=== PATIENT | male | born 1965 | race American Indian/Alaskan Native ===

== ENCOUNTER 2016-11-27 18:20 | Inpatient (IN) | payer MEDICARE, MEDICAID ==
--- NOTE | 2016-11-27 20:07 | C.PDOC ---
History Of Present Illness Patient, with a past medical history of end stage renal disease, hypertension, and hypercholesterolemia, is brought to the ED by ambulance from dialysis for becoming lethargic. Patient also complains of having a fever. Patient denies chest pain, nausea, or vomiting. Time Seen by Provider: 11/27/16 20:07 Chief Complaint (Nursing): Fever History Per: Patient History/Exam Limitations: no limitations Onset/Duration Of Symptoms: Mins (just prior to arrival) Current Symptoms Are (Timing): Still Present Location Of Pain: Other Sick Contacts (Context): None Associated Symptoms: Fever Ear Symptoms: Bilateral: None Severity: Mild Pain Scale Rating Of: 3 Recent travel outside of the [place]: No Additional History Per: EMS Past Medical History Reviewed: Historical Data, Nursing Documentation, Vital Signs Vital Signs: Last Vital Signs Temp 102.8 F H 11/27/16 18:36 Pulse 118 H 11/27/16 18:36 Resp 18 11/27/16 18:36 BP 152/77 H 11/27/16 18:36 Pulse Ox 91 L 11/27/16 22:02 - Medical History PMH: Anemia, HTN, Hypercholesterolemia, End Stage Renal Disease Family History: States: Unknown Family Hx - Social History Hx Alcohol Use: No Hx Substance Use: No Review Of Systems Constitutional: Positive for: Fever ENT: Negative for: Throat Pain Cardiovascular: Negative for: Chest Pain Respiratory: Positive for: Shortness of Breath Gastrointestinal: Negative for: Nausea, Vomiting Musculoskeletal: Negative for: Back Pain Skin: Negative for: Rash, Lesions, Jaundice Neurological: Negative for: Weakness Psych: Negative for: Anxiety Physical Exam - Physical Exam Appears: Non-toxic, Other (lethargic, slow to respond) Skin: Warm, Dry Head: Atraumatic, Normacephalic Eye(s): bilateral: Other (cataracts) Oral Mucosa: Dry Neck: Supple Chest: Symmetrical Cardiovascular: Rhythm Regular (tachycardic) Respiratory: No Rales, Rhonchi (scattered), No Wheezing Gastrointestinal/Abdominal: Bowel Sounds (tympanic to percussion), Soft, No Tenderness, Distention, No Guarding, No Rebound, Other (obese) Back: No CVA Tenderness Extremity: Other (bilateral below knee amputation; right AV fistula: good thrill and bruit) Neurological/Psych: Oriented x3 Gait: Unable To Assess ED Course And Treatment - Laboratory Results Result Diagrams: 11/27/16 20:21 11/27/16 20:21 ECG: Interpreted By Me, Viewed By Me ECG Rhythm: Sinus Rhythm (101), Nonspecific Changes O2 Sat by Pulse Oximetry: 91 (room air) Pulse Ox Interpretation: Abnormal - Radiology CXR: Interpreted by Me, Viewed By Me CXR Interpretation: Yes: Cardiomegaly, Other (mild chf, ? rll infiltrate). No: Fracture, Pnemothorax Progress Note: VBG, EKG, Labs, Chest x-ray, Tylenol Disposition Discussed With Dr.: Yordy Edwards Comment: accepted the pt on his service and tookover the care at 10:28 PM Doctor Will See Patient In The: Hospital Counseled Patient/Family Regarding: Studies Performed, Diagnosis - Disposition Disposition: HOSPITALIZED Disposition Time: 20:07 Condition: GUARDED - Clinical Impression Clinical Impression: Fever, CHF exacerbation, ESRD (end stage renal disease) on dialysis, Dyspnea, Pneumonia - Scribe Statement The provider has reviewed the documentation as recorded by the Gary Edwards Provider Attestation: All medical record entries made by the Scribe were at my direction and personally dictated by me. I have reviewed the chart and agree that the record accurately reflects my personal performance of the history, physical exam, medical decision making, and the department course for this patient. I have also personally directed, reviewed, and agree with the discharge instructions and disposition. Decision To Admit - Pt Status Changed To: Hospital Disposition Of: Inpatient - Admit Certification Admit to Inpatient:: After my assessment, the patient will require hospitalization for at least two midnights. This is because of the severity of symptoms shown, intensity of services needed, and/or the medical risk in this patient being treated as an outpatient. - InPatient: Physician Admission Certification:: After my assessment, the patient will require hospitalization for at least two midnights. This is because of the severity of symptoms shown, intensity of services needed, and/or the medical risk in this patient being treated as an outpatient. - . Bed Request Type: Telemetry Admitting Physician: Yordy Edwards Patient Diagnosis: Fever, CHF exacerbation, ESRD (end stage renal disease) on dialysis, Dyspnea, Pneumonia
[2016-11-27 20:33] LABS: VENOUS BLOOD GAS BASE EXCESS 7.2 mmol/L (0.0-2.0); VENOUS BLOOD GAS PCO2 51 mmHg (40-60); VENOUS BLOOD PH 7.42 (7.32-7.43)
[2016-11-27 20:34] LABS: BASO % 0.4 % (0.0-2.0); EOS % 0.2 % (0.0-4.0); LYMPH # 0.5 K/uL (1.0-4.3); LYMPH % 5.6 % (20.0-40.0); MEAN CELL VOLUME 86.2 fL (80.0-94.0); MEAN CORPUSCULAR HEMOGLOBIN 27.9 pg (27.0-31.0); MEAN CORPUSCULAR HGB CONC 32.3 g/dL (33.0-37.0); MONO # 0.6 K/uL (0.0-0.8); PLATELET COUNT 240 K/uL (130-400); RED CELL DISTRIBUTION WIDTH 19.9 % (11.5-14.5); WHITE BLOOD COUNT 8.2 K/uL (4.8-10.8)
[2016-11-27 20:41] LABS: POTASSIUM 3.9 mmol/L (3.6-5.2)
[2016-11-27 20:43] LABS: BILIRUBIN,TOTAL 0.8 mg/dL (0.2-1.3)
[2016-11-27 20:44] LABS: ALB/GLOB RATIO 1.1 (1.0-2.1); CALCIUM 8.4 mg/dl (8.6-10.4); INR 1.2; MAGNESIUM 2.1 mg/dL (1.6-2.3); PHOSPHOROUS 3.5 mg/dL (2.5-4.5); TOTAL PROTEIN 7.7 g/dL (6.3-8.3)
[2016-11-27 21:35] LABS: LARGE PLATELETS PRESENT; NEUTROPHIL 81 % (50-75); SMUDGE CELLS PRESENT; TOTAL CELLS COUNTED 100
[2016-11-27] MEDS ORDERED: Piperacillin/Tazobact 3.375 gm 100 ML IVPB STA (22:32)
[2016-11-27] MEDS ORDERED: Piperacillin/Tazobact 3.375 gm 100 ML IVPB ONE (22:50)
[2016-11-28] MEDS: Azithromycin 500 MG in Sodium Chloride 0.9% 250 ML IVPB SCH (06:16)
[2016-11-28 08:12] LABS: RBC URINE 5 /hpf (0-3); URINE BILIRUBIN NEGATIVE (NEGATIVE); URINE BLOOD NEGATIVE (NEGATIVE); URINE COLOR Yellow (YELLOW); URINE GLUCOSE (UA) NORMAL (Normal); URINE KETONE NEGATIVE (NEGATIVE); URINE LEUKOCYTE ESTERASE 3+ Leu/uL (Negative); URINE PROTEIN 2+ mg/dL (NEGATIVE); URINE UROBILINOGEN NORMAL mg/dL (0.2-1.0); WBC URINE 108 /hpf (0-5)
[2016-11-28 08:18] LABS: URINE BACTERIA MOD (<OCC)
[2016-11-28] MEDS: (Novolog) Insulin Aspart, Recombinant 100 u/ml 10 ml vial SC SCH ×4 (08:25→21:37)
--- NOTE | 2016-11-28 08:52 | RAD ---
HISTORY: Sepsis Patient COMPARISON: No prior. FINDINGS: LUNGS: Mild to moderate venous congestion. Patchy airspace opacity at the left lung base which may represent subtle infiltrate. Right hilar prominence. PLEURA: As above. CARDIOVASCULAR: Cardiomegaly. OSSEOUS STRUCTURES: No significant abnormalities. VISUALIZED UPPER ABDOMEN: Normal. OTHER FINDINGS: None. IMPRESSION: Mild to moderate venous congestion. Patchy airspace opacity at the left lung base which may represent subtle infiltrate. Right hilar prominence.
[2016-11-28] MEDS: Multivitamin Vitamin B Complex (Nephro-Vite) Tab PO SCH (09:19)
[2016-11-28] MEDS: Pantoprazole 40 mg EC Tab PO SCH (09:20)
[2016-11-28] MEDS: Insulin Detemir 100 units/ml Vial (Levemir) SC SCH ×2 (09:32→17:41)
[2016-11-28] MEDS ORDERED: cefTRIAXone IV 1 gm in Dextros 50 ML IVPB SCH (10:00)
[2016-11-28] MEDS ORDERED: Azithromycin 500 MG in Sodium Chloride 0.9% 250 ML IVPB SCH (10:00)
--- NOTE | 2016-11-28 11:03 | CP.PCM.HP ---
History of Present Illness - History of Present Illness History of Present Illness: 51 year old male with past medical history of end-stage renal disease, hypertension and hypercholesterolemia is brought to the ED by ambulance from dialysis for becoming lethargic. Patient also complains of having a fever. Patient denies chest pain, nausea or vomiting. Present on Admission - Present on Admission Any Indicators Present on Admission: No Past Patient History - Past Social History Smoking Status: Never Smoked - CARDIAC Hx Congestive Heart Failure: Yes Hx Hypercholesterolemia: Yes Hx Hypertension: Yes - PULMONARY Hx Pneumonia: Yes - NEUROLOGICAL HX Cerebrovascular Accident: Yes - HEENT Hx HEENT Problems: No - RENAL Hx Chronic Kidney Disease: Yes Hx Dialysis: Yes Type of Dialysis Access: lt arm shunt Date of Last Dialysis Treatment: 11/27/16 Hx Kidney Stones: No Hx Neurogenic Bladder: No Hx Pyelonephritis: No Hx Renal (Kidney) Cancer: No Hx Renal Failure: Yes - ENDOCRINE/METABOLIC Hx Diabetes Mellitus Type 1: Yes - HEMATOLOGICAL/ONCOLOGICAL Hx Anemia: Yes - INTEGUMENTARY Hx Dermatological Problems: No - MUSCULOSKELETAL/RHEUMATOLOGICAL Hx Falls: No - GASTROINTESTINAL Hx Gastrointestinal Disorders: No - GENITOURINARY/GYNECOLOGICAL Hx Genitourinary Disorders: No - PSYCHIATRIC Hx Psychophysiologic Disorder: No Hx Substance Use: No - SURGICAL HISTORY Other/Comment: priscila BKA, Lt avf - ANESTHESIA Hx Anesthesia: Yes Hx Anesthesia Reactions: No Hx Malignant Hyperthermia: No Has any member of the family had a problem w/ anesthesia?: No Meds Home Medications: Home Medication List Medication Instructions Recorded Confirmed Type Mag&Al/Simet/Diphen/Lido [First 3 ml PO Q6H kit 11/30/16 Rx Magic Mouthwash] Allergies/Adverse Reactions: Allergies Allergy/AdvReac Type Severity Reaction Status Date / Time No Known Allergies Allergy Unverified 11/27/16 18:43 Physical Exam - Constitutional Appears: Well - Head Exam Head Exam: ATRAUMATIC, NORMAL INSPECTION, NORMOCEPHALIC - Eye Exam Eye Exam: EOMI, Normal appearance, PERRL Pupil Exam: NORMAL ACCOMODATION, PERRL - ENT Exam ENT Exam: Mucous Membranes Moist, Normal Exam - Neck Exam Neck exam: Positive for: Normal Inspection - Respiratory Exam Respiratory Exam: Decreased Breath Sounds - Cardiovascular Exam Cardiovascular Exam: REGULAR RHYTHM, +S1, +S2 - GI/Abdominal Exam GI & Abdominal Exam: Diminished Bowel Sounds, Soft - Rectal Exam Rectal Exam: Deferred Results - Vital Signs Recent Vital Signs: Last Vital Signs Temp 98.7 F 11/28/16 07:00 Pulse 91 H 11/28/16 07:00 Resp 18 11/28/16 07:00 BP 143/60 11/28/16 07:00 Pulse Ox 96 11/28/16 07:00 - Labs Result Diagrams: 11/30/16 07:51 11/30/16 07:51 Labs: Laboratory Results - last 24 hr 11/28/16 11/28/16 06:36 07:29 POC Glucose (mg/dL) 157 H Urine Color Yellow Urine Clarity Hazy Urine pH 6.0 Ur Specific Ward 1.014 Urine Protein 2+ H Urine Glucose (UA) Normal Urine Ketones Negative Urine Blood Negative Urine Nitrate Negative Urine Bilirubin Negative Urine Urobilinogen Normal Ur Leukocyte Esterase 3+ H Urine WBC (Auto) 108 H Urine RBC (Auto) 5 H Ur Squamous Epith Cells 1 Amorphous Sediment Few H Urine Bacteria Mod H Assessment & Plan (1) Bacteremia Status: Acute (2) CHF (congestive heart failure) Status: Acute (3) CHF exacerbation Status: Acute (4) Diabetes mellitus Status: Chronic (5) Dyspnea Status: Acute (6) ESRD (end stage renal disease) on dialysis Status: Acute (7) Fever Status: Acute (8) High cholesterol Status: Acute (9) HTN (hypertension) Status: Chronic (10) Pneumonia Status: Acute (11) Prophylactic measure Status: Acute (12) UTI (urinary tract infection), bacterial Status: Acute - Assessment and Plan (Free Text) Plan: Consult pulmonary Consult shift lab technician Delfina Aspirin Coreg Porcine Zithromax Ceftriaxone Zosyn Rocephin Vancomycin Urinalysis
--- NOTE | 2016-11-28 11:12 | CP.PCM.PN ---
<Lalita Kay - Last Filed: 11/28/16 11:06> Subjective - Date & Time of Evaluation Date of Evaluation: 11/28/16 Time of Evaluation: 09:00 - Subjective Subjective: Medicine Progress Note- Dr. Edwards's Service: 51 year old AA male with PMHx of end stage renal disease on HD, hypertension, and hypercholesterolemia was admitted overnight from dialysis center for fever and lethargy.Patient seen and examined at bedside this AM. Patient has no complaints this AM. He is awake and oriented to time, place and person. No chest pain, SOB, fever, cough, headache, chest congestion, chest pain. Patient has bilateral BKA. Objective - Vital Signs/Intake and Output Vital Signs (last 24 hours): Temp Pulse Resp BP Pulse Ox 98.7 F 91 H 18 143/60 96 11/28/16 07:00 11/28/16 07:00 11/28/16 07:00 11/28/16 07:00 11/28/16 07:00 Intake and Output: 11/28/16 11/28/16 06:59 18:59 Intake Total 150 Output Total 150 Balance 0 - Medications Medications: Current Medications Acetaminophen (Tylenol 325mg Tab) 650 mg PO Q6 PRN PRN Reason: fever 101 and above Last Admin: 11/28/16 04:57 Dose: 650 mg Amlodipine Besylate (Norvasc) 20 mg PO DAILY [facility] Last Admin: 11/28/16 09:20 Dose: 20 mg Aspirin (Aspirin Chewable) 81 mg PO DAILY [facility] Last Admin: 11/28/16 09:20 Dose: 81 mg Calcitriol (Rocaltrol) 0.25 mcg PO DAILY [facility] Last Admin: 11/28/16 09:21 Dose: 0.25 mcg Carvedilol (Coreg) 6.25 mg PO BID [facility] Last Admin: 11/28/16 09:19 Dose: 6.25 mg Heparin Sodium (Porcine) (Heparin) 5,000 units SC Q12 [facility] Last Admin: 11/28/16 09:21 Dose: 5,000 units Azithromycin 500 mg/ Sodium (Chloride) 250 mls @ 250 mls/hr IVPB DAILY [facility] Last Admin: 11/28/16 06:16 Dose: 250 mls/hr Ceftriaxone Sodium 1 gm/ (Sodium Chloride) 100 mls @ 100 mls/hr IVPB DAILY [facility] Last Admin: 11/28/16 05:20 Dose: 100 mls/hr Vancomycin HCl 1 gm/ Sodium (Chloride) 250 mls @ 166.7 mls/hr IVPB DIAL PRN PRN Reason: pls give post HD Insulin Aspart (Novolog) 1 unit SC ACHS [facility] PRN Reason: Protocol Last Admin: 11/28/16 08:25 Dose: 1 unit Insulin Detemir (Levemir) 25 unit SC BID [facility] Last Admin: 11/28/16 09:32 Dose: 25 unit Pantoprazole Sodium (Protonix Ec Tab) 40 mg PO DAILY [facility] Last Admin: 11/28/16 09:20 Dose: 40 mg Rosuvastatin Calcium (Crestor) 10 mg PO HS [facility] Vitamin B Complex/Vit C/Folic Acid (Nephro-Mark) 1 tab PO DAILY [facility] Last Admin: 11/28/16 09:19 Dose: 1 tab - Labs Labs: PT 13.8 SECONDS (9.7-12.2) H 11/27/16 20:21 INR 1.2 11/27/16 20:21 APTT 32 SECONDS (21-34) 11/27/16 20:21 - Constitutional Appears: No Acute Distress - Head Exam Head Exam: NORMAL INSPECTION, NORMOCEPHALIC - Eye Exam Eye Exam: EOMI, Normal appearance - ENT Exam ENT Exam: Mucous Membranes Moist - Neck Exam Neck Exam: Full ROM, Normal Inspection - Respiratory Exam Respiratory Exam: Clear to Ausculation Bilateral, NORMAL BREATHING PATTERN - Cardiovascular Exam Cardiovascular Exam: REGULAR RHYTHM, +S1, +S2 - GI/Abdominal Exam GI & Abdominal Exam: Soft. absent: Distended, Tenderness - Extremities Exam Additional comments: bilateral BKA right AV fistula - Neurological Exam Neurological Exam: Alert, Awake, Oriented x3 - Psychiatric Exam Psychiatric exam: Normal Affect, Normal Mood - Skin Skin Exam: Normal Color, Warm Assessment and Plan (1) Fever Assessment & Plan: No leukocytosis on admission. F/U CBC this AM. T max overnight 102.4. CXR shows patchy air opacities in left lung base and right hilar prominence. Zosyn IVPB Rocephin IVPB Vanco IVPB Tylenol PRN for fever. f/u blood and urine Cx. Status: c (2) ESRD (end stage renal disease) on dialysis Assessment & Plan: Patient on HD on M, W, F Patient with AV fistula on right arm HD as scheduled. Nephro consulted . Status: c (3) Pneumonia Assessment & Plan: T max overnight 102.4. CXR shows patchy air opacities in left lung base and right hilar prominence. Pulm- Dr. Luna consulted- help appreciated. Zosyn IVPB Rocephin IVPB Vanco IVPB Status: c (4) CHF (congestive heart failure) Assessment & Plan: CXR shows cardiomegaly. Monitor on Tele. BNP 9360 EF unknown. f/u 2D ECHO Continue home meds: Coreg 6.25 mg PO BID Norvasc 20 mg PO daily Aspirin 81 mg PO daily Status: c (5) High cholesterol Assessment & Plan: Continue home meds: Crestor 10 mg PO HS Status: c (6) HTN (hypertension) Assessment & Plan: Continue home meds: Coreg 6.25 mg PO BID Norvasc 20 mg PO daily Status: c (7) Prophylactic measure Assessment & Plan: Heparin 5000 SC Q12H Protonic 40 mg PO daily Status: c - Assessment and Plan (Free Text) Assessment: Management as per Dr. Edwards <Yordy Edwards S - Last Filed: 03/14/17 21:21> Objective - Vital Signs/Intake and Output Vital Signs (last 24 hours): Temp Pulse Resp BP Pulse Ox 98.8 F 83 20 137/74 94 L 11/30/16 15:46 11/30/16 15:46 11/30/16 15:46 11/30/16 15:46 11/30/16 15:46 - Labs Labs: 11/30/16 07:51 11/30/16 07:51 PT 13.8 SECONDS (9.7-12.2) H 11/27/16 20:21 INR 1.2 11/27/16 20:21 APTT 32 SECONDS (21-34) 11/27/16 20:21 Assessment and Plan (1) Bacteremia Status: Acute (2) CHF (congestive heart failure) Status: Acute (3) CHF exacerbation Status: Acute (4) Dyspnea Status: Acute (5) ESRD (end stage renal disease) on dialysis Status: Acute (6) Fever Status: Acute (7) High cholesterol Status: Acute (8) Pneumonia Status: Acute (9) Prophylactic measure Status: Acute (10) UTI (urinary tract infection), bacterial Status: Acute (11) Diabetes mellitus Status: Chronic (12) HTN (hypertension) Status: Chronic Attending/Attestation - Attestation I have personally seen and examined this patient.: Yes I have fully participated in the care of the patient.: Yes I have reviewed all pertinent clinical information, including history, physical exam and plan: Yes Notes (Text): Case seen and discussed with the staff and the resident and agree patients on the dialysis diabetes hypertension feeling better
--- NOTE | 2016-11-28 11:18 | CP.PCM.PN ---
Subjective - Date & Time of Evaluation Date of Evaluation: 11/28/16 Time of Evaluation: 12:40 - Subjective Subjective: clinically same Objective - Vital Signs/Intake and Output Vital Signs (last 24 hours): Temp Pulse Resp BP Pulse Ox 98.7 F 91 H 18 143/60 96 11/28/16 07:00 11/28/16 07:00 11/28/16 07:00 11/28/16 07:00 11/28/16 07:00 Intake and Output: 11/28/16 11/28/16 06:59 18:59 Intake Total 150 Output Total 150 Balance 0 - Medications Medications: Current Medications Acetaminophen (Tylenol 325mg Tab) 650 mg PO Q6 PRN PRN Reason: fever 101 and above Last Admin: 11/28/16 04:57 Dose: 650 mg Amlodipine Besylate (Norvasc) 20 mg PO DAILY [facility] Last Admin: 11/28/16 09:20 Dose: 20 mg Aspirin (Aspirin Chewable) 81 mg PO DAILY [facility] Last Admin: 11/28/16 09:20 Dose: 81 mg Calcitriol (Rocaltrol) 0.25 mcg PO DAILY [facility] Last Admin: 11/28/16 09:21 Dose: 0.25 mcg Carvedilol (Coreg) 6.25 mg PO BID [facility] Last Admin: 11/28/16 09:19 Dose: 6.25 mg Heparin Sodium (Porcine) (Heparin) 5,000 units SC Q12 [facility] Last Admin: 11/28/16 09:21 Dose: 5,000 units Azithromycin 500 mg/ Sodium (Chloride) 250 mls @ 250 mls/hr IVPB DAILY [facility] Last Admin: 11/28/16 06:16 Dose: 250 mls/hr Ceftriaxone Sodium 1 gm/ (Sodium Chloride) 100 mls @ 100 mls/hr IVPB DAILY [facility] Last Admin: 11/28/16 05:20 Dose: 100 mls/hr Vancomycin HCl 1 gm/ Sodium (Chloride) 250 mls @ 166.7 mls/hr IVPB DIAL PRN PRN Reason: pls give post HD Insulin Aspart (Novolog) 1 unit SC ACHS [facility] PRN Reason: Protocol Last Admin: 11/28/16 08:25 Dose: 1 unit Insulin Detemir (Levemir) 25 unit SC BID [facility] Last Admin: 11/28/16 09:32 Dose: 25 unit Pantoprazole Sodium (Protonix Ec Tab) 40 mg PO DAILY [facility] Last Admin: 11/28/16 09:20 Dose: 40 mg Rosuvastatin Calcium (Crestor) 10 mg PO [facility] Vitamin B Complex/Vit C/Folic Acid (Nephro-Mark) 1 tab PO DAILY [facility] Last Admin: 11/28/16 09:19 Dose: 1 tab - Labs Labs: PT 13.8 SECONDS (9.7-12.2) H 11/27/16 20:21 INR 1.2 11/27/16 20:21 APTT 32 SECONDS (21-34) 11/27/16 20:21 - Constitutional Appears: Well - Head Exam Head Exam: ATRAUMATIC, NORMAL INSPECTION, NORMOCEPHALIC - Eye Exam Eye Exam: EOMI, Normal appearance, PERRL Pupil Exam: NORMAL ACCOMODATION, PERRL - ENT Exam ENT Exam: Mucous Membranes Moist, Normal Exam - Neck Exam Neck Exam: Full ROM, Normal Inspection. absent: Lymphadenopathy - Respiratory Exam Respiratory Exam: Decreased Breath Sounds - Cardiovascular Exam Cardiovascular Exam: REGULAR RHYTHM, +S1, +S2 - GI/Abdominal Exam GI & Abdominal Exam: Soft, Diminished Bowel Sounds - Rectal Exam Rectal Exam: Deferred Assessment and Plan (1) Bacteremia Status: Acute (2) CHF (congestive heart failure) Status: Acute (3) CHF exacerbation Status: Acute (4) Dyspnea Status: Acute (5) ESRD (end stage renal disease) on dialysis Status: Acute (6) Fever Status: Acute (7) High cholesterol Status: Acute (8) Pneumonia Status: Acute (9) Prophylactic measure Status: Acute (10) UTI (urinary tract infection), bacterial Status: Acute (11) Diabetes mellitus Status: Chronic (12) HTN (hypertension) Status: Chronic - Assessment and Plan (Free Text) Plan: consult pulmo consult nephrolgoist CXR shows patchy air opacities in left lung base and right hilar prominence. Zosyn IVPB Rocephin IVPB Vanco IVPB Tylenol PRN for fever. f/u blood and urine Cx.
[2016-11-28 11:38] LABS: BASO % 0.8 % (0.0-2.0); EOS % 0.6 % (0.0-4.0); HEMATOCRIT 26.6 % (35.0-51.0); LYMPH # 0.8 K/uL (1.0-4.3); LYMPH % 13.5 % (20.0-40.0); MEAN CELL VOLUME 86.5 fL (80.0-94.0); MEAN CORPUSCULAR HEMOGLOBIN 27.5 pg (27.0-31.0); MEAN CORPUSCULAR HGB CONC 31.8 g/dL (33.0-37.0); MEAN PLATELET VOLUME 8.8 fL (7.2-11.7); MONO # 0.7 K/uL (0.0-0.8); MONO % 12.7 % (0.0-10.0); NRBC % 0.1 % (0.0-2.0); RED CELL DISTRIBUTION WIDTH 19.6 % (11.5-14.5); WHITE BLOOD COUNT 5.7 K/uL (4.8-10.8)
[2016-11-28 11:48] LABS: POTASSIUM 3.9 mmol/L (3.6-5.2)
[2016-11-28 11:50] LABS: BILIRUBIN,TOTAL 0.4 mg/dL (0.2-1.3); TOTAL PROTEIN 6.8 g/dL (6.3-8.3)
[2016-11-28 11:51] LABS: CALCIUM 8.1 mg/dl (8.6-10.4); MAGNESIUM 2.1 mg/dL (1.6-2.3)
--- NOTE | 2016-11-28 12:31 | CP.PCM.CON ---
History of Present Illness - History of Present Illness History of Present Illness: 51 year old AA male with PMHx of end stage renal disease on HD, hypertension, and hypercholesterolemia was admitted overnight from dialysis center for fever and lethargy.Patient seen and examined at bedside this AM. Patient has no complaints this AM. He is awake and oriented to time, place and person. No chest pain, SOB, fever, cough, headache, chest congestion, chest pain. Patient has bilateral BKA. PMH: ESRD DM DIABETIC NEPHROPATHY PVD OBESITY PSH: BILATERAL BKA AVF WILL ARRANGE FOR DIALYSIS CONSULT DICTATED Past Patient History - Past Social History Smoking Status: Never Smoked - CARDIAC Hx Congestive Heart Failure: Yes Hx Hypercholesterolemia: Yes Hx Hypertension: Yes - PULMONARY Hx Pneumonia: Yes - NEUROLOGICAL HX Cerebrovascular Accident: Yes - HEENT Hx HEENT Problems: No - RENAL Hx Chronic Kidney Disease: Yes Hx Dialysis: Yes Type of Dialysis Access: lt arm shunt Date of Last Dialysis Treatment: 11/27/16 Hx Kidney Stones: No Hx Neurogenic Bladder: No Hx Pyelonephritis: No Hx Renal (Kidney) Cancer: No Hx Renal Failure: Yes - ENDOCRINE/METABOLIC Hx Diabetes Mellitus Type 1: Yes - HEMATOLOGICAL/ONCOLOGICAL Hx Anemia: Yes - INTEGUMENTARY Hx Dermatological Problems: No - MUSCULOSKELETAL/RHEUMATOLOGICAL Hx Falls: No - GASTROINTESTINAL Hx Gastrointestinal Disorders: No - GENITOURINARY/GYNECOLOGICAL Hx Genitourinary Disorders: No - PSYCHIATRIC Hx Psychophysiologic Disorder: No Hx Substance Use: No - SURGICAL HISTORY Other/Comment: priscila BKA, Lt avf - ANESTHESIA Hx Anesthesia: Yes Hx Anesthesia Reactions: No Hx Malignant Hyperthermia: No Has any member of the family had a problem w/ anesthesia?: No Meds Allergies/Adverse Reactions: Allergies Allergy/AdvReac Type Severity Reaction Status Date / Time No Known Allergies Allergy Unverified 11/27/16 18:43 - Medications Medications: Current Medications Acetaminophen (Tylenol 325mg Tab) 650 mg PO Q6 PRN PRN Reason: fever 101 and above Last Admin: 11/28/16 04:57 Dose: 650 mg Amlodipine Besylate (Norvasc) 20 mg PO DAILY [facility] Last Admin: 11/28/16 09:20 Dose: 20 mg Aspirin (Aspirin Chewable) 81 mg PO DAILY [facility] Last Admin: 11/28/16 09:20 Dose: 81 mg Calcitriol (Rocaltrol) 0.25 mcg PO DAILY [facility] Last Admin: 11/28/16 09:21 Dose: 0.25 mcg Carvedilol (Coreg) 6.25 mg PO BID [facility] Last Admin: 11/28/16 09:19 Dose: 6.25 mg Heparin Sodium (Porcine) (Heparin) 5,000 units SC Q12 [facility] Last Admin: 11/28/16 09:21 Dose: 5,000 units Azithromycin 500 mg/ Sodium (Chloride) 250 mls @ 250 mls/hr IVPB DAILY [facility] Last Admin: 11/28/16 06:16 Dose: 250 mls/hr Ceftriaxone Sodium 1 gm/ (Sodium Chloride) 100 mls @ 100 mls/hr IVPB DAILY [facility] Last Admin: 11/28/16 05:20 Dose: 100 mls/hr Vancomycin HCl 1 gm/ Sodium (Chloride) 250 mls @ 166.7 mls/hr IVPB DIAL PRN PRN Reason: pls give post HD Insulin Aspart (Novolog) 1 unit SC ACHS [facility] PRN Reason: Protocol Last Admin: 11/28/16 08:25 Dose: 1 unit Insulin Detemir (Levemir) 25 unit SC BID [facility] Last Admin: 11/28/16 09:32 Dose: 25 unit Pantoprazole Sodium (Protonix Ec Tab) 40 mg PO DAILY [facility] Last Admin: 11/28/16 09:20 Dose: 40 mg Rosuvastatin Calcium (Crestor) 10 mg PO [facility] Vitamin B Complex/Vit C/Folic Acid (Nephro-Mark) 1 tab PO DAILY [facility] Last Admin: 11/28/16 09:19 Dose: 1 tab Results - Vital Signs Recent Vital Signs: Last Vital Signs Temp 98.7 F 11/28/16 07:00 Pulse 91 H 11/28/16 07:00 Resp 18 11/28/16 07:00 BP 143/60 11/28/16 07:00 Pulse Ox 96 11/28/16 07:00 - Labs Result Diagrams: 11/28/16 11:21 11/28/16 11:21 Labs: Laboratory Results - last 24 hr 11/28/16 11/28/16 11/28/16 06:36 07:29 11:21 WBC 5.7 RBC 3.08 L Hgb 8.5 L Hct 26.6 L MCV 86.5 MCH 27.5 MCHC 31.8 L RDW 19.6 H Plt Count 197 MPV 8.8 Neut % (Auto) 72.4 Lymph % (Auto) 13.5 L [place] % (Auto) 12.7 H Eos % (Auto) 0.6 Baso % (Auto) 0.8 Neut # 4.1 Lymph # 0.8 L [place] # 0.7 Eos # 0.0 Baso # 0.0 Sodium 136 Potassium 3.9 Chloride 92 L Carbon Dioxide 28 Anion Gap 20 BUN 44 H Creatinine 8.9 H* D Est GFR ( Amer) 8 Est GFR (Non-Af Amer) 6 POC Glucose (mg/dL) 157 H Random Glucose 217 H Calcium 8.1 L Magnesium 2.1 Total Bilirubin 0.4 AST 47 ALT 20 L D Alkaline Phosphatase 79 Total Protein 6.8 Albumin 3.5 Globulin 3.3 Albumin/Globulin Ratio 1.0 Urine Color Yellow Urine Clarity Hazy Urine pH 6.0 Ur Specific [place] 1.014 Urine Protein 2+ H Urine Glucose (UA) Normal Urine Ketones Negative Urine Blood Negative Urine Nitrate Negative Urine Bilirubin Negative Urine Urobilinogen Normal Ur Leukocyte Esterase 3+ H Urine WBC (Auto) 108 H Urine RBC (Auto) 5 H Ur Squamous Epith Cells 1 Amorphous Sediment Few H Urine Bacteria Mod H 11/28/16 11:54 WBC RBC Hgb Hct MCV MCH MCHC RDW Plt Count MPV Neut % (Auto) Lymph % (Auto) [place] % (Auto) Eos % (Auto) Baso % (Auto) Neut # Lymph # [place] # Eos # Baso # Sodium Potassium Chloride Carbon Dioxide Anion Gap BUN Creatinine Est GFR ( Amer) Est GFR (Non-Af Amer) POC Glucose (mg/dL) 237 H Random Glucose Calcium Magnesium Total Bilirubin AST ALT Alkaline Phosphatase Total Protein Albumin Globulin Albumin/Globulin Ratio Urine Color Urine Clarity Urine pH Ur Specific [place] Urine Protein Urine Glucose (UA) Urine Ketones Urine Blood Urine Nitrate Urine Bilirubin Urine Urobilinogen Ur Leukocyte Esterase Urine WBC (Auto) Urine RBC (Auto) Ur Squamous Epith Cells Amorphous Sediment Urine Bacteria
--- NOTE | 2016-11-28 13:50 | CON ---
DATE: 11/28/2016 The patient is a 51-year-old man with past medical history of end-stage renal diseas e, he has been on maintenance hemodialysis for approximately 2 years; history of diabetic nephropathy , hypertension, dyslipidemia. Was admitted from dialysis ____ fevers and chills and increasing geoff rgy. It is unclear the source. The patient has history of bilateral BKA, but ____ well healed. He has a chronic Skinner insertion for neurogenic bladder. PAST SURGICAL HISTORY: Bilateral BKA and AV fistula. SOCIAL HISTORY: Positive for smoking. No history of alcohol abuse or illicit drug use. FAMILY HISTORY: Noncontributory. REVIEW OF SYSTEMS: Fevers and chills. He is cared because of bilateral BKA. He has a chronic Skinner . No new rashes. No chest pain. He has been obese and edematous. PHYSICAL EXAMINATION: GENERAL: He is a well-developed man. VITAL SIGNS: Blood pressure 143/____, T-max is 102.4, pulse is 91, pulse ox is 96% with a nasal kecia lisa. HEENT: Anicteric. Mouth is clear. NECK: No JVD. LUNGS: Benjamin were clear anteriorly. HEART: Regular rhythm. No murmur. ABDOMEN: Distended, no masses. EXTREMITIES: Bilateral BKA. GENITOURINARY: He had a Skinner catheter in place. Blood work showed a hemoglobin of 8.5, creatinine of 8.9, calcium of 8.1. Urinalysis showed 2+ prote in, 3+ leukocytes and moderate amount of bacteria. IMPRESSION: The patient has fevers, rule out urosepsis, end-stage renal disease, diabetic nephropath y, diabetes mellitus, hypertension, peripheral vascular disease for which he has bilateral below-knee amputation. PLAN: We will arrange for dialysis and also, we will obtain urine cultures and blood cultures as nee ded. We will follow up. Duane Ridley MD cc: [id number] TT: 11/28/2016 13:49:35 Confirmation # [id number] Dictation # [id number]
--- NOTE | 2016-11-28 17:42 | CP.PCM.CON ---
Past Patient History - Past Social History Smoking Status: Never Smoked - CARDIAC Hx Hypercholesterolemia: Yes Hx Hypertension: Yes - PULMONARY Hx Pneumonia: Yes - NEUROLOGICAL HX Cerebrovascular Accident: Yes - HEENT Hx HEENT Problems: No - RENAL Hx Renal Failure: Yes - ENDOCRINE/METABOLIC Hx Diabetes Mellitus Type 1: Yes - HEMATOLOGICAL/ONCOLOGICAL Hx Anemia: Yes - INTEGUMENTARY Hx Dermatological Problems: No - MUSCULOSKELETAL/RHEUMATOLOGICAL Hx Falls: No - GASTROINTESTINAL Hx Gastrointestinal Disorders: No - GENITOURINARY/GYNECOLOGICAL Hx Genitourinary Disorders: No - PSYCHIATRIC Hx Psychophysiologic Disorder: No Hx Substance Use: No - SURGICAL HISTORY Other/Comment: priscila BKA, Lt avf - ANESTHESIA Hx Anesthesia: Yes Hx Anesthesia Reactions: No Hx Malignant Hyperthermia: No Has any member of the family had a problem w/ anesthesia?: No Meds Allergies/Adverse Reactions: Allergies Allergy/AdvReac Type Severity Reaction Status Date / Time No Known Allergies Allergy Unverified 11/27/16 18:43 - Medications Medications: Current Medications Acetaminophen (Tylenol 325mg Tab) 650 mg PO Q6 PRN PRN Reason: fever 101 and above Last Admin: 11/28/16 04:57 Dose: 650 mg Amlodipine Besylate (Norvasc) 20 mg PO DAILY [facility] Last Admin: 11/28/16 09:20 Dose: 20 mg Aspirin (Aspirin Chewable) 81 mg PO DAILY [facility] Last Admin: 11/28/16 09:20 Dose: 81 mg Calcitriol (Rocaltrol) 0.25 mcg PO DAILY [facility] Last Admin: 11/28/16 09:21 Dose: 0.25 mcg Carvedilol (Coreg) 6.25 mg PO BID [facility] Last Admin: 11/28/16 09:19 Dose: 6.25 mg Heparin Sodium (Porcine) (Heparin) 5,000 units SC Q12 [facility] Last Admin: 11/28/16 09:21 Dose: 5,000 units Azithromycin 500 mg/ Sodium (Chloride) 250 mls @ 250 mls/hr IVPB DAILY [facility] Last Admin: 11/28/16 06:16 Dose: 250 mls/hr Ceftriaxone Sodium 1 gm/ (Sodium Chloride) 100 mls @ 100 mls/hr IVPB DAILY [facility] Last Admin: 11/28/16 05:20 Dose: 100 mls/hr Vancomycin HCl 1 gm/ Sodium (Chloride) 250 mls @ 166.7 mls/hr IVPB DIAL PRN PRN Reason: pls give post HD Insulin Aspart (Novolog) 0 unit SC ACHS [facility] PRN Reason: Protocol Insulin Detemir (Levemir) 25 unit SC BID [facility] Last Admin: 11/28/16 09:32 Dose: 25 unit Pantoprazole Sodium (Protonix Ec Tab) 40 mg PO DAILY [facility] Last Admin: 11/28/16 09:20 Dose: 40 mg Rosuvastatin Calcium (Crestor) 10 mg PO [facility] Vitamin B Complex/Vit C/Folic Acid (Nephro-Mark) 1 tab PO DAILY [facility] Last Admin: 11/28/16 09:19 Dose: 1 tab Results - Vital Signs Recent Vital Signs: Last Vital Signs Temp 99.5 F 11/28/16 15:55 Pulse 89 11/28/16 15:55 Resp 20 11/28/16 15:55 BP 131/72 11/28/16 15:55 Pulse Ox 99 11/28/16 15:55 - Labs Result Diagrams: 11/28/16 11:21 11/28/16 11:21 Labs: Laboratory Results - last 24 hr 11/28/16 11/28/16 11/28/16 06:36 07:29 11:21 WBC 5.7 RBC 3.08 L Hgb 8.5 L Hct 26.6 L MCV 86.5 MCH 27.5 MCHC 31.8 L RDW 19.6 H Plt Count 197 MPV 8.8 Neut % (Auto) 72.4 Lymph % (Auto) 13.5 L [place] % (Auto) 12.7 H Eos % (Auto) 0.6 Baso % (Auto) 0.8 Neut # 4.1 Lymph # 0.8 L [place] # 0.7 Eos # 0.0 Baso # 0.0 Sodium 136 Potassium 3.9 Chloride 92 L Carbon Dioxide 28 Anion Gap 20 BUN 44 H Creatinine 8.9 H* D Est GFR ( Amer) 8 Est GFR (Non-Af Amer) 6 POC Glucose (mg/dL) 157 H Random Glucose 217 H Calcium 8.1 L Magnesium 2.1 Total Bilirubin 0.4 AST 47 ALT 20 L D Alkaline Phosphatase 79 Total Protein 6.8 Albumin 3.5 Globulin 3.3 Albumin/Globulin Ratio 1.0 Urine Color Yellow Urine Clarity Hazy Urine pH 6.0 Ur Specific [place] 1.014 Urine Protein 2+ H Urine Glucose (UA) Normal Urine Ketones Negative Urine Blood Negative Urine Nitrate Negative Urine Bilirubin Negative Urine Urobilinogen Normal Ur Leukocyte Esterase 3+ H Urine WBC (Auto) 108 H Urine RBC (Auto) 5 H Ur Squamous Epith Cells 1 Amorphous Sediment Few H Urine Bacteria Mod H 11/28/16 11/28/16 11:54 16:57 WBC RBC Hgb Hct MCV MCH MCHC RDW Plt Count MPV Neut % (Auto) Lymph % (Auto) [place] % (Auto) Eos % (Auto) Baso % (Auto) Neut # Lymph # [place] # Eos # Baso # Sodium Potassium Chloride Carbon Dioxide Anion Gap BUN Creatinine Est GFR ( Amer) Est GFR (Non-Af Amer) POC Glucose (mg/dL) 237 H 266 H Random Glucose Calcium Magnesium Total Bilirubin AST ALT Alkaline Phosphatase Total Protein Albumin Globulin Albumin/Globulin Ratio Urine Color Urine Clarity Urine pH Ur Specific [place] Urine Protein Urine Glucose (UA) Urine Ketones Urine Blood Urine Nitrate Urine Bilirubin Urine Urobilinogen Ur Leukocyte Esterase Urine WBC (Auto) Urine RBC (Auto) Ur Squamous Epith Cells Amorphous Sediment Urine Bacteria
--- NOTE | 2016-11-28 18:52 | CARD ---
APPROVED REPORT EXAM: Two-dimensional and M-mode echocardiogram with Doppler and color Doppler. Other Information Quality : Technically LimitedRhythm : NSR INDICATION Dyspnea Congestive Heart Failure RISK FACTORS Hypertension Hyperlipidemia M-Mode DIMENSIONS RVDd0.95 (2.1-3.2cm)Left Atrium (MM)4.56 (2.5-4.0cm) IVSd0.91 (0.7-1.1cm)Aortic Root3.47 (2.2-3.7cm) LVDd5.68 (4.0-5.6cm)Aortic Cusp Exc.1.91 (1.5-2.0cm) PWd0.95 (0.7-1.1cm)FS (%) 28 % LVDs4.08 (2.0-3.8cm)LVEF (%)54 (>50%) Aortic Valve AoV Peak Zxajqiem602.1cm/Angel Peak GR.9mmHg Mitral Valve MV E Pweawups685.2cm/sMV A Kygpiuhz657.8cm/sE/A ratio1.2 TDI E/Lateral E'0.0E/Medial E'0.0 LEFT VENTRICLE The left ventricle is normal size. There is normal left ventricular wall thickness. The left ventricular function is normal. The left ventricular ejection fraction is within the normal range. There is normal LV segmental wall motion. The left ventricular diastolic function is normal. RIGHT VENTRICLE The right ventricle is normal size. There is normal right ventricular wall thickness. ATRIA The left atrium is mildly dilated. The right atrium size is normal. AORTIC VALVE The aortic valve is normal in structure. MITRAL VALVE The mitral valve is normal in structure. TRICUSPID VALVE The tricuspid valve is normal in structure. <Conclusion> Normal LV systoli cfunction. Dilaed LA. No significant valvular abnormality seen.
--- NOTE | 2016-11-28 18:54 | CARD ---
APPROVED REPORT EKG Measurement Heart [id number] <Conclusion> Sinus tachycardia with 1st degree AV block Possible Left atrial enlargement Anterior infarct, age undetermined Abnormal ECG
[2016-11-29 07:32] LABS: BASO # 0.1 K/uL (0.0-0.2); BASO % 0.7 % (0.0-2.0); EOS # 0.1 K/uL (0.0-0.7); EOS % 0.9 % (0.0-4.0); HEMATOCRIT 27.5 % (35.0-51.0); LYMPH % 8.7 % (20.0-40.0); MEAN CELL VOLUME 84.8 fL (80.0-94.0); MEAN CORPUSCULAR HEMOGLOBIN 27.7 pg (27.0-31.0); MEAN CORPUSCULAR HGB CONC 32.7 g/dL (33.0-37.0); MONO % 9.1 % (0.0-10.0); NRBC % 0.1 % (0.0-2.0); PLATELET COUNT 216 K/uL (130-400); RED CELL DISTRIBUTION WIDTH 20.1 % (11.5-14.5); WHITE BLOOD COUNT 11.3 K/uL (4.8-10.8)
[2016-11-29 07:58] LABS: POTASSIUM 3.8 mmol/L (3.6-5.2)
[2016-11-29 08:00] LABS: ALB/GLOB RATIO 1.1 (1.0-2.1); BILIRUBIN,TOTAL 0.5 mg/dL (0.2-1.3); CALCIUM 8.1 mg/dl (8.6-10.4); TOTAL PROTEIN 7.1 g/dL (6.3-8.3)
[2016-11-29 08:01] LABS: MAGNESIUM 2.2 mg/dL (1.6-2.3)
[2016-11-29] MEDS: (Novolog) Insulin Aspart, Recombinant 100 u/ml 10 ml vial SC SCH ×4 (08:15→23:33)
[2016-11-29 09:20] LABS: NEUTROPHIL 76 % (50-75); TOTAL CELLS COUNTED 100
[2016-11-29] MEDS: Multivitamin Vitamin B Complex (Nephro-Vite) Tab PO SCH (09:21)
[2016-11-29] MEDS: Pantoprazole 40 mg EC Tab PO SCH (09:22)
--- NOTE | 2016-11-29 10:52 | CP.PCM.PN ---
<Kamaljit Esteves H - Last Filed: 11/29/16 17:45> Subjective - Date & Time of Evaluation Date of Evaluation: 11/29/16 Time of Evaluation: 11:00 - Subjective Subjective: Dr. Edwards service: Patient seen while in dialysis center, unable to obtain history from patient due to his condition. He is in bed comfortable. Objective - Vital Signs/Intake and Output Vital Signs (last 24 hours): Temp Pulse Resp BP Pulse Ox 99.3 F 90 20 142/75 94 L 11/29/16 07:00 11/29/16 07:00 11/29/16 07:00 11/29/16 07:00 11/29/16 07:00 Intake and Output: 11/29/16 11/29/16 06:59 18:59 Intake Total 120 Balance 120 - Medications Medications: Current Medications Acetaminophen (Tylenol 325mg Tab) 650 mg PO Q6 PRN PRN Reason: fever 101 and above Last Admin: 11/28/16 04:57 Dose: 650 mg Amlodipine Besylate (Norvasc) 20 mg PO DAILY [facility] Last Admin: 11/29/16 09:21 Dose: 20 mg Aspirin (Aspirin Chewable) 81 mg PO DAILY [facility] Last Admin: 11/29/16 09:22 Dose: 81 mg Calcitriol (Rocaltrol) 0.25 mcg PO DAILY [facility] Last Admin: 11/29/16 09:22 Dose: 0.25 mcg Carvedilol (Coreg) 6.25 mg PO BID [facility] Last Admin: 11/29/16 09:22 Dose: 6.25 mg Heparin Sodium (Porcine) (Heparin) 5,000 units SC Q12 [facility] Last Admin: 11/29/16 09:24 Dose: Not Given Azithromycin 500 mg/ Sodium (Chloride) 250 mls @ 250 mls/hr IVPB DAILY [facility] Last Admin: 11/28/16 06:16 Dose: 250 mls/hr Ceftriaxone Sodium 1 gm/ (Sodium Chloride) 100 mls @ 100 mls/hr IVPB DAILY [facility] Last Admin: 11/28/16 05:20 Dose: 100 mls/hr Vancomycin HCl 1 gm/ Sodium (Chloride) 250 mls @ 166.7 mls/hr IVPB DIAL PRN PRN Reason: pls give post HD Insulin Aspart (Novolog) 0 unit SC ACHS [facility] PRN Reason: Protocol Last Admin: 11/29/16 08:15 Dose: 1 unit Insulin Detemir (Levemir) 25 unit SC BID [facility] Last Admin: 11/28/16 17:41 Dose: 25 unit Pantoprazole Sodium (Protonix Ec Tab) 40 mg PO DAILY [facility] Last Admin: 11/29/16 09:22 Dose: 40 mg Rosuvastatin Calcium (Crestor) 10 mg PO HS [facility] Last Admin: 11/28/16 21:36 Dose: 10 mg Vitamin B Complex/Vit C/Folic Acid (Nephro-Mark) 1 tab PO DAILY [facility] Last Admin: 11/29/16 09:21 Dose: 1 tab - Labs Labs: 11/29/16 07:20 11/29/16 07:20 PT 13.8 SECONDS (9.7-12.2) H 11/27/16 20:21 INR 1.2 11/27/16 20:21 APTT 32 SECONDS (21-34) 11/27/16 20:21 - Constitutional Appears: No Acute Distress - Head Exam Head Exam: NORMAL INSPECTION - Eye Exam Eye Exam: Normal appearance Pupil Exam: NORMAL ACCOMODATION - ENT Exam ENT Exam: Mucous Membranes Moist - Neck Exam Neck Exam: Normal Inspection - Respiratory Exam Respiratory Exam: Clear to Ausculation Bilateral. absent: Rhonchi, Wheezes - Cardiovascular Exam Cardiovascular Exam: REGULAR RHYTHM - GI/Abdominal Exam GI & Abdominal Exam: Soft, Normal Bowel Sounds. absent: Tenderness - Extremities Exam Extremities Exam: Normal Inspection - Back Exam Back Exam: NORMAL INSPECTION - Skin Skin Exam: Pallor Assessment and Plan (1) Pneumonia Assessment & Plan: On IV Rocephin day 3 and IV Vanco post dialysis. Status: c (2) High cholesterol Assessment & Plan: continue statin Status: c (3) HTN (hypertension) Assessment & Plan: continue his home medication Status: h (4) Prophylactic measure Assessment & Plan: protonix 40mg Heparin 5000 units sc q8h Status: c (5) Bacteremia Assessment & Plan: Gram positive in both the blood and urine. Dr. Oro consulted. Patient on IV antibiotics, will follow up with Dr. Oro. Patient has developed a white count with left shift. Follow up am labs, and HIV antibody screen. Status: c (6) UTI (urinary tract infection), bacterial Assessment & Plan: see not for pneumonia, Dr. Oro consulted for ID, follow up urine sensitivity. Status: c (7) Diabetes mellitus Assessment & Plan: Continue his home Levemir 25 units and also accu checks with sliding scale. Status: h <Yordy Edwards - Last Filed: 03/14/17 21:22> Objective - Vital Signs/Intake and Output Vital Signs (last 24 hours): Temp Pulse Resp BP Pulse Ox 98.8 F 83 20 137/74 94 L 11/30/16 15:46 11/30/16 15:46 11/30/16 15:46 11/30/16 15:46 11/30/16 15:46 - Labs Labs: 11/30/16 07:51 11/30/16 07:51 PT 13.8 SECONDS (9.7-12.2) H 11/27/16 20:21 INR 1.2 11/27/16 20:21 APTT 32 SECONDS (21-34) 11/27/16 20:21 Assessment and Plan (1) Bacteremia Status: Acute (2) CHF (congestive heart failure) Status: Acute (3) CHF exacerbation Status: Acute (4) Dyspnea Status: Acute (5) ESRD (end stage renal disease) on dialysis Status: Acute (6) Fever Status: Acute (7) High cholesterol Status: Acute (8) Pneumonia Status: Acute (9) Prophylactic measure Status: Acute (10) UTI (urinary tract infection), bacterial Status: Acute (11) Diabetes mellitus Status: Chronic (12) HTN (hypertension) Status: Chronic Attending/Attestation - Attestation I have personally seen and examined this patient.: Yes I have fully participated in the care of the patient.: Yes I have reviewed all pertinent clinical information, including history, physical exam and plan: Yes Notes (Text): Case seen and discussed with the staff and resident management as agreed patient is on the dialysis diabetes hypertension status post dialysis feels better
--- NOTE | 2016-11-29 13:18 | CP.PCM.PN ---
Subjective - Date & Time of Evaluation Date of Evaluation: 11/29/16 Time of Evaluation: 13:16 - Subjective Subjective: Seen at dialysis - trying to UF 2500ml + blood, urine cultures for GPC Started on IV ABs Poor historian Still very swollen- tolerating fluid removal so far Objective - Vital Signs/Intake and Output Vital Signs (last 24 hours): Temp Pulse Resp BP Pulse Ox 98.5 F 91 H 18 136/70 96 11/29/16 10:15 11/29/16 10:00 11/29/16 10:15 11/29/16 12:00 11/29/16 10:15 Intake and Output: 11/29/16 11/29/16 06:59 18:59 Intake Total 120 Balance 120 - Medications Medications: Current Medications Acetaminophen (Tylenol 325mg Tab) 650 mg PO Q6 PRN PRN Reason: fever 101 and above Last Admin: 11/28/16 04:57 Dose: 650 mg Amlodipine Besylate (Norvasc) 20 mg PO DAILY [facility] Last Admin: 11/29/16 09:21 Dose: 20 mg Aspirin (Aspirin Chewable) 81 mg PO DAILY [facility] Last Admin: 11/29/16 09:22 Dose: 81 mg Calcitriol (Rocaltrol) 0.25 mcg PO DAILY [facility] Last Admin: 11/29/16 09:22 Dose: 0.25 mcg Carvedilol (Coreg) 6.25 mg PO BID [facility] Last Admin: 11/29/16 09:22 Dose: 6.25 mg Heparin Sodium (Porcine) (Heparin) 5,000 units SC Q12 [facility] Last Admin: 11/29/16 09:24 Dose: Not Given Azithromycin 500 mg/ Sodium (Chloride) 250 mls @ 250 mls/hr IVPB DAILY [facility] Last Admin: 11/28/16 06:16 Dose: 250 mls/hr Ceftriaxone Sodium 1 gm/ (Sodium Chloride) 100 mls @ 100 mls/hr IVPB DAILY [facility] Last Admin: 11/28/16 05:20 Dose: 100 mls/hr Vancomycin HCl 1 gm/ Sodium (Chloride) 250 mls @ 166.7 mls/hr IVPB DIAL PRN PRN Reason: pls give post HD Insulin Aspart (Novolog) 0 unit SC ACHS [facility] PRN Reason: Protocol Last Admin: 11/29/16 08:15 Dose: 1 unit Insulin Detemir (Levemir) 25 unit SC BID [facility] Last Admin: 11/28/16 17:41 Dose: 25 unit Pantoprazole Sodium (Protonix Ec Tab) 40 mg PO DAILY [facility] Last Admin: 11/29/16 09:22 Dose: 40 mg Rosuvastatin Calcium (Crestor) 10 mg PO HS [facility] Last Admin: 11/28/16 21:36 Dose: 10 mg Vitamin B Complex/Vit C/Folic Acid (Nephro-Mark) 1 tab PO DAILY [facility] Last Admin: 11/29/16 09:21 Dose: 1 tab - Labs Labs: 11/29/16 07:20 11/29/16 07:20 PT 13.8 SECONDS (9.7-12.2) H 11/27/16 20:21 INR 1.2 11/27/16 20:21 APTT 32 SECONDS (21-34) 11/27/16 20:21 - Constitutional Appears: Confused, Chronically Ill - Head Exam Head Exam: ATRAUMATIC, NORMAL INSPECTION - Eye Exam Eye Exam: EOMI, Normal appearance - Neck Exam Neck Exam: Normal Inspection. absent: Tenderness - Respiratory Exam Respiratory Exam: Rhonchi, NORMAL BREATHING PATTERN - Cardiovascular Exam Cardiovascular Exam: REGULAR RHYTHM, +S1 - GI/Abdominal Exam GI & Abdominal Exam: Distended, Firm. absent: Tenderness - Extremities Exam Extremities Exam: Pedal Edema, Tenderness - Neurological Exam Neurological Exam: Awake, CN II-XII Intact - Skin Skin Exam: Dry, Warm Assessment and Plan (1) Bacteremia Status: Acute (2) CHF (congestive heart failure) Status: Acute (3) ESRD (end stage renal disease) on dialysis Status: Acute (4) Diabetes mellitus Status: Chronic (5) HTN (hypertension) Status: Chronic - Assessment and Plan (Free Text) Plan: IV ABs Dialysis with adequate UF
[2016-11-29] MEDS: Mag&Al/Simet/Diphen/Lido 237 ML KIT PO SCH ×2 (16:00→22:00)
[2016-11-29 16:10] VITALS: RESP 20
--- NOTE | 2016-11-29 16:56 | CP.PCM.PN ---
Subjective - Date & Time of Evaluation Date of Evaluation: 11/29/16 Time of Evaluation: 16:56 Objective - Vital Signs/Intake and Output Vital Signs (last 24 hours): Temp Pulse Resp BP Pulse Ox 99.4 F 99 H 20 143/75 95 11/29/16 16:04 11/29/16 16:04 11/29/16 16:04 11/29/16 16:04 11/29/16 16:04 Intake and Output: 11/29/16 11/29/16 06:59 18:59 Intake Total 120 Balance 120 - Medications Medications: Current Medications Acetaminophen (Tylenol 325mg Tab) 650 mg PO Q6 PRN PRN Reason: fever 101 and above Last Admin: 11/28/16 04:57 Dose: 650 mg Amlodipine Besylate (Norvasc) 20 mg PO DAILY [facility] Last Admin: 11/29/16 09:21 Dose: 20 mg Aspirin (Aspirin Chewable) 81 mg PO DAILY [facility] Last Admin: 11/29/16 09:22 Dose: 81 mg Calcitriol (Rocaltrol) 0.25 mcg PO DAILY [facility] Last Admin: 11/29/16 09:22 Dose: 0.25 mcg Carvedilol (Coreg) 6.25 mg PO BID [facility] Last Admin: 11/29/16 09:22 Dose: 6.25 mg Heparin Sodium (Porcine) (Heparin) 5,000 units SC Q12 [facility] Last Admin: 11/29/16 09:24 Dose: Not Given Azithromycin 500 mg/ Sodium (Chloride) 250 mls @ 250 mls/hr IVPB DAILY [facility] Last Admin: 11/28/16 06:16 Dose: 250 mls/hr Ceftriaxone Sodium 1 gm/ (Sodium Chloride) 100 mls @ 100 mls/hr IVPB DAILY [facility] Last Admin: 11/29/16 15:04 Dose: 100 mls/hr Vancomycin HCl 1 gm/ Sodium (Chloride) 250 mls @ 166.7 mls/hr IVPB DIAL PRN PRN Reason: pls give post HD Insulin Aspart (Novolog) 0 unit SC ACHS [facility] PRN Reason: Protocol Last Admin: 11/29/16 15:02 Dose: Not Given Insulin Detemir (Levemir) 25 unit SC BID [facility] Last Admin: 11/28/16 17:41 Dose: 25 unit Pantoprazole Sodium (Protonix Ec Tab) 40 mg PO DAILY [facility] Last Admin: 11/29/16 09:22 Dose: 40 mg Rosuvastatin Calcium (Crestor) 10 mg PO HS [facility] Last Admin: 11/28/16 21:36 Dose: 10 mg Saliva Substitute (First Magic Mouthwash) 3 ml PO Q6H [facility] Vitamin B Complex/Vit C/Folic Acid (Nephro-Mark) 1 tab PO DAILY [facility] Last Admin: 11/29/16 09:21 Dose: 1 tab - Labs Labs: 11/29/16 07:20 11/29/16 07:20 PT 13.8 SECONDS (9.7-12.2) H 11/27/16 20:21 INR 1.2 11/27/16 20:21 APTT 32 SECONDS (21-34) 11/27/16 20:21
[2016-11-29] MEDS: Insulin Detemir 100 units/ml Vial (Levemir) SC SCH (17:22)
--- NOTE | 2016-11-29 18:23 | CP.PCM.CON ---
History of Present Illness - History of Present Illness History of Present Illness: Patient, with a past medical history of end stage renal disease, hypertension, and hypercholesterolemia, is brought to the ED by ambulance from dialysis for becoming lethargic. Patient also complains of having a fever. Patient denies chest pain, nausea, or vomiting.\ + BLOOD C/S IV RX IN PROGRESS MAY NEED ECHO/LEILANI Past Patient History - Past Social History Smoking Status: Never Smoked - CARDIAC Hx Hypercholesterolemia: Yes Hx Hypertension: Yes - PULMONARY Hx Pneumonia: Yes - NEUROLOGICAL HX Cerebrovascular Accident: Yes - HEENT Hx HEENT Problems: No - RENAL Hx Renal Failure: Yes - ENDOCRINE/METABOLIC Hx Diabetes Mellitus Type 1: Yes - HEMATOLOGICAL/ONCOLOGICAL Hx Anemia: Yes - INTEGUMENTARY Hx Dermatological Problems: No - MUSCULOSKELETAL/RHEUMATOLOGICAL Hx Falls: No - GASTROINTESTINAL Hx Gastrointestinal Disorders: No - GENITOURINARY/GYNECOLOGICAL Hx Genitourinary Disorders: No - PSYCHIATRIC Hx Psychophysiologic Disorder: No Hx Substance Use: No - SURGICAL HISTORY Other/Comment: priscila BKA, Lt avf - ANESTHESIA Hx Anesthesia: Yes Hx Anesthesia Reactions: No Hx Malignant Hyperthermia: No Has any member of the family had a problem w/ anesthesia?: No Meds Allergies/Adverse Reactions: Allergies Allergy/AdvReac Type Severity Reaction Status Date / Time No Known Allergies Allergy Unverified 11/27/16 18:43 - Medications Medications: Current Medications Acetaminophen (Tylenol 325mg Tab) 650 mg PO Q6 PRN PRN Reason: fever 101 and above Last Admin: 11/28/16 04:57 Dose: 650 mg Amlodipine Besylate (Norvasc) 20 mg PO DAILY [facility] Last Admin: 11/29/16 09:21 Dose: 20 mg Aspirin (Aspirin Chewable) 81 mg PO DAILY [facility] Last Admin: 11/29/16 09:22 Dose: 81 mg Calcitriol (Rocaltrol) 0.25 mcg PO DAILY [facility] Last Admin: 11/29/16 09:22 Dose: 0.25 mcg Carvedilol (Coreg) 6.25 mg PO BID [facility] Last Admin: 11/29/16 17:21 Dose: 6.25 mg Heparin Sodium (Porcine) (Heparin) 5,000 units SC Q12 [facility] Last Admin: 11/29/16 09:24 Dose: Not Given Azithromycin 500 mg/ Sodium (Chloride) 250 mls @ 250 mls/hr IVPB DAILY [facility] Last Admin: 11/28/16 06:16 Dose: 250 mls/hr Ceftriaxone Sodium 1 gm/ (Sodium Chloride) 100 mls @ 100 mls/hr IVPB DAILY [facility] Last Admin: 11/29/16 15:04 Dose: 100 mls/hr Vancomycin HCl 1 gm/ Sodium (Chloride) 250 mls @ 166.7 mls/hr IVPB DIAL PRN PRN Reason: pls give post HD Last Admin: 11/29/16 17:59 Dose: 166.7 mls/hr Insulin Aspart (Novolog) 0 unit SC ACHS [facility] PRN Reason: Protocol Last Admin: 11/29/16 17:23 Dose: 5 unit Insulin Detemir (Levemir) 25 unit SC BID [facility] Last Admin: 11/29/16 17:22 Dose: 25 unit Pantoprazole Sodium (Protonix Ec Tab) 40 mg PO DAILY [facility] Last Admin: 11/29/16 09:22 Dose: 40 mg Rosuvastatin Calcium (Crestor) 10 mg PO HS [facility] Last Admin: 11/28/16 21:36 Dose: 10 mg Saliva Substitute (First Magic Mouthwash) 3 ml PO Q6H [facility] Vitamin B Complex/Vit C/Folic Acid (Nephro-Mark) 1 tab PO DAILY [facility] Last Admin: 11/29/16 09:21 Dose: 1 tab Results - Vital Signs Recent Vital Signs: Last Vital Signs Temp 99.4 F 11/29/16 16:04 Pulse 99 H 11/29/16 16:04 Resp 20 11/29/16 16:04 BP 143/75 11/29/16 16:04 Pulse Ox 95 11/29/16 16:04 - Labs Result Diagrams: 11/29/16 07:20 11/29/16 07:20 Labs: Laboratory Results - last 24 hr 11/28/16 11/29/16 11/29/16 21:05 06:20 07:20 WBC 11.3 H D RBC 3.25 L Hgb 9.0 L Hct 27.5 L MCV 84.8 MCH 27.7 MCHC 32.7 L RDW 20.1 H Plt Count 216 MPV 9.0 Neut % (Auto) 80.6 H Lymph % (Auto) 8.7 L [place] % (Auto) 9.1 Eos % (Auto) 0.9 Baso % (Auto) 0.7 Neut # 9.1 H Lymph # 1.0 [place] # 1.0 H Eos # 0.1 Baso # 0.1 Neutrophils % (Manual) 76 H Band Neutrophils % 5 H Lymphocytes % (Manual) 9 L Monocytes % (Manual) 10 Platelet Estimate Normal Hypochromasia (manual) Slight Poikilocytosis (manual Slight Anisocytosis (manual) Slight Sodium 136 Potassium 3.8 Chloride 90 L Carbon Dioxide 28 Anion Gap 21 H BUN 57 H Creatinine 10.0 H* Est GFR ( Amer) 7 Est GFR (Non-Af Amer) 6 POC Glucose (mg/dL) 199 H 169 H Random Glucose 140 H Calcium 8.1 L Magnesium 2.2 Total Bilirubin 0.5 AST 38 ALT 23 Alkaline Phosphatase 92 Total Protein 7.1 Albumin 3.8 Globulin 3.4 Albumin/Globulin Ratio 1.1 11/29/16 11/29/16 12:07 16:43 WBC RBC Hgb Hct MCV MCH MCHC RDW Plt Count MPV Neut % (Auto) Lymph % (Auto) [place] % (Auto) Eos % (Auto) Baso % (Auto) Neut # Lymph # [place] # Eos # Baso # Neutrophils % (Manual) Band Neutrophils % Lymphocytes % (Manual) Monocytes % (Manual) Platelet Estimate Hypochromasia (manual) Poikilocytosis (manual Anisocytosis (manual) Sodium Potassium Chloride Carbon Dioxide Anion Gap BUN Creatinine Est GFR ( Amer) Est GFR (Non-Af Amer) POC Glucose (mg/dL) 182 H 366 H Random Glucose Calcium Magnesium Total Bilirubin AST ALT Alkaline Phosphatase Total Protein Albumin Globulin Albumin/Globulin Ratio
--- NOTE | 2016-11-29 18:55 | CP.PCM.PN ---
Subjective - Date & Time of Evaluation Date of Evaluation: 11/29/16 Time of Evaluation: 13:00 - Subjective Subjective: clinically same Objective - Vital Signs/Intake and Output Vital Signs (last 24 hours): Temp Pulse Resp BP Pulse Ox 99.4 F 99 H 20 143/75 95 11/29/16 16:04 11/29/16 16:04 11/29/16 16:04 11/29/16 16:04 11/29/16 16:04 Intake and Output: 11/29/16 11/29/16 06:59 18:59 Intake Total 120 Balance 120 - Medications Medications: Current Medications Acetaminophen (Tylenol 325mg Tab) 650 mg PO Q6 PRN PRN Reason: fever 101 and above Last Admin: 11/28/16 04:57 Dose: 650 mg Amlodipine Besylate (Norvasc) 20 mg PO DAILY [facility] Last Admin: 11/29/16 09:21 Dose: 20 mg Aspirin (Aspirin Chewable) 81 mg PO DAILY [facility] Last Admin: 11/29/16 09:22 Dose: 81 mg Calcitriol (Rocaltrol) 0.25 mcg PO DAILY [facility] Last Admin: 11/29/16 09:22 Dose: 0.25 mcg Carvedilol (Coreg) 6.25 mg PO BID [facility] Last Admin: 11/29/16 17:21 Dose: 6.25 mg Heparin Sodium (Porcine) (Heparin) 5,000 units SC Q12 [facility] Last Admin: 11/29/16 09:24 Dose: Not Given Azithromycin 500 mg/ Sodium (Chloride) 250 mls @ 250 mls/hr IVPB DAILY [facility] Last Admin: 11/28/16 06:16 Dose: 250 mls/hr Ceftriaxone Sodium 1 gm/ (Sodium Chloride) 100 mls @ 100 mls/hr IVPB DAILY [facility] Last Admin: 11/29/16 15:04 Dose: 100 mls/hr Vancomycin HCl 1 gm/ Sodium (Chloride) 250 mls @ 166.7 mls/hr IVPB DIAL PRN PRN Reason: pls give post HD Last Admin: 11/29/16 17:59 Dose: 166.7 mls/hr Insulin Aspart (Novolog) 0 unit SC ACHS [facility] PRN Reason: Protocol Last Admin: 11/29/16 17:23 Dose: 5 unit Insulin Detemir (Levemir) 25 unit SC BID [facility] Last Admin: 11/29/16 17:22 Dose: 25 unit Pantoprazole Sodium (Protonix Ec Tab) 40 mg PO DAILY [facility] Last Admin: 11/29/16 09:22 Dose: 40 mg Rosuvastatin Calcium (Crestor) 10 mg PO HS [facility] Last Admin: 11/28/16 21:36 Dose: 10 mg Saliva Substitute (First Magic Mouthwash) 3 ml PO Q6H [facility] Vitamin B Complex/Vit C/Folic Acid (Nephro-Mark) 1 tab PO DAILY [facility] Last Admin: 11/29/16 09:21 Dose: 1 tab - Labs Labs: 11/29/16 07:20 11/29/16 07:20 PT 13.8 SECONDS (9.7-12.2) H 11/27/16 20:21 INR 1.2 11/27/16 20:21 APTT 32 SECONDS (21-34) 11/27/16 20:21 - Constitutional Appears: Well - Head Exam Head Exam: ATRAUMATIC, NORMAL INSPECTION, NORMOCEPHALIC - Eye Exam Eye Exam: EOMI, Normal appearance, PERRL Pupil Exam: NORMAL ACCOMODATION, PERRL - ENT Exam ENT Exam: Mucous Membranes Moist, Normal Exam - Neck Exam Neck Exam: Full ROM, Normal Inspection. absent: Lymphadenopathy - Respiratory Exam Respiratory Exam: Decreased Breath Sounds - Cardiovascular Exam Cardiovascular Exam: REGULAR RHYTHM, +S1, +S2 - GI/Abdominal Exam GI & Abdominal Exam: Soft, Diminished Bowel Sounds - Rectal Exam Rectal Exam: Deferred Assessment and Plan (1) Bacteremia Status: Acute (2) CHF (congestive heart failure) Status: Acute (3) CHF exacerbation Status: Acute (4) Dyspnea Status: Acute (5) ESRD (end stage renal disease) on dialysis Status: Acute (6) Fever Status: Acute (7) High cholesterol Status: Acute (8) Pneumonia Status: Acute (9) Prophylactic measure Status: Acute (10) UTI (urinary tract infection), bacterial Status: Acute (11) Diabetes mellitus Status: Chronic (12) HTN (hypertension) Status: Chronic - Assessment and Plan (Free Text) Plan: blood and urine culture +ve for gram +ve bacteria jessica. iv antibiotics cnsult ID Dr. Jeremy daley jessica dialysis f/u labs
--- NOTE | 2016-11-30 02:32 | CON ---
DATE: 11/29/2016 HISTORY OF PRESENT ILLNESS: This is a 51-year-old male admitted to [facility] (Former[facility]) with a chief comp laint of fever, cough, shortness of breath and possible sepsis. He was referred for infectious disea se evaluation when blood cultures came back positive for gram-positive cocci. Infectious disease con sultation requested for antibiotic management. PAST MEDICAL HISTORY: Positive for hypertension and end-stage renal disease. The patient cannot pro vide any history at this time. The patient is lethargic. He has history of congestive heart failure , end-stage renal disease, hyperlipidemia, urinary tract infections, diabetes, morbid obesity. SOCIAL HISTORY: [place]. Does not drink, smoke, or use intravenous drugs. SURGICAL HISTORY: Positive for right AV fistula. MEDICATIONS: Aspirin, Zithromax, Rocephin, carvedilol, Proscar, heparin, amlodipine, insulin, pantop razole, Rocaltrol, vancomycin. ALLERGIES: No known allergies to medications. REVIEW OF SYSTEMS: Denies headache, earache, toothache. There are disturbances. No earache. No ch est pain, no abdominal pain. No nausea, vomiting, diarrhea. No change in bowel habits. No frequenc y or urgency of urination. No loss of consciousness, no seizures, no recent travel. No pets. No ex posure to toxins or chemicals. Positive cough, congestion, fatigue, malaise. FAMILY HISTORY: Positive for diabetes. PHYSICAL EXAMINATION: GENERAL: Reveals a chronically ill middle-aged -Japanese male lying in bed, awake, lethargic. VITAL SIGNS: T-max 101. Blood pressure 130/70, pulse 76. HEENT: Normocephalic. Eyes: Pupils reactive. Sclerae are nonicteric. Extraocular muscles could n ot be assessed. CHEST: Symmetrical expansion. LUNGS: Bilateral air entry. Scattered rhonchi, rales. HEART: S1, S2 distant. Regular rapid PMI fifth intercostal space lateral to midclavicular right. ABDOMEN: Obese, soft, bowel sounds present. No rebound, no guarding, no tenderness. RECTAL: Deferred. EXTREMITIES: Reveal no cyanosis, no clubbing. Trace ankle edema present. VASCULAR: Good bruits from the right arm AV fistula. LABORATORY DATA: Chest x-ray shows congestion. Blood culture is positive for gram-positive cocci. ASSESSMENT AND PLAN: A 51-year-old male with end-stage renal disease on dialysis, admitted with seps is, altered mental status, fever, possible pneumonia, possibility of MRSA infection has been consider ed. Vancomycin has been added and the workup may need to include echocardiogram, CAT scan chest, abd omen and pelvis as per evaluation of AV fistula. Await results of cultures. Final identity and sens itivity of the organism. We will need careful monitoring on the patient. Thank you very much for allowing me to participate in the care of this patient. Salazar Oro MD cc: [id number] TT: 11/30/2016 02:31:44 Confirmation # [id number] Dictation # [id number] mn
[2016-11-30] MEDS: Mag&Al/Simet/Diphen/Lido 237 ML KIT PO SCH ×3 (03:47→17:52)
[2016-11-30 08:06] LABS: BASO % 0.7 % (0.0-2.0); EOS # 0.1 K/uL (0.0-0.7); EOS % 1.5 % (0.0-4.0); HEMATOCRIT 26.5 % (35.0-51.0); LYMPH % 16.5 % (20.0-40.0); MEAN CELL VOLUME 85.5 fL (80.0-94.0); MEAN CORPUSCULAR HGB CONC 31.6 g/dL (33.0-37.0); MONO # 0.7 K/uL (0.0-0.8); MONO % 10.7 % (0.0-10.0); RED CELL DISTRIBUTION WIDTH 19.8 % (11.5-14.5); WHITE BLOOD COUNT 6.1 K/uL (4.8-10.8)
[2016-11-30 08:13] LABS: POTASSIUM 3.4 mmol/L (3.6-5.2)
[2016-11-30 08:16] LABS: BILIRUBIN,TOTAL 0.3 mg/dL (0.2-1.3); CALCIUM 8.1 mg/dl (8.6-10.4); TOTAL PROTEIN 7.3 g/dL (6.3-8.3)
[2016-11-30 08:17] LABS: MAGNESIUM 2.3 mg/dL (1.6-2.3)
[2016-11-30] MEDS: (Novolog) Insulin Aspart, Recombinant 100 u/ml 10 ml vial SC SCH ×3 (08:39→17:53)
[2016-11-30] MEDS: Pantoprazole 40 mg EC Tab PO SCH (09:19)
[2016-11-30] MEDS: Multivitamin Vitamin B Complex (Nephro-Vite) Tab PO SCH (09:19)
--- NOTE | 2016-11-30 10:24 | CP.PCM.PN ---
Subjective - Date & Time of Evaluation Date of Evaluation: 11/30/16 Time of Evaluation: 10:22 - Subjective Subjective: Stable dialysis 11/29 On IV vanco for VSE UTI and MSSA bacteremia Feels better Still rather edematous No new complaints Objective - Vital Signs/Intake and Output Vital Signs (last 24 hours): Temp Pulse Resp BP Pulse Ox 98.4 F 82 20 147/75 97 11/30/16 08:33 11/30/16 08:33 11/30/16 08:33 11/30/16 08:33 11/30/16 08:33 Intake and Output: 11/30/16 11/30/16 06:59 18:59 Intake Total 120 Balance 120 - Medications Medications: Current Medications Acetaminophen (Tylenol 325mg Tab) 650 mg PO Q6 PRN PRN Reason: fever 101 and above Last Admin: 11/28/16 04:57 Dose: 650 mg Amlodipine Besylate (Norvasc) 20 mg PO DAILY [facility] Last Admin: 11/30/16 09:19 Dose: 20 mg Aspirin (Aspirin Chewable) 81 mg PO DAILY [facility] Last Admin: 11/30/16 09:19 Dose: 81 mg Calcitriol (Rocaltrol) 0.25 mcg PO DAILY [facility] Last Admin: 11/30/16 09:19 Dose: 0.25 mcg Carvedilol (Coreg) 6.25 mg PO BID [facility] Last Admin: 11/30/16 09:19 Dose: 6.25 mg Heparin Sodium (Porcine) (Heparin) 5,000 units SC Q12 [facility] Last Admin: 11/30/16 09:19 Dose: 5,000 units Azithromycin 500 mg/ Sodium (Chloride) 250 mls @ 250 mls/hr IVPB DAILY [facility] Last Admin: 11/28/16 06:16 Dose: 250 mls/hr Ceftriaxone Sodium 1 gm/ (Sodium Chloride) 100 mls @ 100 mls/hr IVPB DAILY [facility] Last Admin: 11/30/16 09:20 Dose: 100 mls/hr Vancomycin HCl 1 gm/ Sodium (Chloride) 250 mls @ 166.7 mls/hr IVPB DIAL PRN PRN Reason: pls give post HD Last Admin: 11/29/16 17:59 Dose: 166.7 mls/hr Insulin Aspart (Novolog) 0 unit SC ACHS [facility] PRN Reason: Protocol Last Admin: 11/30/16 08:39 Dose: 2 unit Insulin Detemir (Levemir) 25 unit SC BID [facility] Last Admin: 11/29/16 17:22 Dose: 25 unit Pantoprazole Sodium (Protonix Ec Tab) 40 mg PO DAILY [facility] Last Admin: 11/30/16 09:19 Dose: 40 mg Rosuvastatin Calcium (Crestor) 10 mg PO HS [facility] Last Admin: 11/29/16 22:17 Dose: 10 mg Saliva Substitute (First Magic Mouthwash) 3 ml PO Q6H [facility] Last Admin: 11/30/16 09:20 Dose: 3 ml Vitamin B Complex/Vit C/Folic Acid (Nephro-Mark) 1 tab PO DAILY [facility] Last Admin: 11/30/16 09:19 Dose: 1 tab - Labs Labs: 11/30/16 07:51 11/30/16 07:51 PT 13.8 SECONDS (9.7-12.2) H 11/27/16 20:21 INR 1.2 11/27/16 20:21 APTT 32 SECONDS (21-34) 11/27/16 20:21 - Constitutional Appears: No Acute Distress, Chronically Ill - Head Exam Head Exam: ATRAUMATIC, NORMAL INSPECTION - Neck Exam Neck Exam: Normal Inspection. absent: Tenderness - Respiratory Exam Respiratory Exam: Clear to Ausculation Bilateral, NORMAL BREATHING PATTERN - Cardiovascular Exam Cardiovascular Exam: REGULAR RHYTHM, +S1 - GI/Abdominal Exam GI & Abdominal Exam: Distended, Soft - Extremities Exam Extremities Exam: Pedal Edema. absent: Tenderness - Neurological Exam Neurological Exam: Awake, CN II-XII Intact - Skin Skin Exam: Dry, Warm Assessment and Plan (1) Bacteremia Status: Acute (2) CHF (congestive heart failure) Status: Acute (3) ESRD (end stage renal disease) on dialysis Status: Acute (4) Diabetes mellitus Status: Chronic (5) HTN (hypertension) Status: Chronic - Assessment and Plan (Free Text) Plan: IV ABs as per ID Dialysis MWF- increase UF rate Add EPO, check Fe stores
[2016-11-30] MEDS: Insulin Detemir 100 units/ml Vial (Levemir) SC SCH ×2 (10:30→17:52)
[2016-11-30] MEDS: Azithromycin 500 MG in Sodium Chloride 0.9% 250 ML IVPB SCH (10:31)
--- NOTE | 2016-11-30 10:36 | CP.PCM.PN ---
Subjective - Date & Time of Evaluation Date of Evaluation: 11/30/16 Time of Evaluation: 10:00 - Subjective Subjective: Triston Edwards service: Patient is seen in room with sister present. He has no complaints of pain but does is sweating. Objective - Vital Signs/Intake and Output Vital Signs (last 24 hours): Temp Pulse Resp BP Pulse Ox 98.4 F 82 20 147/75 97 11/30/16 08:33 11/30/16 08:33 11/30/16 08:33 11/30/16 08:33 11/30/16 08:33 Intake and Output: 11/30/16 11/30/16 06:59 18:59 Intake Total 120 Balance 120 - Medications Medications: Current Medications Acetaminophen (Tylenol 325mg Tab) 650 mg PO Q6 PRN PRN Reason: fever 101 and above Last Admin: 11/28/16 04:57 Dose: 650 mg Amlodipine Besylate (Norvasc) 20 mg PO DAILY [facility] Last Admin: 11/30/16 09:19 Dose: 20 mg Aspirin (Aspirin Chewable) 81 mg PO DAILY [facility] Last Admin: 11/30/16 09:19 Dose: 81 mg Calcitriol (Rocaltrol) 0.25 mcg PO DAILY [facility] Last Admin: 11/30/16 09:19 Dose: 0.25 mcg Carvedilol (Coreg) 6.25 mg PO BID [facility] Last Admin: 11/30/16 09:19 Dose: 6.25 mg Epoetin Michel (Procrit) 10,000 unit IV MWF [facility] Heparin Sodium (Porcine) (Heparin) 5,000 units SC Q12 [facility] Last Admin: 11/30/16 09:19 Dose: 5,000 units Azithromycin 500 mg/ Sodium (Chloride) 250 mls @ 250 mls/hr IVPB DAILY [facility] Last Admin: 11/30/16 10:31 Dose: 250 mls/hr Ceftriaxone Sodium 1 gm/ (Sodium Chloride) 100 mls @ 100 mls/hr IVPB DAILY [facility] Last Admin: 11/30/16 09:20 Dose: 100 mls/hr Vancomycin HCl 1 gm/ Sodium (Chloride) 250 mls @ 166.7 mls/hr IVPB DIAL PRN PRN Reason: pls give post HD Last Admin: 11/29/16 17:59 Dose: 166.7 mls/hr Insulin Aspart (Novolog) 0 unit SC ACHS [facility] PRN Reason: Protocol Last Admin: 11/30/16 08:39 Dose: 2 unit Insulin Detemir (Levemir) 25 unit SC BID [facility] Last Admin: 11/30/16 10:30 Dose: 25 unit Pantoprazole Sodium (Protonix Ec Tab) 40 mg PO DAILY [facility] Last Admin: 11/30/16 09:19 Dose: 40 mg Rosuvastatin Calcium (Crestor) 10 mg PO HS [facility] Last Admin: 11/29/16 22:17 Dose: 10 mg Saliva Substitute (First Magic Mouthwash) 3 ml PO Q6H [facility] Last Admin: 11/30/16 09:20 Dose: 3 ml Vitamin B Complex/Vit C/Folic Acid (Nephro-Mark) 1 tab PO DAILY [facility] Last Admin: 11/30/16 09:19 Dose: 1 tab - Labs Labs: 11/30/16 07:51 11/30/16 07:51 PT 13.8 SECONDS (9.7-12.2) H 11/27/16 20:21 INR 1.2 11/27/16 20:21 APTT 32 SECONDS (21-34) 11/27/16 20:21 - Constitutional Appears: Non-toxic, No Acute Distress - Head Exam Head Exam: NORMAL INSPECTION - Eye Exam Pupil Exam: NORMAL ACCOMODATION - Respiratory Exam Respiratory Exam: Clear to Ausculation Bilateral. absent: Rhonchi, Wheezes - Cardiovascular Exam Cardiovascular Exam: REGULAR RHYTHM, RRR, +S1, +S2. absent: Gallop, Rubs - GI/Abdominal Exam GI & Abdominal Exam: Soft, Normal Bowel Sounds. absent: Tenderness - Extremities Exam Extremities Exam: Normal Inspection - Back Exam Back Exam: NORMAL INSPECTION - Psychiatric Exam Psychiatric exam: Normal Affect, Normal Mood Assessment and Plan (1) Pneumonia Assessment & Plan: Patient discharged back to [facility], he will continue his antibiotics for a week and also Vanco post dialaysis for another week. Status: Acute (2) Bacteremia Assessment & Plan: Blood culture senstivity back, continue IV antibiotics at [facility]. Status: Acute (3) UTI (urinary tract infection), bacterial Status: Acute (4) HTN (hypertension) Status: Chronic (5) Diabetes mellitus Status: Chronic (6) High cholesterol Status: Acute (7) Prophylactic measure Status: Acute
[2016-11-30 15:56] VITALS: BP 137/74; PULSE 83; TEMP 98.8; O2SAT 94
--- NOTE | 2016-11-30 18:13 | CP.PCM.PN ---
Subjective - Date & Time of Evaluation Date of Evaluation: 11/30/16 Objective - Vital Signs/Intake and Output Vital Signs (last 24 hours): Temp Pulse Resp BP Pulse Ox 98.8 F 83 20 137/74 94 L 11/30/16 15:46 11/30/16 15:46 11/30/16 15:46 11/30/16 15:46 11/30/16 15:46 Intake and Output: 11/30/16 11/30/16 06:59 18:59 Intake Total 120 Balance 120 - Medications Medications: Current Medications Acetaminophen (Tylenol 325mg Tab) 650 mg PO Q6 PRN PRN Reason: fever 101 and above Last Admin: 11/28/16 04:57 Dose: 650 mg Amlodipine Besylate (Norvasc) 20 mg PO DAILY [facility] Last Admin: 11/30/16 09:19 Dose: 20 mg Aspirin (Aspirin Chewable) 81 mg PO DAILY [facility] Last Admin: 11/30/16 09:19 Dose: 81 mg Calcitriol (Rocaltrol) 0.25 mcg PO DAILY [facility] Last Admin: 11/30/16 09:19 Dose: 0.25 mcg Carvedilol (Coreg) 6.25 mg PO BID [facility] Last Admin: 11/30/16 17:51 Dose: 6.25 mg Epoetin Michel (Procrit) 10,000 unit IV MWF [facility] Heparin Sodium (Porcine) (Heparin) 5,000 units SC Q12 [facility] Last Admin: 11/30/16 09:19 Dose: 5,000 units Azithromycin 500 mg/ Sodium (Chloride) 250 mls @ 250 mls/hr IVPB DAILY [facility] Last Admin: 11/30/16 10:31 Dose: 250 mls/hr Ceftriaxone Sodium 1 gm/ (Sodium Chloride) 100 mls @ 100 mls/hr IVPB DAILY [facility] Last Admin: 11/30/16 09:20 Dose: 100 mls/hr Vancomycin HCl 1 gm/ Sodium (Chloride) 250 mls @ 166.7 mls/hr IVPB DIAL PRN PRN Reason: pls give post HD Last Admin: 11/29/16 17:59 Dose: 166.7 mls/hr Insulin Aspart (Novolog) 0 unit SC ACHS [facility] PRN Reason: Protocol Last Admin: 11/30/16 17:53 Dose: 3 unit Insulin Detemir (Levemir) 25 unit SC BID [facility] Last Admin: 11/30/16 17:52 Dose: 25 unit Pantoprazole Sodium (Protonix Ec Tab) 40 mg PO DAILY [facility] Last Admin: 11/30/16 09:19 Dose: 40 mg Rosuvastatin Calcium (Crestor) 10 mg PO HS [facility] Last Admin: 11/29/16 22:17 Dose: 10 mg Saliva Substitute (First Magic Mouthwash) 3 ml PO Q6H [facility] Last Admin: 11/30/16 17:52 Dose: 3 ml Vitamin B Complex/Vit C/Folic Acid (Nephro-Mark) 1 tab PO DAILY [facility] Last Admin: 11/30/16 09:19 Dose: 1 tab - Labs Labs: 11/30/16 07:51 11/30/16 07:51 PT 13.8 SECONDS (9.7-12.2) H 11/27/16 20:21 INR 1.2 11/27/16 20:21 APTT 32 SECONDS (21-34) 11/27/16 20:21
[2016-11-30] MEDS ORDERED: Piperacill/Tazo 2.25gm in Dex 50 ML IVPB SCH ×2 (19:00→20:00)
--- NOTE | 2016-11-30 19:04 | CP.PCM.PN ---
Subjective - Date & Time of Evaluation Date of Evaluation: 11/30/16 Time of Evaluation: 08:00 - Subjective Subjective: contacted by discharge planning re: length of rx need to rule out endiocarditis consider LEILANI cont iv rx for 6 weeks unless endocarditis ruled out Objective - Vital Signs/Intake and Output Vital Signs (last 24 hours): Temp Pulse Resp BP Pulse Ox 98.8 F 83 20 137/74 94 L 11/30/16 15:46 11/30/16 15:46 11/30/16 15:46 11/30/16 15:46 11/30/16 15:46 - Medications Medications: Current Medications Acetaminophen (Tylenol 325mg Tab) 650 mg PO Q6 PRN PRN Reason: fever 101 and above Last Admin: 11/28/16 04:57 Dose: 650 mg Amlodipine Besylate (Norvasc) 20 mg PO DAILY [facility] Last Admin: 11/30/16 09:19 Dose: 20 mg Aspirin (Aspirin Chewable) 81 mg PO DAILY [facility] Last Admin: 11/30/16 09:19 Dose: 81 mg Calcitriol (Rocaltrol) 0.25 mcg PO DAILY [facility] Last Admin: 11/30/16 09:19 Dose: 0.25 mcg Carvedilol (Coreg) 6.25 mg PO BID [facility] Last Admin: 11/30/16 17:51 Dose: 6.25 mg Epoetin Michel (Procrit) 10,000 unit IV MWF [facility] Heparin Sodium (Porcine) (Heparin) 5,000 units SC Q12 [facility] Last Admin: 11/30/16 09:19 Dose: 5,000 units Vancomycin HCl 1 gm/ Sodium (Chloride) 250 mls @ 166.7 mls/hr IVPB DIAL PRN PRN Reason: pls give post HD Last Admin: 11/29/16 17:59 Dose: 166.7 mls/hr Piperacillin Sod/Tazobactam Sod (Zosyn 2.25 Gm Iv Premix) 50 mls @ 100 mls/hr IVPB Q8H [facility] Insulin Aspart (Novolog) 0 unit SC ACHS [facility] PRN Reason: Protocol Last Admin: 11/30/16 17:53 Dose: 3 unit Insulin Detemir (Levemir) 25 unit SC BID [facility] Last Admin: 11/30/16 17:52 Dose: 25 unit Pantoprazole Sodium (Protonix Ec Tab) 40 mg PO DAILY [facility] Last Admin: 11/30/16 09:19 Dose: 40 mg Rosuvastatin Calcium (Crestor) 10 mg PO HS [facility] Last Admin: 11/29/16 22:17 Dose: 10 mg Saliva Substitute (First Magic Mouthwash) 3 ml PO Q6H [facility] Last Admin: 11/30/16 17:52 Dose: 3 ml Vitamin B Complex/Vit C/Folic Acid (Nephro-Mark) 1 tab PO DAILY [facility] Last Admin: 11/30/16 09:19 Dose: 1 tab - Labs Labs: 11/30/16 07:51 11/30/16 07:51 PT 13.8 SECONDS (9.7-12.2) H 11/27/16 20:21 INR 1.2 11/27/16 20:21 APTT 32 SECONDS (21-34) 11/27/16 20:21 - Constitutional Appears: Non-toxic, Chronically Ill - Head Exam Head Exam: NORMOCEPHALIC - Eye Exam Eye Exam: absent: Scleral icterus - ENT Exam ENT Exam: Mucous Membranes Dry - Neck Exam Neck Exam: absent: Lymphadenopathy - Respiratory Exam Respiratory Exam: Decreased Breath Sounds, Rhonchi - Cardiovascular Exam Cardiovascular Exam: REGULAR RHYTHM, +S1, +S2 - GI/Abdominal Exam GI & Abdominal Exam: Distended, Soft. absent: Tenderness - Rectal Exam Rectal Exam: Deferred - Exam Exam: NORMAL INSPECTION - Extremities Exam Extremities Exam: absent: Pedal Edema - Back Exam Back Exam: absent: CVA tenderness (L), CVA tenderness (R) Assessment and Plan (1) Bacteremia Status: Acute (2) CHF (congestive heart failure) Status: Acute (3) Dyspnea Status: Acute (4) ESRD (end stage renal disease) on dialysis Status: Acute (5) Fever Status: Acute (6) Pneumonia Status: Acute
--- NOTE | 2016-11-30 22:12 | CP.PCM.PN ---
Subjective - Date & Time of Evaluation Date of Evaluation: 11/30/16 Time of Evaluation: 09:00 - Subjective Subjective: feels better Objective - Vital Signs/Intake and Output Vital Signs (last 24 hours): Temp Pulse Resp BP Pulse Ox 98.8 F 83 20 137/74 94 L 11/30/16 15:46 11/30/16 15:46 11/30/16 15:46 11/30/16 15:46 11/30/16 15:46 - Labs Labs: 11/30/16 07:51 11/30/16 07:51 PT 13.8 SECONDS (9.7-12.2) H 11/27/16 20:21 INR 1.2 11/27/16 20:21 APTT 32 SECONDS (21-34) 11/27/16 20:21 - Constitutional Appears: Well - Head Exam Head Exam: ATRAUMATIC, NORMAL INSPECTION, NORMOCEPHALIC - Eye Exam Eye Exam: EOMI, Normal appearance, PERRL - ENT Exam ENT Exam: Mucous Membranes Moist, Normal Exam - Neck Exam Neck Exam: Full ROM, Normal Inspection. absent: Lymphadenopathy - Respiratory Exam Respiratory Exam: Decreased Breath Sounds - Cardiovascular Exam Cardiovascular Exam: REGULAR RHYTHM, +S1, +S2 - GI/Abdominal Exam GI & Abdominal Exam: Soft, Diminished Bowel Sounds - Rectal Exam Rectal Exam: Deferred Assessment and Plan (1) Bacteremia Status: Acute (2) CHF (congestive heart failure) Status: Acute (3) CHF exacerbation Status: Acute (4) Dyspnea Status: Acute (5) ESRD (end stage renal disease) on dialysis Status: Acute (6) Fever Status: Acute (7) High cholesterol Status: Acute (8) Pneumonia Status: Acute (9) Prophylactic measure Status: Acute (10) UTI (urinary tract infection), bacterial Status: Acute (11) Diabetes mellitus Status: Chronic (12) HTN (hypertension) Status: Chronic - Assessment and Plan (Free Text) Plan: discharge to longterm [facility]. iv meds as ordered [facility]. dialysis as scheduled
[2016-12-01] MEDS ORDERED: Epoetin Alfa 10,000 unit/ml Dialysis IV SCH (09:00)
== END 2016-11-30 19:30 | DRG 871 ==
LOC: C.ER 18:20 → C.6T 22:33
PROVIDERS: ADMIT Internal Medicine Nephrology; ATTEND Internal Medicine Nephrology
PROC: 5A1D00Z (ICD-10-PCS; principal; 2016-11-29)
DX: A41.9 Sepsis, unspecified organism (principal); J18.9 Pneumonia, unspecified organism; I13.2 Hypertensive heart and chronic kidney disease with heart failure and with stage 5 chronic kidney disease, or end stage renal disease; N18.6 End stage renal disease; E11.21 Type 2 diabetes mellitus with diabetic nephropathy; I50.9 Heart failure, unspecified; N39.0 Urinary tract infection, site not specified; Z68.42 Body mass index [BMI] 45.0-49.9, adult; E78.5 Hyperlipidemia, unspecified; I73.9 Peripheral vascular disease, unspecified; Z79.4 Long term (current) use of insulin; Z86.73 Personal history of transient ischemic attack (TIA), and cerebral infarction without residual deficits; Z89.511 Acquired absence of right leg below knee; Z89.512 Acquired absence of left leg below knee; Z99.2 Dependence on renal dialysis; N31.9 Neuromuscular dysfunction of bladder, unspecified

== ENCOUNTER 2017-09-08 18:58 | Inpatient (IN) | payer MEDICARE, MEDICAID ==
--- NOTE | 2017-09-08 19:57 | C.PDOC ---
History Of Present Illness 51 year old male sent in from snf after being found lethargic and with a fever. Patient has a Hx of ESRD on dialysis. Chief Complaint (Nursing): Fever History Per: EMS History/Exam Limitations: clinical condition Onset/Duration Of Symptoms: Hrs Current Symptoms Are (Timing): Still Present Associated Symptoms: Fever, Other (Lethargic) Ear Symptoms: Bilateral: None Recent travel outside of the [place]: No Past Medical History Reviewed: Historical Data, Nursing Documentation, Vital Signs Vital Signs: Last Vital Signs Temp 100.0 F H 09/08/17 22:15 Pulse 105 H 09/08/17 23:02 Resp 41 H 09/08/17 23:02 BP 87/51 L 09/08/17 23:02 Pulse Ox 96 09/08/17 23:02 - Medical History PMH: Anemia, CHF, HTN, Hypercholesterolemia, Pneumonia, End Stage Renal Disease , Chronic Kidney Disease - [facility] Procedures PERFORMANCE OF URINARY FILTRATION, SINGLE (11/27/16) Family History: States: Unknown Family Hx - Social History Hx Alcohol Use: No Hx Substance Use: No Review Of Systems Review Of Systems: ROS cannot be obtained secondary to pt's inabilty to answer questions. Physical Exam - Physical Exam Appears: Other (Lethargic, Febrile) Skin: Warm, Dry Head: Atraumatic, Normacephalic Oral Mucosa: Moist Chest: Symmetrical, No Tenderness Cardiovascular: Rhythm Regular, No Murmur Respiratory: Rales (Left lower area), No Rhonchi, No Wheezing Gastrointestinal/Abdominal: Soft, No Tenderness Back: Other (Presence of stage one sacral ulcer, no sign of infection.) Extremity: Other (Bilateral BKA) ED Course And Treatment - Laboratory Results Result Diagrams: 09/08/17 20:19 09/08/17 20:19 O2 Sat by Pulse Oximetry: 95 (Room air) Pulse Ox Interpretation: Normal Progress Note: EKG, blood work, CXR, and urinalysis ordered. Tylenol and dextrose/lactated ringers administered. Triple lumen catheter placed to right femoral with success on 1st attempt. Central Line Placement - Central Line Placement Indication: Emergent IV Access Central Line Placement: Right: Femoral (Procedure done by Dr. Cortez) Procedure: Triple Lumen, Sterile Dressing Placed Over Line, Procedure Tolerated Well Disposition Discussed With : Yordy Edwards Doctor Will See Patient In The: Hospital Counseled Patient/Family Regarding: Diagnosis - Disposition Disposition: HOSPITALIZED Disposition Time: 21:32 Condition: GUARDED - POA Present On Arrival: None - Clinical Impression Clinical Impression: ESRD (end stage renal disease), UTI (urinary tract infection), bacterial, Sepsis, Hypotension - Scribe Statement The provider has reviewed the documentation as recorded by the Scribpriyank Lovelace All medical record entries made by the Staciaibpriyank were at my direction and personally dictated by me. I have reviewed the chart and agree that the record accurately reflects my personal performance of the history, physical exam, medical decision making, and the department course for this patient. I have also personally directed, reviewed, and agree with the discharge instructions and disposition.
[2017-09-08] MEDS: Dextrose 5%/Lactated Ringer's 1,000 ML IV SCH (20:00)
[2017-09-08] MEDS ORDERED: cefTRIAXone IV 1 gm in Dextros 50 ML IVPB ONE (20:28)
[2017-09-08 20:29] LABS: BASO # 0.1 K/uL (0.0-0.2); BASO % 1.9 % (0.0-2.0); EOS # 0.2 K/uL (0.0-0.7); EOS % 2.5 % (0.0-4.0); LYMPH # 0.5 K/uL (1.0-4.3); LYMPH % 6.9 % (20.0-40.0); MEAN CORPUSCULAR HEMOGLOBIN 25.5 pg (27.0-31.0); MEAN CORPUSCULAR HGB CONC 31.5 g/dL (33.0-37.0); MONO # 0.7 K/uL (0.0-0.8); MONO % 9.5 % (0.0-10.0); NEUT # 5.4 K/uL (1.8-7.0); NEUT % 79.2 % (50.0-75.0); NRBC % 0.1 % (0.0-2.0); PLATELET COUNT 286 K/uL (130-400); RBC 3.52 Mil/uL (4.40-5.90); RED CELL DISTRIBUTION WIDTH 22.1 % (11.5-14.5); WHITE BLOOD COUNT 6.8 K/uL (4.8-10.8)
[2017-09-08] MEDS ORDERED: Azithromycin 500 MG in Sodium Chloride 0.9% 250 ML IVPB STA (20:29)
[2017-09-08 20:32] LABS: VENOUS BLOOD GAS BASE EXCESS -6.5 mmol/L (0.0-2.0); VENOUS BLOOD GAS PCO2 63 mmHg (40-60); VENOUS BLOOD GAS PO2 45 mm/Hg (30-55); VENOUS BLOOD PH 7.17 (7.32-7.43)
[2017-09-08 20:41] LABS: ALB/GLOB RATIO 0.7 (1.0-2.1); ALBUMIN 2.9 g/dL (3.5-5.0); CALCIUM 8.2 mg/dl (8.6-10.4); MAGNESIUM 1.9 mg/dL (1.6-2.3)
[2017-09-08 20:53] LABS: INR 1.4; PROTHROMBIN TIME 16.3 SECONDS (9.7-12.2)
[2017-09-08 20:54] LABS: ABG ALLEN TEST POS; ARTERIAL BLOOD GAS HCO3 29.1 mmol/L (21-28); ARTERIAL BLOOD GAS HEMOGLOBIN 7.9 g/dL (11.7-17.4); ARTERIAL BLOOD GAS O2 SAT 97.7 % (95-98); ARTERIAL BLOOD GAS PCO2 33 mm/Hg (35-45); ARTERIAL BLOOD GAS PH 7.54 (7.35-7.45); ARTERIAL BLOOD GAS PO2 85 mm/Hg (80-100); ARTERIAL BLOOD GAS TCO2 29.2 mmol/L (22-28)
[2017-09-08 21:03] LABS: URINE BACTERIA MANY (<OCC); URINE BILIRUBIN NEGATIVE (NEGATIVE); URINE BLOOD 3+ (NEGATIVE); URINE CLARITY Turbid (Clear); URINE COLOR Yellow (YELLOW); URINE GLUCOSE (UA) NORMAL (Normal); URINE LEUKOCYTE ESTERASE 3+ Leu/uL (Negative); URINE NITRATE NEGATIVE (NEGATIVE); URINE PROTEIN 2+ mg/dL (NEGATIVE); URINE UROBILINOGEN NORMAL mg/dL (0.2-1.0)
[2017-09-08] MEDS ORDERED: DOPamine 400mg/250ml D5W 400 MG/250 ML BAG IV ONE (22:21)
[2017-09-08] MEDS ORDERED: DOPamine 400mg/250ml D5W 400 MG/250 ML BAG IV PRN (22:24)
[2017-09-08] MEDS ORDERED: Vancomycin 1 GM 1 GM/250 ML BAG IVPB STA (22:35)
[2017-09-08] MEDS ORDERED: Piperacill/Tazo 3.375gm in Dex 3.375 GM/50 ML BAG IVPB STA (22:35)
[2017-09-08 22:56] LABS: PLATELET ESTIMATE NORMAL (NORMAL)
[2017-09-08 23:00] LABS: ANISOCYTOSIS SLIGHT; BANDS 4 % (0-2); HYPOCHROMIC MODERATE; LYMPHOCYTE 9 % (20-40); MONOCYTE 9 % (0-10); NEUTROPHIL 78 % (50-75); POIKILOCYTOSIS SLIGHT; SMUDGE CELLS PRESENT; TOTAL CELLS COUNTED 100
[2017-09-08 23:01] LABS: HYPERSEGMENTATION PRESENT; LARGE PLATELETS PRESENT; TOXIC GRANULATION PRESENT
--- NOTE | 2017-09-08 23:41 | CP.CCUPN ---
CCU Subjective - Physician Review Events Since Last Encounter (Free Text): 09/08/17 23:54 The Patient was seen and examined at the bedside, Medical records reviewed, and management issues were discussed and formulated with the house staff. 51 Y/O M with PMHx of HTN, Hypercholesterolemia, GERD, S/P AKA Anemia, CHF and ESRD on HD who was transferred from intermediate for management of fever and hypotension And being found lethargic. In ER he remains hypotensive despite 1L IV fluids, R femoral central line placed and he was started on dopamine drip CXR did now show any evidence of infection, UA positive for WBC, Leucocyte esterase and many bacteria Cultures sent and was started on IV Antibiotics Critical Care Time Spent (in minutes): 45 CCU Objective - Vital Signs / Intake & Output Vital Signs (Last 4 hours): Vital Signs Temp Pulse Resp BP Pulse Ox 09/08/17 23:24 95 09/08/17 23:02 105 H 41 H 87/51 L 96 09/08/17 22:26 95 H 21 81/46 L 91 L 09/08/17 22:15 100.0 F H 98 H 34 H 81/45 L 95 09/08/17 20:05 103 F H 09/08/17 20:00 102 H 26 H 78/45 L 95 Intake and Output (Last 8hrs): Intake & Output 09/08/17 09/08/17 09/09/17 14:59 22:59 06:59 Weight 221 lb 14.4 oz - Physical Exam Physical Exam Limitations: Positive for: Altered Mental Status, Clinical Condition, Uncooperative Head: Positive for: Normocephalic. Negative for: Tenderness, Contusion, Ecchymosis, Abrasion, Laceration Pupils: Positive for: PERRL Extroacular Muscles: Positive for: EOMI. Negative for: Gaze Palsy, Entrapment Conjunctiva: Positive for: Normal. Negative for: Injected, Icteric Ears: Positive for: Normal Mouth: Positive for: Moist Mucous Membranes Pharnyx: Positive for: Normal Nose (Internal): Positive for: Normal Inspection Neck: Positive for: Normal Range of Motion, Trachea Midline. Negative for: Meningeal Signs, MIDLINE TENDERNESS, Paraspinal Tenderness, JVD, Lymphadenopathy , Bruit, Other Respiratory/Chest: Positive for: Good Air Exchange, Decreased Breath Sounds. Negative for: Respiratory Distress, Accessory Muscle Use, Wheezes, Rales, Retracting, Rhonchi, Tachypneic Cardiovascular: Positive for: Regular Rate and Rhythm, Normal S1, S2, Peripheal Pulses Present. Negative for: Murmurs, Irregular Rhythm, Tachycardic, Bradycardic Abdomen: Positive for: Distention, Normal Bowel Sounds. Negative for: Tenderness, Peritoneal Signs Upper Extremity: Positive for: Edema (Massive RUE swelling, blistering, healed wound, AV fistule with thrill over it), Capillary Refill < 2s. Negative for: Cyanosis Lower Extremity: Positive for: Edema, NORMAL PULSES, Capillary Refill < 2 s. Negative for: CALF TENDERNESS Psychiatric: Positive for: Alert - Medications Active Medications: Active Medications Generic Name Dose Route Start Last Admin Trade Name Freq PRN Reason Stop Dose Admin Dextrose/Lactated Ringer's 1,000 mls @ 20 mls/hr 09/08/17 20:00 Dextrose 5%/Lactated Ringer's IV .Q24H MAYNOR Dopamine HCl/Dextrose 400 mg in 250 mls @ 37.745 mls/hr 09/08/17 22:24 22:26 Dopamine 400mg/250ml D5w IV 10 mcg/kg/min .[id number] PRN 37.745 mls/hr TITRATE PER MD ORDER Administration Protocol 10 MCG/KG/MIN Norepinephrine Bitartrate 4 mg 254 mls @ 15.24 mls/hr 09/08/17 22:37 23:02 / Sodium Chloride IV 4 mcg/min .[id number] PRN 15.24 mls/hr TITRATE PER MD ORDER Administration Protocol 4 MCG/MIN Vancomycin HCl 1 gm in 250 mls @ 167 mls/hr 09/08/17 22:35 Vancomycin 1gm In Normal Saline Addvantage IVPB 09/09/17 00:04 STAT STA - Patient Studies Lab Studies: Lab Studies 09/08/17 09/08/17 09/08/17 Range/Units 20:51 20:48 20:26 WBC (4.8-10.8) K/uL RBC (4.40-5.90) Mil/uL Hgb (12.0-18.0) g/dL Hct (35.0-51.0) % MCV (80.0-94.0) fL MCH (27.0-31.0) pg MCHC (33.0-37.0) g/dL RDW (11.5-14.5) % Plt Count (130-400) K/uL MPV (7.2-11.7) fL Neut % (Auto) (50.0-75.0) % Lymph % (Auto) (20.0-40.0) % Mcdonald % (Auto) (0.0-10.0) % Eos % (Auto) (0.0-4.0) % Baso % (Auto) (0.0-2.0) % Neut # (1.8-7.0) K/uL Lymph # (1.0-4.3) K/uL Mcdonald # (0.0-0.8) K/uL Eos # (0.0-0.7) K/uL Baso # (0.0-0.2) K/uL Neutrophils % (Manual) (50-75) % Band Neutrophils % (0-2) % Lymphocytes % (Manual) (20-40) % Monocytes % (Manual) (0-10) % Hypersegmented Polys Smudge Cells Toxic Granulation Platelet Estimate (NORMAL) Large Platelets Hypochromasia (manual) Poikilocytosis (manual Anisocytosis (manual) PT (9.7-12.2) SECONDS INR APTT (21-34) SECONDS Puncture Site Lr pCO2 33 L (35-45) mm/Hg pO2 85 45 (30-55) mm/Hg HCO3 29.1 H (21-28) mmol/L ABG pH 7.54 H (7.35-7.45) ABG Total CO2 29.2 H (22-28) mmol/L ABG O2 Saturation 97.7 (95-98) % ABG Base Excess 5.4 H (-2.0-3.0) mmol/L ABG Hemoglobin 7.9 L (11.7-17.4) g/dL ABG Carboxyhemoglobin 1.5 (0.5-1.5) % POC ABG HHb (Measured) 2.2 (0.0-5.0) % ABG Methemoglobin 1.3 (0.0-3.0) % Lukasz Test Pos VBG pH 7.17 L* (7.32-7.43) VBG pCO2 63 H (40-60) mmHg VBG HCO3 19.0 mmol/L VBG Total CO2 24.9 (22-28) mmol/L VBG O2 Sat (Calc) 74.8 H (40-65) % VBG Base Excess -6.5 L (0.0-2.0) mmol/L VBG Potassium > 20.0 H* (3.6-5.2) mmol/L Hgb O2 Saturation 95.0 (95.0-98.0) % Glucose 107 (75-110) mg/dl Lactate 1.7 (0.7-2.1) mmol/L Crit Value Called To Nelda bearden Crit Value Called By Yfn carlson char filter operator helper Crit Value Read Back Y Blood Gas Notified Time 2031 Sodium 132.0 (132-148) mmol/L Potassium (3.6-5.2) mmol/L Chloride 107.0 (98-107) mmol/L Carbon Dioxide (22-30) mmol/L Anion Gap (10-20) BUN (9-20) mg/dL Creatinine (0.8-1.5) mg/dL Est GFR ( Amer) Est GFR (Non-Af Amer) Random Glucose (75-110) mg/dL Calcium (8.6-10.4) mg/dl Phosphorus (2.5-4.5) mg/dL Magnesium (1.6-2.3) mg/dL Total Bilirubin (0.2-1.3) mg/dL AST (17-59) U/L ALT (21-72) U/L Alkaline Phosphatase (38-126) U/L NT-Pro-B Natriuret Pep (0-900) pg/mL Total Protein (6.3-8.3) g/dL Albumin (3.5-5.0) g/dL Globulin (2.2-3.9) gm/dL Albumin/Globulin Ratio (1.0-2.1) Venous Blood Potassium > 20.0 H* (3.6-5.2) mmol/L Urine Color Yellow (YELLOW) Urine Clarity Turbid (Clear) Urine pH 7.0 (5.0-8.0) Ur Specific [place] 1.019 (1.003-1.030) Urine Protein 2+ H (NEGATIVE) mg/dL Urine Glucose (UA) Normal (Normal) mg/dL Urine Ketones Negative (NEGATIVE) mg/dL Urine Blood 3+ H (NEGATIVE) Urine Nitrate Negative (NEGATIVE) Urine Bilirubin Negative (NEGATIVE) Urine Urobilinogen Normal (0.2-1.0) mg/dL Ur Leukocyte Esterase 3+ H (Negative) Nita/uL Urine WBC (Auto) 95 H (0-5) /hpf Urine RBC (Auto) 29 H (0-3) /hpf Urine Bacteria Many H (<OCC) Influenza Typ A,B (EIA) (NEGATIVE) 09/08/17 09/08/17 09/08/17 Range/Units 20:19 20:19 20:19 WBC 6.8 (4.8-10.8) K/uL RBC 3.52 L (4.40-5.90) Mil/uL Hgb 9.0 L (12.0-18.0) g/dL Hct 28.5 L (35.0-51.0) % MCV 81.0 D (80.0-94.0) fL MCH 25.5 L (27.0-31.0) pg MCHC 31.5 L (33.0-37.0) g/dL RDW 22.1 H (11.5-14.5) % Plt Count 286 (130-400) K/uL MPV 9.0 (7.2-11.7) fL Neut % (Auto) 79.2 H (50.0-75.0) % Lymph % (Auto) 6.9 L (20.0-40.0) % Mcdonald % (Auto) 9.5 (0.0-10.0) % Eos % (Auto) 2.5 (0.0-4.0) % Baso % (Auto) 1.9 (0.0-2.0) % Neut # 5.4 (1.8-7.0) K/uL Lymph # 0.5 L (1.0-4.3) K/uL Mcdonald # 0.7 (0.0-0.8) K/uL Eos # 0.2 (0.0-0.7) K/uL Baso # 0.1 (0.0-0.2) K/uL Neutrophils % (Manual) 78 H (50-75) % Band Neutrophils % 4 H (0-2) % Lymphocytes % (Manual) 9 L (20-40) % Monocytes % (Manual) 9 (0-10) % Hypersegmented Polys Present Smudge Cells Present Toxic Granulation Present Platelet Estimate Normal (NORMAL) Large Platelets Present Hypochromasia (manual) Moderate Poikilocytosis (manual Slight Anisocytosis (manual) Slight PT 16.3 H (9.7-12.2) SECONDS INR 1.4 APTT 33 (21-34) SECONDS Puncture Site pCO2 (35-45) mm/Hg pO2 (30-55) mm/Hg HCO3 (21-28) mmol/L ABG pH (7.35-7.45) ABG Total CO2 (22-28) mmol/L ABG O2 Saturation (95-98) % ABG Base Excess (-2.0-3.0) mmol/L ABG Hemoglobin (11.7-17.4) g/dL ABG Carboxyhemoglobin (0.5-1.5) % POC ABG HHb (Measured) (0.0-5.0) % ABG Methemoglobin (0.0-3.0) % Lukasz Test VBG pH (7.32-7.43) VBG pCO2 (40-60) mmHg VBG HCO3 mmol/L VBG Total CO2 (22-28) mmol/L VBG O2 Sat (Calc) (40-65) % VBG Base Excess (0.0-2.0) mmol/L VBG Potassium (3.6-5.2) mmol/L Hgb O2 Saturation (95.0-98.0) % Glucose (75-110) mg/dl Lactate (0.7-2.1) mmol/L Crit Value Called To Crit Value Called By Crit Value Read Back Blood Gas Notified Time Sodium 134 (132-148) mmol/L Potassium 3.6 (3.6-5.2) mmol/L Chloride 94 L (98-107) mmol/L Carbon Dioxide 33 H (22-30) mmol/L Anion Gap 11 (10-20) BUN 22 H (9-20) mg/dL Creatinine 5.0 H (0.8-1.5) mg/dL Est GFR ( Amer) 15 Est GFR (Non-Af Amer) 12 Random Glucose 130 H (75-110) mg/dL Calcium 8.2 L (8.6-10.4) mg/dl Phosphorus 2.1 L (2.5-4.5) mg/dL Magnesium 1.9 (1.6-2.3) mg/dL Total Bilirubin 0.7 (0.2-1.3) mg/dL AST 102 H (17-59) U/L ALT 45 (21-72) U/L Alkaline Phosphatase 243 H (38-126) U/L NT-Pro-B Natriuret Pep 9160 H (0-900) pg/mL Total Protein 7.0 (6.3-8.3) g/dL Albumin 2.9 L (3.5-5.0) g/dL Globulin 4.1 H (2.2-3.9) gm/dL Albumin/Globulin Ratio 0.7 L (1.0-2.1) Venous Blood Potassium (3.6-5.2) mmol/L Urine Color (YELLOW) Urine Clarity (Clear) Urine pH (5.0-8.0) Ur Specific [place] (1.003-1.030) Urine Protein (NEGATIVE) mg/dL Urine Glucose (UA) (Normal) mg/dL Urine Ketones (NEGATIVE) mg/dL Urine Blood (NEGATIVE) Urine Nitrate (NEGATIVE) Urine Bilirubin (NEGATIVE) Urine Urobilinogen (0.2-1.0) mg/dL Ur Leukocyte Esterase (Negative) Nita/uL Urine WBC (Auto) (0-5) /hpf Urine RBC (Auto) (0-3) /hpf Urine Bacteria (<OCC) Influenza Typ A,B (EIA) (NEGATIVE) 09/08/17 Range/Units 20:03 WBC (4.8-10.8) K/uL RBC (4.40-5.90) Mil/uL Hgb (12.0-18.0) g/dL Hct (35.0-51.0) % MCV (80.0-94.0) fL MCH (27.0-31.0) pg MCHC (33.0-37.0) g/dL RDW (11.5-14.5) % Plt Count (130-400) K/uL MPV (7.2-11.7) fL Neut % (Auto) (50.0-75.0) % Lymph % (Auto) (20.0-40.0) % Mcdonald % (Auto) (0.0-10.0) % Eos % (Auto) (0.0-4.0) % Baso % (Auto) (0.0-2.0) % Neut # (1.8-7.0) K/uL Lymph # (1.0-4.3) K/uL Mcdonald # (0.0-0.8) K/uL Eos # (0.0-0.7) K/uL Baso # (0.0-0.2) K/uL Neutrophils % (Manual) (50-75) % Band Neutrophils % (0-2) % Lymphocytes % (Manual) (20-40) % Monocytes % (Manual) (0-10) % Hypersegmented Polys Smudge Cells Toxic Granulation Platelet Estimate (NORMAL) Large Platelets Hypochromasia (manual) Poikilocytosis (manual Anisocytosis (manual) PT (9.7-12.2) SECONDS INR APTT (21-34) SECONDS Puncture Site pCO2 (35-45) mm/Hg pO2 (30-55) mm/Hg HCO3 (21-28) mmol/L ABG pH (7.35-7.45) ABG Total CO2 (22-28) mmol/L ABG O2 Saturation (95-98) % ABG Base Excess (-2.0-3.0) mmol/L ABG Hemoglobin (11.7-17.4) g/dL ABG Carboxyhemoglobin (0.5-1.5) % POC ABG HHb (Measured) (0.0-5.0) % ABG Methemoglobin (0.0-3.0) % Lukasz Test VBG pH (7.32-7.43) VBG pCO2 (40-60) mmHg VBG HCO3 mmol/L VBG Total CO2 (22-28) mmol/L VBG O2 Sat (Calc) (40-65) % VBG Base Excess (0.0-2.0) mmol/L VBG Potassium (3.6-5.2) mmol/L Hgb O2 Saturation (95.0-98.0) % Glucose (75-110) mg/dl Lactate (0.7-2.1) mmol/L Crit Value Called To Crit Value Called By Crit Value Read Back Blood Gas Notified Time Sodium (132-148) mmol/L Potassium (3.6-5.2) mmol/L Chloride (98-107) mmol/L Carbon Dioxide (22-30) mmol/L Anion Gap (10-20) BUN (9-20) mg/dL Creatinine (0.8-1.5) mg/dL Est GFR ( Amer) Est GFR (Non-Af Amer) Random Glucose (75-110) mg/dL Calcium (8.6-10.4) mg/dl Phosphorus (2.5-4.5) mg/dL Magnesium (1.6-2.3) mg/dL Total Bilirubin (0.2-1.3) mg/dL AST (17-59) U/L ALT (21-72) U/L Alkaline Phosphatase (38-126) U/L NT-Pro-B Natriuret Pep (0-900) pg/mL Total Protein (6.3-8.3) g/dL Albumin (3.5-5.0) g/dL Globulin (2.2-3.9) gm/dL Albumin/Globulin Ratio (1.0-2.1) Venous Blood Potassium (3.6-5.2) mmol/L Urine Color (YELLOW) Urine Clarity (Clear) Urine pH (5.0-8.0) Ur Specific [place] (1.003-1.030) Urine Protein (NEGATIVE) mg/dL Urine Glucose (UA) (Normal) mg/dL Urine Ketones (NEGATIVE) mg/dL Urine Blood (NEGATIVE) Urine Nitrate (NEGATIVE) Urine Bilirubin (NEGATIVE) Urine Urobilinogen (0.2-1.0) mg/dL Ur Leukocyte Esterase (Negative) Nita/uL Urine WBC (Auto) (0-5) /hpf Urine RBC (Auto) (0-3) /hpf Urine Bacteria (<OCC) Influenza Typ A,B (EIA) Negative for flu a/b (NEGATIVE) Laboratory Results - last 24 hr 09/08/17 09/08/17 09/08/17 20:03 20:19 20:19 WBC 6.8 RBC 3.52 L Hgb 9.0 L Hct 28.5 L MCV 81.0 D MCH 25.5 L MCHC 31.5 L RDW 22.1 H Plt Count 286 MPV 9.0 Neut % (Auto) 79.2 H Lymph % (Auto) 6.9 L Mcdonald % (Auto) 9.5 Eos % (Auto) 2.5 Baso % (Auto) 1.9 Neut # 5.4 Lymph # 0.5 L Mcdonald # 0.7 Eos # 0.2 Baso # 0.1 Neutrophils % (Manual) 78 H Band Neutrophils % 4 H Lymphocytes % (Manual) 9 L Monocytes % (Manual) 9 Hypersegmented Polys Present Smudge Cells Present Toxic Granulation Present Platelet Estimate Normal Large Platelets Present Hypochromasia (manual) Moderate Poikilocytosis (manual Slight Anisocytosis (manual) Slight PT 16.3 H INR 1.4 APTT 33 Puncture Site pCO2 pO2 HCO3 ABG pH ABG Total CO2 ABG O2 Saturation ABG Base Excess ABG Hemoglobin ABG Carboxyhemoglobin POC ABG HHb (Measured) ABG Methemoglobin Lukasz Test VBG pH VBG pCO2 VBG HCO3 VBG Total CO2 VBG O2 Sat (Calc) VBG Base Excess VBG Potassium Hgb O2 Saturation Glucose Lactate Crit Value Called To Crit Value Called By Crit Value Read Back Blood Gas Notified Time Sodium Potassium Chloride Carbon Dioxide Anion Gap BUN Creatinine Est GFR ( Amer) Est GFR (Non-Af Amer) Random Glucose Calcium Phosphorus Magnesium Total Bilirubin AST ALT Alkaline Phosphatase NT-Pro-B Natriuret Pep Total Protein Albumin Globulin Albumin/Globulin Ratio Venous Blood Potassium Urine Color Urine Clarity Urine pH Ur Specific [place] Urine Protein Urine Glucose (UA) Urine Ketones Urine Blood Urine Nitrate Urine Bilirubin Urine Urobilinogen Ur Leukocyte Esterase Urine WBC (Auto) Urine RBC (Auto) Urine Bacteria Influenza Typ A,B (EIA) Negative for flu a/b 09/08/17 09/08/17 09/08/17 20:19 20:26 20:48 WBC RBC Hgb Hct MCV MCH MCHC RDW Plt Count MPV Neut % (Auto) Lymph % (Auto) Mcdonald % (Auto) Eos % (Auto) Baso % (Auto) Neut # Lymph # Mcdonald # Eos # Baso # Neutrophils % (Manual) Band Neutrophils % Lymphocytes % (Manual) Monocytes % (Manual) Hypersegmented Polys Smudge Cells Toxic Granulation Platelet Estimate Large Platelets Hypochromasia (manual) Poikilocytosis (manual Anisocytosis (manual) PT INR APTT Puncture Site pCO2 pO2 45 HCO3 ABG pH ABG Total CO2 ABG O2 Saturation ABG Base Excess ABG Hemoglobin ABG Carboxyhemoglobin POC ABG HHb (Measured) ABG Methemoglobin Lukasz Test VBG pH 7.17 L* VBG pCO2 63 H VBG HCO3 19.0 VBG Total CO2 24.9 VBG O2 Sat (Calc) 74.8 H VBG Base Excess -6.5 L VBG Potassium > 20.0 H* Hgb O2 Saturation Glucose 107 Lactate 1.7 Crit Value Called To Nelda bearden Crit Value Called By Yfn carlson char filter operator helper Crit Value Read Back Y Blood Gas Notified Time 2031 Sodium 134 132.0 Potassium 3.6 Chloride 94 L 107.0 Carbon Dioxide 33 H Anion Gap 11 BUN 22 H Creatinine 5.0 H Est GFR ( Amer) 15 Est GFR (Non-Af Amer) 12 Random Glucose 130 H Calcium 8.2 L Phosphorus 2.1 L Magnesium 1.9 Total Bilirubin 0.7 AST 102 H ALT 45 Alkaline Phosphatase 243 H NT-Pro-B Natriuret Pep 9160 H Total Protein 7.0 Albumin 2.9 L Globulin 4.1 H Albumin/Globulin Ratio 0.7 L Venous Blood Potassium > 20.0 H* Urine Color Yellow Urine Clarity Turbid Urine pH 7.0 Ur Specific [place] 1.019 Urine Protein 2+ H Urine Glucose (UA) Normal Urine Ketones Negative Urine Blood 3+ H Urine Nitrate Negative Urine Bilirubin Negative Urine Urobilinogen Normal Ur Leukocyte Esterase 3+ H Urine WBC (Auto) 95 H Urine RBC (Auto) 29 H Urine Bacteria Many H Influenza Typ A,B (EIA) 09/08/17 20:51 WBC RBC Hgb Hct MCV MCH MCHC RDW Plt Count MPV Neut % (Auto) Lymph % (Auto) Mcdonald % (Auto) Eos % (Auto) Baso % (Auto) Neut # Lymph # Mcdonald # Eos # Baso # Neutrophils % (Manual) Band Neutrophils % Lymphocytes % (Manual) Monocytes % (Manual) Hypersegmented Polys Smudge Cells Toxic Granulation Platelet Estimate Large Platelets Hypochromasia (manual) Poikilocytosis (manual Anisocytosis (manual) PT INR APTT Puncture Site Lr pCO2 33 L pO2 85 HCO3 29.1 H ABG pH 7.54 H ABG Total CO2 29.2 H ABG O2 Saturation 97.7 ABG Base Excess 5.4 H ABG Hemoglobin 7.9 L ABG Carboxyhemoglobin 1.5 POC ABG HHb (Measured) 2.2 ABG Methemoglobin 1.3 Lukasz Test Pos VBG pH VBG pCO2 VBG HCO3 VBG Total CO2 VBG O2 Sat (Calc) VBG Base Excess VBG Potassium Hgb O2 Saturation 95.0 Glucose Lactate Crit Value Called To Crit Value Called By Crit Value Read Back Blood Gas Notified Time Sodium Potassium Chloride Carbon Dioxide Anion Gap BUN Creatinine Est GFR ( Amer) Est GFR (Non-Af Amer) Random Glucose Calcium Phosphorus Magnesium Total Bilirubin AST ALT Alkaline Phosphatase NT-Pro-B Natriuret Pep Total Protein Albumin Globulin Albumin/Globulin Ratio Venous Blood Potassium Urine Color Urine Clarity Urine pH Ur Specific [place] Urine Protein Urine Glucose (UA) Urine Ketones Urine Blood Urine Nitrate Urine Bilirubin Urine Urobilinogen Ur Leukocyte Esterase Urine WBC (Auto) Urine RBC (Auto) Urine Bacteria Influenza Typ A,B (EIA) EKG/Cardiology Studies: Cardiology / EKG Studies 09/08/17 19:59 ELECTROCARDIOGRAM Stat Comment: Mode Of Transportation: Reason For Exam: Sepsis Patient Critical Care Progress Note - Extremities/Vascular Does the Patient have a Central Venous Catheter?: Yes Does the Patient need a Central Venous Catheter?: Yes Does the Patient have a Skinner Catheter?: Yes Does the Patient need a Skinner Catheter?: Yes Assessment/Plan (1) Septic shock Current Visit: Yes Status: Acute Priority: High Comment: Continue levophed for BP support, wean as tolerated Continue IV hydration with NS at 100cc/hr; continue to reassess fluid status regularly Monitor UOP, D/C foly in AM Strict Is/Os Continue vanco, zosyn 2.25 q6h Monitor fever curve, Tylenol PRN fevers Trend WBC count, lactate Aggressive suctioning PRN (2) ESRD (end stage renal disease) Current Visit: Yes Status: Chronic Priority: Medium Comment: Lsst HD was yesterday, completed (3) UTI (urinary tract infection), bacterial Current Visit: Yes Status: Acute Priority: High (4) CHF (congestive heart failure) Current Visit: No Status: Chronic Priority: Medium (5) Prophylactic measure Current Visit: No Status: Acute (6) HTN (hypertension) Current Visit: No Status: Chronic - Assessment and Plan (Free Text) Assessment: Wound care GI/DVT PPX: PPI, SQ Heparin Patient is DNR/DNI as per sister (POA) Total critical care time 45 minutes
[2017-09-08] MEDS ORDERED: Sodium Chloride 0.9% 500 ML IV ONE (23:53)
[2017-09-09] MEDS: Piperacill/Tazo 2.25gm in Dex 2.25 GM/50 ML BAG IVPB SCH ×2 (05:42→12:18)
[2017-09-09 06:40] LABS: BASO # 0.1 K/uL (0.0-0.2); BASO % 0.8 % (0.0-2.0); EOS # 0.1 K/uL (0.0-0.7); EOS % 1.3 % (0.0-4.0); HEMOGLOBIN 8.2 g/dL (12.0-18.0); LYMPH # 0.7 K/uL (1.0-4.3); LYMPH % 10.3 % (20.0-40.0); MEAN CELL VOLUME 81.6 fL (80.0-94.0); MEAN CORPUSCULAR HEMOGLOBIN 26.1 pg (27.0-31.0); MEAN PLATELET VOLUME 9.2 fL (7.2-11.7); MONO # 0.8 K/uL (0.0-0.8); MONO % 12.5 % (0.0-10.0); NEUT % 75.1 % (50.0-75.0); RBC 3.14 Mil/uL (4.40-5.90); RED CELL DISTRIBUTION WIDTH 21.9 % (11.5-14.5); WHITE BLOOD COUNT 6.7 K/uL (4.8-10.8)
[2017-09-09 06:43] LABS: ALB/GLOB RATIO 0.7 (1.0-2.1); ALBUMIN 2.9 g/dL (3.5-5.0); CALCIUM 7.9 mg/dl (8.6-10.4); MAGNESIUM 1.8 mg/dL (1.6-2.3)
--- NOTE | 2017-09-09 06:51 | RAD ---
Chest x-ray single frontal view History: Sepsis. Comparison: 11/27/2016 Findings: Mild venous congestion. Bilateral hilar prominence. Enlarged ectatic aorta. Mild cardiomegaly. Impression: Mild venous congestion. Bilateral hilar prominence. Enlarged ectatic aorta. Mild cardiomegaly.
--- NOTE | 2017-09-09 09:48 | CP.CCUPN ---
CCU Subjective - Physician Review Events Since Last Encounter (Free Text): 09/09/17 09:48 Patient is a 51-year-old male with a history of hypertension or high cholesterol bilateral below-knee amputation, congestive heart failure end-stage renal disease on dialysis. Patient was admitted to the intensive care unit from the group home with the lethargic, and also found to be hypotensive. Patient has a right femoral line catheter, on norepinephrine drip. Patient is currently opening his eyes but the distally. Hypotension. Edema noted. A right arm swelling noted On examination: Vital sensitivity Chest good air entry bilaterally. Regular heart sound. Abdomen nontender. Not much intake at this time. Receiving norepinephrine drip. Bilateral below-knee amputation Assessment and recommendation: 51-year-old male with a history of hypertension or high cholesterol below-knee amputation congestive heart failure end-stage renal disease on dialysis. He was admitted with a high fever, altered mental status and sepsis. On IV antibiotic. Prognosis is guarded. Patient is DNR/DNI. Continue the supportive treatment CCU Objective - Vital Signs / Intake & Output Vital Signs (Last 4 hours): Vital Signs Temp Pulse Resp BP Pulse Ox 09/09/17 08:54 101.4 F H 09/09/17 08:27 93 H 38 H 98/45 L 96 09/09/17 08:00 101.4 F H 90 35 H 94 L 09/09/17 07:27 94 H 40 H 93/52 L 94 L 09/09/17 07:00 94 H 42 H 95 09/09/17 06:41 101.4 F H 09/09/17 06:27 91/53 L 09/09/17 06:00 96 H 36 H 95 Intake and Output (Last 8hrs): Intake & Output 09/08/17 09/09/17 09/09/17 22:59 06:59 14:59 Intake Total 175 70 Output Total 0 0 Balance 175 70 Weight 221 lb 14.4 oz 227 lb 11.2 oz Intake: Intake, IV Amount 175 70 Right Medial Port Femoral 100 40 Right Proximal Port 75 30 Femoral Oral 0 Output: Urine 0 0 Urethral (Skinner) 0 0 Other: Voiding Method Indwelling Catheter # Bowel Movements 0 - Physical Exam Head: Positive for: Normocephalic. Negative for: Tenderness, Contusion, Ecchymosis, Abrasion, Laceration Pupils: Positive for: PERRL Extroacular Muscles: Positive for: EOMI. Negative for: Gaze Palsy, Entrapment Conjunctiva: Positive for: Normal. Negative for: Injected, Icteric Ears: Positive for: Normal Mouth: Positive for: Moist Mucous Membranes Pharnyx: Positive for: Normal Nose (Internal): Positive for: Normal Inspection Neck: Positive for: Normal Range of Motion, Trachea Midline. Negative for: Meningeal Signs, MIDLINE TENDERNESS, Paraspinal Tenderness, JVD, Lymphadenopathy , Bruit, Other Respiratory/Chest: Positive for: Good Air Exchange, Decreased Breath Sounds. Negative for: Respiratory Distress, Accessory Muscle Use, Wheezes, Rales, Retracting, Rhonchi, Tachypneic Cardiovascular: Positive for: Regular Rate and Rhythm, Normal S1, S2, Peripheal Pulses Present. Negative for: Murmurs, Irregular Rhythm, Tachycardic, Bradycardic Abdomen: Positive for: Distention, Normal Bowel Sounds. Negative for: Tenderness, Peritoneal Signs Upper Extremity: Positive for: Edema (Massive RUE swelling, blistering, healed wound, AV fistule with thrill over it), Capillary Refill < 2s. Negative for: Cyanosis Lower Extremity: Positive for: Edema, NORMAL PULSES, Capillary Refill < 2 s. Negative for: CALF TENDERNESS Psychiatric: Positive for: Alert - Medications Active Medications: Active Medications Generic Name Dose Route Start Last Admin Trade Name Freq PRN Reason Stop Dose Admin Heparin Sodium (Porcine) 5,000 units 09/09/17 00:15 09/09/17 05:43 Heparin SC 5,000 units Q8 MAYNOR Administration Dextrose/Lactated Ringer's 1,000 mls @ 20 mls/hr 09/08/17 20:00 09/08/17 20: 00 Dextrose 5%/Lactated Ringer's IV 20 mls/hr .Q24H MAYNOR Administration Dopamine HCl/Dextrose 400 mg in 250 mls @ 37.745 mls/hr 09/08/17 22:24 22:26 Dopamine 400mg/250ml D5w IV 10 mcg/kg/min .[id number] PRN 37.745 mls/hr TITRATE PER MD ORDER Administration Protocol 10 MCG/KG/MIN Norepinephrine Bitartrate 4 mg 254 mls @ 15.24 mls/hr 09/08/17 22:37 23:02 / Sodium Chloride IV 4 mcg/min .[id number] PRN 15.24 mls/hr TITRATE PER MD ORDER Administration Protocol 4 MCG/MIN Piperacillin Sod/Tazobactam Sod 2.25 gm in 50 mls @ 100 mls/hr 09/09/17 06:00 09/09/17 05:42 Zosyn 2.25 Gm Iv Premix IVPB 100 mls/hr Q6H MAYNOR Administration Pantoprazole Sodium 40 mg 09/09/17 10:00 09/09/17 09:03 Protonix Inj IVP 40 mg DAILY MAYNOR Administration - Patient Studies Lab Studies: Lab Studies 09/09/17 09/09/17 09/08/17 Range/Units 06:24 06:23 20:51 WBC 6.7 (4.8-10.8) K/uL RBC 3.14 L (4.40-5.90) Mil/uL Hgb 8.2 L (12.0-18.0) g/dL Hct 25.6 L (35.0-51.0) % MCV 81.6 (80.0-94.0) fL MCH 26.1 L (27.0-31.0) pg MCHC 32.0 L (33.0-37.0) g/dL RDW 21.9 H (11.5-14.5) % Plt Count 263 (130-400) K/uL MPV 9.2 (7.2-11.7) fL Neut % (Auto) 75.1 H (50.0-75.0) % Lymph % (Auto) 10.3 L (20.0-40.0) % Dubois % (Auto) 12.5 H (0.0-10.0) % Eos % (Auto) 1.3 (0.0-4.0) % Baso % (Auto) 0.8 (0.0-2.0) % Neut # 5.0 (1.8-7.0) K/uL Lymph # 0.7 L (1.0-4.3) K/uL Dubois # 0.8 (0.0-0.8) K/uL Eos # 0.1 (0.0-0.7) K/uL Baso # 0.1 (0.0-0.2) K/uL Neutrophils % (Manual) (50-75) % Band Neutrophils % (0-2) % Lymphocytes % (Manual) (20-40) % Monocytes % (Manual) (0-10) % Hypersegmented Polys Smudge Cells Toxic Granulation Platelet Estimate (NORMAL) Large Platelets Hypochromasia (manual) Poikilocytosis (manual Anisocytosis (manual) PT (9.7-12.2) SECONDS INR APTT (21-34) SECONDS Puncture Site Lr pCO2 33 L (35-45) mm/Hg pO2 85 (30-55) mm/Hg HCO3 29.1 H (21-28) mmol/L ABG pH 7.54 H (7.35-7.45) ABG Total CO2 29.2 H (22-28) mmol/L ABG O2 Saturation 97.7 (95-98) % ABG Base Excess 5.4 H (-2.0-3.0) mmol/L ABG Hemoglobin 7.9 L (11.7-17.4) g/dL ABG Carboxyhemoglobin 1.5 (0.5-1.5) % POC ABG HHb (Measured) 2.2 (0.0-5.0) % ABG Methemoglobin 1.3 (0.0-3.0) % Lukasz Test Pos VBG pH (7.32-7.43) VBG pCO2 (40-60) mmHg VBG HCO3 mmol/L VBG Total CO2 (22-28) mmol/L VBG O2 Sat (Calc) (40-65) % VBG Base Excess (0.0-2.0) mmol/L VBG Potassium (3.6-5.2) mmol/L Hgb O2 Saturation 95.0 (95.0-98.0) % Glucose (75-110) mg/dl Lactate (0.7-2.1) mmol/L Crit Value Called To Crit Value Called By Crit Value Read Back Blood Gas Notified Time Sodium 135 (132-148) mmol/L Potassium 3.5 L (3.6-5.2) mmol/L Chloride 96 L (98-107) mmol/L Carbon Dioxide 30 (22-30) mmol/L Anion Gap 13 (10-20) BUN 26 H (9-20) mg/dL Creatinine 5.6 H (0.8-1.5) mg/dL Est GFR ( Amer) 13 Est GFR (Non-Af Amer) 11 Random Glucose 135 H (75-110) mg/dL Calcium 7.9 L (8.6-10.4) mg/dl Phosphorus 2.9 (2.5-4.5) mg/dL Magnesium 1.8 (1.6-2.3) mg/dL Total Bilirubin 0.9 (0.2-1.3) mg/dL AST 98 H (17-59) U/L ALT 40 (21-72) U/L Alkaline Phosphatase 239 H (38-126) U/L NT-Pro-B Natriuret Pep (0-900) pg/mL Total Protein 6.8 (6.3-8.3) g/dL Albumin 2.9 L (3.5-5.0) g/dL Globulin 3.9 (2.2-3.9) gm/dL Albumin/Globulin Ratio 0.7 L (1.0-2.1) Venous Blood Potassium (3.6-5.2) mmol/L Urine Color (YELLOW) Urine Clarity (Clear) Urine pH (5.0-8.0) Ur Specific Sidney (1.003-1.030) Urine Protein (NEGATIVE) mg/dL Urine Glucose (UA) (Normal) mg/dL Urine Ketones (NEGATIVE) mg/dL Urine Blood (NEGATIVE) Urine Nitrate (NEGATIVE) Urine Bilirubin (NEGATIVE) Urine Urobilinogen (0.2-1.0) mg/dL Ur Leukocyte Esterase (Negative) Nita/uL Urine WBC (Auto) (0-5) /hpf Urine RBC (Auto) (0-3) /hpf Urine Bacteria (<OCC) Influenza Typ A,B (EIA) (NEGATIVE) 09/08/17 09/08/17 09/08/17 Range/Units 20:48 20:26 20:19 WBC (4.8-10.8) K/uL RBC (4.40-5.90) Mil/uL Hgb (12.0-18.0) g/dL Hct (35.0-51.0) % MCV (80.0-94.0) fL MCH (27.0-31.0) pg MCHC (33.0-37.0) g/dL RDW (11.5-14.5) % Plt Count (130-400) K/uL MPV (7.2-11.7) fL Neut % (Auto) (50.0-75.0) % Lymph % (Auto) (20.0-40.0) % Dubois % (Auto) (0.0-10.0) % Eos % (Auto) (0.0-4.0) % Baso % (Auto) (0.0-2.0) % Neut # (1.8-7.0) K/uL Lymph # (1.0-4.3) K/uL Dubois # (0.0-0.8) K/uL Eos # (0.0-0.7) K/uL Baso # (0.0-0.2) K/uL Neutrophils % (Manual) (50-75) % Band Neutrophils % (0-2) % Lymphocytes % (Manual) (20-40) % Monocytes % (Manual) (0-10) % Hypersegmented Polys Smudge Cells Toxic Granulation Platelet Estimate (NORMAL) Large Platelets Hypochromasia (manual) Poikilocytosis (manual Anisocytosis (manual) PT (9.7-12.2) SECONDS INR APTT (21-34) SECONDS Puncture Site pCO2 (35-45) mm/Hg pO2 45 (30-55) mm/Hg HCO3 (21-28) mmol/L ABG pH (7.35-7.45) ABG Total CO2 (22-28) mmol/L ABG O2 Saturation (95-98) % ABG Base Excess (-2.0-3.0) mmol/L ABG Hemoglobin (11.7-17.4) g/dL ABG Carboxyhemoglobin (0.5-1.5) % POC ABG HHb (Measured) (0.0-5.0) % ABG Methemoglobin (0.0-3.0) % Lukasz Test VBG pH 7.17 L* (7.32-7.43) VBG pCO2 63 H (40-60) mmHg VBG HCO3 19.0 mmol/L VBG Total CO2 24.9 (22-28) mmol/L VBG O2 Sat (Calc) 74.8 H (40-65) % VBG Base Excess -6.5 L (0.0-2.0) mmol/L VBG Potassium > 20.0 H* (3.6-5.2) mmol/L Hgb O2 Saturation (95.0-98.0) % Glucose 107 (75-110) mg/dl Lactate 1.7 (0.7-2.1) mmol/L Crit Value Called To Nelda bearden Crit Value Called By Yfn carlson fiction and nonfiction author Crit Value Read Back Y Blood Gas Notified Time 2031 Sodium 132.0 134 (132-148) mmol/L Potassium 3.6 (3.6-5.2) mmol/L Chloride 107.0 94 L (98-107) mmol/L Carbon Dioxide 33 H (22-30) mmol/L Anion Gap 11 (10-20) BUN 22 H (9-20) mg/dL Creatinine 5.0 H (0.8-1.5) mg/dL Est GFR ( Amer) 15 Est GFR (Non-Af Amer) 12 Random Glucose 130 H (75-110) mg/dL Calcium 8.2 L (8.6-10.4) mg/dl Phosphorus 2.1 L (2.5-4.5) mg/dL Magnesium 1.9 (1.6-2.3) mg/dL Total Bilirubin 0.7 (0.2-1.3) mg/dL AST 102 H (17-59) U/L ALT 45 (21-72) U/L Alkaline Phosphatase 243 H (38-126) U/L NT-Pro-B Natriuret Pep 9160 H (0-900) pg/mL Total Protein 7.0 (6.3-8.3) g/dL Albumin 2.9 L (3.5-5.0) g/dL Globulin 4.1 H (2.2-3.9) gm/dL Albumin/Globulin Ratio 0.7 L (1.0-2.1) Venous Blood Potassium > 20.0 H* (3.6-5.2) mmol/L Urine Color Yellow (YELLOW) Urine Clarity Turbid (Clear) Urine pH 7.0 (5.0-8.0) Ur Specific Sidney 1.019 (1.003-1.030) Urine Protein 2+ H (NEGATIVE) mg/dL Urine Glucose (UA) Normal (Normal) mg/dL Urine Ketones Negative (NEGATIVE) mg/dL Urine Blood 3+ H (NEGATIVE) Urine Nitrate Negative (NEGATIVE) Urine Bilirubin Negative (NEGATIVE) Urine Urobilinogen Normal (0.2-1.0) mg/dL Ur Leukocyte Esterase 3+ H (Negative) Nita/uL Urine WBC (Auto) 95 H (0-5) /hpf Urine RBC (Auto) 29 H (0-3) /hpf Urine Bacteria Many H (<OCC) Influenza Typ A,B (EIA) (NEGATIVE) 09/08/17 09/08/17 09/08/17 Range/Units 20:19 20:19 20:03 WBC 6.8 (4.8-10.8) K/uL RBC 3.52 L (4.40-5.90) Mil/uL Hgb 9.0 L (12.0-18.0) g/dL Hct 28.5 L (35.0-51.0) % MCV 81.0 D (80.0-94.0) fL MCH 25.5 L (27.0-31.0) pg MCHC 31.5 L (33.0-37.0) g/dL RDW 22.1 H (11.5-14.5) % Plt Count 286 (130-400) K/uL MPV 9.0 (7.2-11.7) fL Neut % (Auto) 79.2 H (50.0-75.0) % Lymph % (Auto) 6.9 L (20.0-40.0) % Dubois % (Auto) 9.5 (0.0-10.0) % Eos % (Auto) 2.5 (0.0-4.0) % Baso % (Auto) 1.9 (0.0-2.0) % Neut # 5.4 (1.8-7.0) K/uL Lymph # 0.5 L (1.0-4.3) K/uL Dubois # 0.7 (0.0-0.8) K/uL Eos # 0.2 (0.0-0.7) K/uL Baso # 0.1 (0.0-0.2) K/uL Neutrophils % (Manual) 78 H (50-75) % Band Neutrophils % 4 H (0-2) % Lymphocytes % (Manual) 9 L (20-40) % Monocytes % (Manual) 9 (0-10) % Hypersegmented Polys Present Smudge Cells Present Toxic Granulation Present Platelet Estimate Normal (NORMAL) Large Platelets Present Hypochromasia (manual) Moderate Poikilocytosis (manual Slight Anisocytosis (manual) Slight PT 16.3 H (9.7-12.2) SECONDS INR 1.4 APTT 33 (21-34) SECONDS Puncture Site pCO2 (35-45) mm/Hg pO2 (30-55) mm/Hg HCO3 (21-28) mmol/L ABG pH (7.35-7.45) ABG Total CO2 (22-28) mmol/L ABG O2 Saturation (95-98) % ABG Base Excess (-2.0-3.0) mmol/L ABG Hemoglobin (11.7-17.4) g/dL ABG Carboxyhemoglobin (0.5-1.5) % POC ABG HHb (Measured) (0.0-5.0) % ABG Methemoglobin (0.0-3.0) % Lukasz Test VBG pH (7.32-7.43) VBG pCO2 (40-60) mmHg VBG HCO3 mmol/L VBG Total CO2 (22-28) mmol/L VBG O2 Sat (Calc) (40-65) % VBG Base Excess (0.0-2.0) mmol/L VBG Potassium (3.6-5.2) mmol/L Hgb O2 Saturation (95.0-98.0) % Glucose (75-110) mg/dl Lactate (0.7-2.1) mmol/L Crit Value Called To Crit Value Called By Crit Value Read Back Blood Gas Notified Time Sodium (132-148) mmol/L Potassium (3.6-5.2) mmol/L Chloride (98-107) mmol/L Carbon Dioxide (22-30) mmol/L Anion Gap (10-20) BUN (9-20) mg/dL Creatinine (0.8-1.5) mg/dL Est GFR ( Amer) Est GFR (Non-Af Amer) Random Glucose (75-110) mg/dL Calcium (8.6-10.4) mg/dl Phosphorus (2.5-4.5) mg/dL Magnesium (1.6-2.3) mg/dL Total Bilirubin (0.2-1.3) mg/dL AST (17-59) U/L ALT (21-72) U/L Alkaline Phosphatase (38-126) U/L NT-Pro-B Natriuret Pep (0-900) pg/mL Total Protein (6.3-8.3) g/dL Albumin (3.5-5.0) g/dL Globulin (2.2-3.9) gm/dL Albumin/Globulin Ratio (1.0-2.1) Venous Blood Potassium (3.6-5.2) mmol/L Urine Color (YELLOW) Urine Clarity (Clear) Urine pH (5.0-8.0) Ur Specific Sidney (1.003-1.030) Urine Protein (NEGATIVE) mg/dL Urine Glucose (UA) (Normal) mg/dL Urine Ketones (NEGATIVE) mg/dL Urine Blood (NEGATIVE) Urine Nitrate (NEGATIVE) Urine Bilirubin (NEGATIVE) Urine Urobilinogen (0.2-1.0) mg/dL Ur Leukocyte Esterase (Negative) Nita/uL Urine WBC (Auto) (0-5) /hpf Urine RBC (Auto) (0-3) /hpf Urine Bacteria (<OCC) Influenza Typ A,B (EIA) Negative for flu a/b (NEGATIVE) Laboratory Results - last 24 hr 09/08/17 09/08/17 09/08/17 20:03 20:19 20:19 WBC 6.8 RBC 3.52 L Hgb 9.0 L Hct 28.5 L MCV 81.0 D MCH 25.5 L MCHC 31.5 L RDW 22.1 H Plt Count 286 MPV 9.0 Neut % (Auto) 79.2 H Lymph % (Auto) 6.9 L Dubois % (Auto) 9.5 Eos % (Auto) 2.5 Baso % (Auto) 1.9 Neut # 5.4 Lymph # 0.5 L Dubois # 0.7 Eos # 0.2 Baso # 0.1 Neutrophils % (Manual) 78 H Band Neutrophils % 4 H Lymphocytes % (Manual) 9 L Monocytes % (Manual) 9 Hypersegmented Polys Present Smudge Cells Present Toxic Granulation Present Platelet Estimate Normal Large Platelets Present Hypochromasia (manual) Moderate Poikilocytosis (manual Slight Anisocytosis (manual) Slight PT 16.3 H INR 1.4 APTT 33 Puncture Site pCO2 pO2 HCO3 ABG pH ABG Total CO2 ABG O2 Saturation ABG Base Excess ABG Hemoglobin ABG Carboxyhemoglobin POC ABG HHb (Measured) ABG Methemoglobin Lukasz Test VBG pH VBG pCO2 VBG HCO3 VBG Total CO2 VBG O2 Sat (Calc) VBG Base Excess VBG Potassium Hgb O2 Saturation Glucose Lactate Crit Value Called To Crit Value Called By Crit Value Read Back Blood Gas Notified Time Sodium Potassium Chloride Carbon Dioxide Anion Gap BUN Creatinine Est GFR ( Amer) Est GFR (Non-Af Amer) Random Glucose Calcium Phosphorus Magnesium Total Bilirubin AST ALT Alkaline Phosphatase NT-Pro-B Natriuret Pep Total Protein Albumin Globulin Albumin/Globulin Ratio Venous Blood Potassium Urine Color Urine Clarity Urine pH Ur Specific Sidney Urine Protein Urine Glucose (UA) Urine Ketones Urine Blood Urine Nitrate Urine Bilirubin Urine Urobilinogen Ur Leukocyte Esterase Urine WBC (Auto) Urine RBC (Auto) Urine Bacteria Influenza Typ A,B (EIA) Negative for flu a/b 09/08/17 09/08/17 09/08/17 20:19 20:26 20:48 WBC RBC Hgb Hct MCV MCH MCHC RDW Plt Count MPV Neut % (Auto) Lymph % (Auto) Dubois % (Auto) Eos % (Auto) Baso % (Auto) Neut # Lymph # Dubois # Eos # Baso # Neutrophils % (Manual) Band Neutrophils % Lymphocytes % (Manual) Monocytes % (Manual) Hypersegmented Polys Smudge Cells Toxic Granulation Platelet Estimate Large Platelets Hypochromasia (manual) Poikilocytosis (manual Anisocytosis (manual) PT INR APTT Puncture Site pCO2 pO2 45 HCO3 ABG pH ABG Total CO2 ABG O2 Saturation ABG Base Excess ABG Hemoglobin ABG Carboxyhemoglobin POC ABG HHb (Measured) ABG Methemoglobin Lukasz Test VBG pH 7.17 L* VBG pCO2 63 H VBG HCO3 19.0 VBG Total CO2 24.9 VBG O2 Sat (Calc) 74.8 H VBG Base Excess -6.5 L VBG Potassium > 20.0 H* Hgb O2 Saturation Glucose 107 Lactate 1.7 Crit Value Called To Nelda bearden Crit Value Called By Yfn carlson fiction and nonfiction author Crit Value Read Back Y Blood Gas Notified Time 2031 Sodium 134 132.0 Potassium 3.6 Chloride 94 L 107.0 Carbon Dioxide 33 H Anion Gap 11 BUN 22 H Creatinine 5.0 H Est GFR ( Amer) 15 Est GFR (Non-Af Amer) 12 Random Glucose 130 H Calcium 8.2 L Phosphorus 2.1 L Magnesium 1.9 Total Bilirubin 0.7 AST 102 H ALT 45 Alkaline Phosphatase 243 H NT-Pro-B Natriuret Pep 9160 H Total Protein 7.0 Albumin 2.9 L Globulin 4.1 H Albumin/Globulin Ratio 0.7 L Venous Blood Potassium > 20.0 H* Urine Color Yellow Urine Clarity Turbid Urine pH 7.0 Ur Specific Sidney 1.019 Urine Protein 2+ H Urine Glucose (UA) Normal Urine Ketones Negative Urine Blood 3+ H Urine Nitrate Negative Urine Bilirubin Negative Urine Urobilinogen Normal Ur Leukocyte Esterase 3+ H Urine WBC (Auto) 95 H Urine RBC (Auto) 29 H Urine Bacteria Many H Influenza Typ A,B (EIA) 09/08/17 09/09/17 09/09/17 20:51 06:23 06:24 WBC 6.7 RBC 3.14 L Hgb 8.2 L Hct 25.6 L MCV 81.6 MCH 26.1 L MCHC 32.0 L RDW 21.9 H Plt Count 263 MPV 9.2 Neut % (Auto) 75.1 H Lymph % (Auto) 10.3 L Dubois % (Auto) 12.5 H Eos % (Auto) 1.3 Baso % (Auto) 0.8 Neut # 5.0 Lymph # 0.7 L Dubois # 0.8 Eos # 0.1 Baso # 0.1 Neutrophils % (Manual) Band Neutrophils % Lymphocytes % (Manual) Monocytes % (Manual) Hypersegmented Polys Smudge Cells Toxic Granulation Platelet Estimate Large Platelets Hypochromasia (manual) Poikilocytosis (manual Anisocytosis (manual) PT INR APTT Puncture Site Lr pCO2 33 L pO2 85 HCO3 29.1 H ABG pH 7.54 H ABG Total CO2 29.2 H ABG O2 Saturation 97.7 ABG Base Excess 5.4 H ABG Hemoglobin 7.9 L ABG Carboxyhemoglobin 1.5 POC ABG HHb (Measured) 2.2 ABG Methemoglobin 1.3 Lukasz Test Pos VBG pH VBG pCO2 VBG HCO3 VBG Total CO2 VBG O2 Sat (Calc) VBG Base Excess VBG Potassium Hgb O2 Saturation 95.0 Glucose Lactate Crit Value Called To Crit Value Called By Crit Value Read Back Blood Gas Notified Time Sodium 135 Potassium 3.5 L Chloride 96 L Carbon Dioxide 30 Anion Gap 13 BUN 26 H Creatinine 5.6 H Est GFR ( Amer) 13 Est GFR (Non-Af Amer) 11 Random Glucose 135 H Calcium 7.9 L Phosphorus 2.9 Magnesium 1.8 Total Bilirubin 0.9 AST 98 H ALT 40 Alkaline Phosphatase 239 H NT-Pro-B Natriuret Pep Total Protein 6.8 Albumin 2.9 L Globulin 3.9 Albumin/Globulin Ratio 0.7 L Venous Blood Potassium Urine Color Urine Clarity Urine pH Ur Specific Sidney Urine Protein Urine Glucose (UA) Urine Ketones Urine Blood Urine Nitrate Urine Bilirubin Urine Urobilinogen Ur Leukocyte Esterase Urine WBC (Auto) Urine RBC (Auto) Urine Bacteria Influenza Typ A,B (EIA) EKG/Cardiology Studies: Cardiology / EKG Studies 09/08/17 19:59 ELECTROCARDIOGRAM Stat Comment: Mode Of Transportation: Reason For Exam: Sepsis Patient Fingerstick Blood Sugar Results: 124
[2017-09-09] MEDS ORDERED: Azithromycin 500 MG in Sodium Chloride 0.9% 250 ML IVPB SCH (12:00)
[2017-09-09] MEDS ORDERED: (Novolog) Insulin Aspart, Recombinant 100 u/ml 10 ml vial SC SCH (14:00)
--- NOTE | 2017-09-09 14:26 | CP.PCM.CON ---
History of Present Illness - History of Present Illness History of Present Illness: 51 year old male sent in from shelter after being found lethargic and with a fever. Patient has a Hx of ESRD on dialysis. Admitted via ER for sepsis/ septic shock requiring pressors Source of infection unclear - Medical History PMH: Anemia, CHF, HTN, Hypercholesterolemia, Pneumonia, End Stage Renal Disease , Chronic Kidney Disease, bilat BKA - [facility] Procedures PERFORMANCE OF URINARY FILTRATION, SINGLE (11/27/16) Review of Systems - Review of Systems Systems not reviewed;Unavailable: Altered Mental Status All systems: reviewed and no additional remarkable complaints except - Constitutional Constitutional: As Per HPI - EENT Eyes: absent: As Per HPI, Blind Spots, Blurred Vision, Change in Vision, Decreased Night Vision, Diplopia, Discharge, Dry Eye, Exophthalmos, Floaters, Irritation, Itchy Eyes, Loss of Peripheral Vision, Pain, Photophobia, Requires Corrective Lenses, Sees Flashes, Spots in Vision, Tunnel Vision, Other Visual Disturbances, Loss of Vision, Other Ears: absent: As Per HPI, Decreased Hearing, Ear Discharge, Ear Pain, Tinnitus, Abnormal Hearing, Disequilibrium, Dizziness, Other Nose/Mouth/Throat: absent: As Per HPI, Epistaxis, Nasal Congestion, Nasal Discharge, Nasal Obstruction, Nasal Trauma, Nose Pain, Post Nasal Drip, Sinus Pain, Sinus Pressure, Bleeding Gums, Change in Voice, Dental Pain, Dry Mouth, Dysphagia, Halitosis, Hoarsness, Lip Swelling, Mouth Lesions, Mouth Pain, Odynophagia, Sore Throat, Throat Swelling, Tongue Swelling, Facial Pain, Neck Pain, Neck Mass, Other - Cardiovascular Cardiovascular: As Per HPI - Respiratory Respiratory: absent: As Per HPI, Cough, Dyspnea, Hemoptysis, Dyspnea on Exertion , Wheezing, Snoring, Stridor, Pain on Inspiration, Chest Congestion, Excessive Mucous Production, Change in Mucous Color, Pain with Coughing, Other - Gastrointestinal Gastrointestinal: absent: As Per HPI, Abdominal Pain, Belching, Bloating, Change in Bowel Habits, Change in Stool Character, Coffee Ground Emesis, Constipation, Cramping, Diarrhea, Dyspepsia, Dysphagia, Early Satiety, Excessive Flatus, Fecal Incontinence, Heartburn, Hematemesis, Hematochezia, Loose Stools, Melena, Nausea, Odynophagia, Temesmus, Vomiting, Other - Genitourinary Genitourinary: absent: As Per HPI, Change in Urinary Stream, Difficulty Urinating, Dysuria, Flank Pain, Hematuria, Pyuria, Nocturia, Urinary Incontinence, Urinary Frequency, Urinary Hesitance, Urinary Urgency, Voiding Freq/Small Amts, Freq UTI, Hx Renal/Bladder Calculi, Hx /Renal Surgery, Bladder Distension, Other - Musculoskeletal Musculoskeletal: As Per HPI. absent: Abnormal Gait, Arthralgias, Atrophy, Back Pain, Deformity, Joint Swelling, Limited Range of Motion, Loss of Height, Muscle Cramps, Muscle Weakness, Myalgias, Neck Pain, Numbness, Radiating Pain into Limb, Stiffness, Tingling, Other - Integumentary Integumentary: As Per HPI - Neurological Neurological: As Per HPI - Psychiatric Psychiatric: absent: As Per HPI, Abnormal Sleep Pattern, Anhedonia, Anxiety, Auditory Hallucinations, Behavioral Changes, Change in Appetite, Change in Libido, Confusion, Depression, Difficulty Concentrating, Hallucinations, Homicidal Ideation, Hopelessness, Irritability, Memory Loss, Mood Swings, Panic Attacks, Paranoia, Suicidal Ideation, Visual Hallucinations, Tactile Hallucinations, Other - Endocrine Endocrine: absent: As Per HPI, Change in Body Appearance, Change in Libido, Cold Intolorance, Deepening of Voice, Excessive Sweating, Fatigue, Flushing, Heat Intolorance, Increase in Ring/Shoe/Hat Size, Palpitations, Polydipsia, Polyphagia, Polyuria, Other - Hematologic/Lymphatic Hematologic: absent: As Per HPI, Easy Bleeding, Easy Bruising, Lymphadenopathy, Other Past Patient History - Past Medical History & Family History Past Medical History?: Yes - Past Social History Smoking Status: Unknown If Ever Smoked - CARDIAC Hx Cardiac Disorders: Yes Hx Congestive Heart Failure: Yes Hx Hypercholesterolemia: Yes Hx Hypertension: Yes - PULMONARY Hx Respiratory Disorders: Yes Hx Pneumonia: Yes - NEUROLOGICAL Hx Neurological Disorder: Yes HX Cerebrovascular Accident: Yes - HEENT Hx HEENT Problems: No - RENAL Date of Last Dialysis Treatment: 09/07/17 - ENDOCRINE/METABOLIC Hx Endocrine Disorders: Yes Hx Diabetes Mellitus Type 1: Yes - HEMATOLOGICAL/ONCOLOGICAL Hx Blood Disorders: Yes Hx Anemia: Yes - INTEGUMENTARY Hx Dermatological Problems: No - MUSCULOSKELETAL/RHEUMATOLOGICAL Hx Musculoskeletal Disorders: No Hx Falls: No - GASTROINTESTINAL Hx Gastrointestinal Disorders: No - GENITOURINARY/GYNECOLOGICAL Hx Genitourinary Disorders: No - PSYCHIATRIC Hx Psychophysiologic Disorder: No Hx Substance Use: No - SURGICAL HISTORY Hx Surgeries: Yes Other/Comment: Bilateral BKA. 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 - ANESTHESIA Hx Anesthesia: Yes Hx Anesthesia Reactions: No Hx Malignant Hyperthermia: No Has any member of the family had a problem w/ anesthesia?: No Meds Allergies/Adverse Reactions: Allergies Allergy/AdvReac Type Severity Reaction Status Date / Time No Known Allergies Allergy Verified 09/08/17 19:40 - Medications Medications: Current Medications Aspirin (Aspirin Chewable) 81 mg PO DAILY [facility] Calcitriol (Rocaltrol) 0.25 mcg PO DAILY [facility] Carvedilol (Coreg) 6.25 mg PO BID [facility] Famotidine (Pepcid) 20 mg PO Q12 [facility] Heparin Sodium (Porcine) (Heparin) 5,000 units SC Q8 [facility] Last Admin: 09/09/17 05:43 Dose: 5,000 units Dextrose/Lactated Ringer's (Dextrose 5%/Lactated Ringer's) 1,000 mls @ 20 mls/ hr IV .Q24H [facility] Last Admin: 09/08/17 20:00 Dose: 20 mls/hr Dopamine HCl/Dextrose (Dopamine 400mg/250ml D5w) 400 mg in 250 mls @ 37.745 mls /hr IV .Q6H38M PRN; Protocol; 10 MCG/KG/MIN PRN Reason: TITRATE PER MD ORDER Last Admin: 09/08/17 22:26 Dose: 10 mcg/kg/min, 37.745 mls/hr Norepinephrine Bitartrate 4 mg (/ Sodium Chloride) 254 mls @ 15.24 mls/hr IV .[id number] PRN; Protocol; 4 MCG/MIN PRN Reason: TITRATE PER MD ORDER Last Admin: 09/09/17 13:22 Dose: 6 mcg/min, 22.86 mls/hr Piperacillin Sod/Tazobactam Sod (Zosyn 2.25 Gm Iv Premix) 2.25 gm in 50 mls @ 100 mls/hr IVPB Q6H [facility] Last Admin: 09/09/17 12:18 Dose: 100 mls/hr Azithromycin 500 mg/ Sodium (Chloride) 250 mls @ 167 mls/hr IVPB Q24H [facility] Last Admin: 09/09/17 13:21 Dose: 167 mls/hr Insulin Aspart (Novolog) 0 unit SC ACHS [facility] PRN Reason: Protocol Insulin Detemir (Levemir) 25 unit SC BID [facility] Pantoprazole Sodium (Protonix Inj) 40 mg IVP DAILY [facility] Last Admin: 09/09/17 09:03 Dose: 40 mg Rosuvastatin Calcium (Crestor) 10 mg PO DAILY [facility] Sevelamer Carbonate (Renvela) 1,600 mg PO TTS [facility] Physical Exam - Constitutional Appears: Confused, Chronically Ill - Head Exam Head Exam: ATRAUMATIC, NORMOCEPHALIC - Eye Exam Eye Exam: EOMI, PERRL. absent: Scleral icterus - ENT Exam ENT Exam: Mucous Membranes Dry - Neck Exam Neck exam: Negative for: Lymphadenopathy, Thyromegaly - Respiratory Exam Respiratory Exam: Decreased Breath Sounds, Rhonchi - Cardiovascular Exam Cardiovascular Exam: Tachycardia, REGULAR RHYTHM, +S1, +S2 - GI/Abdominal Exam GI & Abdominal Exam: Diminished Bowel Sounds, Distended, Soft. absent: Rebound , Rigid, Tenderness - Rectal Exam Rectal Exam: Deferred - Exam Exam: NORMAL INSPECTION - Extremities Exam Extremities exam: Negative for: calf tenderness, pedal edema, tenderness, pedal pulses present Additional comments: bilat BKA - Back Exam Back exam: absent: CVA tenderness (L), CVA tenderness (R) - Neurological Exam Neurological exam: Altered - Psychiatric Exam Psychiatric exam: Depressed - Skin Skin Exam: Dry Results - Vital Signs Recent Vital Signs: Last Vital Signs Temp 100.0 F H 09/09/17 09:54 Pulse 89 09/09/17 13:27 Resp 34 H 09/09/17 13:27 BP 96/56 L 09/09/17 13:27 Pulse Ox 97 09/09/17 13:27 - Labs Result Diagrams: 09/09/17 06:23 09/09/17 06:24 Labs: Laboratory Results - last 24 hr 09/08/17 09/08/17 09/08/17 20:03 20:19 20:19 WBC 6.8 RBC 3.52 L Hgb 9.0 L Hct 28.5 L MCV 81.0 D MCH 25.5 L MCHC 31.5 L RDW 22.1 H Plt Count 286 MPV 9.0 Neut % (Auto) 79.2 H Lymph % (Auto) 6.9 L [place] % (Auto) 9.5 Eos % (Auto) 2.5 Baso % (Auto) 1.9 Neut # 5.4 Lymph # 0.5 L [place] # 0.7 Eos # 0.2 Baso # 0.1 Neutrophils % (Manual) 78 H Band Neutrophils % 4 H Lymphocytes % (Manual) 9 L Monocytes % (Manual) 9 Hypersegmented Polys Present Smudge Cells Present Toxic Granulation Present Platelet Estimate Normal Large Platelets Present Hypochromasia (manual) Moderate Poikilocytosis (manual Slight Anisocytosis (manual) Slight PT 16.3 H INR 1.4 APTT 33 Puncture Site pCO2 pO2 HCO3 ABG pH ABG Total CO2 ABG O2 Saturation ABG Base Excess ABG Hemoglobin ABG Carboxyhemoglobin POC ABG HHb (Measured) ABG Methemoglobin Lukasz Test VBG pH VBG pCO2 VBG HCO3 VBG Total CO2 VBG O2 Sat (Calc) VBG Base Excess VBG Potassium Hgb O2 Saturation Glucose Lactate Crit Value Called To Crit Value Called By Crit Value Read Back Blood Gas Notified Time Sodium Potassium Chloride Carbon Dioxide Anion Gap BUN Creatinine Est GFR ( Amer) Est GFR (Non-Af Amer) Random Glucose Calcium Phosphorus Magnesium Total Bilirubin AST ALT Alkaline Phosphatase NT-Pro-B Natriuret Pep Total Protein Albumin Globulin Albumin/Globulin Ratio Venous Blood Potassium Urine Color Urine Clarity Urine pH Ur Specific [place] Urine Protein Urine Glucose (UA) Urine Ketones Urine Blood Urine Nitrate Urine Bilirubin Urine Urobilinogen Ur Leukocyte Esterase Urine WBC (Auto) Urine RBC (Auto) Urine Bacteria Influenza Typ A,B (EIA) Negative for flu a/b 09/08/17 09/08/17 09/08/17 20:19 20:26 20:48 WBC RBC Hgb Hct MCV MCH MCHC RDW Plt Count MPV Neut % (Auto) Lymph % (Auto) [place] % (Auto) Eos % (Auto) Baso % (Auto) Neut # Lymph # [place] # Eos # Baso # Neutrophils % (Manual) Band Neutrophils % Lymphocytes % (Manual) Monocytes % (Manual) Hypersegmented Polys Smudge Cells Toxic Granulation Platelet Estimate Large Platelets Hypochromasia (manual) Poikilocytosis (manual Anisocytosis (manual) PT INR APTT Puncture Site pCO2 pO2 45 HCO3 ABG pH ABG Total CO2 ABG O2 Saturation ABG Base Excess ABG Hemoglobin ABG Carboxyhemoglobin POC ABG HHb (Measured) ABG Methemoglobin Lukasz Test VBG pH 7.17 L* VBG pCO2 63 H VBG HCO3 19.0 VBG Total CO2 24.9 VBG O2 Sat (Calc) 74.8 H VBG Base Excess -6.5 L VBG Potassium > 20.0 H* Hgb O2 Saturation Glucose 107 Lactate 1.7 Crit Value Called To Nelda bearden Crit Value Called By Yfn carlson [facility] Crit Value Read Back Y Blood Gas Notified Time 2031 Sodium 134 132.0 Potassium 3.6 Chloride 94 L 107.0 Carbon Dioxide 33 H Anion Gap 11 BUN 22 H Creatinine 5.0 H Est GFR ( Amer) 15 Est GFR (Non-Af Amer) 12 Random Glucose 130 H Calcium 8.2 L Phosphorus 2.1 L Magnesium 1.9 Total Bilirubin 0.7 AST 102 H ALT 45 Alkaline Phosphatase 243 H NT-Pro-B Natriuret Pep 9160 H Total Protein 7.0 Albumin 2.9 L Globulin 4.1 H Albumin/Globulin Ratio 0.7 L Venous Blood Potassium > 20.0 H* Urine Color Yellow Urine Clarity Turbid Urine pH 7.0 Ur Specific [place] 1.019 Urine Protein 2+ H Urine Glucose (UA) Normal Urine Ketones Negative Urine Blood 3+ H Urine Nitrate Negative Urine Bilirubin Negative Urine Urobilinogen Normal Ur Leukocyte Esterase 3+ H Urine WBC (Auto) 95 H Urine RBC (Auto) 29 H Urine Bacteria Many H Influenza Typ A,B (EIA) 09/08/17 09/09/17 09/09/17 20:51 06:23 06:24 WBC 6.7 RBC 3.14 L Hgb 8.2 L Hct 25.6 L MCV 81.6 MCH 26.1 L MCHC 32.0 L RDW 21.9 H Plt Count 263 MPV 9.2 Neut % (Auto) 75.1 H Lymph % (Auto) 10.3 L [place] % (Auto) 12.5 H Eos % (Auto) 1.3 Baso % (Auto) 0.8 Neut # 5.0 Lymph # 0.7 L [place] # 0.8 Eos # 0.1 Baso # 0.1 Neutrophils % (Manual) Band Neutrophils % Lymphocytes % (Manual) Monocytes % (Manual) Hypersegmented Polys Smudge Cells Toxic Granulation Platelet Estimate Large Platelets Hypochromasia (manual) Poikilocytosis (manual Anisocytosis (manual) PT INR APTT Puncture Site Lr pCO2 33 L pO2 85 HCO3 29.1 H ABG pH 7.54 H ABG Total CO2 29.2 H ABG O2 Saturation 97.7 ABG Base Excess 5.4 H ABG Hemoglobin 7.9 L ABG Carboxyhemoglobin 1.5 POC ABG HHb (Measured) 2.2 ABG Methemoglobin 1.3 Lukasz Test Pos VBG pH VBG pCO2 VBG HCO3 VBG Total CO2 VBG O2 Sat (Calc) VBG Base Excess VBG Potassium Hgb O2 Saturation 95.0 Glucose Lactate Crit Value Called To Crit Value Called By Crit Value Read Back Blood Gas Notified Time Sodium 135 Potassium 3.5 L Chloride 96 L Carbon Dioxide 30 Anion Gap 13 BUN 26 H Creatinine 5.6 H Est GFR ( Amer) 13 Est GFR (Non-Af Amer) 11 Random Glucose 135 H Calcium 7.9 L Phosphorus 2.9 Magnesium 1.8 Total Bilirubin 0.9 AST 98 H ALT 40 Alkaline Phosphatase 239 H NT-Pro-B Natriuret Pep Total Protein 6.8 Albumin 2.9 L Globulin 3.9 Albumin/Globulin Ratio 0.7 L Venous Blood Potassium Urine Color Urine Clarity Urine pH Ur Specific [place] Urine Protein Urine Glucose (UA) Urine Ketones Urine Blood Urine Nitrate Urine Bilirubin Urine Urobilinogen Ur Leukocyte Esterase Urine WBC (Auto) Urine RBC (Auto) Urine Bacteria Influenza Typ A,B (EIA) Assessment & Plan (1) Hypotension Status: Acute (2) Sepsis Status: Acute (3) Septic shock Status: Acute Priority: High (4) UTI (urinary tract infection), bacterial Status: Acute Priority: High (5) ESRD (end stage renal disease) Status: Chronic Priority: Medium (6) Bacteremia Status: Acute (7) CHF exacerbation Status: Acute (8) ESRD (end stage renal disease) on dialysis Status: Acute (9) Fever Status: Acute (10) Diabetes mellitus Status: Chronic (11) HTN (hypertension) Status: Chronic - Assessment and Plan (Free Text) Assessment: toxic metabolic encephalopathy/ sepsis / septic shock cont iv rx discussed with Dr Arcenio Edwards
[2017-09-09] MEDS ORDERED: Meropenem 1 GM in Sodium Chloride 0.9% 100 ML IVPB ONE ×2 (14:31→15:30)
[2017-09-09] MEDS ORDERED: Gentamicin 240 MG in Sodium Chloride 0.9% 100 ML IVPB STA (14:32)
[2017-09-09] MEDS: (Novolog) Insulin Aspart, Recombinant 100 u/ml 10 ml vial SC SCH ×2 (16:25→22:50)
[2017-09-09] MEDS: Insulin Detemir 100 units/ml Vial (Levemir) SC SCH (17:06)
--- NOTE | 2017-09-09 17:56 | US ---
Limited right upper extremity soft tissue ultrasound History: Evaluate for abscess. Comparison: None available. Technique: Real-time sonography was performed through the soft tissues of the right upper extremity. Findings: Please see separate report for evaluation of vascular patency of the AV fistula site on the vascular ultrasound. Reticulation and edema seen within the soft tissues of the right upper extremity suggestive for a cellulitis. No evidence of discrete abscess collection. Incidentally documented is a prominent vessel at the site of the soft tissue swelling. Impression: Reticulation and edema within the right upper extremity consistent with cellulitis. Please see separate report for evaluation of vascular patency at the AV fistula on the vascular ultrasound.
--- NOTE | 2017-09-09 18:05 | CP.PCM.HP ---
Past Patient History - Past Medical History & Family History Past Medical History?: Yes - Past Social History Smoking Status: Unknown If Ever Smoked - CARDIAC Hx Cardiac Disorders: Yes Hx Congestive Heart Failure: Yes Hx Hypercholesterolemia: Yes Hx Hypertension: Yes - PULMONARY Hx Respiratory Disorders: Yes Hx Pneumonia: Yes - NEUROLOGICAL Hx Neurological Disorder: Yes HX Cerebrovascular Accident: Yes - HEENT Hx HEENT Problems: No - RENAL Date of Last Dialysis Treatment: 09/07/17 - ENDOCRINE/METABOLIC Hx Endocrine Disorders: Yes Hx Diabetes Mellitus Type 1: Yes - HEMATOLOGICAL/ONCOLOGICAL Hx Blood Disorders: Yes Hx Anemia: Yes - INTEGUMENTARY Hx Dermatological Problems: No - MUSCULOSKELETAL/RHEUMATOLOGICAL Hx Musculoskeletal Disorders: No Hx Falls: No - GASTROINTESTINAL Hx Gastrointestinal Disorders: No - GENITOURINARY/GYNECOLOGICAL Hx Genitourinary Disorders: No - PSYCHIATRIC Hx Psychophysiologic Disorder: No Hx Substance Use: No - SURGICAL HISTORY Hx Surgeries: Yes Other/Comment: Bilateral BKA. 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 - ANESTHESIA Hx Anesthesia: Yes Hx Anesthesia Reactions: No Hx Malignant Hyperthermia: No Has any member of the family had a problem w/ anesthesia?: No Meds Allergies/Adverse Reactions: Allergies Allergy/AdvReac Type Severity Reaction Status Date / Time No Known Allergies Allergy Verified 09/08/17 19:40 Physical Exam - Constitutional Appears: Well - Head Exam Head Exam: ATRAUMATIC, NORMAL INSPECTION, NORMOCEPHALIC - Eye Exam Eye Exam: EOMI, Normal appearance, PERRL Pupil Exam: NORMAL ACCOMODATION, PERRL - ENT Exam ENT Exam: Mucous Membranes Moist, Normal Exam - Neck Exam Neck exam: Positive for: Normal Inspection - Respiratory Exam Respiratory Exam: Decreased Breath Sounds - Cardiovascular Exam Cardiovascular Exam: REGULAR RHYTHM, +S1, +S2 - GI/Abdominal Exam GI & Abdominal Exam: Diminished Bowel Sounds, Soft - Rectal Exam Rectal Exam: Deferred Results - Vital Signs Recent Vital Signs: Last Vital Signs Temp 99.4 F 09/09/17 16:05 Pulse 92 H 09/09/17 17:27 Resp 34 H 09/09/17 17:27 BP 109/58 L 09/09/17 17:27 Pulse Ox 97 09/09/17 17:27 - Labs Result Diagrams: 09/09/17 06:23 09/09/17 06:24 Labs: Laboratory Results - last 24 hr 09/08/17 09/08/17 09/08/17 20:03 20:19 20:19 WBC 6.8 RBC 3.52 L Hgb 9.0 L Hct 28.5 L MCV 81.0 D MCH 25.5 L MCHC 31.5 L RDW 22.1 H Plt Count 286 MPV 9.0 Neut % (Auto) 79.2 H Lymph % (Auto) 6.9 L [place] % (Auto) 9.5 Eos % (Auto) 2.5 Baso % (Auto) 1.9 Neut # 5.4 Lymph # 0.5 L [place] # 0.7 Eos # 0.2 Baso # 0.1 Neutrophils % (Manual) 78 H Band Neutrophils % 4 H Lymphocytes % (Manual) 9 L Monocytes % (Manual) 9 Hypersegmented Polys Present Smudge Cells Present Toxic Granulation Present Platelet Estimate Normal Large Platelets Present Hypochromasia (manual) Moderate Poikilocytosis (manual Slight Anisocytosis (manual) Slight PT 16.3 H INR 1.4 APTT 33 Puncture Site pCO2 pO2 HCO3 ABG pH ABG Total CO2 ABG O2 Saturation ABG Base Excess ABG Hemoglobin ABG Carboxyhemoglobin POC ABG HHb (Measured) ABG Methemoglobin Lukasz Test VBG pH VBG pCO2 VBG HCO3 VBG Total CO2 VBG O2 Sat (Calc) VBG Base Excess VBG Potassium Hgb O2 Saturation Glucose Lactate Crit Value Called To Crit Value Called By Crit Value Read Back Blood Gas Notified Time Sodium Potassium Chloride Carbon Dioxide Anion Gap BUN Creatinine Est GFR ( Amer) Est GFR (Non-Af Amer) POC Glucose (mg/dL) Random Glucose Calcium Phosphorus Magnesium Total Bilirubin AST ALT Alkaline Phosphatase NT-Pro-B Natriuret Pep Total Protein Albumin Globulin Albumin/Globulin Ratio Venous Blood Potassium Urine Color Urine Clarity Urine pH Ur Specific [place] Urine Protein Urine Glucose (UA) Urine Ketones Urine Blood Urine Nitrate Urine Bilirubin Urine Urobilinogen Ur Leukocyte Esterase Urine WBC (Auto) Urine RBC (Auto) Urine Bacteria Influenza Typ A,B (EIA) Negative for flu a/b 09/08/17 09/08/17 09/08/17 20:19 20:26 20:48 WBC RBC Hgb Hct MCV MCH MCHC RDW Plt Count MPV Neut % (Auto) Lymph % (Auto) [place] % (Auto) Eos % (Auto) Baso % (Auto) Neut # Lymph # [place] # Eos # Baso # Neutrophils % (Manual) Band Neutrophils % Lymphocytes % (Manual) Monocytes % (Manual) Hypersegmented Polys Smudge Cells Toxic Granulation Platelet Estimate Large Platelets Hypochromasia (manual) Poikilocytosis (manual Anisocytosis (manual) PT INR APTT Puncture Site pCO2 pO2 45 HCO3 ABG pH ABG Total CO2 ABG O2 Saturation ABG Base Excess ABG Hemoglobin ABG Carboxyhemoglobin POC ABG HHb (Measured) ABG Methemoglobin Lukasz Test VBG pH 7.17 L* VBG pCO2 63 H VBG HCO3 19.0 VBG Total CO2 24.9 VBG O2 Sat (Calc) 74.8 H VBG Base Excess -6.5 L VBG Potassium > 20.0 H* Hgb O2 Saturation Glucose 107 Lactate 1.7 Crit Value Called To Nelda bearden Crit Value Called By Yfn carlson surgical elastic knitter Crit Value Read Back Y Blood Gas Notified Time 2031 Sodium 134 132.0 Potassium 3.6 Chloride 94 L 107.0 Carbon Dioxide 33 H Anion Gap 11 BUN 22 H Creatinine 5.0 H Est GFR ( Amer) 15 Est GFR (Non-Af Amer) 12 POC Glucose (mg/dL) Random Glucose 130 H Calcium 8.2 L Phosphorus 2.1 L Magnesium 1.9 Total Bilirubin 0.7 AST 102 H ALT 45 Alkaline Phosphatase 243 H NT-Pro-B Natriuret Pep 9160 H Total Protein 7.0 Albumin 2.9 L Globulin 4.1 H Albumin/Globulin Ratio 0.7 L Venous Blood Potassium > 20.0 H* Urine Color Yellow Urine Clarity Turbid Urine pH 7.0 Ur Specific [place] 1.019 Urine Protein 2+ H Urine Glucose (UA) Normal Urine Ketones Negative Urine Blood 3+ H Urine Nitrate Negative Urine Bilirubin Negative Urine Urobilinogen Normal Ur Leukocyte Esterase 3+ H Urine WBC (Auto) 95 H Urine RBC (Auto) 29 H Urine Bacteria Many H Influenza Typ A,B (EIA) 09/08/17 09/09/17 09/09/17 20:51 06:23 06:24 WBC 6.7 RBC 3.14 L Hgb 8.2 L Hct 25.6 L MCV 81.6 MCH 26.1 L MCHC 32.0 L RDW 21.9 H Plt Count 263 MPV 9.2 Neut % (Auto) 75.1 H Lymph % (Auto) 10.3 L [place] % (Auto) 12.5 H Eos % (Auto) 1.3 Baso % (Auto) 0.8 Neut # 5.0 Lymph # 0.7 L [place] # 0.8 Eos # 0.1 Baso # 0.1 Neutrophils % (Manual) Band Neutrophils % Lymphocytes % (Manual) Monocytes % (Manual) Hypersegmented Polys Smudge Cells Toxic Granulation Platelet Estimate Large Platelets Hypochromasia (manual) Poikilocytosis (manual Anisocytosis (manual) PT INR APTT Puncture Site Lr pCO2 33 L pO2 85 HCO3 29.1 H ABG pH 7.54 H ABG Total CO2 29.2 H ABG O2 Saturation 97.7 ABG Base Excess 5.4 H ABG Hemoglobin 7.9 L ABG Carboxyhemoglobin 1.5 POC ABG HHb (Measured) 2.2 ABG Methemoglobin 1.3 Lukasz Test Pos VBG pH VBG pCO2 VBG HCO3 VBG Total CO2 VBG O2 Sat (Calc) VBG Base Excess VBG Potassium Hgb O2 Saturation 95.0 Glucose Lactate Crit Value Called To Crit Value Called By Crit Value Read Back Blood Gas Notified Time Sodium 135 Potassium 3.5 L Chloride 96 L Carbon Dioxide 30 Anion Gap 13 BUN 26 H Creatinine 5.6 H Est GFR ( Amer) 13 Est GFR (Non-Af Amer) 11 POC Glucose (mg/dL) Random Glucose 135 H Calcium 7.9 L Phosphorus 2.9 Magnesium 1.8 Total Bilirubin 0.9 AST 98 H ALT 40 Alkaline Phosphatase 239 H NT-Pro-B Natriuret Pep Total Protein 6.8 Albumin 2.9 L Globulin 3.9 Albumin/Globulin Ratio 0.7 L Venous Blood Potassium Urine Color Urine Clarity Urine pH Ur Specific [place] Urine Protein Urine Glucose (UA) Urine Ketones Urine Blood Urine Nitrate Urine Bilirubin Urine Urobilinogen Ur Leukocyte Esterase Urine WBC (Auto) Urine RBC (Auto) Urine Bacteria Influenza Typ A,B (EIA) 09/09/17 16:08 WBC RBC Hgb Hct MCV MCH MCHC RDW Plt Count MPV Neut % (Auto) Lymph % (Auto) [place] % (Auto) Eos % (Auto) Baso % (Auto) Neut # Lymph # [place] # Eos # Baso # Neutrophils % (Manual) Band Neutrophils % Lymphocytes % (Manual) Monocytes % (Manual) Hypersegmented Polys Smudge Cells Toxic Granulation Platelet Estimate Large Platelets Hypochromasia (manual) Poikilocytosis (manual Anisocytosis (manual) PT INR APTT Puncture Site pCO2 pO2 HCO3 ABG pH ABG Total CO2 ABG O2 Saturation ABG Base Excess ABG Hemoglobin ABG Carboxyhemoglobin POC ABG HHb (Measured) ABG Methemoglobin Lukasz Test VBG pH VBG pCO2 VBG HCO3 VBG Total CO2 VBG O2 Sat (Calc) VBG Base Excess VBG Potassium Hgb O2 Saturation Glucose Lactate Crit Value Called To Crit Value Called By Crit Value Read Back Blood Gas Notified Time Sodium Potassium Chloride Carbon Dioxide Anion Gap BUN Creatinine Est GFR ( Amer) Est GFR (Non-Af Amer) POC Glucose (mg/dL) 179 H Random Glucose Calcium Phosphorus Magnesium Total Bilirubin AST ALT Alkaline Phosphatase NT-Pro-B Natriuret Pep Total Protein Albumin Globulin Albumin/Globulin Ratio Venous Blood Potassium Urine Color Urine Clarity Urine pH Ur Specific [place] Urine Protein Urine Glucose (UA) Urine Ketones Urine Blood Urine Nitrate Urine Bilirubin Urine Urobilinogen Ur Leukocyte Esterase Urine WBC (Auto) Urine RBC (Auto) Urine Bacteria Influenza Typ A,B (EIA)
[2017-09-09] MEDS: Dextrose 5%/Lactated Ringer's 1,000 ML IV SCH (21:12)
[2017-09-10] MEDS: Meropenem 500 MG in Sodium Chloride 0.9% 100 ML IVPB SCH ×2 (01:15→14:59)
[2017-09-10 06:39] LABS: BASO % 0.8 % (0.0-2.0); EOS % 0.3 % (0.0-4.0); LYMPH # 0.8 K/uL (1.0-4.3); LYMPH % 12.3 % (20.0-40.0); MEAN CELL VOLUME 81.6 fL (80.0-94.0); MEAN CORPUSCULAR HEMOGLOBIN 25.6 pg (27.0-31.0); MEAN CORPUSCULAR HGB CONC 31.4 g/dL (33.0-37.0); MEAN PLATELET VOLUME 9.1 fL (7.2-11.7); MONO # 0.8 K/uL (0.0-0.8); MONO % 12.4 % (0.0-10.0); NEUT # 4.7 K/uL (1.8-7.0); NEUT % 74.2 % (50.0-75.0); NRBC % 0.1 % (0.0-2.0); RBC 3.12 Mil/uL (4.40-5.90); WHITE BLOOD COUNT 6.3 K/uL (4.8-10.8)
[2017-09-10 06:58] LABS: ALB/GLOB RATIO 0.7 (1.0-2.1); ALBUMIN 2.6 g/dL (3.5-5.0); MAGNESIUM 1.8 mg/dL (1.6-2.3)
[2017-09-10] MEDS: (Novolog) Insulin Aspart, Recombinant 100 u/ml 10 ml vial SC SCH ×4 (08:03→21:59)
--- NOTE | 2017-09-10 08:10 | RAD ---
Chest x-ray single frontal view History: Pneumonia. Comparison: 09/08/2017 Findings: Mild venous congestion. Right hilar prominence. Elevated right hemidiaphragm. Cardiomegaly. Right paratracheal prominence. Impression: Mild venous congestion. Right hilar prominence. Elevated right hemidiaphragm. Cardiomegaly. Right paratracheal prominence.
[2017-09-10] MEDS: Insulin Detemir 100 units/ml Vial (Levemir) SC SCH ×2 (09:30→18:02)
--- NOTE | 2017-09-10 12:26 | CP.CCUPN ---
CCU Subjective - Physician Review Subjective (Free Text): 09/10/17 12:23 patient seen and examined at bedside awake and arousabale For dialysis today. still hypotensive on levophed, will add hydrocortisone for adrenal insuff Merrem for suspected urosepsis CCU Objective - Vital Signs / Intake & Output Vital Signs (Last 4 hours): Vital Signs Temp Pulse Resp BP Pulse Ox 09/10/17 11:30 96 H 26 H 100 09/10/17 11:27 96/55 L 09/10/17 10:30 92 H 22 98 09/10/17 10:27 92/48 L 09/10/17 09:30 99 H 20 98 09/10/17 09:27 90/48 L 09/10/17 09:15 90 24 100 09/10/17 09:14 87/44 L 09/10/17 09:03 99.8 F H 09/10/17 09:00 98 H 24 100 09/10/17 08:38 80/42 L 09/10/17 08:27 89/47 L Intake and Output (Last 8hrs): Intake & Output 09/09/17 09/10/17 09/10/17 22:59 06:59 14:59 Intake Total 622.4 444.9 459.3 Output Total 0 0 0 Balance 622.4 444.9 459.3 Weight 227 lb 1.218 oz Intake: IV 108 Intake, IV Amount 442.4 384.9 201.3 Right Distal Port Femoral 100 100 Right Medial Port Femoral 160 160 120 Right Proximal Port 182.4 124.9 81.3 Femoral Oral 180 60 150 Output: Urine 0 0 0 Urethral (Skinner) 0 Urine, Voided 0 0 0 Stool 0 Other: # Bowel Movements 0 0 0 - Physical Exam Head: Positive for: Normocephalic. Negative for: Tenderness, Contusion, Ecchymosis, Abrasion, Laceration Pupils: Positive for: PERRL Extroacular Muscles: Positive for: EOMI. Negative for: Gaze Palsy, Entrapment Conjunctiva: Positive for: Normal. Negative for: Injected, Icteric Ears: Positive for: Normal Mouth: Positive for: Moist Mucous Membranes Pharnyx: Positive for: Normal Nose (Internal): Positive for: Normal Inspection Neck: Positive for: Normal Range of Motion, Trachea Midline. Negative for: Meningeal Signs, MIDLINE TENDERNESS, Paraspinal Tenderness, JVD, Lymphadenopathy , Bruit, Other Respiratory/Chest: Positive for: Good Air Exchange, Decreased Breath Sounds. Negative for: Respiratory Distress, Accessory Muscle Use, Wheezes, Rales, Retracting, Rhonchi, Tachypneic Cardiovascular: Positive for: Regular Rate and Rhythm, Normal S1, S2, Peripheal Pulses Present. Negative for: Murmurs, Irregular Rhythm, Tachycardic, Bradycardic Abdomen: Positive for: Distention, Normal Bowel Sounds. Negative for: Tenderness, Peritoneal Signs Upper Extremity: Positive for: Edema (Massive RUE swelling, blistering, healed wound, AV fistule with thrill over it), Capillary Refill < 2s. Negative for: Cyanosis Lower Extremity: Positive for: Edema, NORMAL PULSES, Capillary Refill < 2 s. Negative for: CALF TENDERNESS Psychiatric: Positive for: Alert - Medications Active Medications: Active Medications Generic Name Dose Route Start Last Admin Trade Name Freq PRN Reason Stop Dose Admin Acetaminophen 650 mg 09/09/17 16:46 09/10/17 08:03 Tylenol 325mg Tab PO 650 mg Q4H PRN Administration fever Aspirin 81 mg 09/10/17 10:00 09/10/17 09:29 Aspirin Chewable PO 81 mg DAILY [facility] Administration Calcitriol 0.25 mcg 09/10/17 10:00 09/10/17 09:29 Rocaltrol PO 0.25 mcg DAILY [facility] Administration Carvedilol 6.25 mg 09/09/17 18:00 09/10/17 09:29 Coreg PO Not Given BID [facility] Famotidine 20 mg 09/09/17 22:00 09/10/17 09:28 Pepcid PO 20 mg Q12 [facility] Administration Heparin Sodium (Porcine) 5,000 units 09/09/17 00:15 09/10/17 05:52 Heparin SC 5,000 units Q8 [facility] Administration Hydrocortisone Sodium Succinate 50 mg 09/10/17 11:00 09/10/17 11:29 Solu-Cortef IV 09/13/17 11:01 50 mg Q8H [facility] Administration Dextrose/Lactated Ringer's 1,000 mls @ 20 mls/hr 09/08/17 20:00 09/09/17 21: 12 Dextrose 5%/Lactated Ringer's IV Not Given .Q24H [facility] Meropenem 500 mg/ Sodium 100 mls @ 100 mls/hr 09/10/17 02:00 09/10/17 01:15 Chloride IVPB 100 mls/hr Q12H [facility] Administration Norepinephrine Bitartrate 8 mg 258 mls @ 7.74 mls/hr 09/10/17 00:45 09/10/17 09:00 / Sodium Chloride IV 8 mcg/min .Q24H PRN 15.48 mls/hr TITRATE PER MD ORDER Titration Protocol 4 MCG/MIN Insulin Aspart 0 unit 09/09/17 16:30 09/10/17 08:03 Novolog SC 2 unit ACHS [facility] Administration Protocol Insulin Detemir 25 unit 09/09/17 18:00 09/10/17 09:30 Levemir SC Not Given BID [facility] Rosuvastatin Calcium 10 mg 09/09/17 22:00 09/09/17 22:49 Crestor PO 10 mg HS [facility] Administration Sevelamer Carbonate 1,600 mg 09/11/17 10:00 Renvela PO TTS [facility] - Patient Studies Lab Studies: Microbiology Studies 09/08/17 08:30 MRSA Culture (Admit) - Final Nose MRSA NOT DETECTED 09/08/17 20:00 Blood Culture - Preliminary Blood NO GROWTH AFTER 24 HOURS 09/08/17 19:30 Blood Culture - Preliminary Blood NO GROWTH AFTER 24 HOURS Lab Studies 09/10/17 09/10/17 09/10/17 Range/Units 12:01 07:48 06:25 WBC 6.3 (4.8-10.8) K/uL RBC 3.12 L (4.40-5.90) Mil/uL Hgb 8.0 L (12.0-18.0) g/dL Hct 25.4 L (35.0-51.0) % MCV 81.6 (80.0-94.0) fL MCH 25.6 L (27.0-31.0) pg MCHC 31.4 L (33.0-37.0) g/dL RDW 22.0 H (11.5-14.5) % Plt Count 242 (130-400) K/uL MPV 9.1 (7.2-11.7) fL Neut % (Auto) 74.2 (50.0-75.0) % Lymph % (Auto) 12.3 L (20.0-40.0) % Sanborn % (Auto) 12.4 H (0.0-10.0) % Eos % (Auto) 0.3 (0.0-4.0) % Baso % (Auto) 0.8 (0.0-2.0) % Neut # 4.7 (1.8-7.0) K/uL Lymph # 0.8 L (1.0-4.3) K/uL Sanborn # 0.8 (0.0-0.8) K/uL Eos # 0.0 (0.0-0.7) K/uL Baso # 0.0 (0.0-0.2) K/uL Sodium (132-148) mmol/L Potassium (3.6-5.2) mmol/L Chloride (98-107) mmol/L Carbon Dioxide (22-30) mmol/L Anion Gap (10-20) BUN (9-20) mg/dL Creatinine (0.8-1.5) mg/dL Est GFR ( Amer) Est GFR (Non-Af Amer) POC Glucose (mg/dL) 171 H 231 H (65-110) mg/dL Random Glucose (75-110) mg/dL Calcium (8.6-10.4) mg/dl Phosphorus (2.5-4.5) mg/dL Magnesium (1.6-2.3) mg/dL Total Bilirubin (0.2-1.3) mg/dL AST (17-59) U/L ALT (21-72) U/L Alkaline Phosphatase (38-126) U/L Total Protein (6.3-8.3) g/dL Albumin (3.5-5.0) g/dL Globulin (2.2-3.9) gm/dL Albumin/Globulin Ratio (1.0-2.1) 09/10/17 09/09/17 09/09/17 Range/Units 06:23 21:19 16:08 WBC (4.8-10.8) K/uL RBC (4.40-5.90) Mil/uL Hgb (12.0-18.0) g/dL Hct (35.0-51.0) % MCV (80.0-94.0) fL MCH (27.0-31.0) pg MCHC (33.0-37.0) g/dL RDW (11.5-14.5) % Plt Count (130-400) K/uL MPV (7.2-11.7) fL Neut % (Auto) (50.0-75.0) % Lymph % (Auto) (20.0-40.0) % Sanborn % (Auto) (0.0-10.0) % Eos % (Auto) (0.0-4.0) % Baso % (Auto) (0.0-2.0) % Neut # (1.8-7.0) K/uL Lymph # (1.0-4.3) K/uL Sanborn # (0.0-0.8) K/uL Eos # (0.0-0.7) K/uL Baso # (0.0-0.2) K/uL Sodium 135 (132-148) mmol/L Potassium 3.6 (3.6-5.2) mmol/L Chloride 96 L (98-107) mmol/L Carbon Dioxide 28 (22-30) mmol/L Anion Gap 14 (10-20) BUN 37 H (9-20) mg/dL Creatinine 7.2 H (0.8-1.5) mg/dL Est GFR ( Amer) 10 Est GFR (Non-Af Amer) 8 POC Glucose (mg/dL) 194 H 179 H (65-110) mg/dL Random Glucose 174 H (75-110) mg/dL Calcium 8.0 L (8.6-10.4) mg/dl Phosphorus 3.8 (2.5-4.5) mg/dL Magnesium 1.8 (1.6-2.3) mg/dL Total Bilirubin 1.0 (0.2-1.3) mg/dL AST 129 H D (17-59) U/L ALT 62 (21-72) U/L Alkaline Phosphatase 223 H (38-126) U/L Total Protein 6.4 (6.3-8.3) g/dL Albumin 2.6 L (3.5-5.0) g/dL Globulin 3.8 (2.2-3.9) gm/dL Albumin/Globulin Ratio 0.7 L (1.0-2.1) Laboratory Results - last 24 hr 09/09/17 09/09/17 09/10/17 16:08 21:19 06:23 WBC RBC Hgb Hct MCV MCH MCHC RDW Plt Count MPV Neut % (Auto) Lymph % (Auto) Sanborn % (Auto) Eos % (Auto) Baso % (Auto) Neut # Lymph # Sanborn # Eos # Baso # Sodium 135 Potassium 3.6 Chloride 96 L Carbon Dioxide 28 Anion Gap 14 BUN 37 H Creatinine 7.2 H Est GFR ( Amer) 10 Est GFR (Non-Af Amer) 8 POC Glucose (mg/dL) 179 H 194 H Random Glucose 174 H Calcium 8.0 L Phosphorus 3.8 Magnesium 1.8 Total Bilirubin 1.0 AST 129 H D ALT 62 Alkaline Phosphatase 223 H Total Protein 6.4 Albumin 2.6 L Globulin 3.8 Albumin/Globulin Ratio 0.7 L 09/10/17 09/10/17 09/10/17 06:25 07:48 12:01 WBC 6.3 RBC 3.12 L Hgb 8.0 L Hct 25.4 L MCV 81.6 MCH 25.6 L MCHC 31.4 L RDW 22.0 H Plt Count 242 MPV 9.1 Neut % (Auto) 74.2 Lymph % (Auto) 12.3 L Sanborn % (Auto) 12.4 H Eos % (Auto) 0.3 Baso % (Auto) 0.8 Neut # 4.7 Lymph # 0.8 L Sanborn # 0.8 Eos # 0.0 Baso # 0.0 Sodium Potassium Chloride Carbon Dioxide Anion Gap BUN Creatinine Est GFR ( Amer) Est GFR (Non-Af Amer) POC Glucose (mg/dL) 231 H 171 H Random Glucose Calcium Phosphorus Magnesium Total Bilirubin AST ALT Alkaline Phosphatase Total Protein Albumin Globulin Albumin/Globulin Ratio Fingerstick Blood Sugar Results: 231 Critical Care Progress Note - Nutrition Nutrition: Nutrition Category Date Time Status Renal Diet [DIET] Diets 09/09/17 Dinner Active Assessment/Plan - Assessment and Plan (Free Text) Assessment: 51 Septic shock on pressors, dialysis Plan: Psych: No acute issues Neuro: Was previously lethargic but is more awake now Cards: CHF, Coreg, ASA, crestor Pulm: No acute issues GI: No acute issues Renal: ESRD on dialysis, AVF. Endo: Possible adrenal insuff, 50 hydrocortisone for 3 days ID: Suspected urosepsis, on Merrem, Hypotensive despite levophed PPX: pepcid, heparin
--- NOTE | 2017-09-10 12:49 | CP.PCM.PN ---
Subjective - Date & Time of Evaluation Date of Evaluation: 09/10/17 Time of Evaluation: 07:00 - Subjective Subjective: remains lethargic culltures so far neg cont rx Objective - Vital Signs/Intake and Output Vital Signs (last 24 hours): Temp Pulse Resp BP Pulse Ox 98.6 F 94 H 22 96/55 L 98 09/10/17 12:00 09/10/17 12:00 09/10/17 12:00 09/10/17 11:27 09/10/17 12:00 Intake and Output: 09/10/17 09/10/17 06:59 18:59 Intake Total 796.1 459.3 Output Total 0 0 Balance 796.1 459.3 - Medications Medications: Current Medications Acetaminophen (Tylenol 325mg Tab) 650 mg PO Q4H PRN PRN Reason: fever Last Admin: 09/10/17 08:03 Dose: 650 mg Aspirin (Aspirin Chewable) 81 mg PO DAILY [facility] Last Admin: 09/10/17 09:29 Dose: 81 mg Calcitriol (Rocaltrol) 0.25 mcg PO DAILY [facility] Last Admin: 09/10/17 09:29 Dose: 0.25 mcg Carvedilol (Coreg) 6.25 mg PO BID [facility] Last Admin: 09/10/17 09:29 Dose: Not Given Famotidine (Pepcid) 20 mg PO Q12 [facility] Last Admin: 09/10/17 09:28 Dose: 20 mg Heparin Sodium (Porcine) (Heparin) 5,000 units SC Q8 [facility] Last Admin: 09/10/17 05:52 Dose: 5,000 units Hydrocortisone Sodium Succinate (Solu-Cortef) 50 mg IV Q8H [facility] Stop: 09/13/17 11:01 Last Admin: 09/10/17 11:29 Dose: 50 mg Dextrose/Lactated Ringer's (Dextrose 5%/Lactated Ringer's) 1,000 mls @ 20 mls/ hr IV .Q24H [facility] Last Admin: 09/09/17 21:12 Dose: Not Given Meropenem 500 mg/ Sodium (Chloride) 100 mls @ 100 mls/hr IVPB Q12H [facility] Last Admin: 09/10/17 01:15 Dose: 100 mls/hr Norepinephrine Bitartrate 8 mg (/ Sodium Chloride) 258 mls @ 7.74 mls/hr IV .Q24H PRN; Protocol; 4 MCG/MIN PRN Reason: TITRATE PER MD ORDER Last Titration: 09/10/17 09:00 Dose: 8 mcg/min, 15.48 mls/hr Insulin Aspart (Novolog) 0 unit SC ACHS [facility] PRN Reason: Protocol Last Admin: 09/10/17 12:40 Dose: Not Given Insulin Detemir (Levemir) 25 unit SC BID [facility] Last Admin: 09/10/17 09:30 Dose: Not Given Rosuvastatin Calcium (Crestor) 10 mg PO HS [facility] Last Admin: 09/09/17 22:49 Dose: 10 mg Sevelamer Carbonate (Renvela) 1,600 mg PO TTS [facility] - Labs Labs: 09/10/17 06:25 09/10/17 06:23 PT 16.3 SECONDS (9.7-12.2) H 09/08/17 20:19 INR 1.4 09/08/17 20:19 APTT 33 SECONDS (21-34) 09/08/17 20:19 - Constitutional Appears: Confused, Chronically Ill - Head Exam Head Exam: NORMOCEPHALIC - Eye Exam Eye Exam: PERRL - ENT Exam ENT Exam: Mucous Membranes Dry - Neck Exam Neck Exam: absent: Lymphadenopathy - Respiratory Exam Respiratory Exam: Decreased Breath Sounds - Cardiovascular Exam Cardiovascular Exam: REGULAR RHYTHM - GI/Abdominal Exam GI & Abdominal Exam: Distended Assessment and Plan (1) Hypotension Status: Acute (2) Sepsis Status: Acute (3) Septic shock Status: Acute (4) UTI (urinary tract infection), bacterial Status: Acute (5) ESRD (end stage renal disease) Status: Chronic (6) Bacteremia Status: Acute (7) CHF exacerbation Status: Acute (8) ESRD (end stage renal disease) on dialysis Status: Acute (9) Fever Status: Acute (10) Diabetes mellitus Status: Chronic (11) HTN (hypertension) Status: Chronic
--- NOTE | 2017-09-10 15:26 | VASCLAB ---
PROCEDURE: Right Upper Extremity Venous Duplex Exam HISTORY: Leg swelling PRIORS: None. TECHNIQUE: Right upper extremity, internal jugular, subclavian, axillary, brachial, ulnar, radial, basilic and upper cephalic veins were evaluated. Flow was assessed with color Doppler, compressibility, assessment of phasic flow and augmentation response. Report prepared by MARYCHUY Mayfield, RVT FINDINGS: RIGHT: 1. Internal Jugular: 1.1. Compressibility - Fully compressible: Thrombus - None : Flow - Phasic: Augmentation -Normal: Reflux - None. 2. Subclavian: 2.1. Compressibility - Fully compressible: Thrombus - None : Flow - Phasic: Augmentation -Normal: Reflux - None. 3. Axillary: 3.1. Compressibility - Fully compressible: Thrombus - None : Flow - Phasic: Augmentation -Normal: Reflux - None. 4. Brachial: 4.1. Compressibility - Fully compressible: Thrombus - None: Flow - Phasic: Augmentation -Normal: Reflux - None. 5. Ulnar: 5.1. Compressibility - Fully compressible: Thrombus - None: Flow - Phasic: Augmentation -Normal: Reflux - None. 6. Radial: 6.1. Compressibility - Fully compressible: Thrombus - None: Flow - Phasic: Augmentation - Normal: Reflux - None. 7. Cephalic: 7.1. Compressibility - Fully compressible: Thrombus - None: Flow - Phasic: Augmentation -Normal: Reflux - None. 8. Basilic: 8.1. Compressibility - : Thrombus - : Flow - : Augmentation -: Reflux - . OTHER FINDINGS: Right: A functional basilic AV fistula noted on the right upper arm. IMPRESSION: Right: No evidence of vein thrombosis of the right upper extremity with excellent venous flow. Normal valve function noted of the right side. Normal venous flow noted in the left internal jugular and left subclavian veins.
--- NOTE | 2017-09-10 19:57 | CP.PCM.PN ---
Subjective - Date & Time of Evaluation Date of Evaluation: 09/10/17 Time of Evaluation: 12:00 - Subjective Subjective: clinically same Objective - Vital Signs/Intake and Output Vital Signs (last 24 hours): Temp Pulse Resp BP Pulse Ox 98.2 F 90 28 H 109/69 81 L 09/10/17 19:30 09/10/17 19:40 09/10/17 19:40 09/10/17 19:40 09/10/17 19:40 Intake and Output: 09/10/17 09/11/17 18:59 06:59 Intake Total 1029.9 43.2 Output Total 0 0 Balance 1029.9 43.2 - Medications Medications: Current Medications Acetaminophen (Tylenol 325mg Tab) 650 mg PO Q4H PRN PRN Reason: fever Last Admin: 09/10/17 08:03 Dose: 650 mg Aspirin (Aspirin Chewable) 81 mg PO DAILY [facility] Last Admin: 09/10/17 09:29 Dose: 81 mg Calcitriol (Rocaltrol) 0.25 mcg PO DAILY [facility] Last Admin: 09/10/17 09:29 Dose: 0.25 mcg Carvedilol (Coreg) 6.25 mg PO BID [facility] Last Admin: 09/10/17 18:02 Dose: Not Given Famotidine (Pepcid) 20 mg PO DAILY [facility] Heparin Sodium (Porcine) (Heparin) 5,000 units SC Q8 [facility] Last Admin: 09/10/17 14:59 Dose: 5,000 units Hydrocortisone Sodium Succinate (Solu-Cortef) 50 mg IV Q8H [facility] Stop: 09/13/17 11:01 Last Admin: 09/10/17 11:29 Dose: 50 mg Dextrose/Lactated Ringer's (Dextrose 5%/Lactated Ringer's) 1,000 mls @ 20 mls/ hr IV .Q24H [facility] Last Admin: 09/09/17 21:12 Dose: Not Given Meropenem 500 mg/ Sodium (Chloride) 100 mls @ 100 mls/hr IVPB Q12H [facility] Last Admin: 09/10/17 14:59 Dose: 100 mls/hr Norepinephrine Bitartrate 8 mg (/ Sodium Chloride) 258 mls @ 7.74 mls/hr IV .Q24H PRN; Protocol; 4 MCG/MIN PRN Reason: TITRATE PER MD ORDER Last Titration: 09/10/17 17:45 Dose: 12 mcg/min, 23.22 mls/hr Insulin Aspart (Novolog) 0 unit SC ACHS [facility] PRN Reason: Protocol Last Admin: 09/10/17 18:03 Dose: Not Given Insulin Detemir (Levemir) 25 unit SC BID [facility] Last Admin: 09/10/17 18:02 Dose: Not Given Rosuvastatin Calcium (Crestor) 10 mg PO HS [facility] Last Admin: 09/09/17 22:49 Dose: 10 mg Sevelamer Carbonate (Renvela) 1,600 mg PO TTS [facility] - Labs Labs: 09/10/17 06:25 09/10/17 06:23 PT 16.3 SECONDS (9.7-12.2) H 09/08/17 20:19 INR 1.4 09/08/17 20:19 APTT 33 SECONDS (21-34) 09/08/17 20:19 - Constitutional Appears: Well - Head Exam Head Exam: ATRAUMATIC, NORMAL INSPECTION, NORMOCEPHALIC - Eye Exam Eye Exam: EOMI, Normal appearance, PERRL Pupil Exam: NORMAL ACCOMODATION, PERRL - ENT Exam ENT Exam: Mucous Membranes Moist, Normal Exam - Neck Exam Neck Exam: Full ROM, Normal Inspection. absent: Lymphadenopathy - Respiratory Exam Respiratory Exam: Decreased Breath Sounds - Cardiovascular Exam Cardiovascular Exam: REGULAR RHYTHM, +S1, +S2 - GI/Abdominal Exam GI & Abdominal Exam: Soft, Diminished Bowel Sounds - Rectal Exam Rectal Exam: Deferred
[2017-09-10] MEDS: Dextrose 5%/Lactated Ringer's 1,000 ML IV SCH (20:30)
--- NOTE | 2017-09-10 22:50 | CARD ---
APPROVED REPORT EKG Measurement Heart [id number] <Conclusion> Sinus tachycardia with 1st degree AV block Possible Left atrial enlargement Abnormal ECG
[2017-09-11] MEDS: Meropenem 500 MG in Sodium Chloride 0.9% 100 ML IVPB SCH (01:38)
[2017-09-11] MEDS: Dextrose 5%/Lactated Ringer's 1,000 ML IV SCH ×2 (01:51→21:49)
[2017-09-11 06:30] LABS: BASO % 0.4 % (0.0-2.0); HEMOGLOBIN 9.6 g/dL (12.0-18.0); LYMPH # 0.9 K/uL (1.0-4.3); LYMPH % 9.8 % (20.0-40.0); MEAN CELL VOLUME 81.9 fL (80.0-94.0); MEAN CORPUSCULAR HEMOGLOBIN 26.1 pg (27.0-31.0); MEAN CORPUSCULAR HGB CONC 31.9 g/dL (33.0-37.0); MEAN PLATELET VOLUME 9.2 fL (7.2-11.7); MONO # 0.7 K/uL (0.0-0.8); MONO % 7.7 % (0.0-10.0); NEUT # 7.4 K/uL (1.8-7.0); NEUT % 82.1 % (50.0-75.0); NRBC % 0.1 % (0.0-2.0); PLATELET COUNT 334 K/uL (130-400); RBC 3.67 Mil/uL (4.40-5.90); RED CELL DISTRIBUTION WIDTH 22.7 % (11.5-14.5)
[2017-09-11 06:45] LABS: ALB/GLOB RATIO 0.8 (1.0-2.1)
--- NOTE | 2017-09-11 07:52 | CP.CCUPN ---
<LeeannginoCorby - Last Filed: 09/11/17 11:15> CCU Subjective - Physician Review Subjective (Free Text): 09/11/17 07:42 Patient seen and examined at bedside more awake but states he feels the same still looks pretty lethargic but has improved since yesterday still on levo w/MBP of 66 continue Abx for suspected sepsis CCU Objective - Vital Signs / Intake & Output Vital Signs (Last 4 hours): Vital Signs Temp Pulse Resp BP Pulse Ox 09/11/17 07:00 96 H 30 H 99 09/11/17 06:40 95 H 31 H 102/56 L 98 09/11/17 06:00 96 H 32 H 98 09/11/17 05:40 98 H 28 H 104/59 L 99 09/11/17 05:00 91 H 34 H 96 09/11/17 04:40 90 32 H 109/66 98 09/11/17 04:00 98 F 92 H 33 H 97 Intake and Output (Last 8hrs): Intake & Output 09/10/17 09/11/17 09/11/17 22:59 06:59 14:59 Intake Total 722.4 604.1 39.3 Output Total 0 0 0 Balance 722.4 604.1 39.3 Weight 232 lb 2.348 oz 220 lb 10.923 oz Intake: IV 150 198 Intake, IV Amount 322.4 406.1 39.3 Right Medial Port Femoral 160 240 20 Right Proximal Port 162.4 166.1 19.3 Femoral Oral 250 Output: Urine 0 0 0 Urine, Voided 0 0 0 Other: # Bowel Movements 0 0 0 - Physical Exam Head: Positive for: Normocephalic. Negative for: Tenderness, Contusion, Ecchymosis, Abrasion, Laceration Pupils: Positive for: PERRL Extroacular Muscles: Positive for: EOMI. Negative for: Gaze Palsy, Entrapment Conjunctiva: Positive for: Normal. Negative for: Injected, Icteric Ears: Positive for: Normal Mouth: Positive for: Moist Mucous Membranes Pharnyx: Positive for: Normal Nose (Internal): Positive for: Normal Inspection Neck: Positive for: Normal Range of Motion, Trachea Midline. Negative for: Meningeal Signs, MIDLINE TENDERNESS, Paraspinal Tenderness, JVD, Lymphadenopathy , Bruit, Other Respiratory/Chest: Positive for: Good Air Exchange, Decreased Breath Sounds. Negative for: Respiratory Distress, Accessory Muscle Use, Wheezes, Rales, Retracting, Rhonchi, Tachypneic Cardiovascular: Positive for: Regular Rate and Rhythm, Normal S1, S2, Peripheal Pulses Present. Negative for: Murmurs, Irregular Rhythm, Tachycardic, Bradycardic Abdomen: Positive for: Distention, Normal Bowel Sounds. Negative for: Tenderness, Peritoneal Signs Upper Extremity: Positive for: Edema (Massive RUE swelling, blistering, healed wound, AV fistule with thrill over it), Capillary Refill < 2s. Negative for: Cyanosis Lower Extremity: Positive for: Edema, NORMAL PULSES, Capillary Refill < 2 s. Negative for: CALF TENDERNESS Psychiatric: Positive for: Alert - Medications Active Medications: Active Medications Generic Name Dose Route Start Last Admin Trade Name Freq PRN Reason Stop Dose Admin Acetaminophen 650 mg 09/09/17 16:46 09/10/17 08:03 Tylenol 325mg Tab PO 650 mg Q4H PRN Administration fever Aspirin 81 mg 09/10/17 10:00 09/10/17 09:29 Aspirin Chewable PO 81 mg DAILY MAYNOR Administration Calcitriol 0.25 mcg 09/10/17 10:00 09/10/17 09:29 Rocaltrol PO 0.25 mcg DAILY MAYNOR Administration Carvedilol 6.25 mg 09/09/17 18:00 09/10/17 18:02 Coreg PO Not Given BID MAYNOR Famotidine 20 mg 09/11/17 10:00 Pepcid PO DAILY MAYNOR Heparin Sodium (Porcine) 5,000 units 09/09/17 00:15 09/11/17 05:35 Heparin SC 5,000 units Q8 MAYNOR Administration Hydrocortisone Sodium Succinate 50 mg 09/10/17 11:00 09/11/17 03:24 Solu-Cortef IV 09/13/17 11:01 50 mg Q8H MAYNOR Administration Dextrose/Lactated Ringer's 1,000 mls @ 20 mls/hr 09/08/17 20:00 09/11/17 01: 51 Dextrose 5%/Lactated Ringer's IV 20 mls/hr .Q24H MAYNOR Administration Meropenem 500 mg/ Sodium 100 mls @ 100 mls/hr 09/10/17 02:00 09/11/17 01:38 Chloride IVPB 100 mls/hr Q12H MAYNOR Administration Norepinephrine Bitartrate 8 mg 258 mls @ 7.74 mls/hr 09/10/17 00:45 09/11/17 02:03 / Sodium Chloride IV 10 mcg/min .Q24H PRN 19.35 mls/hr TITRATE PER MD ORDER Titration Protocol 4 MCG/MIN Insulin Aspart 0 unit 09/09/17 16:30 09/10/17 21:59 Novolog SC Not Given ACHS [facility] Protocol Insulin Detemir 25 unit 09/09/17 18:00 09/10/17 18:02 Levemir SC Not Given BID MAYNOR Rosuvastatin Calcium 10 mg 09/09/17 22:00 09/10/17 21:57 Crestor PO 10 mg HS MAYNOR Administration Sevelamer Carbonate 1,600 mg 09/11/17 10:00 Renvela PO TTS MAYNOR - Patient Studies Lab Studies: Microbiology Studies 09/08/17 20:48 Urine Culture - Final Urine,Catheterized <10,000 CFU/ML. MULTIPLE SPECIES. PROBABLE CONTAMINATION. 09/08/17 08:30 MRSA Culture (Admit) - Final Nose MRSA NOT DETECTED 09/08/17 20:00 Blood Culture - Preliminary Blood NO GROWTH AFTER 24 HOURS 09/08/17 19:30 Blood Culture - Preliminary Blood NO GROWTH AFTER 24 HOURS Lab Studies 09/11/17 09/11/17 09/11/17 Range/Units 07:32 06:25 06:23 WBC 9.0 (4.8-10.8) K/uL RBC 3.67 L (4.40-5.90) Mil/uL Hgb 9.6 L (12.0-18.0) g/dL Hct 30.1 L (35.0-51.0) % MCV 81.9 (80.0-94.0) fL MCH 26.1 L (27.0-31.0) pg MCHC 31.9 L (33.0-37.0) g/dL RDW 22.7 H (11.5-14.5) % Plt Count 334 (130-400) K/uL MPV 9.2 (7.2-11.7) fL Neut % (Auto) 82.1 H (50.0-75.0) % Lymph % (Auto) 9.8 L (20.0-40.0) % Johnston % (Auto) 7.7 (0.0-10.0) % Eos % (Auto) 0.0 (0.0-4.0) % Baso % (Auto) 0.4 (0.0-2.0) % Neut # 7.4 H (1.8-7.0) K/uL Lymph # 0.9 L (1.0-4.3) K/uL Johnston # 0.7 (0.0-0.8) K/uL Eos # 0.0 (0.0-0.7) K/uL Baso # 0.0 (0.0-0.2) K/uL Sodium 138 (132-148) mmol/L Potassium 3.9 (3.6-5.2) mmol/L Chloride 95 L (98-107) mmol/L Carbon Dioxide 23 (22-30) mmol/L Anion Gap 24 H (10-20) BUN 25 H (9-20) mg/dL Creatinine 4.9 H (0.8-1.5) mg/dL Est GFR ( Amer) 15 Est GFR (Non-Af Amer) 13 POC Glucose (mg/dL) 253 H (65-110) mg/dL Random Glucose 252 H (75-110) mg/dL Calcium 8.0 L (8.6-10.4) mg/dl Magnesium 2.0 (1.6-2.3) mg/dL Total Bilirubin 0.9 (0.2-1.3) mg/dL AST 90 H D (17-59) U/L ALT 58 (21-72) U/L Alkaline Phosphatase 250 H (38-126) U/L Total Protein 6.9 (6.3-8.3) g/dL Albumin 3.0 L (3.5-5.0) g/dL Globulin 3.9 (2.2-3.9) gm/dL Albumin/Globulin Ratio 0.8 L (1.0-2.1) 09/10/17 09/10/17 09/10/17 Range/Units 21:31 16:31 12:01 WBC (4.8-10.8) K/uL RBC (4.40-5.90) Mil/uL Hgb (12.0-18.0) g/dL Hct (35.0-51.0) % MCV (80.0-94.0) fL MCH (27.0-31.0) pg MCHC (33.0-37.0) g/dL RDW (11.5-14.5) % Plt Count (130-400) K/uL MPV (7.2-11.7) fL Neut % (Auto) (50.0-75.0) % Lymph % (Auto) (20.0-40.0) % Johnston % (Auto) (0.0-10.0) % Eos % (Auto) (0.0-4.0) % Baso % (Auto) (0.0-2.0) % Neut # (1.8-7.0) K/uL Lymph # (1.0-4.3) K/uL Johnston # (0.0-0.8) K/uL Eos # (0.0-0.7) K/uL Baso # (0.0-0.2) K/uL Sodium (132-148) mmol/L Potassium (3.6-5.2) mmol/L Chloride (98-107) mmol/L Carbon Dioxide (22-30) mmol/L Anion Gap (10-20) BUN (9-20) mg/dL Creatinine (0.8-1.5) mg/dL Est GFR ( Amer) Est GFR (Non-Af Amer) POC Glucose (mg/dL) 211 H 169 H 171 H (65-110) mg/dL Random Glucose (75-110) mg/dL Calcium (8.6-10.4) mg/dl Magnesium (1.6-2.3) mg/dL Total Bilirubin (0.2-1.3) mg/dL AST (17-59) U/L ALT (21-72) U/L Alkaline Phosphatase (38-126) U/L Total Protein (6.3-8.3) g/dL Albumin (3.5-5.0) g/dL Globulin (2.2-3.9) gm/dL Albumin/Globulin Ratio (1.0-2.1) 09/10/17 Range/Units 07:48 WBC (4.8-10.8) K/uL RBC (4.40-5.90) Mil/uL Hgb (12.0-18.0) g/dL Hct (35.0-51.0) % MCV (80.0-94.0) fL MCH (27.0-31.0) pg MCHC (33.0-37.0) g/dL RDW (11.5-14.5) % Plt Count (130-400) K/uL MPV (7.2-11.7) fL Neut % (Auto) (50.0-75.0) % Lymph % (Auto) (20.0-40.0) % Johnston % (Auto) (0.0-10.0) % Eos % (Auto) (0.0-4.0) % Baso % (Auto) (0.0-2.0) % Neut # (1.8-7.0) K/uL Lymph # (1.0-4.3) K/uL Johnston # (0.0-0.8) K/uL Eos # (0.0-0.7) K/uL Baso # (0.0-0.2) K/uL Sodium (132-148) mmol/L Potassium (3.6-5.2) mmol/L Chloride (98-107) mmol/L Carbon Dioxide (22-30) mmol/L Anion Gap (10-20) BUN (9-20) mg/dL Creatinine (0.8-1.5) mg/dL Est GFR ( Amer) Est GFR (Non-Af Amer) POC Glucose (mg/dL) 231 H (65-110) mg/dL Random Glucose (75-110) mg/dL Calcium (8.6-10.4) mg/dl Magnesium (1.6-2.3) mg/dL Total Bilirubin (0.2-1.3) mg/dL AST (17-59) U/L ALT (21-72) U/L Alkaline Phosphatase (38-126) U/L Total Protein (6.3-8.3) g/dL Albumin (3.5-5.0) g/dL Globulin (2.2-3.9) gm/dL Albumin/Globulin Ratio (1.0-2.1) Laboratory Results - last 24 hr 09/10/17 09/10/17 09/10/17 07:48 12:01 16:31 WBC RBC Hgb Hct MCV MCH MCHC RDW Plt Count MPV Neut % (Auto) Lymph % (Auto) Johnston % (Auto) Eos % (Auto) Baso % (Auto) Neut # Lymph # Johnston # Eos # Baso # Sodium Potassium Chloride Carbon Dioxide Anion Gap BUN Creatinine Est GFR ( Amer) Est GFR (Non-Af Amer) POC Glucose (mg/dL) 231 H 171 H 169 H Random Glucose Calcium Magnesium Total Bilirubin AST ALT Alkaline Phosphatase Total Protein Albumin Globulin Albumin/Globulin Ratio 09/10/17 09/11/17 09/11/17 21:31 06:23 06:25 WBC 9.0 RBC 3.67 L Hgb 9.6 L Hct 30.1 L MCV 81.9 MCH 26.1 L MCHC 31.9 L RDW 22.7 H Plt Count 334 MPV 9.2 Neut % (Auto) 82.1 H Lymph % (Auto) 9.8 L Johnston % (Auto) 7.7 Eos % (Auto) 0.0 Baso % (Auto) 0.4 Neut # 7.4 H Lymph # 0.9 L Johnston # 0.7 Eos # 0.0 Baso # 0.0 Sodium 138 Potassium 3.9 Chloride 95 L Carbon Dioxide 23 Anion Gap 24 H BUN 25 H Creatinine 4.9 H Est GFR ( Amer) 15 Est GFR (Non-Af Amer) 13 POC Glucose (mg/dL) 211 H Random Glucose 252 H Calcium 8.0 L Magnesium 2.0 Total Bilirubin 0.9 AST 90 H D ALT 58 Alkaline Phosphatase 250 H Total Protein 6.9 Albumin 3.0 L Globulin 3.9 Albumin/Globulin Ratio 0.8 L 09/11/17 07:32 WBC RBC Hgb Hct MCV MCH MCHC RDW Plt Count MPV Neut % (Auto) Lymph % (Auto) Johnston % (Auto) Eos % (Auto) Baso % (Auto) Neut # Lymph # Johnston # Eos # Baso # Sodium Potassium Chloride Carbon Dioxide Anion Gap BUN Creatinine Est GFR ( Amer) Est GFR (Non-Af Amer) POC Glucose (mg/dL) 253 H Random Glucose Calcium Magnesium Total Bilirubin AST ALT Alkaline Phosphatase Total Protein Albumin Globulin Albumin/Globulin Ratio Fingerstick Blood Sugar Results: 231 Critical Care Progress Note - Nutrition Nutrition: Nutrition Category Date Time Status Renal Diet [DIET] Diets 09/09/17 Dinner Active Assessment/Plan - Assessment and Plan (Free Text) Assessment: 51M ESRD Septic shock most likely 2/2 to cellulitis Plan: Psych: No acute issues Neuro: Was previously lethargic but is more awake now Cards: CHF, Coreg, ASA, crestor Pulm: No acute issues GI: No acute issues Renal: ESRD on dialysis, AVF functional on US. Surrounding cellulitis demonstrated Endo: Possible adrenal insuff, 50 hydrocortisone for 3 days ID: Cellulitis demonstrated on US, on Merrem, Hypotensive despite levophed, change fem line today to IJ, vanco stat and vanco MWF after dialysis. Wound culture PPX: pepcid, heparin <Ethan,Nicola S - Last Filed: 09/11/17 17:58> CCU Objective - Vital Signs / Intake & Output Vital Signs (Last 4 hours): Vital Signs Pulse Resp BP Pulse Ox 09/11/17 17:00 92 H 29 H 99 09/11/17 16:59 92 H 29 H 107/63 99 09/11/17 16:44 94 H 28 H 108/64 99 09/11/17 16:29 94 H 30 H 107/64 99 09/11/17 16:14 93 H 31 H 105/65 99 09/11/17 16:00 94 H 33 H 99 09/11/17 15:59 95 H 33 H 110/66 99 09/11/17 15:44 95 H 32 H 110/66 99 09/11/17 15:29 96 H 19 113/63 98 09/11/17 15:14 94 H 33 H 110/59 L 97 09/11/17 15:00 96 H 20 98 09/11/17 14:59 93 H 32 H 104/63 97 09/11/17 14:44 94 H 32 H 114/62 99 09/11/17 14:29 94 H 32 H 105/62 98 09/11/17 14:14 95 H 29 H 100/61 99 09/11/17 14:00 94 H 31 H 98 09/11/17 13:59 95 H 33 H 101/61 97 Intake and Output (Last 8hrs): Intake & Output 09/11/17 09/11/17 09/11/17 06:59 14:59 22:59 Intake Total 604.1 514.4 317.9 Output Total 0 0 Balance 604.1 514.4 317.9 Weight 220 lb 10.923 oz Intake: IV 198 Intake, IV Amount 406.1 314.4 117.9 Right Medial Port Femoral 240 160 60 Right Proximal Port 166.1 154.4 57.9 Femoral Oral 200 200 Output: Urine 0 0 Urine, Voided 0 0 Other: # Bowel Movements 0 1 - Medications Active Medications: Active Medications Generic Name Dose Route Start Last Admin Trade Name Freq PRN Reason Stop Dose Admin Acetaminophen 650 mg 09/09/17 16:46 09/10/17 08:03 Tylenol 325mg Tab PO 650 mg Q4H PRN Administration fever Aspirin 81 mg 09/10/17 10:00 09/11/17 10:25 Aspirin Chewable PO 81 mg DAILY MAYNOR Administration Calcitriol 0.25 mcg 09/10/17 10:00 09/10/17 09:29 Rocaltrol PO 0.25 mcg DAILY MAYNOR Administration Carvedilol 6.25 mg 09/09/17 18:00 09/11/17 10:16 Coreg PO Not Given BID MAYNOR Famotidine 20 mg 09/11/17 10:00 09/11/17 10:26 Pepcid PO 20 mg DAILY MAYNOR Administration Heparin Sodium (Porcine) 5,000 units 09/09/17 00:15 09/11/17 05:35 Heparin SC 5,000 units Q8 MAYNOR Administration Hydrocortisone Sodium Succinate 50 mg 09/10/17 11:00 09/11/17 10:26 Solu-Cortef IV 09/13/17 11:01 50 mg Q8H MAYNOR Administration Dextrose/Lactated Ringer's 1,000 mls @ 20 mls/hr 09/08/17 20:00 09/11/17 01: 51 Dextrose 5%/Lactated Ringer's IV 20 mls/hr .Q24H MAYNOR Administration Meropenem 500 mg/ Sodium 100 mls @ 100 mls/hr 09/10/17 02:00 09/11/17 01:38 Chloride IVPB 100 mls/hr Q12H MAYNOR Administration Norepinephrine Bitartrate 8 mg 258 mls @ 7.74 mls/hr 09/10/17 00:45 09/11/17 02:03 / Sodium Chloride IV 10 mcg/min .Q24H PRN 19.35 mls/hr TITRATE PER MD ORDER Titration Protocol 4 MCG/MIN Vancomycin HCl 1 gm/ Sodium 200 mls @ 166.7 mls/hr 09/12/17 09:00 Chloride IVPB MWF [facility] Insulin Aspart 0 unit 09/09/17 16:30 09/11/17 10:16 Novolog SC Not Given ACHS [facility] Protocol Insulin Detemir 25 unit 09/09/17 18:00 09/11/17 10:26 Levemir SC 25 unit BID MAYNOR Administration Rosuvastatin Calcium 10 mg 09/09/17 22:00 09/10/17 21:57 Crestor PO 10 mg HS MAYNOR Administration Sevelamer Carbonate 1,600 mg 09/11/17 10:00 09/11/17 10:25 Renvela PO 1,600 mg TTS MAYNOR Administration - Patient Studies Lab Studies: Microbiology Studies 09/08/17 20:00 Blood Culture - Preliminary Blood NO GROWTH AFTER 48 HOURS 09/08/17 19:30 Blood Culture - Preliminary Blood NO GROWTH AFTER 48 HOURS 09/08/17 20:48 Urine Culture - Final Urine,Catheterized <10,000 CFU/ML. MULTIPLE SPECIES. PROBABLE CONTAMINATION. Lab Studies 09/11/17 09/11/17 09/11/17 Range/Units 16:15 11:19 10:50 WBC (4.8-10.8) K/uL RBC (4.40-5.90) Mil/uL Hgb (12.0-18.0) g/dL Hct (35.0-51.0) % MCV (80.0-94.0) fL MCH (27.0-31.0) pg MCHC (33.0-37.0) g/dL RDW (11.5-14.5) % Plt Count (130-400) K/uL MPV (7.2-11.7) fL Neut % (Auto) (50.0-75.0) % Lymph % (Auto) (20.0-40.0) % Johnston % (Auto) (0.0-10.0) % Eos % (Auto) (0.0-4.0) % Baso % (Auto) (0.0-2.0) % Neut # (1.8-7.0) K/uL Lymph # (1.0-4.3) K/uL Johnston # (0.0-0.8) K/uL Eos # (0.0-0.7) K/uL Baso # (0.0-0.2) K/uL Neutrophils % (Manual) (50-75) % Band Neutrophils % (0-2) % Lymphocytes % (Manual) (20-40) % Monocytes % (Manual) (0-10) % Platelet Estimate (NORMAL) Polychromasia Hypochromasia (manual) Anisocytosis (manual) Target Cells Ovalocytes Sodium (132-148) mmol/L Potassium (3.6-5.2) mmol/L Chloride (98-107) mmol/L Carbon Dioxide (22-30) mmol/L Anion Gap (10-20) BUN (9-20) mg/dL Creatinine (0.8-1.5) mg/dL Est GFR ( Amer) Est GFR (Non-Af Amer) POC Glucose (mg/dL) 305 H 241 H (65-110) mg/dL Random Glucose (75-110) mg/dL Calcium (8.6-10.4) mg/dl Magnesium (1.6-2.3) mg/dL Total Bilirubin (0.2-1.3) mg/dL AST (17-59) U/L ALT (21-72) U/L Alkaline Phosphatase (38-126) U/L Total Protein (6.3-8.3) g/dL Albumin (3.5-5.0) g/dL Globulin (2.2-3.9) gm/dL Albumin/Globulin Ratio (1.0-2.1) Procalcitonin 20.28 H (0.19-0.49) NG/ML Cortisol AM Sample (4.46-22.7) ug/dL 09/11/17 09/11/17 09/11/17 Range/Units 07:32 06:25 06:23 WBC 9.0 (4.8-10.8) K/uL RBC 3.67 L (4.40-5.90) Mil/uL Hgb 9.6 L (12.0-18.0) g/dL Hct 30.1 L (35.0-51.0) % MCV 81.9 (80.0-94.0) fL MCH 26.1 L (27.0-31.0) pg MCHC 31.9 L (33.0-37.0) g/dL RDW 22.7 H (11.5-14.5) % Plt Count 334 (130-400) K/uL MPV 9.2 (7.2-11.7) fL Neut % (Auto) 82.1 H (50.0-75.0) % Lymph % (Auto) 9.8 L (20.0-40.0) % Johnston % (Auto) 7.7 (0.0-10.0) % Eos % (Auto) 0.0 (0.0-4.0) % Baso % (Auto) 0.4 (0.0-2.0) % Neut # 7.4 H (1.8-7.0) K/uL Lymph # 0.9 L (1.0-4.3) K/uL Johnston # 0.7 (0.0-0.8) K/uL Eos # 0.0 (0.0-0.7) K/uL Baso # 0.0 (0.0-0.2) K/uL Neutrophils % (Manual) 84 H (50-75) % Band Neutrophils % 9 H (0-2) % Lymphocytes % (Manual) 6 L (20-40) % Monocytes % (Manual) 1 (0-10) % Platelet Estimate Normal (NORMAL) Polychromasia Slight Hypochromasia (manual) Slight Anisocytosis (manual) Moderate Target Cells Slight Ovalocytes Slight Sodium 138 (132-148) mmol/L Potassium 3.9 (3.6-5.2) mmol/L Chloride 95 L (98-107) mmol/L Carbon Dioxide 23 (22-30) mmol/L Anion Gap 24 H (10-20) BUN 25 H (9-20) mg/dL Creatinine 4.9 H (0.8-1.5) mg/dL Est GFR ( Amer) 15 Est GFR (Non-Af Amer) 13 POC Glucose (mg/dL) 253 H (65-110) mg/dL Random Glucose 252 H (75-110) mg/dL Calcium 8.0 L (8.6-10.4) mg/dl Magnesium 2.0 (1.6-2.3) mg/dL Total Bilirubin 0.9 (0.2-1.3) mg/dL AST 90 H D (17-59) U/L ALT 58 (21-72) U/L Alkaline Phosphatase 250 H (38-126) U/L Total Protein 6.9 (6.3-8.3) g/dL Albumin 3.0 L (3.5-5.0) g/dL Globulin 3.9 (2.2-3.9) gm/dL Albumin/Globulin Ratio 0.8 L (1.0-2.1) Procalcitonin (0.19-0.49) NG/ML Cortisol AM Sample (4.46-22.7) ug/dL 09/11/17 09/10/17 Range/Units 06:23 21:31 WBC (4.8-10.8) K/uL RBC (4.40-5.90) Mil/uL Hgb (12.0-18.0) g/dL Hct (35.0-51.0) % MCV (80.0-94.0) fL MCH (27.0-31.0) pg MCHC (33.0-37.0) g/dL RDW (11.5-14.5) % Plt Count (130-400) K/uL MPV (7.2-11.7) fL Neut % (Auto) (50.0-75.0) % Lymph % (Auto) (20.0-40.0) % Johnston % (Auto) (0.0-10.0) % Eos % (Auto) (0.0-4.0) % Baso % (Auto) (0.0-2.0) % Neut # (1.8-7.0) K/uL Lymph # (1.0-4.3) K/uL Johnston # (0.0-0.8) K/uL Eos # (0.0-0.7) K/uL Baso # (0.0-0.2) K/uL Neutrophils % (Manual) (50-75) % Band Neutrophils % (0-2) % Lymphocytes % (Manual) (20-40) % Monocytes % (Manual) (0-10) % Platelet Estimate (NORMAL) Polychromasia Hypochromasia (manual) Anisocytosis (manual) Target Cells Ovalocytes Sodium (132-148) mmol/L Potassium (3.6-5.2) mmol/L Chloride (98-107) mmol/L Carbon Dioxide (22-30) mmol/L Anion Gap (10-20) BUN (9-20) mg/dL Creatinine (0.8-1.5) mg/dL Est GFR ( Amer) Est GFR (Non-Af Amer) POC Glucose (mg/dL) 211 H (65-110) mg/dL Random Glucose (75-110) mg/dL Calcium (8.6-10.4) mg/dl Magnesium (1.6-2.3) mg/dL Total Bilirubin (0.2-1.3) mg/dL AST (17-59) U/L ALT (21-72) U/L Alkaline Phosphatase (38-126) U/L Total Protein (6.3-8.3) g/dL Albumin (3.5-5.0) g/dL Globulin (2.2-3.9) gm/dL Albumin/Globulin Ratio (1.0-2.1) Procalcitonin (0.19-0.49) NG/ML Cortisol AM Sample 125.0 H (4.46-22.7) ug/dL Laboratory Results - last 24 hr 09/10/17 09/11/17 09/11/17 21:31 06:23 06:23 WBC RBC Hgb Hct MCV MCH MCHC RDW Plt Count MPV Neut % (Auto) Lymph % (Auto) Johnston % (Auto) Eos % (Auto) Baso % (Auto) Neut # Lymph # Johnston # Eos # Baso # Neutrophils % (Manual) Band Neutrophils % Lymphocytes % (Manual) Monocytes % (Manual) Platelet Estimate Polychromasia Hypochromasia (manual) Anisocytosis (manual) Target Cells Ovalocytes Sodium 138 Potassium 3.9 Chloride 95 L Carbon Dioxide 23 Anion Gap 24 H BUN 25 H Creatinine 4.9 H Est GFR ( Amer) 15 Est GFR (Non-Af Amer) 13 POC Glucose (mg/dL) 211 H Random Glucose 252 H Calcium 8.0 L Magnesium 2.0 Total Bilirubin 0.9 AST 90 H D ALT 58 Alkaline Phosphatase 250 H Total Protein 6.9 Albumin 3.0 L Globulin 3.9 Albumin/Globulin Ratio 0.8 L Procalcitonin Cortisol AM Sample 125.0 H 09/11/17 09/11/17 09/11/17 06:25 07:32 10:50 WBC 9.0 RBC 3.67 L Hgb 9.6 L Hct 30.1 L MCV 81.9 MCH 26.1 L MCHC 31.9 L RDW 22.7 H Plt Count 334 MPV 9.2 Neut % (Auto) 82.1 H Lymph % (Auto) 9.8 L Johnston % (Auto) 7.7 Eos % (Auto) 0.0 Baso % (Auto) 0.4 Neut # 7.4 H Lymph # 0.9 L Johnston # 0.7 Eos # 0.0 Baso # 0.0 Neutrophils % (Manual) 84 H Band Neutrophils % 9 H Lymphocytes % (Manual) 6 L Monocytes % (Manual) 1 Platelet Estimate Normal Polychromasia Slight Hypochromasia (manual) Slight Anisocytosis (manual) Moderate Target Cells Slight Ovalocytes Slight Sodium Potassium Chloride Carbon Dioxide Anion Gap BUN Creatinine Est GFR ( Amer) Est GFR (Non-Af Amer) POC Glucose (mg/dL) 253 H Random Glucose Calcium Magnesium Total Bilirubin AST ALT Alkaline Phosphatase Total Protein Albumin Globulin Albumin/Globulin Ratio Procalcitonin 20.28 H Cortisol AM Sample 09/11/17 09/11/17 11:19 16:15 WBC RBC Hgb Hct MCV MCH MCHC RDW Plt Count MPV Neut % (Auto) Lymph % (Auto) Johnston % (Auto) Eos % (Auto) Baso % (Auto) Neut # Lymph # Johnston # Eos # Baso # Neutrophils % (Manual) Band Neutrophils % Lymphocytes % (Manual) Monocytes % (Manual) Platelet Estimate Polychromasia Hypochromasia (manual) Anisocytosis (manual) Target Cells Ovalocytes Sodium Potassium Chloride Carbon Dioxide Anion Gap BUN Creatinine Est GFR ( Amer) Est GFR (Non-Af Amer) POC Glucose (mg/dL) 241 H 305 H Random Glucose Calcium Magnesium Total Bilirubin AST ALT Alkaline Phosphatase Total Protein Albumin Globulin Albumin/Globulin Ratio Procalcitonin Cortisol AM Sample Critical Care Progress Note - Nutrition Nutrition: Nutrition Category Date Time Status Renal Diet [DIET] Diets 09/09/17 Dinner Active Attending/Attestation - Attestation I have personally seen and examined this patient.: Yes I have fully participated in the care of the patient.: Yes I have reviewed all pertinent clinical information: Yes Notes (Text): 09/11/17 17:57 patient seen and examined in the intensive care unit. On Levophed for hypotension Being treated with antibiotics for cellulitis around the AV fistula Seen by vascular surgery Follow-up culture and sensiti
[2017-09-11 08:48] LABS: BANDS 9 % (0-2); LYMPHOCYTE 6 % (20-40); MONOCYTE 1 % (0-10); NEUTROPHIL 84 % (50-75); PLATELET ESTIMATE NORMAL (NORMAL); TOTAL CELLS COUNTED 100
[2017-09-11 08:49] LABS: ANISOCYTOSIS MODERATE; HYPOCHROMIC SLIGHT; OVALOCYTES SLIGHT; POLYCHROMIC SLIGHT; TARGET CELLS SLIGHT
--- NOTE | 2017-09-11 09:08 | RAD ---
Chest x-ray single frontal view History: Shortness of breath Comparison: 09/10/2017 Findings: No focal infiltrate or effusion. Right hilar prominence. Elevated right hemidiaphragm. Mild cardiomegaly. Degenerative changes spine and shoulders. Impression: No focal infiltrate or effusion. Right hilar prominence. Elevated right hemidiaphragm. Mild cardiomegaly.
[2017-09-11] MEDS: (Novolog) Insulin Aspart, Recombinant 100 u/ml 10 ml vial SC SCH ×2 (10:16→21:46)
[2017-09-11] MEDS: Insulin Detemir 100 units/ml Vial (Levemir) SC SCH (10:26)
[2017-09-11] MEDS ORDERED: Vancomycin 1 GM in Sodium Chloride 0.9% 200 ML IVPB ONE (11:00)
--- NOTE | 2017-09-11 17:24 | CP.PCM.PN ---
Subjective - Date & Time of Evaluation Date of Evaluation: 09/11/17 Time of Evaluation: 13:00 - Subjective Subjective: clinically same Objective - Vital Signs/Intake and Output Vital Signs (last 24 hours): Temp Pulse Resp BP Pulse Ox 98 F 92 H 29 H 107/63 99 09/11/17 04:00 09/11/17 17:00 09/11/17 17:00 09/11/17 16:59 09/11/17 17:00 Intake and Output: 09/11/17 09/11/17 06:59 18:59 Intake Total 1076.9 832.3 Output Total 0 0 Balance 1076.9 832.3 - Medications Medications: Current Medications Acetaminophen (Tylenol 325mg Tab) 650 mg PO Q4H PRN PRN Reason: fever Last Admin: 09/10/17 08:03 Dose: 650 mg Aspirin (Aspirin Chewable) 81 mg PO DAILY [facility] Last Admin: 09/11/17 10:25 Dose: 81 mg Calcitriol (Rocaltrol) 0.25 mcg PO DAILY [facility] Last Admin: 09/10/17 09:29 Dose: 0.25 mcg Carvedilol (Coreg) 6.25 mg PO BID [facility] Last Admin: 09/11/17 10:16 Dose: Not Given Famotidine (Pepcid) 20 mg PO DAILY [facility] Last Admin: 09/11/17 10:26 Dose: 20 mg Heparin Sodium (Porcine) (Heparin) 5,000 units SC Q8 [facility] Last Admin: 09/11/17 05:35 Dose: 5,000 units Hydrocortisone Sodium Succinate (Solu-Cortef) 50 mg IV Q8H [facility] Stop: 09/13/17 11:01 Last Admin: 09/11/17 10:26 Dose: 50 mg Dextrose/Lactated Ringer's (Dextrose 5%/Lactated Ringer's) 1,000 mls @ 20 mls/ hr IV .Q24H [facility] Last Admin: 09/11/17 01:51 Dose: 20 mls/hr Meropenem 500 mg/ Sodium (Chloride) 100 mls @ 100 mls/hr IVPB Q12H [facility] Last Admin: 09/11/17 01:38 Dose: 100 mls/hr Norepinephrine Bitartrate 8 mg (/ Sodium Chloride) 258 mls @ 7.74 mls/hr IV .Q24H PRN; Protocol; 4 MCG/MIN PRN Reason: TITRATE PER MD ORDER Last Titration: 09/11/17 02:03 Dose: 10 mcg/min, 19.35 mls/hr Vancomycin HCl 1 gm/ Sodium (Chloride) 200 mls @ 166.7 mls/hr IVPB MWF [facility] Insulin Aspart (Novolog) 0 unit SC ACHS [facility] PRN Reason: Protocol Last Admin: 09/11/17 10:16 Dose: Not Given Insulin Detemir (Levemir) 25 unit SC BID [facility] Last Admin: 09/11/17 10:26 Dose: 25 unit Rosuvastatin Calcium (Crestor) 10 mg PO HS [facility] Last Admin: 09/10/17 21:57 Dose: 10 mg Sevelamer Carbonate (Renvela) 1,600 mg PO TTS [facility] Last Admin: 09/11/17 10:25 Dose: 1,600 mg - Labs Labs: 09/11/17 06:25 09/11/17 06:23 PT 16.3 SECONDS (9.7-12.2) H 09/08/17 20:19 INR 1.4 09/08/17 20:19 APTT 33 SECONDS (21-34) 09/08/17 20:19 - Head Exam Head Exam: ATRAUMATIC, NORMAL INSPECTION, NORMOCEPHALIC - Eye Exam Eye Exam: EOMI, Normal appearance, PERRL Pupil Exam: NORMAL ACCOMODATION, PERRL - ENT Exam ENT Exam: Mucous Membranes Moist, Normal Exam - Neck Exam Neck Exam: Full ROM, Normal Inspection. absent: Lymphadenopathy - Respiratory Exam Respiratory Exam: Decreased Breath Sounds - Cardiovascular Exam Cardiovascular Exam: REGULAR RHYTHM, +S1, +S2 - GI/Abdominal Exam GI & Abdominal Exam: Soft, Diminished Bowel Sounds - Rectal Exam Rectal Exam: Deferred
[2017-09-12] MEDS: Meropenem 500 MG in Sodium Chloride 0.9% 100 ML IVPB SCH ×2 (03:05→15:30)
--- NOTE | 2017-09-12 04:29 | CON ---
DATE: 09/11/2017 Dr. Edwards. HISTORY OF PRESENT ILLNESS: A 51-year-old man, who appears to be retarded, whom I was asked to see for evaluation for a shunt on the right orifice of dialysis access fistula in the right arm, which has an ulcer, approximately a centimeter in size over the mid-portion of it. PAST MEDICAL HISTORY, REVIEW OF SYSTEMS AND FAMILY HISTORY: All reviewed and noted on the chart. He was not able to provide any details, but I noticed that he is considered DNR status on the basis of the declaration of his family members. He has been on dialysis. 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 My feeling at this time is that this access can be used for dialysis, but it will be challenging to place a central line given his general condition, but there really are not a lot of choices or options in terms of management. With his DNR status, one of the possibilities could simply be termination of the dialysis at this point and not proceeding further with this, or if that is not desired, then a full evaluation of his access would be done including placement of a stent, surgical revision, central vein dilatation. There are so many things that could potentially be done, but I do not think that we should proceed with any of this without further evaluation. Can Carrasco Jr., MD
[2017-09-12 06:27] LABS: HEMOGLOBIN 9.4 g/dL (12.0-18.0); LYMPH # 0.8 K/uL (1.0-4.3); MEAN CELL VOLUME 80.4 fL (80.0-94.0); MEAN CORPUSCULAR HEMOGLOBIN 26.4 pg (27.0-31.0); MEAN CORPUSCULAR HGB CONC 32.8 g/dL (33.0-37.0); MONO # 0.7 K/uL (0.0-0.8); MONO % 7.7 % (0.0-10.0); NEUT # 7.2 K/uL (1.8-7.0); NEUT % 83.3 % (50.0-75.0); NRBC % 0.1 % (0.0-2.0); PLATELET COUNT 345 K/uL (130-400); RBC 3.58 Mil/uL (4.40-5.90); WHITE BLOOD COUNT 8.6 K/uL (4.8-10.8)
[2017-09-12 07:00] LABS: ALB/GLOB RATIO 0.7 (1.0-2.1); ALBUMIN 2.9 g/dL (3.5-5.0); CALCIUM 8.7 mg/dl (8.6-10.4); MAGNESIUM 2.1 mg/dL (1.6-2.3)
[2017-09-12] MEDS: (Novolog) Insulin Aspart, Recombinant 100 u/ml 10 ml vial SC SCH ×4 (07:30→22:17)
[2017-09-12 09:29] LABS: ANISOCYTOSIS MODERATE; BANDS 2 % (0-2); HYPOCHROMIC SLIGHT; LYMPHOCYTE 14 % (20-40); MONOCYTE 10 % (0-10); NEUTROPHIL 74 % (50-75); PLATELET ESTIMATE NORMAL (NORMAL); TOTAL CELLS COUNTED 100
[2017-09-12] MEDS: Insulin Detemir 100 units/ml Vial (Levemir) SC SCH ×2 (10:00→17:22)
--- NOTE | 2017-09-12 10:47 | CARD ---
APPROVED REPORT EXAM: Two-dimensional and M-mode echocardiogram with Doppler and color Doppler. Other Information Quality : PoorRhythm : Technically limited study due to body habitus. 2D DIMENSIONS IVSd1.6 (0.7-1.1cm)LVDd4.5 (3.9-5.9cm) PWd1.6 (0.7-1.1cm)LVDs3.4 (2.5-4.0cm) FS (%) 24.6 %LVEF (%)50.0 (>50%) M-Mode DIMENSIONS Left Atrium (MM)4.33 (2.5-4.0cm)IVSd1.72 (0.7-1.1cm) Aortic Root3.40 (2.2-3.7cm)LVDd5.12 (4.0-5.6cm) Aortic Cusp Exc.1.95 (1.5-2.0cm)PWd2.42 (0.7-1.1cm) FS (%) 33 %LVDs3.44 (2.0-3.8cm) LVEF (%)61 (>50%) Mitral Valve MV E Vddlnzbm22.0cm/sMV A Rehvlqmf357.8cm/sE/A ratio0.5 TDI E/Lateral E'0.0E/Medial E'0.0 LEFT VENTRICLE The left ventricle is normal size. Proximal septal thickening is noted. No evidence of RAQUEL or significant gradient. The left ventricular function is normal. The left ventricular ejection fraction is within the normal range. There is normal LV segmental wall motion. Transmitral Doppler flow pattern is Grade I-abnormal relaxation pattern. RIGHT VENTRICLE The right ventricle is normal size. There is normal right ventricular wall thickness. The right ventricular systolic function is normal. ATRIA The left atrium is mildly dilated. The right atrium size is normal. The interatrial septum is intact with no evidence for an atrial septal defect. AORTIC VALVE The aortic valve is trileaflet. The aortic valve is mildly sclerotic. No aortic regurgitation is present. There is no aortic valvular stenosis. MITRAL VALVE Mitral annular calcification is mild. There is no evidence of mitral valve prolapse. There is no mitral valve stenosis. There is no mitral valve regurgitation noted. TRICUSPID VALVE The tricuspid valve is normal in structure. There is trace to mild tricuspid regurgitation. There is no tricuspid valve stenosis. PULMONIC VALVE The pulmonary valve is normal in structure. There is no pulmonic valvular regurgitation. There is no pulmonic valvular stenosis. GREAT VESSELS The aortic root is normal in size. The ascending aorta is normal in size. PERICARDIAL EFFUSION There is a small inferior pericardial effusion. No clear signs of Tamponade. However the RV and RA are not well visualized in some views. Additionally the pt seems intravascularly depleted with underfilled ivc and complete ivc collapse with respiration. There is no pleural effusion. <Conclusion> The left ventricular ejection fraction is within the normal range. Proximal septal thickening is noted. No evidence of RAQUEL or significant gradient. Transmitral Doppler flow pattern is Grade I-abnormal relaxation pattern. There is a small inferior pericardial effusion. No clear signs of Tamponade. However the RV and RA are not well visualized in some views. Additionally the pt seems intravascularly depleted with underfilled ivc and complete ivc collapse with respiration.
[2017-09-12] MEDS ORDERED: Sodium Chloride 0.9% 1,000 ML IV ONE (11:58)
--- NOTE | 2017-09-12 12:00 | CP.CCUPN ---
<Corby Bell - Last Filed: 09/12/17 14:33> CCU Subjective - Physician Review Subjective (Free Text): 09/12/17 11:59 patient seen and examined no complaints at this time less lethargic sepsis 2/2 cellulitis, pending wound culture, on abx dialysis today echo shows normal EF on levophed, will titrate off after dialysis CCU Objective - Vital Signs / Intake & Output Vital Signs (Last 4 hours): Vital Signs Temp Pulse Pulse Resp BP BP Pulse Ox 09/12/17 11:00 98 H 17 105/63 98 09/12/17 10:59 101 H 16 105/63 99 09/12/17 10:44 96 H 17 112/60 99 09/12/17 10:30 109/67 09/12/17 10:29 96 H 22 109/67 100 09/12/17 10:14 97 H 25 H 110/67 100 09/12/17 10:00 95 H 24 106/68 100 09/12/17 09:59 93 H 22 106/68 100 09/12/17 09:45 98/70 L 09/12/17 09:44 104 H 24 98/70 L 100 09/12/17 09:30 110/69 09/12/17 09:29 94 H 19 110/69 100 09/12/17 09:15 108/64 09/12/17 09:14 94 H 27 H 108/64 100 09/12/17 09:00 98.4 F 91 H 94 H 24 114/66 115/67 98 09/12/17 08:59 91 H 25 H 115/67 98 09/12/17 08:58 92 H 25 H 114/66 98 09/12/17 08:00 98.8 F 88 27 H 98 Intake and Output (Last 8hrs): Intake & Output 09/11/17 09/12/17 09/12/17 22:59 06:59 14:59 Intake Total 595.5 156.2 805.6 Output Total 0 0 0 Balance 595.5 156.2 805.6 Weight 215 lb 2 oz Intake: IV 0 Intake, IV Amount 155.5 156.2 5.6 Right Medial Port Femoral 60 100 Right Proximal Port 95.5 56.2 5.6 Femoral Oral 440 800 Output: Urine 0 0 0 Urine, Voided 0 0 0 Other: # Bowel Movements 1 - Physical Exam Head: Positive for: Normocephalic. Negative for: Tenderness, Contusion, Ecchymosis, Abrasion, Laceration Pupils: Positive for: PERRL Extroacular Muscles: Positive for: EOMI. Negative for: Gaze Palsy, Entrapment Conjunctiva: Positive for: Normal. Negative for: Injected, Icteric Ears: Positive for: Normal Mouth: Positive for: Moist Mucous Membranes Pharnyx: Positive for: Normal Nose (Internal): Positive for: Normal Inspection Neck: Positive for: Normal Range of Motion, Trachea Midline. Negative for: Meningeal Signs, MIDLINE TENDERNESS, Paraspinal Tenderness, JVD, Lymphadenopathy , Bruit, Other Respiratory/Chest: Positive for: Good Air Exchange, Decreased Breath Sounds. Negative for: Respiratory Distress, Accessory Muscle Use, Wheezes, Rales, Retracting, Rhonchi, Tachypneic Cardiovascular: Positive for: Regular Rate and Rhythm, Normal S1, S2, Peripheal Pulses Present. Negative for: Murmurs, Irregular Rhythm, Tachycardic, Bradycardic Abdomen: Positive for: Distention, Normal Bowel Sounds. Negative for: Tenderness, Peritoneal Signs Upper Extremity: Positive for: Edema (Massive RUE swelling, blistering, healed wound, AV fistule with thrill over it), Capillary Refill < 2s. Negative for: Cyanosis Lower Extremity: Positive for: Edema, NORMAL PULSES, Capillary Refill < 2 s. Negative for: CALF TENDERNESS Psychiatric: Positive for: Alert - Medications Active Medications: Active Medications Generic Name Dose Route Start Last Admin Trade Name Freq PRN Reason Stop Dose Admin Acetaminophen 650 mg 09/09/17 16:46 09/10/17 08:03 Tylenol 325mg Tab PO 650 mg Q4H PRN Administration fever Aspirin 81 mg 09/10/17 10:00 09/11/17 10:25 Aspirin Chewable PO 81 mg DAILY [facility] Administration Calcitriol 0.25 mcg 09/10/17 10:00 09/10/17 09:29 Rocaltrol PO 0.25 mcg DAILY [facility] Administration Carvedilol 6.25 mg 09/09/17 18:00 09/11/17 10:16 Coreg PO Not Given BID [facility] Famotidine 20 mg 09/11/17 10:09/11/17 10:26 Pepcid PO 20 mg DAILY [facility] Administration Heparin Sodium (Porcine) 5,000 units 09/09/17 00:15 09/12/17 05:26 Heparin SC 5,000 units Q8 [facility] Administration Hydrocortisone Sodium Succinate 50 mg 09/10/17 11:00 09/12/17 03:04 Solu-Cortef IV 09/13/17 11:01 50 mg Q8H [facility] Administration Meropenem 500 mg/ Sodium 100 mls @ 100 mls/hr 09/10/17 02:00 09/12/17 03:05 Chloride IVPB 100 mls/hr Q12H [facility] Administration Norepinephrine Bitartrate 8 mg 258 mls @ 7.74 mls/hr 09/10/17 00:45 09/12/17 09:56 / Sodium Chloride IV 5 mcg/min .Q24H PRN 9.67 mls/hr TITRATE PER MD ORDER Titration Protocol 4 MCG/MIN Vancomycin HCl 1 gm/ Sodium 200 mls @ 166.7 mls/hr 09/12/17 09:00 Chloride IVPB MWF [facility] Sodium Chloride 1,000 mls @ 1,000 mls/hr 09/12/17 11:58 Sodium Chloride 0.9% IV 09/12/17 12:57 .Q1H ONE Insulin Aspart 0 unit 09/09/17 16:30 09/12/17 11:30 Novolog SC Not Given ACHS [facility] Protocol Insulin Detemir 25 unit 09/09/17 18:00 09/11/17 10:26 Levemir SC 25 unit BID [facility] Administration Rosuvastatin Calcium 10 mg 09/09/17 22:00 09/11/17 23:05 Crestor PO 10 mg HS [facility] Administration Sevelamer Carbonate 1,600 mg 09/11/17 10:00 09/11/17 10:25 Renvela PO 1,600 mg TTS [facility] Administration - Patient Studies Lab Studies: Microbiology Studies 09/08/17 20:00 Blood Culture - Preliminary Blood NO GROWTH AFTER 3 DAYS 09/08/17 19:30 Blood Culture - Preliminary Blood NO GROWTH AFTER 3 DAYS Lab Studies 09/12/17 09/12/17 09/12/17 Range/Units 11:22 07:23 06:19 WBC (4.8-10.8) K/uL RBC (4.40-5.90) Mil/uL Hgb (12.0-18.0) g/dL Hct (35.0-51.0) % MCV (80.0-94.0) fL MCH (27.0-31.0) pg MCHC (33.0-37.0) g/dL RDW (11.5-14.5) % Plt Count (130-400) K/uL MPV (7.2-11.7) fL Neut % (Auto) (50.0-75.0) % Lymph % (Auto) (20.0-40.0) % [place] % (Auto) (0.0-10.0) % Eos % (Auto) (0.0-4.0) % Baso % (Auto) (0.0-2.0) % Neut # (Auto) (1.8-7.0) K/uL Lymph # (Auto) (1.0-4.3) K/uL [place] # (Auto) (0.0-0.8) K/uL Eos # (Auto) (0.0-0.7) K/uL Baso # (Auto) (0.0-0.2) K/uL Neutrophils % (Manual) (50-75) % Band Neutrophils % (0-2) % Lymphocytes % (Manual) (20-40) % Monocytes % (Manual) (0-10) % Platelet Estimate (NORMAL) Hypochromasia (manual) Anisocytosis (manual) Sodium 140 (132-148) mmol/L Potassium 3.3 L (3.6-5.2) mmol/L Chloride 98 (98-107) mmol/L Carbon Dioxide 31 H (22-30) mmol/L Anion Gap 14 (10-20) BUN 39 H (9-20) mg/dL Creatinine 6.2 H (0.8-1.5) mg/dL Est GFR ( Amer) 12 Est GFR (Non-Af Amer) 10 POC Glucose (mg/dL) 134 H 142 H (65-110) mg/dL Random Glucose 174 H (75-110) mg/dL Calcium 8.7 (8.6-10.4) mg/dl Phosphorus 3.5 (2.5-4.5) mg/dL Magnesium 2.1 (1.6-2.3) mg/dL Total Bilirubin 0.8 (0.2-1.3) mg/dL AST 50 (17-59) U/L ALT 42 (21-72) U/L Alkaline Phosphatase 276 H (38-126) U/L Total Protein 6.9 (6.3-8.3) g/dL Albumin 2.9 L (3.5-5.0) g/dL Globulin 4.0 H (2.2-3.9) gm/dL Albumin/Globulin Ratio 0.7 L (1.0-2.1) Procalcitonin (0.19-0.49) NG/ML 09/12/17 09/11/17 09/11/17 Range/Units 06:18 21:14 16:15 WBC 8.6 (4.8-10.8) K/uL RBC 3.58 L (4.40-5.90) Mil/uL Hgb 9.4 L (12.0-18.0) g/dL Hct 28.8 L (35.0-51.0) % MCV 80.4 (80.0-94.0) fL MCH 26.4 L (27.0-31.0) pg MCHC 32.8 L (33.0-37.0) g/dL RDW 22.0 H (11.5-14.5) % Plt Count 345 (130-400) K/uL MPV 9.0 (7.2-11.7) fL Neut % (Auto) 83.3 H (50.0-75.0) % Lymph % (Auto) 9.0 L (20.0-40.0) % [place] % (Auto) 7.7 (0.0-10.0) % Eos % (Auto) 0.0 (0.0-4.0) % Baso % (Auto) 0.0 (0.0-2.0) % Neut # (Auto) 7.2 H (1.8-7.0) K/uL Lymph # (Auto) 0.8 L (1.0-4.3) K/uL [place] # (Auto) 0.7 (0.0-0.8) K/uL Eos # (Auto) 0.0 (0.0-0.7) K/uL Baso # (Auto) 0.0 (0.0-0.2) K/uL Neutrophils % (Manual) 74 (50-75) % Band Neutrophils % 2 (0-2) % Lymphocytes % (Manual) 14 L (20-40) % Monocytes % (Manual) 10 (0-10) % Platelet Estimate Normal (NORMAL) Hypochromasia (manual) Slight Anisocytosis (manual) Moderate Sodium (132-148) mmol/L Potassium (3.6-5.2) mmol/L Chloride (98-107) mmol/L Carbon Dioxide (22-30) mmol/L Anion Gap (10-20) BUN (9-20) mg/dL Creatinine (0.8-1.5) mg/dL Est GFR ( Amer) Est GFR (Non-Af Amer) POC Glucose (mg/dL) 278 H 305 H (65-110) mg/dL Random Glucose (75-110) mg/dL Calcium (8.6-10.4) mg/dl Phosphorus (2.5-4.5) mg/dL Magnesium (1.6-2.3) mg/dL Total Bilirubin (0.2-1.3) mg/dL AST (17-59) U/L ALT (21-72) U/L Alkaline Phosphatase (38-126) U/L Total Protein (6.3-8.3) g/dL Albumin (3.5-5.0) g/dL Globulin (2.2-3.9) gm/dL Albumin/Globulin Ratio (1.0-2.1) Procalcitonin (0.19-0.49) NG/ML 09/11/17 Range/Units 10:50 WBC (4.8-10.8) K/uL RBC (4.40-5.90) Mil/uL Hgb (12.0-18.0) g/dL Hct (35.0-51.0) % MCV (80.0-94.0) fL MCH (27.0-31.0) pg MCHC (33.0-37.0) g/dL RDW (11.5-14.5) % Plt Count (130-400) K/uL MPV (7.2-11.7) fL Neut % (Auto) (50.0-75.0) % Lymph % (Auto) (20.0-40.0) % [place] % (Auto) (0.0-10.0) % Eos % (Auto) (0.0-4.0) % Baso % (Auto) (0.0-2.0) % Neut # (Auto) (1.8-7.0) K/uL Lymph # (Auto) (1.0-4.3) K/uL [place] # (Auto) (0.0-0.8) K/uL Eos # (Auto) (0.0-0.7) K/uL Baso # (Auto) (0.0-0.2) K/uL Neutrophils % (Manual) (50-75) % Band Neutrophils % (0-2) % Lymphocytes % (Manual) (20-40) % Monocytes % (Manual) (0-10) % Platelet Estimate (NORMAL) Hypochromasia (manual) Anisocytosis (manual) Sodium (132-148) mmol/L Potassium (3.6-5.2) mmol/L Chloride (98-107) mmol/L Carbon Dioxide (22-30) mmol/L Anion Gap (10-20) BUN (9-20) mg/dL Creatinine (0.8-1.5) mg/dL Est GFR ( Amer) Est GFR (Non-Af Amer) POC Glucose (mg/dL) (65-110) mg/dL Random Glucose (75-110) mg/dL Calcium (8.6-10.4) mg/dl Phosphorus (2.5-4.5) mg/dL Magnesium (1.6-2.3) mg/dL Total Bilirubin (0.2-1.3) mg/dL AST (17-59) U/L ALT (21-72) U/L Alkaline Phosphatase (38-126) U/L Total Protein (6.3-8.3) g/dL Albumin (3.5-5.0) g/dL Globulin (2.2-3.9) gm/dL Albumin/Globulin Ratio (1.0-2.1) Procalcitonin 20.28 H (0.19-0.49) NG/ML Laboratory Results - last 24 hr 09/11/17 09/11/17 09/11/17 10:50 16:15 21:14 WBC RBC Hgb Hct MCV MCH MCHC RDW Plt Count MPV Neut % (Auto) Lymph % (Auto) [place] % (Auto) Eos % (Auto) Baso % (Auto) Neut # (Auto) Lymph # (Auto) [place] # (Auto) Eos # (Auto) Baso # (Auto) Neutrophils % (Manual) Band Neutrophils % Lymphocytes % (Manual) Monocytes % (Manual) Platelet Estimate Hypochromasia (manual) Anisocytosis (manual) Sodium Potassium Chloride Carbon Dioxide Anion Gap BUN Creatinine Est GFR ( Amer) Est GFR (Non-Af Amer) POC Glucose (mg/dL) 305 H 278 H Random Glucose Calcium Phosphorus Magnesium Total Bilirubin AST ALT Alkaline Phosphatase Total Protein Albumin Globulin Albumin/Globulin Ratio Procalcitonin 20.28 H 09/12/17 09/12/17 09/12/17 06:18 06:19 07:23 WBC 8.6 RBC 3.58 L Hgb 9.4 L Hct 28.8 L MCV 80.4 MCH 26.4 L MCHC 32.8 L RDW 22.0 H Plt Count 345 MPV 9.0 Neut % (Auto) 83.3 H Lymph % (Auto) 9.[address] [place] % (Auto) 7.7 Eos % (Auto) 0.0 Baso % (Auto) 0.0 Neut # (Auto) 7.2 H Lymph # (Auto) 0.[address] [place] # (Auto) 0.7 Eos # (Auto) 0.0 Baso # (Auto) 0.0 Neutrophils % (Manual) 74 Band Neutrophils % 2 Lymphocytes % (Manual) 14 L Monocytes % (Manual) 10 Platelet Estimate Normal Hypochromasia (manual) Slight Anisocytosis (manual) Moderate Sodium 140 Potassium 3.3 L Chloride 98 Carbon Dioxide 31 H Anion Gap 14 BUN 39 H Creatinine 6.2 H Est GFR ( Amer) 12 Est GFR (Non-Af Amer) 10 POC Glucose (mg/dL) 142 H Random Glucose 174 H Calcium 8.7 Phosphorus 3.5 Magnesium 2.1 Total Bilirubin 0.8 AST 50 ALT 42 Alkaline Phosphatase 276 H Total Protein 6.9 Albumin 2.9 L Globulin 4.0 H Albumin/Globulin Ratio 0.7 L Procalcitonin 09/12/17 11:22 WBC RBC Hgb Hct MCV MCH MCHC RDW Plt Count MPV Neut % (Auto) Lymph % (Auto) [place] % (Auto) Eos % (Auto) Baso % (Auto) Neut # (Auto) Lymph # (Auto) [place] # (Auto) Eos # (Auto) Baso # (Auto) Neutrophils % (Manual) Band Neutrophils % Lymphocytes % (Manual) Monocytes % (Manual) Platelet Estimate Hypochromasia (manual) Anisocytosis (manual) Sodium Potassium Chloride Carbon Dioxide Anion Gap BUN Creatinine Est GFR ( Amer) Est GFR (Non-Af Amer) POC Glucose (mg/dL) 134 H Random Glucose Calcium Phosphorus Magnesium Total Bilirubin AST ALT Alkaline Phosphatase Total Protein Albumin Globulin Albumin/Globulin Ratio Procalcitonin Fingerstick Blood Sugar Results: 134 Critical Care Progress Note - Nutrition Nutrition: Nutrition Category Date Time Status Renal Diet [DIET] Diets 09/09/17 Dinner Active Assessment/Plan - Assessment and Plan (Free Text) Assessment: 51M Septic shock, 2/2 cellulitis, CKD on dialysis Plan: Psych: no acute issues Neuro: Awake and alert Cards: CHF, hypotension Coreg 6.25 mg PO BID ASA 81mg PO qd Crestor 10mg PO hs Norepinephrine 8mg, 258 ml @ 9.76 ml/hr PRN titrate per MD at 5mcg/min Renvela 1600 mg PO TTS [facility]; 2 tabs/800mg Pulm: no acute issues GI: no acute issues Renal: ESRD on dialysis AVF functional on U/S NaCl 0.9% @ 1000 ml/hr IV q1h bolus over 60mins Endo: Possible adrenal insuff; 50 hydrocortisone for 3 days - insulin Aspart held - Insulin Detemir 25u SC BID [facility] - Sevelamer 1600mg PO TTS [facility] - pro-calcitonin level check - Solu-CORTEF 50mg IV q8h [facility], 0.5vials/100mg ID: Cellulitis per U/S - Vancomycin 1g, 200mls @ 166.7ml/hr IVPB MWF [facility] - blood cx negative @ 48hr - Meropenem 500mg, 100ml @ 100ml/hr IVPD q12h [facility] - Wound culture pending PPx: Pepcid 20 mg PO qd Heparin 5000 U SC Q8 <Nicola Long S - Last Filed: 09/12/17 17:49> CCU Objective - Vital Signs / Intake & Output Intake and Output (Last 8hrs): Intake & Output 09/12/17 09/12/17 09/12/17 06:59 14:59 22:59 Intake Total 156.2 828.0 Output Total 0 0 Balance 156.2 828.0 Weight 215 lb 2 oz Intake: IV 0 Intake, IV Amount 156.2 28.0 Right Medial Port Femoral 100 Right Proximal Port 56.2 28.0 Femoral Oral 800 Output: Urine 0 0 Urine, Voided 0 0 Other: # Bowel Movements 1 - Medications Active Medications: Active Medications Generic Name Dose Route Start Last Admin Trade Name Freq PRN Reason Stop Dose Admin Acetaminophen 650 mg 09/09/17 16:46 09/10/17 08:03 Tylenol 325mg Tab PO 650 mg Q4H PRN Administration fever Aspirin 81 mg 09/10/17 10:00 09/12/17 13:25 Aspirin Chewable PO 81 mg DAILY [facility] Administration Calcitriol 0.25 mcg 09/10/17 10:00 09/12/17 13:30 Rocaltrol PO 0.25 mcg DAILY [facility] Administration Carvedilol 6.25 mg 09/09/17 18:00 09/12/17 10:00 Coreg PO Not Given BID [facility] Famotidine 20 mg 09/11/17 10:00 09/12/17 13:30 Pepcid PO 20 mg DAILY [facility] Administration Heparin Sodium (Porcine) 5,000 units 09/09/17 00:15 09/12/17 13:25 Heparin SC 5,000 units Q8 [facility] Administration Hydrocortisone Sodium Succinate 50 mg 09/10/17 11:00 09/12/17 14:14 Solu-Cortef IV 09/13/17 11:01 50 mg Q8H [facility] Administration Meropenem 500 mg/ Sodium 100 mls @ 100 mls/hr 09/10/17 02:00 09/12/17 15:30 Chloride IVPB 100 mls/hr Q12H [facility] Administration Norepinephrine Bitartrate 8 mg 258 mls @ 7.74 mls/hr 09/10/17 00:45 09/12/17 09:56 / Sodium Chloride IV 5 mcg/min .Q24H PRN 9.67 mls/hr TITRATE PER MD ORDER Titration Protocol 4 MCG/MIN Vancomycin HCl 1 gm/ Sodium 200 mls @ 166.7 mls/hr 09/12/17 09:00 09/12/17 14 :12 Chloride IVPB 166.7 mls/hr MWF [facility] Administration Insulin Aspart 0 unit 09/09/17 16:30 01/31/18 17:22 Novolog SC 3 unit ACHS [facility] Administration Protocol Insulin Detemir 25 unit 09/09/17 18:00 09/12/17 17:22 Levemir SC 25 unit BID [facility] Administration Rosuvastatin Calcium 10 mg 09/09/17 22:00 09/11/17 23:05 Crestor PO 10 mg HS [facility] Administration Sevelamer Carbonate 1,600 mg 09/11/17 10:00 09/11/17 10:25 Renvela PO 1,600 mg TTS [facility] Administration - Patient Studies Lab Studies: Microbiology Studies 09/08/17 20:00 Blood Culture - Preliminary Blood NO GROWTH AFTER 3 DAYS 09/08/17 19:30 Blood Culture - Preliminary Blood NO GROWTH AFTER 3 DAYS Lab Studies 09/12/17 09/12/17 09/12/17 Range/Units 11:22 07:23 06:19 WBC (4.8-10.8) K/uL RBC (4.40-5.90) Mil/uL Hgb (12.0-18.0) g/dL Hct (35.0-51.0) % MCV (80.0-94.0) fL MCH (27.0-31.0) pg MCHC (33.0-37.0) g/dL RDW (11.5-14.5) % Plt Count (130-400) K/uL MPV (7.2-11.7) fL Neut % (Auto) (50.0-75.0) % Lymph % (Auto) (20.0-40.0) % [place] % (Auto) (0.0-10.0) % Eos % (Auto) (0.0-4.0) % Baso % (Auto) (0.0-2.0) % Neut # (Auto) (1.8-7.0) K/uL Lymph # (Auto) (1.0-4.3) K/uL [place] # (Auto) (0.0-0.8) K/uL Eos # (Auto) (0.0-0.7) K/uL Baso # (Auto) (0.0-0.2) K/uL Neutrophils % (Manual) (50-75) % Band Neutrophils % (0-2) % Lymphocytes % (Manual) (20-40) % Monocytes % (Manual) (0-10) % Platelet Estimate (NORMAL) Hypochromasia (manual) Anisocytosis (manual) Sodium 140 (132-148) mmol/L Potassium 3.3 L (3.6-5.2) mmol/L Chloride 98 (98-107) mmol/L Carbon Dioxide 31 H (22-30) mmol/L Anion Gap 14 (10-20) BUN 39 H (9-20) mg/dL Creatinine 6.2 H (0.8-1.5) mg/dL Est GFR ( Amer) 12 Est GFR (Non-Af Amer) 10 POC Glucose (mg/dL) 134 H 142 H (65-110) mg/dL Random Glucose 174 H (75-110) mg/dL Calcium 8.7 (8.6-10.4) mg/dl Phosphorus 3.5 (2.5-4.5) mg/dL Magnesium 2.1 (1.6-2.3) mg/dL Total Bilirubin 0.8 (0.2-1.3) mg/dL AST 50 (17-59) U/L ALT 42 (21-72) U/L Alkaline Phosphatase 276 H (38-126) U/L Total Protein 6.9 (6.3-8.3) g/dL Albumin 2.9 L (3.5-5.0) g/dL Globulin 4.0 H (2.2-3.9) gm/dL Albumin/Globulin Ratio 0.7 L (1.0-2.1) 09/12/17 09/11/17 Range/Units 06:18 21:14 WBC 8.6 (4.8-10.8) K/uL RBC 3.58 L (4.40-5.90) Mil/uL Hgb 9.4 L (12.0-18.0) g/dL Hct 28.8 L (35.0-51.0) % MCV 80.4 (80.0-94.0) fL MCH 26.4 L (27.0-31.0) pg MCHC 32.8 L (33.0-37.0) g/dL RDW 22.0 H (11.5-14.5) % Plt Count 345 (130-400) K/uL MPV 9.0 (7.2-11.7) fL Neut % (Auto) 83.3 H (50.0-75.0) % Lymph % (Auto) 9.0 L (20.0-40.0) % [place] % (Auto) 7.7 (0.0-10.0) % Eos % (Auto) 0.0 (0.0-4.0) % Baso % (Auto) 0.0 (0.0-2.0) % Neut # (Auto) 7.2 H (1.8-7.0) K/uL Lymph # (Auto) 0.8 L (1.0-4.3) K/uL [place] # (Auto) 0.7 (0.0-0.8) K/uL Eos # (Auto) 0.0 (0.0-0.7) K/uL Baso # (Auto) 0.0 (0.0-0.2) K/uL Neutrophils % (Manual) 74 (50-75) % Band Neutrophils % 2 (0-2) % Lymphocytes % (Manual) 14 L (20-40) % Monocytes % (Manual) 10 (0-10) % Platelet Estimate Normal (NORMAL) Hypochromasia (manual) Slight Anisocytosis (manual) Moderate Sodium (132-148) mmol/L Potassium (3.6-5.2) mmol/L Chloride (98-107) mmol/L Carbon Dioxide (22-30) mmol/L Anion Gap (10-20) BUN (9-20) mg/dL Creatinine (0.8-1.5) mg/dL Est GFR ( Amer) Est GFR (Non-Af Amer) POC Glucose (mg/dL) 278 H (65-110) mg/dL Random Glucose (75-110) mg/dL Calcium (8.6-10.4) mg/dl Phosphorus (2.5-4.5) mg/dL Magnesium (1.6-2.3) mg/dL Total Bilirubin (0.2-1.3) mg/dL AST (17-59) U/L ALT (21-72) U/L Alkaline Phosphatase (38-126) U/L Total Protein (6.3-8.3) g/dL Albumin (3.5-5.0) g/dL Globulin (2.2-3.9) gm/dL Albumin/Globulin Ratio (1.0-2.1) Laboratory Results - last 24 hr 09/11/17 09/12/17 09/12/17 21:14 06:18 06:19 WBC 8.6 RBC 3.58 L Hgb 9.4 L Hct 28.8 L MCV 80.4 MCH 26.4 L MCHC 32.8 L RDW 22.0 H Plt Count 345 MPV 9.0 Neut % (Auto) 83.3 H Lymph % (Auto) 9.[address] [place] % (Auto) 7.7 Eos % (Auto) 0.0 Baso % (Auto) 0.0 Neut # (Auto) 7.2 H Lymph # (Auto) 0.[address] [place] # (Auto) 0.7 Eos # (Auto) 0.0 Baso # (Auto) 0.0 Neutrophils % (Manual) 74 Band Neutrophils % 2 Lymphocytes % (Manual) 14 L Monocytes % (Manual) 10 Platelet Estimate Normal Hypochromasia (manual) Slight Anisocytosis (manual) Moderate Sodium 140 Potassium 3.3 L Chloride 98 Carbon Dioxide 31 H Anion Gap 14 BUN 39 H Creatinine 6.2 H Est GFR ( Amer) 12 Est GFR (Non-Af Amer) 10 POC Glucose (mg/dL) 278 H Random Glucose 174 H Calcium 8.7 Phosphorus 3.5 Magnesium 2.1 Total Bilirubin 0.8 AST 50 ALT 42 Alkaline Phosphatase 276 H Total Protein 6.9 Albumin 2.9 L Globulin 4.0 H Albumin/Globulin Ratio 0.7 L 09/12/17 09/12/17 07:23 11:22 WBC RBC Hgb Hct MCV MCH MCHC RDW Plt Count MPV Neut % (Auto) Lymph % (Auto) [place] % (Auto) Eos % (Auto) Baso % (Auto) Neut # (Auto) Lymph # (Auto) [place] # (Auto) Eos # (Auto) Baso # (Auto) Neutrophils % (Manual) Band Neutrophils % Lymphocytes % (Manual) Monocytes % (Manual) Platelet Estimate Hypochromasia (manual) Anisocytosis (manual) Sodium Potassium Chloride Carbon Dioxide Anion Gap BUN Creatinine Est GFR ( Amer) Est GFR (Non-Af Amer) POC Glucose (mg/dL) 142 H 134 H Random Glucose Calcium Phosphorus Magnesium Total Bilirubin AST ALT Alkaline Phosphatase Total Protein Albumin Globulin Albumin/Globulin Ratio Critical Care Progress Note - Nutrition Nutrition: Nutrition Category Date Time Status Renal Diet [DIET] Diets 09/09/17 Dinner Active Attending/Attestation - Attestation I have personally seen and examined this patient.: Yes I have fully participated in the care of the patient.: Yes I have reviewed all pertinent clinical information: Yes Notes (Text): 09/12/17 17:44 Patient seen and examined in the intensive care unit. Being treated for cellulitis Taper off Levophed Continue antibiotics Hemodialysis Seen by surgery
[2017-09-12] MEDS: Vancomycin 1 GM in Sodium Chloride 0.9% 200 ML IVPB SCH (14:12)
--- NOTE | 2017-09-12 14:53 | CP.PCM.PN ---
Subjective - Date & Time of Evaluation Date of Evaluation: 09/12/17 Time of Evaluation: 15:24 - Subjective Subjective: Vascular Surgery Note for Dr. Carrasco Patient seen and examined a bedside. No acute event overnight. Patient has no complaints. Objective - Vital Signs/Intake and Output Vital Signs (last 24 hours): Temp Pulse Resp BP Pulse Ox 97.3 F L 94 H 26 H 91/57 L 100 09/12/17 12:30 09/12/17 12:30 09/12/17 12:30 09/12/17 12:30 09/12/17 12:30 Intake and Output: 09/12/17 09/12/17 06:59 18:59 Intake Total 433.8 828.0 Output Total 0 0 Balance 433.8 828.0 - Medications Medications: Current Medications Acetaminophen (Tylenol 325mg Tab) 650 mg PO Q4H PRN PRN Reason: fever Last Admin: 09/10/17 08:03 Dose: 650 mg Aspirin (Aspirin Chewable) 81 mg PO DAILY [facility] Last Admin: 09/12/17 13:25 Dose: 81 mg Calcitriol (Rocaltrol) 0.25 mcg PO DAILY [facility] Last Admin: 09/12/17 13:30 Dose: 0.25 mcg Carvedilol (Coreg) 6.25 mg PO BID [facility] Last Admin: 09/12/17 10:00 Dose: Not Given Famotidine (Pepcid) 20 mg PO DAILY [facility] Last Admin: 09/12/17 13:30 Dose: 20 mg Heparin Sodium (Porcine) (Heparin) 5,000 units SC Q8 [facility] Last Admin: 09/12/17 13:25 Dose: 5,000 units Hydrocortisone Sodium Succinate (Solu-Cortef) 50 mg IV Q8H [facility] Stop: 09/13/17 11:01 Last Admin: 09/12/17 14:14 Dose: 50 mg Meropenem 500 mg/ Sodium (Chloride) 100 mls @ 100 mls/hr IVPB Q12H [facility] Last Admin: 09/12/17 03:05 Dose: 100 mls/hr Norepinephrine Bitartrate 8 mg (/ Sodium Chloride) 258 mls @ 7.74 mls/hr IV .Q24H PRN; Protocol; 4 MCG/MIN PRN Reason: TITRATE PER MD ORDER Last Titration: 09/12/17 09:56 Dose: 5 mcg/min, 9.67 mls/hr Vancomycin HCl 1 gm/ Sodium (Chloride) 200 mls @ 166.7 mls/hr IVPB MWF [facility] Insulin Aspart (Novolog) 0 unit SC ACHS [facility] PRN Reason: Protocol Last Admin: 09/12/17 11:30 Dose: Not Given Insulin Detemir (Levemir) 25 unit SC BID [facility] Last Admin: 09/12/17 10:00 Dose: Not Given Rosuvastatin Calcium (Crestor) 10 mg PO HS [facility] Last Admin: 09/11/17 23:05 Dose: 10 mg Sevelamer Carbonate (Renvela) 1,600 mg PO TTS [facility] Last Admin: 09/11/17 10:25 Dose: 1,600 mg - Labs Labs: 09/12/17 06:18 09/12/17 06:19 PT 16.3 SECONDS (9.7-12.2) H 09/08/17 20:19 INR 1.4 09/08/17 20:19 APTT 33 SECONDS (21-34) 09/08/17 20:19 - Constitutional Appears: No Acute Distress - Head Exam Head Exam: ATRAUMATIC, NORMOCEPHALIC - Eye Exam Eye Exam: Normal appearance - Respiratory Exam Respiratory Exam: Decreased Breath Sounds, NORMAL BREATHING PATTERN - Cardiovascular Exam Cardiovascular Exam: REGULAR RHYTHM - Extremities Exam Additional comments: RUE AVF with palpable thrill, ulcer present - Neurological Exam Neurological Exam: Awake - Psychiatric Exam Psychiatric exam: Flat Affect - Skin Skin Exam: Dry, Warm Assessment and Plan - Assessment and Plan (Free Text) Plan: 51 M with RUE AVF with overlying ulcer -Local wound care -AVF with no issues at this point -No surgical intervention needed at this time -Discussed with Dr. Luna Rajput PGY1
--- NOTE | 2017-09-12 18:49 | CP.PCM.PN ---
Subjective - Date & Time of Evaluation Date of Evaluation: 09/12/17 Time of Evaluation: 08:00 - Subjective Subjective: depressed / NAD coughing no fever Objective - Vital Signs/Intake and Output Vital Signs (last 24 hours): Temp Pulse Resp BP Pulse Ox 98.4 F 98 H 17 106/61 83 L 09/12/17 16:00 09/12/17 18:15 09/12/17 18:15 09/12/17 18:15 09/12/17 18:15 Intake and Output: 09/12/17 09/12/17 06:59 18:59 Intake Total 433.8 855.6 Output Total 0 2000 Balance 433.8 -1144.4 - Medications Medications: Current Medications Acetaminophen (Tylenol 325mg Tab) 650 mg PO Q4H PRN PRN Reason: fever Last Admin: 09/10/17 08:03 Dose: 650 mg Aspirin (Aspirin Chewable) 81 mg PO DAILY [facility] Last Admin: 09/12/17 13:25 Dose: 81 mg Calcitriol (Rocaltrol) 0.25 mcg PO DAILY [facility] Last Admin: 09/12/17 13:30 Dose: 0.25 mcg Carvedilol (Coreg) 6.25 mg PO BID [facility] Last Admin: 09/12/17 18:00 Dose: Not Given Famotidine (Pepcid) 20 mg PO DAILY [facility] Last Admin: 09/12/17 13:30 Dose: 20 mg Heparin Sodium (Porcine) (Heparin) 5,000 units SC Q8 [facility] Last Admin: 09/12/17 13:25 Dose: 5,000 units Hydrocortisone Sodium Succinate (Solu-Cortef) 50 mg IV Q8H [facility] Stop: 09/13/17 11:01 Last Admin: 09/12/17 14:14 Dose: 50 mg Meropenem 500 mg/ Sodium (Chloride) 100 mls @ 100 mls/hr IVPB Q12H [facility] Last Admin: 09/12/17 15:30 Dose: 100 mls/hr Norepinephrine Bitartrate 8 mg (/ Sodium Chloride) 258 mls @ 7.74 mls/hr IV .Q24H PRN; Protocol; 4 MCG/MIN PRN Reason: TITRATE PER MD ORDER Last Titration: 09/12/17 18:00 Dose: 0 mcg/min, 0 mls/hr Vancomycin HCl 1 gm/ Sodium (Chloride) 200 mls @ 166.7 mls/hr IVPB MWF [facility] Last Admin: 09/12/17 14:12 Dose: 166.7 mls/hr Insulin Aspart (Novolog) 0 unit SC ACHS [facility] PRN Reason: Protocol Last Admin: 09/12/17 17:22 Dose: 3 unit Insulin Detemir (Levemir) 25 unit SC BID [facility] Last Admin: 09/12/17 17:22 Dose: 25 unit Rosuvastatin Calcium (Crestor) 10 mg PO HS [facility] Last Admin: 09/11/17 23:05 Dose: 10 mg Sevelamer Carbonate (Renvela) 1,600 mg PO TTS [facility] Last Admin: 09/11/17 10:25 Dose: 1,600 mg - Labs Labs: 09/12/17 06:18 09/12/17 06:19 PT 16.3 SECONDS (9.7-12.2) H 09/08/17 20:19 INR 1.4 09/08/17 20:19 APTT 33 SECONDS (21-34) 09/08/17 20:19 - Constitutional Appears: Non-toxic, Chronically Ill - Head Exam Head Exam: NORMOCEPHALIC - Eye Exam Eye Exam: PERRL - ENT Exam ENT Exam: Mucous Membranes Dry - Neck Exam Neck Exam: absent: Lymphadenopathy - Respiratory Exam Respiratory Exam: Decreased Breath Sounds - Cardiovascular Exam Cardiovascular Exam: REGULAR RHYTHM - GI/Abdominal Exam GI & Abdominal Exam: Distended - Rectal Exam Rectal Exam: Deferred Assessment and Plan (1) Hypotension Status: Acute (2) Sepsis Status: Acute (3) Septic shock Status: Acute (4) UTI (urinary tract infection), bacterial Status: Acute (5) ESRD (end stage renal disease) Status: Chronic (6) Bacteremia Status: Acute (7) CHF exacerbation Status: Acute (8) ESRD (end stage renal disease) on dialysis Status: Acute (9) Fever Status: Acute (10) Diabetes mellitus Status: Chronic (11) HTN (hypertension) Status: Chronic
--- NOTE | 2017-09-12 18:50 | CP.PCM.PN ---
Subjective - Date & Time of Evaluation Date of Evaluation: 09/12/17 Time of Evaluation: 14:00 - Subjective Subjective: clinically same Objective - Vital Signs/Intake and Output Vital Signs (last 24 hours): Temp Pulse Resp BP Pulse Ox 98.4 F 98 H 17 106/61 83 L 09/12/17 16:00 09/12/17 18:15 09/12/17 18:15 09/12/17 18:15 09/12/17 18:15 Intake and Output: 09/12/17 09/12/17 06:59 18:59 Intake Total 433.8 855.6 Output Total 0 2000 Balance 433.8 -1144.4 - Medications Medications: Current Medications Acetaminophen (Tylenol 325mg Tab) 650 mg PO Q4H PRN PRN Reason: fever Last Admin: 09/10/17 08:03 Dose: 650 mg Aspirin (Aspirin Chewable) 81 mg PO DAILY [facility] Last Admin: 09/12/17 13:25 Dose: 81 mg Calcitriol (Rocaltrol) 0.25 mcg PO DAILY [facility] Last Admin: 09/12/17 13:30 Dose: 0.25 mcg Carvedilol (Coreg) 6.25 mg PO BID [facility] Last Admin: 09/12/17 18:00 Dose: Not Given Famotidine (Pepcid) 20 mg PO DAILY [facility] Last Admin: 09/12/17 13:30 Dose: 20 mg Heparin Sodium (Porcine) (Heparin) 5,000 units SC Q8 [facility] Last Admin: 09/12/17 13:25 Dose: 5,000 units Hydrocortisone Sodium Succinate (Solu-Cortef) 50 mg IV Q8H [facility] Stop: 09/13/17 11:01 Last Admin: 09/12/17 14:14 Dose: 50 mg Meropenem 500 mg/ Sodium (Chloride) 100 mls @ 100 mls/hr IVPB Q12H [facility] Last Admin: 09/12/17 15:30 Dose: 100 mls/hr Norepinephrine Bitartrate 8 mg (/ Sodium Chloride) 258 mls @ 7.74 mls/hr IV .Q24H PRN; Protocol; 4 MCG/MIN PRN Reason: TITRATE PER MD ORDER Last Titration: 09/12/17 18:00 Dose: 0 mcg/min, 0 mls/hr Vancomycin HCl 1 gm/ Sodium (Chloride) 200 mls @ 166.7 mls/hr IVPB MWF [facility] Last Admin: 09/12/17 14:12 Dose: 166.7 mls/hr Insulin Aspart (Novolog) 0 unit SC ACHS [facility] PRN Reason: Protocol Last Admin: 09/12/17 17:22 Dose: 3 unit Insulin Detemir (Levemir) 25 unit SC BID [facility] Last Admin: 09/12/17 17:22 Dose: 25 unit Rosuvastatin Calcium (Crestor) 10 mg PO HS [facility] Last Admin: 09/11/17 23:05 Dose: 10 mg Sevelamer Carbonate (Renvela) 1,600 mg PO TTS [facility] Last Admin: 09/11/17 10:25 Dose: 1,600 mg - Labs Labs: 09/12/17 06:18 09/12/17 06:19 PT 16.3 SECONDS (9.7-12.2) H 09/08/17 20:19 INR 1.4 09/08/17 20:19 APTT 33 SECONDS (21-34) 09/08/17 20:19 - Constitutional Appears: Well - Head Exam Head Exam: ATRAUMATIC, NORMAL INSPECTION, NORMOCEPHALIC - Eye Exam Eye Exam: EOMI, Normal appearance, PERRL Pupil Exam: NORMAL ACCOMODATION, PERRL - ENT Exam ENT Exam: Mucous Membranes Moist, Normal Exam - Neck Exam Neck Exam: Full ROM, Normal Inspection. absent: Lymphadenopathy - Respiratory Exam Respiratory Exam: Decreased Breath Sounds - Cardiovascular Exam Cardiovascular Exam: REGULAR RHYTHM, +S1, +S2 - GI/Abdominal Exam GI & Abdominal Exam: Soft, Diminished Bowel Sounds - Rectal Exam Rectal Exam: Deferred
[2017-09-13] MEDS: Meropenem 500 MG in Sodium Chloride 0.9% 100 ML IVPB SCH ×2 (02:06→14:32)
[2017-09-13 06:22] LABS: BASO % 0.6 % (0.0-2.0); LYMPH # 0.8 K/uL (1.0-4.3); LYMPH % 11.4 % (20.0-40.0); MEAN CELL VOLUME 80.8 fL (80.0-94.0); MEAN CORPUSCULAR HEMOGLOBIN 26.2 pg (27.0-31.0); MEAN CORPUSCULAR HGB CONC 32.4 g/dL (33.0-37.0); MONO # 0.5 K/uL (0.0-0.8); MONO % 7.7 % (0.0-10.0); NEUT # 5.6 K/uL (1.8-7.0); NEUT % 80.3 % (50.0-75.0); NRBC % 0.2 % (0.0-2.0); RBC 3.45 Mil/uL (4.40-5.90); RED CELL DISTRIBUTION WIDTH 22.3 % (11.5-14.5); WHITE BLOOD COUNT 6.9 K/uL (4.8-10.8)
[2017-09-13 06:38] LABS: ALB/GLOB RATIO 0.6 (1.0-2.1); CALCIUM 8.2 mg/dl (8.6-10.4)
[2017-09-13] MEDS: (Novolog) Insulin Aspart, Recombinant 100 u/ml 10 ml vial SC SCH ×4 (07:30→21:00)
[2017-09-13] MEDS: Insulin Detemir 100 units/ml Vial (Levemir) SC SCH ×2 (09:30→18:22)
--- NOTE | 2017-09-13 12:27 | CP.CCUPN ---
<Corby Bell - Last Filed: 09/13/17 12:55> CCU Subjective - Physician Review Subjective (Free Text): 09/13/17 12:25 patient seen and examined at bedside less lethargic OOB to chair dilaysis tomorrow remove fem line tolerating diet no other complaints at this time CCU Objective - Vital Signs / Intake & Output Vital Signs (Last 4 hours): Vital Signs Pulse Resp BP Pulse Ox 09/13/17 10:00 89 12 93 L 09/13/17 09:49 93 H 13 108/69 09/13/17 09:07 83 09/13/17 08:49 80 21 101/68 100 Intake and Output (Last 8hrs): Intake & Output 09/12/17 09/13/17 09/13/17 22:59 06:59 14:59 Intake Total 335.4 100 800 Output Total 2000 0 Balance -1664.6 100 800 Weight 220 lb 2 oz Intake: IV 22.0 Intake, IV Amount 113.4 100 Right Medial Port Femoral 100 100 Right Proximal Port 13.4 Femoral Oral 200 0 800 Output: Urine 0 0 Urine, Voided 0 0 Other 2000 Other: # Bowel Movements 1 0 - Physical Exam Head: Positive for: Normocephalic. Negative for: Tenderness, Contusion, Ecchymosis, Abrasion, Laceration Pupils: Positive for: PERRL Extroacular Muscles: Positive for: EOMI. Negative for: Gaze Palsy, Entrapment Conjunctiva: Positive for: Normal. Negative for: Injected, Icteric Ears: Positive for: Normal Mouth: Positive for: Moist Mucous Membranes Pharnyx: Positive for: Normal Nose (Internal): Positive for: Normal Inspection Neck: Positive for: Normal Range of Motion, Trachea Midline. Negative for: Meningeal Signs, MIDLINE TENDERNESS, Paraspinal Tenderness, JVD, Lymphadenopathy , Bruit, Other Respiratory/Chest: Positive for: Good Air Exchange, Decreased Breath Sounds. Negative for: Respiratory Distress, Accessory Muscle Use, Wheezes, Rales, Retracting, Rhonchi, Tachypneic Cardiovascular: Positive for: Regular Rate and Rhythm, Normal S1, S2, Peripheal Pulses Present. Negative for: Murmurs, Irregular Rhythm, Tachycardic, Bradycardic Abdomen: Positive for: Distention, Normal Bowel Sounds. Negative for: Tenderness, Peritoneal Signs Upper Extremity: Positive for: Edema (Massive RUE swelling, blistering, healed wound, AV fistule with thrill over it), Capillary Refill < 2s. Negative for: Cyanosis Lower Extremity: Positive for: Edema, NORMAL PULSES, Capillary Refill < 2 s. Negative for: CALF TENDERNESS Psychiatric: Positive for: Alert - Medications Active Medications: Active Medications Generic Name Dose Route Start Last Admin Trade Name Freq PRN Reason Stop Dose Admin Acetaminophen 650 mg 09/09/17 16:46 09/10/17 08:03 Tylenol 325mg Tab PO 650 mg Q4H PRN Administration fever Aspirin 81 mg 09/10/17 10:00 09/12/17 13:25 Aspirin Chewable PO 81 mg DAILY [facility] Administration Calcitriol 0.25 mcg 09/10/17 10:00 09/13/17 09:32 Rocaltrol PO 0.25 mcg DAILY [facility] Administration Carvedilol 6.25 mg 09/09/17 18:00 09/13/17 09:33 Coreg PO Not Given BID [facility] Epoetin Michel 4,000 unit 09/14/17 09:00 Procrit IV [facility] Famotidine 20 mg 09/13/17 11:15 09/13/17 11:34 Pepcid PO Not Given DAILY [facility] Heparin Sodium (Porcine) 5,000 units 09/09/17 00:15 09/13/17 06:15 Heparin SC 5,000 units Q8 [facility] Administration Meropenem 500 mg/ Sodium 100 mls @ 100 mls/hr 09/10/17 02:00 09/13/17 02:06 Chloride IVPB 100 mls/hr Q12H [facility] Administration Norepinephrine Bitartrate 8 mg 258 mls @ 7.74 mls/hr 09/10/17 00:45 09/12/17 18:00 / Sodium Chloride IV 0 mcg/min .Q24H PRN 0 mls/hr TITRATE PER MD ORDER Titration Protocol 4 MCG/MIN Vancomycin HCl 1 gm/ Sodium 200 mls @ 166.7 mls/hr 09/12/17 09:00 09/12/17 14 :12 Chloride IVPB 166.7 mls/hr MWF [facility] Administration Insulin Aspart 0 unit 09/09/17 16:30 09/13/17 07:30 Novolog SC Not Given ACHS [facility] Protocol Insulin Detemir 25 unit 09/09/17 18:00 09/13/17 09:30 Levemir SC 25 unit BID [facility] Administration Midodrine 5 mg 09/13/17 14:00 Proamatine PO Q8 [facility] Rosuvastatin Calcium 10 mg 09/09/17 22:00 09/12/17 22:21 Crestor PO 10 mg HS [facility] Administration Sevelamer Carbonate 1,600 mg 09/11/17 10:00 09/13/17 09:31 Renvela PO 1,600 mg TTS [facility] Administration Vitamin B Complex/Vit C/Folic Acid 1 tab 09/14/17 08:00 Nephro-Mark PO 0800 [facility] - Patient Studies Lab Studies: Microbiology Studies 09/08/17 20:00 Blood Culture - Preliminary Blood NO GROWTH AFTER 4 DAYS 09/08/17 19:30 Blood Culture - Preliminary Blood NO GROWTH AFTER 4 DAYS Lab Studies 09/13/17 09/13/17 09/13/17 Range/Units 11:52 07:23 06:18 WBC (4.8-10.8) K/uL RBC (4.40-5.90) Mil/uL Hgb (12.0-18.0) g/dL Hct (35.0-51.0) % MCV (80.0-94.0) fL MCH (27.0-31.0) pg MCHC (33.0-37.0) g/dL RDW (11.5-14.5) % Plt Count (130-400) K/uL MPV (7.2-11.7) fL Neut % (Auto) (50.0-75.0) % Lymph % (Auto) (20.0-40.0) % Candler % (Auto) (0.0-10.0) % Eos % (Auto) (0.0-4.0) % Baso % (Auto) (0.0-2.0) % Neut # (Auto) (1.8-7.0) K/uL Lymph # (Auto) (1.0-4.3) K/uL Candler # (Auto) (0.0-0.8) K/uL Eos # (Auto) (0.0-0.7) K/uL Baso # (Auto) (0.0-0.2) K/uL Sodium 136 (132-148) mmol/L Potassium 5.1 (3.6-5.2) mmol/L Chloride 96 L (98-107) mmol/L Carbon Dioxide 30 (22-30) mmol/L Anion Gap 15 (10-20) BUN 29 H (9-20) mg/dL Creatinine 4.2 H (0.8-1.5) mg/dL Est GFR ( Amer) 18 Est GFR (Non-Af Amer) 15 POC Glucose (mg/dL) 215 H 116 H (65-110) mg/dL Random Glucose 120 H (75-110) mg/dL Calcium 8.2 L (8.6-10.4) mg/dl Phosphorus 3.3 (2.5-4.5) mg/dL Magnesium 2.0 (1.6-2.3) mg/dL Total Bilirubin 1.3 (0.2-1.3) mg/dL AST 96 H D (17-59) U/L ALT 32 (21-72) U/L Alkaline Phosphatase 298 H (38-126) U/L Total Protein 7.6 (6.3-8.3) g/dL Albumin 3.0 L (3.5-5.0) g/dL Globulin 4.6 H (2.2-3.9) gm/dL Albumin/Globulin Ratio 0.6 L (1.0-2.1) 09/13/17 09/12/17 09/12/17 Range/Units 06:17 21:47 16:21 WBC 6.9 (4.8-10.8) K/uL RBC 3.45 L (4.40-5.90) Mil/uL Hgb 9.0 L (12.0-18.0) g/dL Hct 27.8 L (35.0-51.0) % MCV 80.8 (80.0-94.0) fL MCH 26.2 L (27.0-31.0) pg MCHC 32.4 L (33.0-37.0) g/dL RDW 22.3 H (11.5-14.5) % Plt Count 353 (130-400) K/uL MPV 9.0 (7.2-11.7) fL Neut % (Auto) 80.3 H (50.0-75.0) % Lymph % (Auto) 11.4 L (20.0-40.0) % Candler % (Auto) 7.7 (0.0-10.0) % Eos % (Auto) 0.0 (0.0-4.0) % Baso % (Auto) 0.6 (0.0-2.0) % Neut # (Auto) 5.6 (1.8-7.0) K/uL Lymph # (Auto) 0.8 L (1.0-4.3) K/uL Candler # (Auto) 0.5 (0.0-0.8) K/uL Eos # (Auto) 0.0 (0.0-0.7) K/uL Baso # (Auto) 0.0 (0.0-0.2) K/uL Sodium (132-148) mmol/L Potassium (3.6-5.2) mmol/L Chloride (98-107) mmol/L Carbon Dioxide (22-30) mmol/L Anion Gap (10-20) BUN (9-20) mg/dL Creatinine (0.8-1.5) mg/dL Est GFR ( Amer) Est GFR (Non-Af Amer) POC Glucose (mg/dL) 214 H 284 H (65-110) mg/dL Random Glucose (75-110) mg/dL Calcium (8.6-10.4) mg/dl Phosphorus (2.5-4.5) mg/dL Magnesium (1.6-2.3) mg/dL Total Bilirubin (0.2-1.3) mg/dL AST (17-59) U/L ALT (21-72) U/L Alkaline Phosphatase (38-126) U/L Total Protein (6.3-8.3) g/dL Albumin (3.5-5.0) g/dL Globulin (2.2-3.9) gm/dL Albumin/Globulin Ratio (1.0-2.1) Laboratory Results - last 24 hr 09/12/17 09/12/17 09/13/17 16:21 21:47 06:17 WBC 6.9 RBC 3.45 L Hgb 9.0 L Hct 27.8 L MCV 80.8 MCH 26.2 L MCHC 32.4 L RDW 22.3 H Plt Count 353 MPV 9.0 Neut % (Auto) 80.3 H Lymph % (Auto) 11.4 L Candler % (Auto) 7.7 Eos % (Auto) 0.0 Baso % (Auto) 0.6 Neut # (Auto) 5.6 Lymph # (Auto) 0.8 L Candler # (Auto) 0.5 Eos # (Auto) 0.0 Baso # (Auto) 0.0 Sodium Potassium Chloride Carbon Dioxide Anion Gap BUN Creatinine Est GFR ( Amer) Est GFR (Non-Af Amer) POC Glucose (mg/dL) 284 H 214 H Random Glucose Calcium Phosphorus Magnesium Total Bilirubin AST ALT Alkaline Phosphatase Total Protein Albumin Globulin Albumin/Globulin Ratio 09/13/17 09/13/17 09/13/17 06:18 07:23 11:52 WBC RBC Hgb Hct MCV MCH MCHC RDW Plt Count MPV Neut % (Auto) Lymph % (Auto) Candler % (Auto) Eos % (Auto) Baso % (Auto) Neut # (Auto) Lymph # (Auto) Candler # (Auto) Eos # (Auto) Baso # (Auto) Sodium 136 Potassium 5.1 Chloride 96 L Carbon Dioxide 30 Anion Gap 15 BUN 29 H Creatinine 4.2 H Est GFR ( Amer) 18 Est GFR (Non-Af Amer) 15 POC Glucose (mg/dL) 116 H 215 H Random Glucose 120 H Calcium 8.2 L Phosphorus 3.3 Magnesium 2.0 Total Bilirubin 1.3 AST 96 H D ALT 32 Alkaline Phosphatase 298 H Total Protein 7.6 Albumin 3.0 L Globulin 4.6 H Albumin/Globulin Ratio 0.6 L Fingerstick Blood Sugar Results: 214 Critical Care Progress Note - Nutrition Nutrition: Nutrition Category Date Time Status Renal Diet [DIET] Diets 09/09/17 Dinner Active Assessment/Plan - Assessment and Plan (Free Text) Assessment: 51 year-old male with septic shock secondary to cellulitis with chronic kidney disease on dialysis. Plan: Psych: no acute issues Neuro: Awake and alert Cards: CHF, hypotension Coreg 6.25 mg PO BID held 2/2 BP criteria not met ASA 81mg PO qd Crestor 10mg PO hs Norepinephrine 8mg, 258 ml @ 9.76 ml/hr PRN titrate per MD at 5mcg/min Renvela 1600 mg PO TTS [facility]; 2 tabs/800mg Obtain upper and lower dopplers Add midodrine 5mg q8 Pulm: no acute issues GI: no acute issues Tubefeeding: Glucerna 1.5 10 ml/hr, goal 50 ml/hr Renal: ESRD on dialysis AVF functional on U/S NaCl 0.9% @ 1000 ml/hr IV q1h bolus over 60mins Endo: Possible adrenal insuff; 50 hydrocortisone for 3 days - insulin Aspart held - Insulin Detemir 25u SC BID [facility] - Sevelamer 1600mg PO TTS [facility] - Do not renew Solu-CORTEF 50mg IV q8h [facility], 0.5vials/100mg ID: Cellulitis per U/S - Vancomycin 1g, 200mls @ 166.7ml/hr IVPB MWF [facility] - blood cx negative @ 48hr - Meropenem 500mg, 100ml @ 100ml/hr IVPD q12h [facility] - Wound culture pending - Establish PICC - Obtain blood levels of vancomycin and gentamycin PPx: Pepcid 20 mg PO qd Renew Heparin 5000 U SC Q8 Add multivitamin <Florinda Edwards M - Last Filed: 09/14/17 15:56> CCU Objective - Vital Signs / Intake & Output Vital Signs (Last 4 hours): Vital Signs Temp Pulse Pulse Resp BP BP Pulse Ox 09/14/17 15:40 90/60 L 09/14/17 15:25 90/60 L 09/14/17 15:10 89/61 L 09/14/17 14:55 98/61 L 09/14/17 14:40 85/60 L 09/14/17 14:25 94/60 L 09/14/17 14:10 92/51 L 09/14/17 13:55 97.5 F L 90 22 97/55 L 97 09/14/17 13:50 97.5 F L 90 22 102/65 Intake and Output (Last 8hrs): Intake & Output 09/14/17 09/14/17 09/14/17 06:59 14:59 22:59 Intake Total 220 Output Total 0 Balance 220 Intake: Intake, IV Amount 100 Left Hand 100 Oral 120 Output: Urine 0 Urine, Voided 0 Other: # Bowel Movements 1 - Medications Active Medications: Active Medications Generic Name Dose Route Start Last Admin Trade Name Freq PRN Reason Stop Dose Admin Acetaminophen 650 mg 09/09/17 16:46 09/10/17 08:03 Tylenol 325mg Tab PO 650 mg Q4H PRN Administration fever Aspirin 81 mg 09/10/17 10:00 09/14/17 11:39 Aspirin Chewable PO 81 mg DAILY [facility] Administration Calcitriol 0.25 mcg 09/10/17 10:00 09/14/17 11:40 Rocaltrol PO 0.25 mcg DAILY [facility] Administration Calcium Acetate 667 mg 09/13/17 17:00 09/14/17 11:39 Phoslo PO 667 mg BIDCC [facility] Administration Carvedilol 6.25 mg 09/09/17 18:00 09/13/17 18:00 Coreg PO Not Given BID [facility] Dextrose 0 ml 09/14/17 07:45 Dextrose 50% IV .STAT PRN Hypoglycemia Protocol Protocol Dextrose 0 gm 09/14/17 07:45 09/14/17 08:12 Glutose 15 PO 15 gm .ONCE PRN Administration Hypoglycemia Protocol Protocol Epoetin Michel 4,000 unit 09/14/17 09:00 09/14/17 15:02 Procrit IV 4,000 unit MWF [facility] Administration Famotidine 20 mg 09/13/17 11:15 09/14/17 11:39 Pepcid PO 20 mg DAILY [facility] Administration Glucagon 0 mg 09/14/17 07:45 Glucagen Diagnostic Kit IM .STAT PRN Hypoglycemia Protocol Protocol Heparin Sodium (Porcine) 5,000 units 09/09/17 00:15 09/14/17 14:21 Heparin SC 5,000 units Q8 [facility] Administration Meropenem 500 mg/ Sodium 100 mls @ 100 mls/hr 09/10/17 02:00 09/14/17 03:00 Chloride IVPB 100 mls/hr Q12H [facility] Administration Norepinephrine Bitartrate 8 mg 258 mls @ 7.74 mls/hr 09/10/17 00:45 09/12/17 18:00 / Sodium Chloride IV 0 mcg/min .Q24H PRN 0 mls/hr TITRATE PER MD ORDER Titration Protocol 4 MCG/MIN Vancomycin HCl 1 gm/ Sodium 200 mls @ 166.7 mls/hr 09/12/17 09:00 09/12/17 14 :12 Chloride IVPB 166.7 mls/hr MWF [facility] Administration Dextrose 1,000 mls @ 0 mls/hr 09/14/17 07:45 Dextrose 5% In Water 1000 Ml IV .Q0M PRN Hypoglycemia Protocol Protocol Per Protocol Insulin Aspart 0 unit 09/09/17 16:30 09/14/17 13:20 Novolog SC Not Given ACHS [facility] Protocol Insulin Detemir 25 unit 09/09/17 18:00 09/14/17 10:19 Levemir SC Not Given BID [facility] Midodrine 5 mg 09/13/17 14:00 09/14/17 14:21 Proamatine PO 5 mg Q8 [facility] Administration Rosuvastatin Calcium 10 mg 09/09/17 22:00 09/13/17 21:30 Crestor PO 10 mg HS [facility] Administration Vitamin B Complex/Vit C/Folic Acid 1 tab 09/14/17 08:00 09/14/17 11:39 Nephro-Mark PO 1 tab 0800 [facility] Administration - Patient Studies Lab Studies: Microbiology Studies 09/13/17 16:33 Gram Stain - Final Arm - Right Wound Culture - Preliminary Gram Positive Cocci 09/08/17 20:00 Blood Culture - Final Blood NO GROWTH AFTER 5 DAYS Gram Stain - Final TEST NOT PERFORMED 09/08/17 19:30 Blood Culture - Final Blood NO GROWTH AFTER 5 DAYS Gram Stain - Final TEST NOT PERFORMED Lab Studies 09/14/17 09/14/17 09/14/17 Range/Units 11:05 08:40 08:04 POC Glucose (mg/dL) 117 H 83 53 L (65-110) mg/dL 09/14/17 09/14/17 09/13/17 Range/Units 07:34 07:32 21:12 POC Glucose (mg/dL) 44 L 43 L 144 H (65-110) mg/dL 09/13/17 Range/Units 16:21 POC Glucose (mg/dL) 153 H (65-110) mg/dL Laboratory Results - last 24 hr 09/13/17 09/13/17 09/14/17 16:21 21:12 07:32 POC Glucose (mg/dL) 153 H 144 H 43 L 09/14/17 09/14/17 09/14/17 07:34 08:04 08:40 POC Glucose (mg/dL) 44 L 53 L 83 09/14/17 11:05 POC Glucose (mg/dL) 117 H Critical Care Progress Note - Nutrition Nutrition: Nutrition Category Date Time Status Renal Diet [DIET] Diets 09/09/17 Dinner Active Assessment/Plan - Assessment and Plan (Free Text) Plan: Patient seen and examined at bedside. Patient reamains off pressors. -abd managed by Dr. terrell -renally dosed abx -patient at risk of CAD; continue rx as per cardiology -Patient remains hemodynamically stable. - Date & Time Date: 09/13/17 Time: 19:00
[2017-09-13] MEDS ORDERED: Collagenase 250 Units/gm Ointment(30 gm) TOP SCH (14:30)
--- NOTE | 2017-09-13 15:08 | CP.PCM.PN ---
Subjective - Date & Time of Evaluation Date of Evaluation: 09/13/17 Time of Evaluation: 11:00 - Subjective Subjective: Follow up Nephrology Consultation Note (covering for Dr Tiffanie Edwards) Assessment: critical sepsis, cellulitis, possible UTI Diabetic chronic Kidney Disease (E11.22) Hypertensive Chronic Kidney Disease (I12.0) End stage renal disease (N18.6) dependence on hemodialysis (Z99.2) (MWF) via AVF Anemia (D64.9), Hyperphosphatemia (E83.39), Secondary Hyperparathyroidism (E21.1 ), HTN (I12.0) Obesity morbid, CHF Plan: No acute need for dialysis today. Will plan for dialysis tomorrow. Continue with Nephrovite 1 tab/day. PRBC as needed for anemia. On ESEQUIEL as epogen 4000 unit with HD last Hb 9 Continue with phos binders as changed to phoslo, pt not able to take renvela, last phos level 3.3 Continue with calcitriol. BP control with meds as ordered. Patient not n RAAS tanja as BP on low side Glycemic control, Dialysis consistent diet Further work up/management as per primary team Dose meds/antibiotics (if needed) for ESRD status. Avoid fleets enema/magnesium based laxatives. Thanks for allowing me to participate in care of your patient. Will follow patient with you. Please call if any Qs Dr Joseph Carey Office: [phone] Subjective: Noted events overnight. Patients feels better. Denies chest pain, palpitation, shortness of breath, leg swelling. had HD yesterday All other negative Physical Examination: General Appearance: Comfortable, in no acute respiratory distress, co-operative . obese morbidly Vitals reviewed and noted as below Head; Atraumatic, normocephalic ENT: no ulcers no thrush. Tongue is midline. Oropharynx: no rash or ulcers. EYES: Pupils are equal, round and reactive to light accommodation. Eye muscles and extraocular movement intact. Sclera is anicteric. Neck; supple no lymphadenopathy, no thyromegaly or bruit Lungs: Normal respiratory rate/effort. Breath sounds bilateral equal and clear Heart: Normal rate. s1s2 normal. No rub or gallop. Neurological: Patient is alert, awake and oriented to person, place and time. No focal deficit. Strength bilateral appropriate and equal Skin: Warm and dry. Normal turgor. No rash. Palpitation: Normal elasticity for age Abdomen: Abdomen is soft. Bowel sounds +. There is no abdominal tenderness, no guarding/rigidity or organomegaly Psych: limited insight and normal affect/mood MSK: no joint tenderness or swelling. Digits and nails normal, no deformity : kidney or bladder not palpable Access: Rt AVF with ulcer over lower area Labs/imaging reviewed. Past medical history, past surgical history, family history, social history, allergy reviewed and noted as below Family Hx: no hx of CKD. Non contributory Objective - Vital Signs/Intake and Output Vital Signs (last 24 hours): Temp Pulse Resp BP Pulse Ox 98.2 F 89 12 108/69 93 L 09/13/17 07:30 09/13/17 10:00 09/13/17 10:00 09/13/17 09:49 09/13/17 10:00 Intake and Output: 09/13/17 09/13/17 06:59 18:59 Intake Total 300 800 Output Total 0 Balance 300 800 - Medications Medications: Current Medications Acetaminophen (Tylenol 325mg Tab) 650 mg PO Q4H PRN PRN Reason: fever Last Admin: 09/10/17 08:03 Dose: 650 mg Aspirin (Aspirin Chewable) 81 mg PO DAILY [facility] Last Admin: 09/12/17 13:25 Dose: 81 mg Calcitriol (Rocaltrol) 0.25 mcg PO DAILY [facility] Last Admin: 09/13/17 09:32 Dose: 0.25 mcg [facility] ([facility]) [facility] Carvedilol (Coreg) 6.25 mg PO BID [facility] Last Admin: 09/13/17 09:33 Dose: Not Given Collagenase (Santyl) 0 gm TOP DAILY [facility] Epoetin Michel (Procrit) 4,000 unit IV MWF [facility] Famotidine (Pepcid) 20 mg PO DAILY [facility] Last Admin: 09/13/17 11:34 Dose: Not Given Heparin Sodium (Porcine) (Heparin) 5,000 units SC Q8 [facility] Last Admin: 09/13/17 06:15 Dose: 5,000 units Meropenem 500 mg/ Sodium (Chloride) 100 mls @ 100 mls/hr IVPB Q12H [facility] Last Admin: 09/13/17 02:06 Dose: 100 mls/hr Norepinephrine Bitartrate 8 mg (/ Sodium Chloride) 258 mls @ 7.74 mls/hr IV .Q24H PRN; Protocol; 4 MCG/MIN PRN Reason: TITRATE PER MD ORDER Last Titration: 09/12/17 18:00 Dose: 0 mcg/min, 0 mls/hr Vancomycin HCl 1 gm/ Sodium (Chloride) 200 mls @ 166.7 mls/hr IVPB MWF [facility] Last Admin: 09/12/17 14:12 Dose: 166.7 mls/hr Insulin Aspart (Novolog) 0 unit SC ACHS [facility] PRN Reason: Protocol Last Admin: 09/13/17 11:30 Dose: Not Given Insulin Detemir (Levemir) 25 unit SC BID [facility] Last Admin: 09/13/17 09:30 Dose: 25 unit Midodrine (Proamatine) 5 mg PO Q8 [facility] Last Admin: 09/13/17 13:30 Dose: 5 mg Rosuvastatin Calcium (Crestor) 10 mg PO HS [facility] Last Admin: 09/12/17 22:21 Dose: 10 mg Vitamin B Complex/Vit C/Folic Acid (Nephro-Mark) 1 tab PO 0800 [facility] - Labs Labs: 09/13/17 06:17 09/13/17 06:18 PT 16.3 SECONDS (9.7-12.2) H 09/08/17 20:19 INR 1.4 09/08/17 20:19 APTT 33 SECONDS (21-34) 09/08/17 20:19
--- NOTE | 2017-09-13 18:42 | CP.PCM.PN ---
Subjective - Date & Time of Evaluation Date of Evaluation: 09/13/17 Time of Evaluation: 18:41 Objective - Vital Signs/Intake and Output Vital Signs (last 24 hours): Temp Pulse Resp BP Pulse Ox 98.4 F 92 H 13 104/74 91 L 09/13/17 16:00 09/13/17 18:00 09/13/17 18:00 09/13/17 17:49 09/13/17 16:49 Intake and Output: 09/13/17 09/13/17 06:59 18:59 Intake Total 300 800 Output Total 0 Balance 300 800 - Medications Medications: Current Medications Acetaminophen (Tylenol 325mg Tab) 650 mg PO Q4H PRN PRN Reason: fever Last Admin: 09/10/17 08:03 Dose: 650 mg Aspirin (Aspirin Chewable) 81 mg PO DAILY [facility] Last Admin: 09/13/17 09:31 Dose: 81 mg Calcitriol (Rocaltrol) 0.25 mcg PO DAILY [facility] 234 [facility]S [facility] Last Admin: 09/13/17 09:32 Dose: 0.25 mcg [facility] Last Admin: 09/13/17 17:34 Dose: 667 mg Carvedilol (Coreg) 6.25 mg PO BID [facility] 234 [facility]S [facility] Last Admin: 09/13/17 18:00 Dose: Not Given Epoetin Michel (Procrit) 4,000 unit IV [facility] Famotidine (Pepcid) 20 mg PO DAILY [facility] 234 [facility]S AT [facility] Last Admin: 09/13/17 11:34 Dose: Not Given Heparin Sodium (Porcine) (Heparin) 5,000 units SC Q8 [facility] 234 [facility]S [facility] Last Admin: 09/13/17 17:04 Dose: 5,000 units Meropenem 500 mg/ Sodium (Chloride) 100 mls @ 100 mls/hr IVPB Q12H [facility] 234 B[facility]S AT [facility] Last Admin: 09/13/17 14:32 Dose: 100 mls/hr Norepinephrine Bitartrate 8 mg (/ Sodium Chloride) 258 mls @ 7.74 mls/hr IV .Q24H PRN; Protocol; 4 MCG/MIN PRN Reason: TITRATE PER MD ORDER Last Titration: 09/12/17 18:00 Dose: 0 mcg/min, 0 mls/hr Vancomycin HCl 1 gm/ Sodium (Chloride) 200 mls @ 166.7 mls/hr IVPB MWF [facility] 234 [facility]S [facility] Last Admin: 09/12/17 14:12 Dose: 166.7 mls/hr Insulin Aspart (Novolog) 0 unit SC ACHS [facility] 234 [facility]S [facility] PRN Reason: Protocol Last Admin: 09/13/17 17:20 Dose: 1 unit Insulin Detemir (Levemir) 25 unit SC BID [facility] 234 [facility]S [facility] Last Admin: 09/13/17 18:22 Dose: 25 unit Midodrine (Proamatine) 5 mg PO Q8 [facility] 234 [facility]S [facility] Last Admin: 09/13/17 13:30 Dose: 5 mg Rosuvastatin Calcium (Crestor) 10 mg PO HS [facility] 234 BEDS [facility] Last Admin: 09/12/17 22:21 Dose: 10 mg Vitamin B Complex/Vit C/Folic Acid (Nephro-Mark) 1 tab PO 0800 [facility] 234 [facility]S [facility] - Labs Labs: 09/13/17 06:17 09/13/17 06:18 PT 16.3 SECONDS (9.7-12.2) H 09/08/17 20:19 INR 1.4 09/08/17 20:19 APTT 33 SECONDS (21-34) 09/08/17 20:19
[2017-09-14] MEDS: Meropenem 500 MG in Sodium Chloride 0.9% 100 ML IVPB SCH ×2 (03:00→18:05)
[2017-09-14] MEDS: (Novolog) Insulin Aspart, Recombinant 100 u/ml 10 ml vial SC SCH ×4 (07:30→22:54)
[2017-09-14] MEDS ORDERED: Glucagon Recombinant 1 mg Inj IM PRN (07:45)
[2017-09-14] MEDS ORDERED: Dextrose 50% VIAL Inj (50 ml) IV PRN (07:45)
[2017-09-14] MEDS: Insulin Detemir 100 units/ml Vial (Levemir) SC SCH ×2 (10:19→17:34)
--- NOTE | 2017-09-14 11:04 | VASCLAB ---
PROCEDURE: Lower Extremity Venous Duplex Exam. HISTORY: Swelling, bilateral BKA. PRIORS: None. TECHNIQUE: Bilateral common femoral, femoral, popliteal and posterior tibial, peroneal and great saphenous veins were evaluated. Flow was assessed with color Doppler, compressibility, assessment of phasic flow and augmentation response. Report prepared by ORALIA Allen FINDINGS: RIGHT: 1. Common Femoral Vein: 1.1. Dressing in right groin. 2. Femoral Vein: 2.1. Compressibility - Fully compressible: Thrombus - None : Flow - Phasic: Augmentation -Normal: Reflux - None. 3. Popliteal Vein: 3.1. Compressibility - Fully compressible: Thrombus - None : Flow - Phasic: Augmentation -Normal: Reflux - None. 4. Posterior Tibial Vein: 5. Peroneal Vein: 5.1. . 6. Great Saphenous Vein: (upper) 6.1. Compressibility - Fully compressible: Thrombus - None: Flow - Phasic: Augmentation - Normal: Reflux - None. LEFT: 1. Common Femoral Vein: 1.1. Compressibility - Fully compressible: Thrombus - None: Flow - Phasic: Augmentation -Normal: Reflux - None. 2. Femoral Vein: (proximal and mid) 2.1. Compressibility - Fully compressible: Thrombus - None: Flow - Phasic: Augmentation -Normal: Reflux - Mild. 3. Popliteal Vein: 3.1. Unable to visualize. 4. Posterior Tibial Vein: 5. Peroneal Vein: 6. Great Saphenous Vein: (upper) 6.1. Compressibility - Fully compressible: Thrombus - None: Flow - Phasic: Augmentation - Normal: Reflux - None. OTHER FINDINGS: Right: None significant. Left: None significant. IMPRESSION: Right: No evidence of deep or superficial vein thrombosis of the right femoral, popliteal and upper great saphenous veins. Left: No evidence of deep or superficial vein thrombosis of the left common femoral, femoral and upper great saphenous veins.
[2017-09-14] MEDS: Multivitamin Vitamin B Complex (Nephro-Vite) Tab PO SCH (11:39)
--- NOTE | 2017-09-14 11:48 | CP.PCM.PN ---
Subjective - Date & Time of Evaluation Date of Evaluation: 09/14/17 Time of Evaluation: 10:50 - Subjective Subjective: Patient sitting up in bed Patient is not communicating well No chest pain no shortness of breath Hemodialysis about to start Discussed with the dialysis nurse Vital sign noted to be stable Objective - Vital Signs/Intake and Output Vital Signs (last 24 hours): Temp Pulse Resp BP Pulse Ox 97.7 F 77 17 113/70 97 09/14/17 04:00 09/14/17 04:00 09/14/17 04:00 09/14/17 04:00 09/14/17 04:00 Intake and Output: 09/14/17 09/14/17 06:59 18:59 Intake Total 340 Output Total 0 Balance 340 - Medications Medications: Current Medications Acetaminophen (Tylenol 325mg Tab) 650 mg PO Q4H PRN PRN Reason: fever Last Admin: 09/10/17 08:03 Dose: 650 mg Aspirin (Aspirin Chewable) 81 mg PO DAILY [facility] Last Admin: 09/13/17 09:31 Dose: 81 mg Calcitriol (Rocaltrol) 0.25 mcg PO DAILY [facility] Last Admin: 09/13/17 09:32 Dose: 0.25 mcg Calcium Acetate (Phoslo) 667 mg PO BIDCC [facility] Last Admin: 09/13/17 17:34 Dose: 667 mg Carvedilol (Coreg) 6.25 mg PO BID [facility] Last Admin: 09/13/17 18:00 Dose: Not Given Dextrose (Dextrose 50%) 0 ml IV .STAT PRN; Protocol PRN Reason: Hypoglycemia Protocol Dextrose (Glutose 15) 0 gm PO .ONCE PRN; Protocol PRN Reason: Hypoglycemia Protocol Last Admin: 09/14/17 08:12 Dose: 15 gm Epoetin Michel (Procrit) 4,000 unit IV MWF [facility] Famotidine (Pepcid) 20 mg PO DAILY [facility] Last Admin: 09/13/17 11:34 Dose: Not Given Glucagon (Glucagen Diagnostic Kit) 0 mg IM .STAT PRN; Protocol PRN Reason: Hypoglycemia Protocol Heparin Sodium (Porcine) (Heparin) 5,000 units SC Q8 [facility] Last Admin: 09/14/17 05:45 Dose: 5,000 units Meropenem 500 mg/ Sodium (Chloride) 100 mls @ 100 mls/hr IVPB Q12H [facility] Last Admin: 09/14/17 03:00 Dose: 100 mls/hr Norepinephrine Bitartrate 8 mg (/ Sodium Chloride) 258 mls @ 7.74 mls/hr IV .Q24H PRN; Protocol; 4 MCG/MIN PRN Reason: TITRATE PER MD ORDER Last Titration: 09/12/17 18:00 Dose: 0 mcg/min, 0 mls/hr Vancomycin HCl 1 gm/ Sodium (Chloride) 200 mls @ 166.7 mls/hr IVPB MWF [facility] Last Admin: 09/12/17 14:12 Dose: 166.7 mls/hr Dextrose (Dextrose 5% In Water 1000 Ml) 1,000 mls @ 0 mls/hr IV .Q0M PRN; Protocol; Per Protocol PRN Reason: Hypoglycemia Protocol Insulin Aspart (Novolog) 0 unit SC ACHS [facility] PRN Reason: Protocol Last Admin: 09/14/17 07:30 Dose: Not Given Insulin Detemir (Levemir) 25 unit SC BID [facility] Last Admin: 09/14/17 10:19 Dose: Not Given Midodrine (Proamatine) 5 mg PO Q8 [facility] Last Admin: 09/14/17 05:45 Dose: 5 mg Rosuvastatin Calcium (Crestor) 10 mg PO HS [facility] Last Admin: 09/13/17 21:30 Dose: 10 mg Vitamin B Complex/Vit C/Folic Acid (Nephro-Mark) 1 tab PO 0800 [facility] - Labs Labs: 09/13/17 06:17 09/13/17 06:18 PT 16.3 SECONDS (9.7-12.2) H 09/08/17 20:19 INR 1.4 09/08/17 20:19 APTT 33 SECONDS (21-34) 09/08/17 20:19 - Constitutional Appears: No Acute Distress - ENT Exam ENT Exam: Mucous Membranes Moist - Neck Exam Neck Exam: absent: Lymphadenopathy - Respiratory Exam Respiratory Exam: absent: Chest Wall Tenderness - Cardiovascular Exam Cardiovascular Exam: absent: Rubs - GI/Abdominal Exam GI & Abdominal Exam: Soft, Normal Bowel Sounds - Extremities Exam Extremities Exam: absent: Calf Tenderness - Back Exam Back Exam: absent: CVA tenderness (L), CVA tenderness (R) - Neurological Exam Neurological Exam: Altered - Skin Skin Exam: absent: Cyanosis Assessment and Plan (1) Septic shock Status: Acute (2) ESRD (end stage renal disease) Assessment & Plan: End stage renal disease patient about to start dialysis and few minutes Blood test reviewed Status post septic shock sepsis, cellulitis, possible UTI Diabetic chronic Kidney Disease (E11.22) Hypertensive Chronic Kidney Disease (I12.0) End stage renal disease (N18.6) dependence on hemodialysis (Z99.2) (MWF) via AVF Anemia (D64.9), Hyperphosphatemia (E83.39), Secondary Hyperparathyroidism (E21.1 ), HTN (I12.0) Obesity morbid, CHF Status post bilateral below knee amputation previously. Patient tolerating hemodialysis. Status: Chronic
[2017-09-14] MEDS: EPOETIN ALFA 4,000 UNIT/ML ML Dialysis IV SCH (15:02)
--- NOTE | 2017-09-14 15:35 | CP.PCM.PN ---
Subjective - Date & Time of Evaluation Date of Evaluation: 09/14/17 Time of Evaluation: 15:35 Objective - Vital Signs/Intake and Output Vital Signs (last 24 hours): Temp Pulse Resp BP Pulse Ox 97.5 F L 90 22 90/60 L 97 09/14/17 13:55 09/14/17 13:55 09/14/17 13:55 09/14/17 15:25 09/14/17 13:55 Intake and Output: 09/14/17 09/14/17 06:59 18:59 Intake Total 340 Output Total 0 Balance 340 - Medications Medications: Current Medications Acetaminophen (Tylenol 325mg Tab) 650 mg PO Q4H PRN PRN Reason: fever Last Admin: 09/10/17 08:03 Dose: 650 mg Aspirin (Aspirin Chewable) 81 mg PO DAILY [facility] Last Admin: 09/14/17 11:39 Dose: 81 mg Calcitriol (Rocaltrol) 0.25 mcg PO DAILY [facility] Last Admin: 09/14/17 11:40 Dose: 0.25 mcg Calcium Acetate (Phoslo) 667 mg PO BIDCC [facility] Last Admin: 09/14/17 11:39 Dose: 667 mg Carvedilol (Coreg) 6.25 mg PO BID [facility] Last Admin: 09/13/17 18:00 Dose: Not Given Dextrose (Dextrose 50%) 0 ml IV .STAT PRN; Protocol PRN Reason: Hypoglycemia Protocol Dextrose (Glutose 15) 0 gm PO .ONCE PRN; Protocol PRN Reason: Hypoglycemia Protocol Last Admin: 09/14/17 08:12 Dose: 15 gm Epoetin Michel (Procrit) 4,000 unit IV MWF [facility] Last Admin: 09/14/17 15:02 Dose: 4,000 unit Famotidine (Pepcid) 20 mg PO DAILY [facility] Last Admin: 09/14/17 11:39 Dose: 20 mg Glucagon (Glucagen Diagnostic Kit) 0 mg IM .STAT PRN; Protocol PRN Reason: Hypoglycemia Protocol Heparin Sodium (Porcine) (Heparin) 5,000 units SC Q8 [facility] Last Admin: 09/14/17 14:21 Dose: 5,000 units Meropenem 500 mg/ Sodium (Chloride) 100 mls @ 100 mls/hr IVPB Q12H [facility] Last Admin: 09/14/17 03:00 Dose: 100 mls/hr Norepinephrine Bitartrate 8 mg (/ Sodium Chloride) 258 mls @ 7.74 mls/hr IV .Q24H PRN; Protocol; 4 MCG/MIN PRN Reason: TITRATE PER MD ORDER Last Titration: 09/12/17 18:00 Dose: 0 mcg/min, 0 mls/hr Vancomycin HCl 1 gm/ Sodium (Chloride) 200 mls @ 166.7 mls/hr IVPB MWF [facility] Last Admin: 09/12/17 14:12 Dose: 166.7 mls/hr Dextrose (Dextrose 5% In Water 1000 Ml) 1,000 mls @ 0 mls/hr IV .Q0M PRN; Protocol; Per Protocol PRN Reason: Hypoglycemia Protocol Insulin Aspart (Novolog) 0 unit SC ACHS [facility] PRN Reason: Protocol Last Admin: 09/14/17 13:20 Dose: Not Given Insulin Detemir (Levemir) 25 unit SC BID [facility] Last Admin: 09/14/17 10:19 Dose: Not Given Midodrine (Proamatine) 5 mg PO Q8 [facility] Last Admin: 09/14/17 14:21 Dose: 5 mg Rosuvastatin Calcium (Crestor) 10 mg PO HS [facility] Last Admin: 09/13/17 21:30 Dose: 10 mg Vitamin B Complex/Vit C/Folic Acid (Nephro-Mark) 1 tab PO 0800 [facility] Last Admin: 09/14/17 11:39 Dose: 1 tab - Labs Labs: 09/13/17 06:17 09/13/17 06:18 PT 16.3 SECONDS (9.7-12.2) H 09/08/17 20:19 INR 1.4 09/08/17 20:19 APTT 33 SECONDS (21-34) 09/08/17 20:19
[2017-09-14] MEDS: Vancomycin 1 GM in Sodium Chloride 0.9% 200 ML IVPB SCH (18:02)
--- NOTE | 2017-09-14 18:03 | CP.PCM.PN ---
Subjective - Date & Time of Evaluation Date of Evaluation: 09/14/17 Time of Evaluation: 08:00 - Subjective Subjective: wound c/s noted IV rx in progress for sepsis Objective - Vital Signs/Intake and Output Vital Signs (last 24 hours): Temp Pulse Resp BP Pulse Ox 97.4 F L 99 H 24 92/51 L 97 09/14/17 17:25 09/14/17 17:25 09/14/17 17:25 09/14/17 17:25 09/14/17 17:25 Intake and Output: 09/14/17 09/14/17 06:59 18:59 Intake Total 340 Output Total 0 Balance 340 - Medications Medications: Current Medications Acetaminophen (Tylenol 325mg Tab) 650 mg PO Q4H PRN PRN Reason: fever Last Admin: 09/10/17 08:03 Dose: 650 mg Aspirin (Aspirin Chewable) 81 mg PO DAILY [facility] Last Admin: 09/14/17 11:39 Dose: 81 mg Calcitriol (Rocaltrol) 0.25 mcg PO DAILY [facility] Last Admin: 09/14/17 11:40 Dose: 0.25 mcg Calcium Acetate (Phoslo) 667 mg PO BIDCC [facility] Last Admin: 09/14/17 11:39 Dose: 667 mg Carvedilol (Coreg) 6.25 mg PO BID [facility] Last Admin: 09/13/17 18:00 Dose: Not Given Dextrose (Dextrose 50%) 0 ml IV .STAT PRN; Protocol PRN Reason: Hypoglycemia Protocol Dextrose (Glutose 15) 0 gm PO .ONCE PRN; Protocol PRN Reason: Hypoglycemia Protocol Last Admin: 09/14/17 08:12 Dose: 15 gm Epoetin Michel (Procrit) 4,000 unit IV MWF [facility] Last Admin: 09/14/17 15:02 Dose: 4,000 unit Famotidine (Pepcid) 20 mg PO DAILY [facility] Last Admin: 09/14/17 11:39 Dose: 20 mg Glucagon (Glucagen Diagnostic Kit) 0 mg IM .STAT PRN; Protocol PRN Reason: Hypoglycemia Protocol Heparin Sodium (Porcine) (Heparin) 5,000 units SC Q8 [facility] Last Admin: 09/14/17 14:21 Dose: 5,000 units Meropenem 500 mg/ Sodium (Chloride) 100 mls @ 100 mls/hr IVPB Q12H [facility] Last Admin: 09/14/17 03:00 Dose: 100 mls/hr Norepinephrine Bitartrate 8 mg (/ Sodium Chloride) 258 mls @ 7.74 mls/hr IV .Q24H PRN; Protocol; 4 MCG/MIN PRN Reason: TITRATE PER MD ORDER Last Titration: 09/12/17 18:00 Dose: 0 mcg/min, 0 mls/hr Vancomycin HCl 1 gm/ Sodium (Chloride) 200 mls @ 166.7 mls/hr IVPB MWF [facility] Last Admin: 09/12/17 14:12 Dose: 166.7 mls/hr Dextrose (Dextrose 5% In Water 1000 Ml) 1,000 mls @ 0 mls/hr IV .Q0M PRN; Protocol; Per Protocol PRN Reason: Hypoglycemia Protocol Insulin Aspart (Novolog) 0 unit SC ACHS [facility] PRN Reason: Protocol Last Admin: 09/14/17 17:34 Dose: Not Given Insulin Detemir (Levemir) 25 unit SC BID [facility] Last Admin: 09/14/17 17:34 Dose: Not Given Midodrine (Proamatine) 5 mg PO Q8 [facility] Last Admin: 09/14/17 14:21 Dose: 5 mg Rosuvastatin Calcium (Crestor) 10 mg PO HS [facility] Last Admin: 09/13/17 21:30 Dose: 10 mg Vitamin B Complex/Vit C/Folic Acid (Nephro-Mark) 1 tab PO 0800 [facility] Last Admin: 09/14/17 11:39 Dose: 1 tab - Labs Labs: 09/13/17 06:17 09/13/17 06:18 PT 16.3 SECONDS (9.7-12.2) H 09/08/17 20:19 INR 1.4 09/08/17 20:19 APTT 33 SECONDS (21-34) 09/08/17 20:19 - Constitutional Appears: Confused, Chronically Ill - Head Exam Head Exam: NORMOCEPHALIC - Eye Exam Eye Exam: PERRL - ENT Exam ENT Exam: Mucous Membranes Dry - Neck Exam Neck Exam: absent: Lymphadenopathy - Respiratory Exam Respiratory Exam: Decreased Breath Sounds - Cardiovascular Exam Cardiovascular Exam: REGULAR RHYTHM - GI/Abdominal Exam GI & Abdominal Exam: Distended, Soft - Rectal Exam Rectal Exam: Deferred - Exam Exam: NORMAL INSPECTION Assessment and Plan (1) Hypotension Status: Acute (2) Sepsis Status: Acute (3) Septic shock Status: Acute (4) UTI (urinary tract infection), bacterial Status: Acute (5) ESRD (end stage renal disease) Status: Chronic (6) Bacteremia Status: Acute (7) CHF exacerbation Status: Acute (8) ESRD (end stage renal disease) on dialysis Status: Acute (9) Fever Status: Acute (10) Diabetes mellitus Status: Chronic (11) HTN (hypertension) Status: Chronic
[2017-09-15] MEDS: Meropenem 500 MG in Sodium Chloride 0.9% 100 ML IVPB SCH ×2 (02:00→14:37)
[2017-09-15] MEDS: (Novolog) Insulin Aspart, Recombinant 100 u/ml 10 ml vial SC SCH ×4 (07:53→22:30)
[2017-09-15] MEDS: Multivitamin Vitamin B Complex (Nephro-Vite) Tab PO SCH (08:27)
[2017-09-15] MEDS: Insulin Detemir 100 units/ml Vial (Levemir) SC SCH ×3 (11:03→17:12)
--- NOTE | 2017-09-15 16:55 | CP.PCM.PN ---
Subjective - Date & Time of Evaluation Date of Evaluation: 09/15/17 Time of Evaluation: 14:00 - Subjective Subjective: Follow up Nephrology Consultation Note (covering for Dr Tiffanie Edwards) no events overnight Assessment: critical sepsis, cellulitis, possible UTI Diabetic chronic Kidney Disease (E11.22) Hypertensive Chronic Kidney Disease (I12.0) End stage renal disease (N18.6) dependence on hemodialysis (Z99.2) (MWF) via AVF Anemia (D64.9), Hyperphosphatemia (E83.39), Secondary Hyperparathyroidism (E21.1 ), HTN (I12.0) Obesity morbid, CHF Plan: continue hd mwf Continue with Nephrovite 1 tab/day. Anemia on epogen and transfuse prn continue calcitriol, and binders , monitor phos levels BP control with meds Physical Examination: General Appearance: Comfortable, in no acute respiratory distress, co-operative . Head; Atraumatic, normocephalic ENT: no ulcers EYES: Sclera is anicteric. Neck; supple no lymphadenopathy, no thyromegaly or bruit Lungs: Normal respiratory rate/effort. Breath sounds bilateral equal and clear Heart: Normal rate. s1s2 normal. No rub or gallop. Neurological: Patient is alert, awake and oriented to person, place and time. No focal deficit. Strength bilateral appropriate and equal Skin: Warm and dry. Normal turgor. No rash. Palpitation: Normal elasticity for age Abdomen: Abdomen is soft. Bowel sounds +. There is no abdominal tenderness, no guarding/rigidity or organomegaly Psych: limited insight and normal affect/mood MSK: no joint tenderness or swelling Access: Rt AVF with ulcer over lower area Objective - Vital Signs/Intake and Output Vital Signs (last 24 hours): Temp Pulse Resp BP Pulse Ox 97.9 F 96 H 20 102/70 96 09/15/17 08:45 09/15/17 08:45 09/15/17 08:45 09/15/17 08:45 09/15/17 08:45 Intake and Output: 09/15/17 09/15/17 06:59 18:59 Intake Total 500 350 Balance 500 350 - Medications Medications: Current Medications Acetaminophen (Tylenol 325mg Tab) 650 mg PO Q4H PRN PRN Reason: fever Last Admin: 09/10/17 08:03 Dose: 650 mg Aspirin (Aspirin Chewable) 81 mg PO DAILY [facility] Last Admin: 09/15/17 11:01 Dose: 81 mg Calcitriol (Rocaltrol) 0.25 mcg PO DAILY [facility] Last Admin: 09/15/17 11:01 Dose: 0.25 mcg [facility]cium Acetate ([facility]lo) [facility] Last Admin: 09/15/17 08:27 Dose: 667 mg Carvedilol (Coreg) 6.25 mg PO BID [facility] Last Admin: 09/13/17 18:00 Dose: Not Given Dextrose (Dextrose 50%) 0 ml IV .STAT PRN; Protocol PRN Reason: Hypoglycemia Protocol Dextrose (Glutose 15) 0 gm PO .ONCE PRN; Protocol PRN Reason: Hypoglycemia Protocol Last Admin: 09/14/17 08:12 Dose: 15 gm Epoetin Michel (Procrit) 4,000 unit IV [facility] Last Admin: 09/14/17 15:02 Dose: 4,000 unit Famotidine (Pepcid) 20 mg PO DAILY [facility] Last Admin: 09/15/17 11:01 Dose: 20 mg Glucagon (Glucagen Diagnostic Kit) 0 mg IM .STAT PRN; Protocol PRN Reason: Hypoglycemia Protocol Heparin Sodium (Porcine) (Heparin) 5,000 units SC Q8 [facility] Last Admin: 09/15/17 14:39 Dose: 5,000 units Meropenem 500 mg/ Sodium (Chloride) 100 mls @ 100 mls/hr IVPB Q12H [facility] Last Admin: 09/15/17 14:37 Dose: 100 mls/hr Norepinephrine Bitartrate 8 mg (/ Sodium Chloride) 258 mls @ 7.74 mls/hr IV .Q24H PRN; Protocol; 4 MCG/MIN PRN Reason: TITRATE PER MD ORDER Last Titration: 09/12/17 18:00 Dose: 0 mcg/min, 0 mls/hr Vancomycin HCl 1 gm/ Sodium (Chloride) 200 mls @ 166.7 mls/hr IVPB [facility] Last Admin: 09/14/17 18:02 Dose: 166.7 mls/hr Dextrose (Dextrose 5% In Water 1000 Ml) 1,000 mls @ 0 mls/hr IV .Q0M PRN; Protocol; Per Protocol PRN Reason: Hypoglycemia Protocol Insulin Aspart (Novolog) 0 unit SC ACHS [facility] PRN Reason: Protocol Last Admin: 09/15/17 12:13 Dose: Not Given Insulin Detemir (Levemir) 25 unit SC BID [facility] Last Admin: 09/15/17 11:03 Dose: 25 unit Midodrine (Proamatine) 5 mg PO Q8 [facility] Last Admin: 09/15/17 14:37 Dose: 5 mg Rosuvastatin Calcium (Crestor) 10 mg PO HS [facility] Last Admin: 09/14/17 22:37 Dose: 10 mg Vitamin B Complex/Vit C/Folic Acid (Nephro-Mark) 1 tab PO 0800 [facility] Last Admin: 09/15/17 08:27 Dose: 1 tab - Labs Labs: 09/13/17 06:17 09/13/17 06:18 PT 16.3 SECONDS (9.7-12.2) H 09/08/17 20:19 INR 1.4 09/08/17 20:19 APTT 33 SECONDS (21-34) 09/08/17 20:19
--- NOTE | 2017-09-15 17:51 | CP.PCM.PN ---
Subjective - Date & Time of Evaluation Date of Evaluation: 09/15/17 Time of Evaluation: 17:51 Objective - Vital Signs/Intake and Output Vital Signs (last 24 hours): Temp Pulse Resp BP Pulse Ox 99.1 F 97 H 20 102/69 98 09/15/17 16:00 09/15/17 16:00 09/15/17 16:00 09/15/17 16:00 09/15/17 16:00 Intake and Output: 09/15/17 09/15/17 06:59 18:59 Intake Total 500 350 Balance 500 350 - Medications Medications: Current Medications Acetaminophen (Tylenol 325mg Tab) 650 mg PO Q4H PRN PRN Reason: fever Last Admin: 09/10/17 08:03 Dose: 650 mg Aspirin (Aspirin Chewable) 81 mg PO DAILY [facility] Last Admin: 09/15/17 11:01 Dose: 81 mg Calcitriol (Rocaltrol) 0.25 mcg PO DAILY [facility] Last Admin: 09/15/17 11:01 Dose: 0.25 mcg Calcium Acetate (Phoslo) 667 mg PO BIDCC [facility] Last Admin: 09/15/17 08:27 Dose: 667 mg Carvedilol (Coreg) 6.25 mg PO BID [facility] Last Admin: 09/13/17 18:00 Dose: Not Given Dextrose (Dextrose 50%) 0 ml IV .STAT PRN; Protocol PRN Reason: Hypoglycemia Protocol Dextrose (Glutose 15) 0 gm PO .ONCE PRN; Protocol PRN Reason: Hypoglycemia Protocol Last Admin: 09/14/17 08:12 Dose: 15 gm Epoetin Michel (Procrit) 4,000 unit IV MWF [facility] Last Admin: 09/14/17 15:02 Dose: 4,000 unit Famotidine (Pepcid) 20 mg PO DAILY [facility] Last Admin: 09/15/17 11:01 Dose: 20 mg Glucagon (Glucagen Diagnostic Kit) 0 mg IM .STAT PRN; Protocol PRN Reason: Hypoglycemia Protocol Heparin Sodium (Porcine) (Heparin) 5,000 units SC Q8 [facility] Last Admin: 09/15/17 14:39 Dose: 5,000 units Meropenem 500 mg/ Sodium (Chloride) 100 mls @ 100 mls/hr IVPB Q12H [facility] Last Admin: 09/15/17 14:37 Dose: 100 mls/hr Norepinephrine Bitartrate 8 mg (/ Sodium Chloride) 258 mls @ 7.74 mls/hr IV .Q24H PRN; Protocol; 4 MCG/MIN PRN Reason: TITRATE PER MD ORDER Last Titration: 09/12/17 18:00 Dose: 0 mcg/min, 0 mls/hr Vancomycin HCl 1 gm/ Sodium (Chloride) 200 mls @ 166.7 mls/hr IVPB MWF [facility] Last Admin: 09/14/17 18:02 Dose: 166.7 mls/hr Dextrose (Dextrose 5% In Water 1000 Ml) 1,000 mls @ 0 mls/hr IV .Q0M PRN; Protocol; Per Protocol PRN Reason: Hypoglycemia Protocol Insulin Aspart (Novolog) 0 unit SC ACHS [facility] PRN Reason: Protocol Last Admin: 09/15/17 17:13 Dose: Not Given Insulin Detemir (Levemir) 25 unit SC BID [facility] Last Admin: 09/15/17 17:12 Dose: 25 unit Midodrine (Proamatine) 5 mg PO Q8 [facility] Last Admin: 09/15/17 14:37 Dose: 5 mg Rosuvastatin Calcium (Crestor) 10 mg PO HS [facility] Last Admin: 09/14/17 22:37 Dose: 10 mg Vitamin B Complex/Vit C/Folic Acid (Nephro-Mark) 1 tab PO 0800 [facility] Last Admin: 09/15/17 08:27 Dose: 1 tab - Labs Labs: 09/13/17 06:17 09/13/17 06:18 PT 16.3 SECONDS (9.7-12.2) H 09/08/17 20:19 INR 1.4 09/08/17 20:19 APTT 33 SECONDS (21-34) 09/08/17 20:19
[2017-09-16] MEDS: Meropenem 500 MG in Sodium Chloride 0.9% 100 ML IVPB SCH ×2 (01:40→16:53)
--- NOTE | 2017-09-16 07:42 | PCM.RRT ---
<Riya Guadarrama - Last Filed: 09/16/17 07:49> ART MODEL Nurses Assessment - Situation Date: 09/16/17 - Constitutional Appears: No Acute Distress - Head Head Exam: NORMAL INSPECTION - Respiratory Exam Respiratory Exam: NORMAL BREATHING PATTERN. absent: Respiratory Distress - Cardiovascular Exam Cardiovascular Exam: Tachycardia, +S1, +S2 - Neurological Exam Neurological Exam: Awake Additional exam: Lethargic Plan - Assessment of Findings&Treatment Plan ART MODEL was called for blood glucose of 21. Patient was lethargic, however, patient' s baseline is minimal response. Patient was given 1amp D50. Vitals were taken, BP 103/70, 96%, HR 94, afebrile. Patient has bad access, glutose paste given by mouth and via IV. Patient became awake, alert, following commands. Patient is on insulin at night and have been having blood glucose readings below the 100s. Will hold HS insulin and it should be added back at lower dose by PMD. Repeat glucose 154. Continue to monitor. <Latoya Saldaña V - Last Filed: 09/17/17 21:17> ART MODEL Nurses Assessment - Vital Signs Vital Signs: Rapid Response Vital Sign Blood Pressure 102/70 Pulse Rate 103 Respiratory Rate 15 Temperature 97.6 F Oxygen Saturation 97 - Vital Signs at end of ART MODEL Vital Signs at end of ART MODEL: Rapid Response End Vital Sign Blood Pressure 110/63 Pulse Rate 102 Respiratory Rate 20 Temperature 97.6 F O2 Sat by Pulse Oximetry 99 Attending/Attestation - Attestation I have personally seen and examined this patient.: Yes I have fully participated in the care of the patient.: Yes I have reviewed all pertinent clinical information, including history, physical exam and plan: Yes Notes (Text): This is late computer entry for 09/16/17. Brief Hospitalist Note. Per review of chart, patient with hx of chf, esrd, s/p bilateral knee amputations. Nursing has called rapid for hypoglycemia below 21 per their protocol. Patient has 24 gauge IV access over the left hand. Nurse provide 1 ampule of D50. Patient is lethargic but slowly becoming more alert and awake. Patient given oral glucose solution wherein he is able to swallow and improve in mental status. Per review of his medications, patient has been getting long- acting insulin but sugars have been about 60-100s for the past two days. Will hold. Patients repeat sugar 154 and mental status has improved. Patient seen eating dysphagia type diet at time ART MODEL has ended.
[2017-09-16] MEDS ORDERED: Dextrose 50% SYRINGE Inj (50 ml) ONE ×2 (07:43→16:03)
[2017-09-16] MEDS: (Novolog) Insulin Aspart, Recombinant 100 u/ml 10 ml vial SC SCH ×3 (08:05→21:40)
[2017-09-16] MEDS: Multivitamin Vitamin B Complex (Nephro-Vite) Tab PO SCH (08:16)
[2017-09-16] MEDS ORDERED: Dextrose 50% SYRINGE Inj (50 ml) IV PRN (12:45)
[2017-09-16] MEDS ORDERED: DiphenhydrAMINE 50 mg/ml Inj IM ONE (14:15)
--- NOTE | 2017-09-16 14:25 | CP.PCM.PN ---
Subjective - Date & Time of Evaluation Date of Evaluation: 09/16/17 Time of Evaluation: 14:25 Objective - Vital Signs/Intake and Output Vital Signs (last 24 hours): Temp Pulse Resp BP Pulse Ox 97.6 F 103 H 20 103/70 99 09/16/17 08:00 09/16/17 08:00 09/16/17 08:00 09/16/17 08:00 09/16/17 08:00 Intake and Output: 09/16/17 09/16/17 06:59 18:59 Intake Total 340 Balance 340 - Medications Medications: Current Medications Acetaminophen (Tylenol 325mg Tab) 650 mg PO Q4H PRN PRN Reason: fever Last Admin: 09/10/17 08:03 Dose: 650 mg Aspirin (Aspirin Chewable) 81 mg PO DAILY [facility] Last Admin: 09/16/17 09:36 Dose: 81 mg Calcitriol (Rocaltrol) 0.25 mcg PO DAILY [facility] Last Admin: 09/16/17 09:36 Dose: 0.25 mcg [facility] Last Admin: 09/16/17 08:15 Dose: 667 mg Carvedilol (Coreg) 6.25 mg PO BID [facility] Last Admin: 09/13/17 18:00 Dose: Not Given Dextrose (Glutose 15) 0 gm PO .ONCE PRN; Protocol PRN Reason: Hypoglycemia Protocol Last Admin: 09/16/17 07:48 Dose: 15 gm Dextrose (Dextrose 50% Inj) 0 ml IV .STAT PRN; Protocol PRN Reason: Hypoglycemia Protocol Epoetin Michel (Procrit) 4,000 unit IV MWF [facility] Last Admin: 09/14/17 15:02 Dose: 4,000 unit Famotidine (Pepcid) 20 mg PO DAILY [facility] Last Admin: 09/16/17 09:37 Dose: 20 mg Glucagon (Glucagen Diagnostic Kit) 0 mg IM .STAT PRN; Protocol PRN Reason: Hypoglycemia Protocol Meropenem 500 mg/ Sodium (Chloride) 100 mls @ 100 mls/hr IVPB Q12H [facility] Last Admin: 09/16/17 01:40 Dose: 100 mls/hr Norepinephrine Bitartrate 8 mg (/ Sodium Chloride) 258 mls @ 7.74 mls/hr IV .Q24H PRN; Protocol; 4 MCG/MIN PRN Reason: TITRATE PER MD ORDER Last Titration: 09/12/17 18:00 Dose: 0 mcg/min, 0 mls/hr Vancomycin HCl 1 gm/ Sodium (Chloride) 200 mls @ 166.7 mls/hr IVPB MWF [facility] Last Admin: 09/14/17 18:02 Dose: 166.7 mls/hr Dextrose (Dextrose 5% In Water 1000 Ml) 1,000 mls @ 0 mls/hr IV .Q0M PRN; Protocol; Per Protocol PRN Reason: Hypoglycemia Protocol Insulin Aspart (Novolog) 0 unit SC ACHS [facility] PRN Reason: Protocol Last Admin: 09/16/17 08:05 Dose: Not Given Insulin Detemir (Levemir) 25 unit SC BID [facility] Last Admin: 09/15/17 17:12 Dose: 25 unit Midodrine (Proamatine) 5 mg PO Q8 [facility] Last Admin: 09/16/17 13:53 Dose: 5 mg Rosuvastatin Calcium (Crestor) 10 mg PO HS [facility] Last Admin: 09/15/17 20:59 Dose: 10 mg Vitamin B Complex/Vit C/Folic Acid (Nephro-Mark) 1 tab PO 0800 [facility] Last Admin: 09/16/17 08:16 Dose: 1 tab - Labs Labs: 09/13/17 06:17 09/13/17 06:18 PT 16.3 SECONDS (9.7-12.2) H 09/08/17 20:19 INR 1.4 09/08/17 20:19 APTT 33 SECONDS (21-34) 09/08/17 20:19
[2017-09-16] MEDS ORDERED: Glucagon Recombinant 1 mg Inj IM STA (15:58)
--- NOTE | 2017-09-16 16:06 | PCM.RRT ---
<Riya Guadarrama - Last Filed: 09/16/17 17:00> BODY SHOP ESTIMATOR Nurses Assessment - Situation Date: 09/16/17 Time BODY SHOP ESTIMATOR was called: 15:58 BODY SHOP ESTIMATOR Location:: 3T Med/Oncology Room Number: 365B BODY SHOP ESTIMATOR Reason for Call: Change in Mental Status BODY SHOP ESTIMATOR Called By: RN - IV IV Inserted during BODY SHOP ESTIMATOR?: No - Respiratory BODY SHOP ESTIMATOR Delivery Method: Room Air Received Nebulizer Treatments: No Was the Patient Ventilated with Bag/Mask 100% O2?: No Secretions Suctioned?: No Was the Patient Intubated?: No Was the Patient Placed on a Ventilator?: No - Medication Medications Administered During BODY SHOP ESTIMATOR: [id number] oral gel, D50 50ml IVP - Diagnostic Test Ordered EKG: No Chest X-Ray: No CT Scan: No - Stat Labs Ordered BODY SHOP ESTIMATOR Other Labs Ordered: Accucheck CPR started during BODY SHOP ESTIMATOR?: No - Vital Signs Vital Signs: Rapid Response Vital Sign Blood Pressure 102/70 Pulse Rate 103 Respiratory Rate 20 Temperature 97.6 F Oxygen Saturation 99 - Time BODY SHOP ESTIMATOR Ended Time BODY SHOP ESTIMATOR Ended: 07:55 - Vital Signs at end of BODY SHOP ESTIMATOR Vital Signs at end of BODY SHOP ESTIMATOR: Rapid Response End Vital Sign Blood Pressure 103/70 Pulse Rate 103 Respiratory Rate 20 Temperature 97.6 F O2 Sat by Pulse Oximetry 99 - Recommendations Notifications: Attending Physician - Respiratory Oxygen Delivery Method: Room Air - Constitutional Additional Comments: lethargic - Head Head Exam: NORMAL INSPECTION - Eyes Eye Exam: EOMI, Normal appearance - Respiratory Exam Respiratory Exam: NORMAL BREATHING PATTERN. absent: Respiratory Distress - Cardiovascular Exam Cardiovascular Exam: +S1, +S2 - Neurological Exam Neurological Exam: Awake Additional exam: sedated Plan - Assessment of Findings&Treatment Plan BODY SHOP ESTIMATOR was called for lethargy, oversedation. Patient was previously given dilaudud 2mg and Ativan 3mg for central line placement. Patient became lethargic , not responding to commands, nonverbal. Vitals were taken, BP 110/63, HR 103, Glucose 96. Nonrebreather placed. Patient was given Narcan 0.4mg IM once. Patient be coming more awake. IV access obtained. Second dose of Narcan 0.4mg IV once. Patient woke up after second dose of narcan IV given. Patient became slightly combative after receiving second dose. Patient still lethargic, sedated. Given third dose of Narcan 0.4mg IV once. Patient is now awake, opening eyes. <Latoya Saldaña V - Last Filed: 09/17/17 21:26> BODY SHOP ESTIMATOR Nurses Assessment - Vital Signs Vital Signs: Rapid Response Vital Sign Blood Pressure 102/70 Pulse Rate 103 Respiratory Rate 15 Temperature 97.6 F Oxygen Saturation 97 - Vital Signs at end of BODY SHOP ESTIMATOR Vital Signs at end of BODY SHOP ESTIMATOR: Rapid Response End Vital Sign Blood Pressure 110/63 Pulse Rate 102 Respiratory Rate 20 Temperature 97.6 F O2 Sat by Pulse Oximetry 99 Attending/Attestation - Attestation I have personally seen and examined this patient.: Yes I have fully participated in the care of the patient.: Yes I have reviewed all pertinent clinical information, including history, physical exam and plan: Yes Notes (Text): Brief Hospitalist Note BODY SHOP ESTIMATOR: lethargy and oversedation. Patient seen earlier by Rapid Response Team for hypoglycemia and was stable following event this morning. Per nursing, patient tolerated his lunch for today. Per nursing, patient had an attempt for central line placement given lack of inadequate line access. Patient had been given Dilaudid 2mg IM and Ativan 3mg IM in preparation for line placement. Patient lethargic. state fire marshal and my colleague reed placed 20 gauge IV in the left hand. Patient given 1st dose of Narcan 0.4mg IM until access was secured, patient did not improve. Patient given second Narcan 0.4mg via IV, in which he rapidly woke up and look at his but became drowsy. Patient given third dose of Narcan 0.4mg IVX1. Patient became awake and alert as he was previously this morning from first rapid. Patient is due for dialysis tomorrow per nursing staff. Resident has informed PMD, Dr Moya, recommended for ICU eval, Dr Farris came and saw the patient, improvement in mental status and not a candidate for ICU. I spoke with patient's brother who was waiting outside in regards to event once patient was stablized. Sugar:96. patient did not require Glucagon nor Flumenzil which was order in anticipated to reverse Ativan if required. Patient's oxygen saturated was 97-98% note.
[2017-09-16] MEDS ORDERED: Naloxone 0.4 mg/ml Inj (Adult) IM STA (16:10)
[2017-09-16] MEDS ORDERED: Naloxone 0.4 mg/ml Inj (Adult) IM ONE (16:15)
[2017-09-16] MEDS ORDERED: Flumazenil 0.1 mg/ml Inj (5ml) IVP ONE (16:15)
--- NOTE | 2017-09-16 16:22 | CP.PCM.PN ---
Subjective - Date & Time of Evaluation Date of Evaluation: 09/16/17 Time of Evaluation: 08:00 - Subjective Subjective: altered on rounds going to ICU Objective - Vital Signs/Intake and Output Vital Signs (last 24 hours): Temp Pulse Resp BP Pulse Ox 97.6 F 103 H 20 103/70 99 09/16/17 08:00 09/16/17 08:00 09/16/17 08:00 09/16/17 08:00 09/16/17 08:00 Intake and Output: 09/16/17 09/16/17 06:59 18:59 Intake Total 340 Balance 340 - Medications Medications: Current Medications Acetaminophen (Tylenol 325mg Tab) 650 mg PO Q4H PRN PRN Reason: fever Last Admin: 09/10/17 08:03 Dose: 650 mg Aspirin (Aspirin Chewable) 81 mg PO DAILY [facility] Last Admin: 09/16/17 09:36 Dose: 81 mg Calcitriol (Rocaltrol) 0.25 mcg PO DAILY [facility] Last Admin: 09/16/17 09:36 Dose: 0.25 mcg [facility] ([facility]) [facility] Last Admin: 09/16/17 08:15 Dose: 667 mg Carvedilol (Coreg) 6.25 mg PO BID [facility] Last Admin: 09/13/17 18:00 Dose: Not Given Dextrose (Glutose 15) 0 gm PO .ONCE PRN; Protocol PRN Reason: Hypoglycemia Protocol Last Admin: 09/16/17 07:48 Dose: 15 gm Dextrose (Dextrose 50% Inj) 0 ml IV .STAT PRN; Protocol PRN Reason: Hypoglycemia Protocol Epoetin Michel (Procrit) 4,000 unit IV MWF [facility] Last Admin: 09/14/17 15:02 Dose: 4,000 unit Famotidine (Pepcid) 20 mg PO DAILY [facility] Last Admin: 09/16/17 09:37 Dose: 20 mg Glucagon (Glucagen Diagnostic Kit) 0 mg IM .STAT PRN; Protocol PRN Reason: Hypoglycemia Protocol Meropenem 500 mg/ Sodium (Chloride) 100 mls @ 100 mls/hr IVPB Q12H [facility] Last Admin: 09/16/17 01:40 Dose: 100 mls/hr Norepinephrine Bitartrate 8 mg (/ Sodium Chloride) 258 mls @ 7.74 mls/hr IV .Q24H PRN; Protocol; 4 MCG/MIN PRN Reason: TITRATE PER MD ORDER Last Titration: 09/12/17 18:00 Dose: 0 mcg/min, 0 mls/hr Vancomycin HCl 1 gm/ Sodium (Chloride) 200 mls @ 166.7 mls/hr IVPB MWF [facility] Last Admin: 09/14/17 18:02 Dose: 166.7 mls/hr Dextrose (Dextrose 5% In Water 1000 Ml) 1,000 mls @ 0 mls/hr IV .Q0M PRN; Protocol; Per Protocol PRN Reason: Hypoglycemia Protocol Insulin Aspart (Novolog) 0 unit SC ACHS [facility] PRN Reason: Protocol Last Admin: 09/16/17 08:05 Dose: Not Given Insulin Detemir (Levemir) 25 unit SC BID [facility] Last Admin: 09/15/17 17:12 Dose: 25 unit Midodrine (Proamatine) 5 mg PO Q8 [facility] Last Admin: 09/16/17 13:53 Dose: 5 mg Rosuvastatin Calcium (Crestor) 10 mg PO HS [facility] Last Admin: 09/15/17 20:59 Dose: 10 mg Vitamin B Complex/Vit C/Folic Acid (Nephro-Mark) 1 tab PO 0800 [facility] Last Admin: 09/16/17 08:16 Dose: 1 tab - Labs Labs: 09/13/17 06:17 09/13/17 06:18 PT 16.3 SECONDS (9.7-12.2) H 09/08/17 20:19 INR 1.4 09/08/17 20:19 APTT 33 SECONDS (21-34) 09/08/17 20:19 - Constitutional Appears: Confused, Chronically Ill - Head Exam Head Exam: NORMOCEPHALIC - Eye Exam Eye Exam: PERRL - ENT Exam ENT Exam: Mucous Membranes Dry - Neck Exam Neck Exam: absent: Lymphadenopathy - Respiratory Exam Respiratory Exam: Decreased Breath Sounds - Cardiovascular Exam Cardiovascular Exam: REGULAR RHYTHM - GI/Abdominal Exam GI & Abdominal Exam: Distended, Soft Assessment and Plan (1) Hypotension Status: Acute (2) Sepsis Status: Acute (3) Septic shock Status: Acute (4) UTI (urinary tract infection), bacterial Status: Acute (5) ESRD (end stage renal disease) Status: Chronic (6) Bacteremia Status: Acute (7) CHF exacerbation Status: Acute (8) ESRD (end stage renal disease) on dialysis Status: Acute (9) Fever Status: Acute (10) Diabetes mellitus Status: Chronic (11) HTN (hypertension) Status: Chronic
[2017-09-17] MEDS: Meropenem 500 MG in Sodium Chloride 0.9% 100 ML IVPB SCH ×2 (02:05→15:44)
[2017-09-17] MEDS: Multivitamin Vitamin B Complex (Nephro-Vite) Tab PO SCH (07:51)
[2017-09-17] MEDS: (Novolog) Insulin Aspart, Recombinant 100 u/ml 10 ml vial SC SCH ×4 (08:00→21:35)
[2017-09-17 10:34] LABS: EOS # 0.5 K/uL (0.0-0.7); HEMOGLOBIN 8.8 g/dL (12.0-18.0); MONO # 1.3 K/uL (0.0-0.8)
[2017-09-17 11:11] LABS: ALB/GLOB RATIO 0.7 (1.0-2.1); ALBUMIN 2.8 g/dL (3.5-5.0)
[2017-09-17 11:25] LABS: BASO # 0.1 K/uL (0.0-0.2); BASO % 0.6 % (0.0-2.0); LYMPH # 1.6 K/uL (1.0-4.3); LYMPH % 16.1 % (20.0-40.0); MEAN CELL VOLUME 79.8 fL (80.0-94.0); MEAN CORPUSCULAR HGB CONC 32.6 g/dL (33.0-37.0); MEAN PLATELET VOLUME 9.2 fL (7.2-11.7); MONO % 12.8 % (0.0-10.0); NEUT # 6.5 K/uL (1.8-7.0); NEUT % 65.5 % (50.0-75.0); RBC 3.4 Mil/uL (4.40-5.90); RED CELL DISTRIBUTION WIDTH 22.4 % (11.5-14.5); WHITE BLOOD COUNT 9.8 K/uL (4.8-10.8)
[2017-09-17] MEDS ORDERED: Albumin Human 25% (12.5 gm/50 ml) IV ONE (11:30)
--- NOTE | 2017-09-17 11:39 | CP.PCM.PN ---
Subjective - Date & Time of Evaluation Date of Evaluation: 09/17/17 Time of Evaluation: 10:50 - Subjective Subjective: Follow up Nephrology Note (covering for Dr Tiffanie Hernandez) RENAL FOLLOW UP (covering for dr. hernandez) Assessment: critical sepsis, cellulitis, possible UTI Diabetic chronic Kidney Disease (E11.22) Hypertensive Chronic Kidney Disease (I12.0) End stage renal disease (N18.6) dependence on hemodialysis (Z99.2) (MWF) via AVF Anemia (D64.9), Hyperphosphatemia (E83.39), Secondary Hyperparathyroidism (E21.1 ), HTN (I12.0) Obesity morbid, CHF Plan: continue hd mwf - seen on HD, bp mildly reduced will reduce UF Continue with Nephrovite 1 tab/day. Anemia on epogen and transfuse prn S:seen on dialysis Physical Examination: +s1+s2 lungs: cta abd: soft Objective - Vital Signs/Intake and Output Vital Signs (last 24 hours): Temp Pulse Resp BP Pulse Ox 98.9 F 103 H 20 100/69 97 09/17/17 08:04 09/17/17 08:04 09/17/17 08:04 09/17/17 08:04 09/17/17 08:04 Intake and Output: 09/17/17 09/17/17 06:59 18:59 Intake Total 530 Balance 530 - Medications Medications: Current Medications Acetaminophen (Tylenol 325mg Tab) 650 mg PO Q4H PRN PRN Reason: fever Last Admin: 09/10/17 08:03 Dose: 650 mg Aspirin (Aspirin Chewable) 81 mg PO DAILY [facility] Last Admin: 09/17/17 09:35 Dose: Not Given Calcitriol (Rocaltrol) 0.25 mcg PO DAILY [facility] Last Admin: 09/17/17 09:37 Dose: Not Given Calcium Acetate (Phoslo) 667 mg PO BIDCC [facility] Last Admin: 09/17/17 07:51 Dose: 667 mg Carvedilol (Coreg) 6.25 mg PO BID [facility] Last Admin: 09/13/17 18:00 Dose: Not Given Dextrose (Glutose 15) 0 gm PO .ONCE PRN; Protocol PRN Reason: Hypoglycemia Protocol Last Admin: 09/16/17 07:48 Dose: 15 gm Dextrose (Dextrose 50% Inj) 0 ml IV .STAT PRN; Protocol PRN Reason: Hypoglycemia Protocol Epoetin Michel (Procrit) 4,000 unit IV [facility] [place] Last Admin: 09/14/17 15:02 Dose: 4,000 unit Famotidine (Pepcid) 20 mg PO DAILY [facility] Last Admin: 09/17/17 09:36 Dose: Not Given Glucagon (Glucagen Diagnostic Kit) 0 mg IM .STAT PRN; Protocol PRN Reason: Hypoglycemia Protocol Meropenem 500 mg/ Sodium (Chloride) 100 mls @ 100 mls/hr IVPB Q12H [facility] Last Admin: 09/17/17 02:05 Dose: 100 mls/hr Norepinephrine Bitartrate 8 mg (/ Sodium Chloride) 258 mls @ 7.74 mls/hr IV .Q24H PRN; Protocol; 4 MCG/MIN PRN Reason: TITRATE PER MD ORDER Last Titration: 09/12/17 18:00 Dose: 0 mcg/min, 0 mls/hr Vancomycin HCl 1 gm/ Sodium (Chloride) 200 mls @ 166.7 mls/hr [place] [facility] [place] Last Admin: 09/14/17 18:02 Dose: 166.7 mls/hr Insulin Aspart (Novolog) 0 unit SC ACHS [facility] PRN Reason: Protocol Last Admin: 09/17/17 08:00 Dose: Not Given Insulin Detemir (Levemir) 25 unit SC BID [facility] Last Admin: 09/15/17 17:12 Dose: 25 unit Midodrine (Proamatine) 5 mg PO Q8 [facility] Last Admin: 09/17/17 05:20 Dose: 5 mg Rosuvastatin Calcium (Crestor) 10 mg PO HS [facility] Last Admin: 09/16/17 21:50 Dose: 10 mg Vitamin B Complex/Vit C/Folic Acid (Nephro-Mark) 1 tab PO 0800 [facility] Last Admin: 09/17/17 07:51 Dose: 1 tab - Labs Labs: 09/17/17 10:29 09/17/17 10:29 PT 16.3 SECONDS (9.7-12.2) H 09/08/17 20:19 INR 1.4 09/08/17 20:19 APTT 33 SECONDS (21-34) 09/08/17 20:19
[2017-09-17] MEDS: EPOETIN ALFA 4,000 UNIT/ML ML Dialysis IV SCH (12:10)
[2017-09-17] MEDS: Vancomycin 1 GM in Sodium Chloride 0.9% 200 ML IVPB SCH (13:28)
--- NOTE | 2017-09-17 15:38 | US ---
Limited right upper extremity soft tissue ultrasound History: Soft tissue swelling. Comparison: None available. Technique: Real-time sonography was performed through the soft tissues of the right upper extremity. Findings: Please note that this was not a dedicated vascular study. If there is concern for vascular abnormality such as shunt occlusion or thrombosis further evaluation with vascular ultrasound is recommended. At the mid to lower arm, in the anterior and medial regions, overlying tape precluded evaluation at this level. Confluent reticulation and edema throughout the visualized soft tissues which may represent an underlying cellulitis. Clinical correlation. Impression: Please note that this was not a dedicated vascular study. If there is concern for vascular abnormality such as shunt occlusion or thrombosis further evaluation with vascular ultrasound is recommended. At the mid to lower arm, in the anterior and medial regions, overlying tape precluded evaluation at this level. Confluent reticulation and edema throughout the visualized soft tissues which may represent an underlying cellulitis. Clinical correlation.
--- NOTE | 2017-09-17 19:08 | CP.PCM.PN ---
Subjective - Date & Time of Evaluation Date of Evaluation: 09/17/17 Time of Evaluation: 07:20 - Subjective Subjective: clinically same Objective - Vital Signs/Intake and Output Vital Signs (last 24 hours): Temp Pulse Resp BP Pulse Ox 100.2 F H 83 18 86/55 L 96 09/17/17 10:00 09/17/17 13:00 09/17/17 13:00 09/17/17 13:00 09/17/17 13:00 Intake and Output: 09/17/17 09/18/17 18:59 06:59 Intake Total 300 Balance 300 - Medications Medications: Current Medications Acetaminophen (Tylenol 325mg Tab) 650 mg PO Q4H PRN PRN Reason: fever Last Admin: 09/10/17 08:03 Dose: 650 mg Aspirin (Aspirin Chewable) 81 mg PO DAILY [facility] Last Admin: 09/17/17 09:35 Dose: Not Given Calcitriol (Rocaltrol) 0.25 mcg PO DAILY [facility] Last Admin: 09/17/17 09:37 Dose: Not Given [facility] Last Admin: 09/17/17 17:17 Dose: 667 mg Carvedilol (Coreg) 6.25 mg PO BID [facility] Last Admin: 09/13/17 18:00 Dose: Not Given Dextrose (Glutose 15) 0 gm PO .ONCE PRN; Protocol PRN Reason: Hypoglycemia Protocol Last Admin: 09/16/17 07:48 Dose: 15 gm Dextrose (Dextrose 50% Inj) 0 ml IV .STAT PRN; Protocol PRN Reason: Hypoglycemia Protocol Epoetin Michel (Procrit) 4,000 unit IV MWF [facility] Last Admin: 09/17/17 12:10 Dose: 4,000 unit Famotidine (Pepcid) 20 mg PO DAILY [facility] Last Admin: 09/17/17 09:36 Dose: Not Given Glucagon (Glucagen Diagnostic Kit) 0 mg IM .STAT PRN; Protocol PRN Reason: Hypoglycemia Protocol Meropenem 500 mg/ Sodium (Chloride) 100 mls @ 100 mls/hr IVPB Q12H [facility] Last Admin: 09/17/17 15:44 Dose: 100 mls/hr Norepinephrine Bitartrate 8 mg (/ Sodium Chloride) 258 mls @ 7.74 mls/hr IV .Q24H PRN; Protocol; 4 MCG/MIN PRN Reason: TITRATE PER MD ORDER Last Titration: 09/12/17 18:00 Dose: 0 mcg/min, 0 mls/hr Vancomycin HCl 1 gm/ Sodium (Chloride) 200 mls @ 166.7 mls/hr IVPB MWF [facility] Last Admin: 09/17/17 13:28 Dose: 166.7 mls/hr Insulin Aspart (Novolog) 0 unit SC ACHS [facility] PRN Reason: Protocol Last Admin: 09/17/17 16:48 Dose: Not Given Insulin Detemir (Levemir) 25 unit SC BID [facility] Last Admin: 09/15/17 17:12 Dose: 25 unit Midodrine (Proamatine) 5 mg PO Q8 [facility] Last Admin: 09/17/17 15:35 Dose: 5 mg Rosuvastatin Calcium (Crestor) 10 mg PO HS [facility] Last Admin: 09/16/17 21:50 Dose: 10 mg Vitamin B Complex/Vit C/Folic Acid (Nephro-Mark) 1 tab PO 0800 [facility] Last Admin: 09/17/17 07:51 Dose: 1 tab - Labs Labs: 09/17/17 10:29 09/17/17 10:29 PT 16.3 SECONDS (9.7-12.2) H 09/08/17 20:19 INR 1.4 09/08/17 20:19 APTT 33 SECONDS (21-34) 09/08/17 20:19 - Constitutional Appears: Well - Head Exam Head Exam: ATRAUMATIC, NORMAL INSPECTION, NORMOCEPHALIC - Eye Exam Eye Exam: EOMI, Normal appearance, PERRL Pupil Exam: NORMAL ACCOMODATION, PERRL - ENT Exam ENT Exam: Mucous Membranes Moist, Normal Exam - Neck Exam Neck Exam: Full ROM, Normal Inspection. absent: Lymphadenopathy - Respiratory Exam Respiratory Exam: Decreased Breath Sounds - Cardiovascular Exam Cardiovascular Exam: REGULAR RHYTHM, +S1, +S2 - GI/Abdominal Exam GI & Abdominal Exam: Soft, Diminished Bowel Sounds - Rectal Exam Rectal Exam: Deferred
[2017-09-17 19:38] VITALS: RESP 20
[2017-09-18] MEDS: Meropenem 500 MG in Sodium Chloride 0.9% 100 ML IVPB SCH ×2 (01:00→13:32)
[2017-09-18] MEDS: Multivitamin Vitamin B Complex (Nephro-Vite) Tab PO SCH (07:44)
[2017-09-18] MEDS: (Novolog) Insulin Aspart, Recombinant 100 u/ml 10 ml vial SC SCH ×4 (07:45→21:17)
[2017-09-18 08:03] VITALS: PULSE 97; O2SAT 96
--- NOTE | 2017-09-18 16:22 | CP.PCM.PN ---
Subjective - Date & Time of Evaluation Date of Evaluation: 09/18/17 Time of Evaluation: 07:20 - Subjective Subjective: clinically same Objective - Vital Signs/Intake and Output Vital Signs (last 24 hours): Temp Pulse Resp BP Pulse Ox 99 F 97 H 20 118/77 96 09/18/17 07:48 09/18/17 07:48 09/18/17 07:48 09/18/17 07:48 09/18/17 07:48 Intake and Output: 09/18/17 09/18/17 06:59 18:59 Intake Total 400 780 Output Total 1 Balance 399 780 - Medications Medications: Current Medications Acetaminophen (Tylenol 325mg Tab) 650 mg PO Q4H PRN PRN Reason: fever Last Admin: 09/10/17 08:03 Dose: 650 mg Aspirin (Aspirin Chewable) 81 mg PO DAILY [facility] Last Admin: 09/18/17 09:00 Dose: 81 mg Calcitriol (Rocaltrol) 0.25 mcg PO DAILY [facility] Last Admin: 09/18/17 09:00 Dose: 0.25 mcg [facility] Last Admin: 09/18/17 07:44 Dose: 667 mg Carvedilol (Coreg) 6.25 mg PO BID [facility] Last Admin: 09/13/17 18:00 Dose: Not Given Dextrose (Glutose 15) 0 gm PO .ONCE PRN; Protocol PRN Reason: Hypoglycemia Protocol Last Admin: 09/16/17 07:48 Dose: 15 gm Dextrose (Dextrose 50% Inj) 0 ml IV .STAT PRN; Protocol PRN Reason: Hypoglycemia Protocol Epoetin Michel (Procrit) 4,000 unit IV MWF [facility] Last Admin: 09/17/17 12:10 Dose: 4,000 unit Famotidine (Pepcid) 20 mg PO DAILY [facility] Last Admin: 09/18/17 09:00 Dose: 20 mg Glucagon (Glucagen Diagnostic Kit) 0 mg IM .STAT PRN; Protocol PRN Reason: Hypoglycemia Protocol Meropenem 500 mg/ Sodium (Chloride) 100 mls @ 100 mls/hr IVPB Q12H [facility] Last Admin: 09/18/17 13:32 Dose: 100 mls/hr Norepinephrine Bitartrate 8 mg (/ Sodium Chloride) 258 mls @ 7.74 mls/hr IV .Q24H PRN; Protocol; 4 MCG/MIN PRN Reason: TITRATE PER MD ORDER Last Titration: 09/12/17 18:00 Dose: 0 mcg/min, 0 mls/hr Insulin Aspart (Novolog) 0 unit SC ACHS [facility] PRN Reason: Protocol Last Admin: 09/18/17 12:29 Dose: Not Given Insulin Detemir (Levemir) 25 unit SC BID [facility] Last Admin: 09/15/17 17:12 Dose: 25 unit Midodrine (Proamatine) 5 mg PO Q8 [facility] Last Admin: 09/18/17 13:32 Dose: 5 mg Rosuvastatin Calcium (Crestor) 10 mg PO HS [facility] Last Admin: 09/17/17 21:04 Dose: 10 mg Vitamin B Complex/Vit C/Folic Acid (Nephro-Mark) 1 tab PO 0800 [facility] Last Admin: 09/18/17 07:44 Dose: 1 tab - Labs Labs: 09/17/17 10:29 09/17/17 10:29 PT 16.3 SECONDS (9.7-12.2) H 09/08/17 20:19 INR 1.4 09/08/17 20:19 APTT 33 SECONDS (21-34) 09/08/17 20:19 - Constitutional Appears: Well - Head Exam Head Exam: ATRAUMATIC, NORMAL INSPECTION, NORMOCEPHALIC - Eye Exam Eye Exam: EOMI, Normal appearance, PERRL Pupil Exam: NORMAL ACCOMODATION, PERRL - ENT Exam ENT Exam: Mucous Membranes Moist, Normal Exam - Neck Exam Neck Exam: Full ROM, Normal Inspection. absent: Lymphadenopathy - Respiratory Exam Respiratory Exam: Decreased Breath Sounds - Cardiovascular Exam Cardiovascular Exam: REGULAR RHYTHM, +S1, +S2 - GI/Abdominal Exam GI & Abdominal Exam: Soft, Diminished Bowel Sounds - Rectal Exam Rectal Exam: Deferred
--- NOTE | 2017-09-18 16:54 | CP.PCM.PN ---
Subjective - Date & Time of Evaluation Date of Evaluation: 09/18/17 Time of Evaluation: 16:54 - Subjective Subjective: Alert, awake, no sob no acute distress. Objective - Vital Signs/Intake and Output Vital Signs (last 24 hours): Temp Pulse Resp BP Pulse Ox 99 F 97 H 20 118/77 96 09/18/17 07:48 09/18/17 07:48 09/18/17 07:48 09/18/17 07:48 09/18/17 07:48 Intake and Output: 09/18/17 09/18/17 06:59 18:59 Intake Total 400 780 Output Total 1 Balance 399 780 - Medications Medications: Current Medications Acetaminophen (Tylenol 325mg Tab) 650 mg PO Q4H PRN PRN Reason: fever Last Admin: 09/10/17 08:03 Dose: 650 mg Aspirin (Aspirin Chewable) 81 mg PO DAILY [facility] Last Admin: 09/18/17 09:00 Dose: 81 mg Calcitriol (Rocaltrol) 0.25 mcg PO DAILY [facility] Last Admin: 09/18/17 09:00 Dose: 0.25 mcg Calcium Acetate (Phoslo) 667 mg PO BIDCC [facility] Last Admin: 09/18/17 07:44 Dose: 667 mg Carvedilol (Coreg) 6.25 mg PO BID [facility] Last Admin: 09/13/17 18:00 Dose: Not Given Dextrose (Glutose 15) 0 gm PO .ONCE PRN; Protocol PRN Reason: Hypoglycemia Protocol Last Admin: 09/16/17 07:48 Dose: 15 gm Dextrose (Dextrose 50% Inj) 0 ml IV .STAT PRN; Protocol PRN Reason: Hypoglycemia Protocol Epoetin Michel (Procrit) 4,000 unit IV MWF [facility] Last Admin: 09/17/17 12:10 Dose: 4,000 unit Famotidine (Pepcid) 20 mg PO DAILY [facility] Last Admin: 09/18/17 09:00 Dose: 20 mg Glucagon (Glucagen Diagnostic Kit) 0 mg IM .STAT PRN; Protocol PRN Reason: Hypoglycemia Protocol Meropenem 500 mg/ Sodium (Chloride) 100 mls @ 100 mls/hr IVPB Q12H [facility] Last Admin: 09/18/17 13:32 Dose: 100 mls/hr Norepinephrine Bitartrate 8 mg (/ Sodium Chloride) 258 mls @ 7.74 mls/hr IV .Q24H PRN; Protocol; 4 MCG/MIN PRN Reason: TITRATE PER MD ORDER Last Titration: 09/12/17 18:00 Dose: 0 mcg/min, 0 mls/hr Insulin Aspart (Novolog) 0 unit SC ACHS [facility] PRN Reason: Protocol Last Admin: 09/18/17 12:29 Dose: Not Given Insulin Detemir (Levemir) 25 unit SC BID [facility] Last Admin: 09/15/17 17:12 Dose: 25 unit Midodrine (Proamatine) 5 mg PO Q8 [facility] Last Admin: 09/18/17 13:32 Dose: 5 mg Rosuvastatin Calcium (Crestor) 10 mg PO HS [facility] Last Admin: 09/17/17 21:04 Dose: 10 mg Vitamin B Complex/Vit C/Folic Acid (Nephro-Mark) 1 tab PO 0800 [facility] Last Admin: 09/18/17 07:44 Dose: 1 tab - Labs Labs: 09/17/17 10:29 09/17/17 10:29 PT 16.3 SECONDS (9.7-12.2) H 09/08/17 20:19 INR 1.4 09/08/17 20:19 APTT 33 SECONDS (21-34) 09/08/17 20:19 Assessment and Plan - Assessment and Plan (Free Text) Assessment: Patient admitted with fever, uti, ESRD, hypotention, seen and examined. No sob or chest pains, awake, responsive, able to swallow well. All the cultures are negative, patient received 10 days of antibiotics. No fever, or signs of sepsis noted. Discussed with DR Elaina Edwards, plan to discharge back to the shelter and continue with comfort care. DNR/DNI status to continue. No distress noted.
[2017-09-18 17:05] VITALS: BP 104/70; TEMP 97.9
--- NOTE | 2017-09-18 17:07 | PCM.HF ---
Heart Failure Core Measure - Heart Failure Ejection Fraction: 40 % or Greater (EF 61%) RUBENS Inhibitor Prescribed: No Contraindication/Reason for not providing: ESRD Beta-Adarsh Prescribed: None Contraindication/Reason for not providing: HYPOTENTION Angiotensin II Receptor Adarsh Prescribed: No Contraindication/Reason for not providing: ESRD AnticoagulationTherapy for Atrial Fibrillation/Atrialflutter: No Contraindication/Reason for not providing: no afib Aldosterone Antagonist Prescribed: No Contraindication/Reason for not providing: EF>40% Hydralazine Nitrate Prescribed: No Contraindication/Reason for not providing: EF >40% Implantable Cardioverter Defibrillator Therapy: No Contraindication/Reason for not providing: EF>40% Cardiac Resynchronization Therapy Prescribed: No Contraindication/Reason for not providing: not indicated - Follow up Will be discharged to: [facility])
--- NOTE | 2017-09-18 21:41 | CP.PCM.CON ---
History of Present Illness - History of Present Illness History of Present Illness: Consultation called for altered mental status. Patient is a 51-year-old male with history of hypertension, hypercholesteremia, bilateral below-knee amputation, congestive heart failure, end-stage renal disease on dialysis. Response was called because of the altered mental status. Earlier today, patient was given Dilaudid and Ativan intravenously for a venous access by the surgical team. Following that the patient become more unresponsive. There was also having trouble in getting the venous access. Finally [facility] team was able to get IV access, and the patient was immediately given Narcan, and he responded briefly. Second dose of Narcan was given also and the patient responded awake and responding. Patient is DNR/DNI. Patient has a history of hypertension, hypercholesteremia, end-stage renal disease recently hospitalized to the intensive care unit with sepsis. On examination now patient is somewhat irregularly away, but easily sleeping. Vital signs reviewed. Chest decreased air entry. Patient has a AV fistula on the right upper extremity. Receiving hemodialysis through that I spoke to the [facility] regarding the prognosis. At this moment the patient is stable with vital signs as well as awake and responding with the current treatment. Continue to monitor, no intravenous said it is advised that this time. Patient is a DNR/DNI. Past Patient History - Past Medical History & Family History Past Medical History?: Yes - Past Social History Smoking Status: Unknown If Ever Smoked - CARDIAC Hx Cardiac Disorders: Yes Hx Congestive Heart Failure: Yes Hx Hypercholesterolemia: Yes Hx Hypertension: Yes - PULMONARY Hx Respiratory Disorders: Yes Hx Pneumonia: Yes - NEUROLOGICAL HX Cerebrovascular Accident: Yes - HEENT Hx HEENT Problems: No - RENAL Hx Renal Failure: Yes (ESRD, CKD) - ENDOCRINE/METABOLIC Hx Diabetes Mellitus Type 1: Yes - HEMATOLOGICAL/ONCOLOGICAL Hx Blood Disorders: Yes Hx Anemia: Yes - INTEGUMENTARY Hx Dermatological Problems: No - MUSCULOSKELETAL/RHEUMATOLOGICAL Hx Musculoskeletal Disorders: No Hx Falls: No - GASTROINTESTINAL Hx Gastrointestinal Disorders: No - GENITOURINARY/GYNECOLOGICAL Hx Genitourinary Disorders: No - PSYCHIATRIC Hx Psychophysiologic Disorder: No Hx Substance Use: No - SURGICAL HISTORY Hx Surgeries: Yes Other/Comment: Bilateral BKA. 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 - ANESTHESIA Hx Anesthesia: Yes Hx Anesthesia Reactions: No Hx Malignant Hyperthermia: No Has any member of the family had a problem w/ anesthesia?: No Meds Allergies/Adverse Reactions: Allergies Allergy/AdvReac Type Severity Reaction Status Date / Time hydromorphone AdvReac Unknown DIAPHORETIC, Verified 09/17/17 09:37 UNCONSCIOUS - Medications Medications: Current Medications Acetaminophen (Tylenol 325mg Tab) 650 mg PO Q4H PRN PRN Reason: fever Last Admin: 09/10/17 08:03 Dose: 650 mg Aspirin (Aspirin Chewable) 81 mg PO DAILY [facility] Last Admin: 09/18/17 09:00 Dose: 81 mg Calcitriol (Rocaltrol) 0.25 mcg PO DAILY [facility] Last Admin: 09/18/17 09:00 Dose: 0.25 mcg [facility] Admin: 09/18/17 16:54 Dose: 667 mg Carvedilol (Coreg) 6.25 mg PO BID [facility] Last Admin: 09/13/17 18:00 Dose: Not Given Dextrose (Glutose 15) 0 gm PO .ONCE PRN; Protocol PRN Reason: Hypoglycemia Protocol Last Admin: 09/16/17 07:48 Dose: 15 gm Dextrose (Dextrose 50% Inj) 0 ml IV .STAT PRN; Protocol PRN Reason: Hypoglycemia Protocol Epoetin Michel (Procrit) 4,000 unit IV MWF [facility] Last Admin: 09/17/17 12:10 Dose: 4,000 unit Famotidine (Pepcid) 20 mg PO DAILY [facility] Last Admin: 09/18/17 09:00 Dose: 20 mg Glucagon (Glucagen Diagnostic Kit) 0 mg IM .STAT PRN; Protocol PRN Reason: Hypoglycemia Protocol Meropenem 500 mg/ Sodium (Chloride) 100 mls @ 100 mls/hr IVPB Q12H [facility] Last Admin: 09/18/17 13:32 Dose: 100 mls/hr Norepinephrine Bitartrate 8 mg (/ Sodium Chloride) 258 mls @ 7.74 mls/hr IV .Q24H PRN; Protocol; 4 MCG/MIN PRN Reason: TITRATE PER MD ORDER Last Titration: 09/12/17 18:00 Dose: 0 mcg/min, 0 mls/hr Insulin Aspart (Novolog) 0 unit SC ACHS [facility] PRN Reason: Protocol Last Admin: 09/18/17 21:17 Dose: Not Given Insulin Detemir (Levemir) 25 unit SC BID [facility] Last Admin: 09/15/17 17:12 Dose: 25 unit Midodrine (Proamatine) 5 mg PO Q8 [facility] Last Admin: 09/18/17 21:17 Dose: 5 mg Rosuvastatin Calcium (Crestor) 10 mg PO HS [facility] Last Admin: 09/18/17 21:16 Dose: 10 mg Vitamin B Complex/Vit C/Folic Acid (Nephro-Mark) 1 tab PO 0800 [facility] Last Admin: 09/18/17 07:44 Dose: 1 tab Results - Vital Signs Recent Vital Signs: Last Vital Signs Temp 97.9 F 09/18/17 16:00 Pulse 97 H 09/18/17 16:00 Resp 20 09/18/17 16:00 BP 104/70 09/18/17 16:00 Pulse Ox 96 09/18/17 16:00 - Labs Result Diagrams: 09/17/17 10:29 09/17/17 10:29 Labs: Laboratory Results - last 24 hr 09/18/17 09/18/17 09/18/17 07:20 10:46 16:19 POC Glucose (mg/dL) 103 105 129 H 09/18/17 21:15 POC Glucose (mg/dL) 116 H
== END 2017-09-18 22:06 | DRG 871 ==
LOC: C.ER 18:58 → C.9E 22:18 → C.9I 23:14 → C.3T 09-14 20:19
PROVIDERS: ADMIT Internal Medicine Nephrology; ATTEND Internal Medicine Nephrology
PROC: 05HY33Z Insertion of Infusion Device into Upper Vein, Percutaneous Approach (ICD-10-PCS; 2017-09-11)
PROC: 5A1D70Z Performance of Urinary Filtration, Intermittent, Less than 6 Hours Per Day (ICD-10-PCS; principal; 2017-09-12)
PROC: 5A1D70Z Performance of Urinary Filtration, Intermittent, Less than 6 Hours Per Day (ICD-10-PCS; 2017-09-14)
PROC: 5A1D70Z Performance of Urinary Filtration, Intermittent, Less than 6 Hours Per Day (ICD-10-PCS; 2017-09-17)
DX: A41.9 Sepsis, unspecified organism (principal); N18.6 End stage renal disease; R65.21 Severe sepsis with septic shock; I13.2 Hypertensive heart and chronic kidney disease with heart failure and with stage 5 chronic kidney disease, or end stage renal disease; G92 Toxic encephalopathy; L03.113 Cellulitis of right upper limb; N39.0 Urinary tract infection, site not specified; N25.81 Secondary hyperparathyroidism of renal origin; E27.40 Unspecified adrenocortical insufficiency; E11.22 Type 2 diabetes mellitus with diabetic chronic kidney disease; E83.39 Other disorders of phosphorus metabolism; I50.9 Heart failure, unspecified; E21.1 Secondary hyperparathyroidism, not elsewhere classified; E11.649 Type 2 diabetes mellitus with hypoglycemia without coma; T41.1X5A Adverse effect of intravenous anesthetics, initial encounter; R41.82 Altered mental status, unspecified; D64.9 Anemia, unspecified; K21.9 Gastro-esophageal reflux disease without esophagitis; E78.00 Pure hypercholesterolemia, unspecified; Z66 Do not resuscitate; E66.01 Morbid (severe) obesity due to excess calories; Z79.4 Long term (current) use of insulin; Z99.2 Dependence on renal dialysis; Z86.73 Personal history of transient ischemic attack (TIA), and cerebral infarction without residual deficits; Z89.511 Acquired absence of right leg below knee; Z89.512 Acquired absence of left leg below knee; Z87.01 Personal history of pneumonia (recurrent)

== ENCOUNTER 2017-10-03 20:07 | Inpatient (IN) | payer MEDICARE, MEDICAID ==
--- NOTE | 2017-10-03 20:58 | C.PDOC ---
Time Seen by Provider: 10/03/17 20:57 Chief Complaint (Nursing): Fever Past Medical History Reviewed: Historical Data, Nursing Documentation, Vital Signs Vital Signs: Last Vital Signs Temp 101.5 F H 10/03/17 20:31 Pulse 124 H 10/03/17 20:31 Resp 18 10/03/17 20:31 BP 105/44 L 10/03/17 20:31 Pulse Ox 99 10/03/17 21:00 - Medical History PMH: Anemia, CHF, HTN, Hypercholesterolemia, Pneumonia, End Stage Renal Disease , Chronic Kidney Disease Denies: Kidney Stones - [facility] Procedures (09/08/17) INSERTION OF INFUSION DEVICE INTO UPPER VEIN, PERC APPROACH (09/08/17) PERFORMANCE OF URINARY FILTRATION, SINGLE (11/27/16) Family History: States: No Known Family Hx - Social History Hx Alcohol Use: No Hx Substance Use: No ED Course And Treatment ECG: Interpreted By Me, Viewed By Me ECG Rhythm: Sinus Rhythm (125), Nonspecific Changes O2 Sat by Pulse Oximetry: 99 Pulse Ox Interpretation: Normal Disposition - Disposition Forms: [employer] (Persian)
--- NOTE | 2017-10-03 21:29 | C.PDOC ---
History Of Present Illness <Josi Birch - Last Filed: 10/03/17 21:31> <Nancy Hartley - Last Filed: 10/03/17 23:04> HPI: 51 year old male with past medical history of diabetes, HTN, dialysis who presents to the ED for a fever and elevated heart rate. Patient was sent to the ED from the dialysis center today for fever and tachycardia. Cannot attain ROS as patient does not speak and can only answer yes or no questions. Patient denies pain. [facility] PMD: Dr. Elaina Edwards Medical History: dialysis, diabetes, HTN Surgical History: unable to obtain Social History: unable to obtain (Josi Birch) History/Exam Limitations: clinical condition <Josi Birch - Last Filed: 10/03/17 21:31> History Per: Patient History/Exam Limitations: clinical condition Onset/Duration Of Symptoms: Hrs Current Symptoms Are (Timing): Still Present Sick Contacts (Context): None Associated Symptoms: Fever Severity: Moderate Pain Scale Rating Of: 2 Additional History Per: Family <Nancy Hartley - Last Filed: 10/03/17 23:04> Time Seen by Provider: 10/03/17 20:57 Chief Complaint (Nursing): Fever Past Medical History - Medical History PMH: Anemia, CHF, HTN, Hypercholesterolemia, Pneumonia, End Stage Renal Disease , Chronic Kidney Disease Denies: Kidney Stones Family History: States: Unknown Family Hx - Social History Hx Alcohol Use: No Hx Substance Use: No <Josi Birch - Last Filed: 10/03/17 21:31> Reviewed: Historical Data, Nursing Documentation, Vital Signs Family History: States: No Known Family Hx <Nancy Hartley - Last Filed: 10/03/17 23:04> Vital Signs: Last Vital Signs Temp 101.5 F H 10/03/17 22:13 Pulse 124 H 10/03/17 20:31 Resp 18 10/03/17 20:31 BP 105/44 L 10/03/17 20:31 Pulse Ox 99 10/03/17 21:39 - [facility] Procedures (09/08/17) INSERTION OF INFUSION DEVICE INTO UPPER VEIN, PERC APPROACH (09/08/17) PERFORMANCE OF URINARY FILTRATION, SINGLE (11/27/16) Review Of Systems Review Of Systems: ROS cannot be obtained secondary to pt's inabilty to answer questions. <Josi Birch - Last Filed: 10/03/17 21:31> Physical Exam - Physical Exam Appears: Confused, Chronically Ill Head: Atraumatic, Normacephalic Eye(s): bilateral: Normal Inspection, PERRL, EOMI Oral Mucosa: Dry Cardiovascular: Rhythm Regular, Other (tachycardia) Respiratory: Normal Breath Sounds Gastrointestinal/Abdominal: Normal Exam, Soft, No Tenderness, Other (obese) Extremity: Other (bilateral below the knee amputation) Neurological/Psych: No Oriented x3 <Josi Birch - Last Filed: 10/03/17 21:31> - Physical Exam Appears: Confused, Chronically Ill Skin: Warm, Dry Head: Normacephalic Eye(s): bilateral: Normal Inspection Oral Mucosa: Dry Neck: Supple Chest: Symmetrical Cardiovascular: Rhythm Regular (tachy) Respiratory: No Rales, Rhonchi Gastrointestinal/Abdominal: Soft, No Tenderness, No Distention Back: No CVA Tenderness Extremity: Other Neurological/Psych: No Oriented x3 Disoriented To: Place, Time, Situation Gait: Unable To Assess (b/l bka) <Nancy Hartley - Last Filed: 10/03/17 23:04> ED Course And Treatment O2 Sat by Pulse Oximetry: 99 <Josi Birch - Last Filed: 10/03/17 21:31> - Laboratory Results Result Diagrams: 10/03/17 21:55 10/03/17 21:55 ECG: Interpreted By Me, Viewed By Me ECG Rhythm: Sinus Tachycardia (125), Nonspecific Changes Pulse Ox Interpretation: Normal - Radiology CXR: Interpreted by Me, Viewed By Me CXR Interpretation: Yes: Cardiomegaly. No: Infiltrates, Fracture Progress Note: as per family pt is dnr/dni <Nancy Hartley - Last Filed: 10/03/17 23:04> Medical Decision Making <Josi Birch - Last Filed: 10/03/17 21:31> <Nancy Hartley - Last Filed: 10/03/17 23:04> Medical Decision Making: Fever - f/u chest xray - f/u cbc - f/u cmp Tachycardia - EKG: Sinus Tachycardia - f/u trop - f/u bnp (Josi Birch) Disposition <Josi Birch - Last Filed: 10/03/17 21:31> Discussed With DrOscar: Yordy Edwards Comment: accepted the pt on his service and took over the care at 11 PM Doctor Will See Patient In The: ED Counseled Patient/Family Regarding: Studies Performed, Diagnosis - Disposition Disposition Time: 23:03 <Nancy Hartley - Last Filed: 10/03/17 23:04> - Disposition Disposition: HOSPITALIZED Condition: FAIR Forms: [employer] ([place]) - Clinical Impression Clinical Impression: Fever, Tachycardia, ESRD on hemodialysis Decision To Admit <Josi Birch - Last Filed: 10/03/17 21:31> - Pt Status Changed To: Hospital Disposition Of: Inpatient - Admit Certification Admit to Inpatient:: After my assessment, the patient will require hospitalization for at least two midnights. This is because of the severity of symptoms shown, intensity of services needed, and/or the medical risk in this patient being treated as an outpatient. - InPatient: Physician Admission Certification:: After my assessment, the patient will require hospitalization for at least two midnights. This is because of the severity of symptoms shown, intensity of services needed, and/or the medical risk in this patient being treated as an outpatient. - . Bed Request Type: Regular Admitting Physician: Yordy Edwards <Nancy Hartley - Last Filed: 10/03/17 23:04> - . Patient Diagnosis: Fever, Tachycardia, ESRD on hemodialysis
[2017-10-03 22:14] LABS: INR 1.4; PROTHROMBIN TIME 15.9 SECONDS (9.7-12.2)
[2017-10-03 22:23] LABS: ALB/GLOB RATIO 0.7 (1.0-2.1); ALBUMIN 2.8 g/dL (3.5-5.0); ALT/SGPT 20 U/L (21-72); AST/SGOT 64 U/L (17-59); BLOOD UREA NITROGEN 10 mg/dL (9-20); CALCIUM 8.6 mg/dl (8.6-10.4); GFR AFRICAN-AMERICAN 38; GFR NON-AFRICAN AMERICAN 32
[2017-10-03 22:27] LABS: B-TYPE NATRIURETIC PEPTIDE 7320 pg/mL (0-900)
[2017-10-03 22:30] LABS: HEMOGLOBIN 8.4 g/dL (12.0-18.0); MEAN CORPUSCULAR HEMOGLOBIN 26.1 pg (27.0-31.0); MEAN CORPUSCULAR HGB CONC 31.5 g/dL (33.0-37.0); MEAN PLATELET VOLUME 9.2 fL (7.2-11.7); PLATELET COUNT 273 K/uL (130-400); RED CELL DISTRIBUTION WIDTH 22.7 % (11.5-14.5); WHITE BLOOD COUNT 8.6 K/uL (4.8-10.8)
[2017-10-03 22:31] LABS: MEAN CELL VOLUME 82.8 fL (80.0-94.0)
[2017-10-03 23:42] LABS: EOSINOPHIL 9 % (0-4); LYMPHOCYTE 23 % (20-40); MICROCYTOSIS SLIGHT; MONOCYTE 14 % (0-10); NEUTROPHIL 54 % (50-75); PLATELET ESTIMATE NORMAL (NORMAL); TOTAL CELLS COUNTED 100
[2017-10-03 23:43] LABS: HYPOCHROMIC SLIGHT; LARGE PLATELETS PRESENT
[2017-10-04] MEDS: (Novolog) Insulin Aspart, Recombinant 100 u/ml 10 ml vial SC SCH ×4 (08:37→21:36)
--- NOTE | 2017-10-04 09:11 | RAD ---
Chest x-ray single frontal view History: Chest pain. Comparison: 09/11/2017 Findings: Right hilar prominence. Elevated right hemidiaphragm. Venous congestion. Mild cardiomegaly. Degenerative changes in the spine and shoulders. Impression: Right hilar prominence. Elevated right hemidiaphragm. Venous congestion. Mild cardiomegaly.
[2017-10-04] MEDS ORDERED: SILVER SULFADIAZINE TP SCH (10:00)
[2017-10-04] MEDS ORDERED: Enoxaparin 150 mg Syringe SC SCH (10:00)
[2017-10-04] MEDS: Multivitamin Vitamin B Complex (Nephro-Vite) Tab PO SCH (11:05)
--- NOTE | 2017-10-04 11:43 | PCM.SURG1 ---
Surgeon's Initial Post Op Note - Surgeon's Notes Surgeon: Gee Worthington MD Assembly Riveter: NONE Type of Anesthesia: Local Pre-Operative Diagnosis: ESRD, poor venous access Operative Findings: Right arm swelling, thrombosed left arm AVG. Post-Operative Diagnosis: ESRD, Operation Performed: Left single lumen picc midline, 33 cm. Specimen/Specimens Removed: none Estimated Blood Loss: EBL {In ML}: 2 Blood Products Given: N/A Drains Used: No Drains Post-Op Condition: Fair Date of Surgery/Procedure: 10/04/17 Time of Surgery/Procedure: 11:00
--- NOTE | 2017-10-04 11:52 | US ---
Date of procedure: 10/04/2017 Procedure: Ultrasound guidance for vascular access HISTORY: Infection requiring long-term IV antibiotics TECHNIQUE: Following informed consent and procedure time-out, the patient placed supine on the interventional table and the right arm prepped and draped in the usual sterile fashion. Ultrasound showed a patent and compressible brachial vein. After the skin was anesthetized with lidocaine, the basilic vein was accessed with micro micropuncture technique using ultrasound guidance. An image documenting ultrasound guidance for vascular access was permanently saved. IMPRESSION: Ultrasound guidance for vascular access for placement of PICC.
[2017-10-04] MEDS: Azithromycin 500 MG in Sodium Chloride 0.9% 250 ML IVPB SCH (12:26)
[2017-10-04] MEDS: Mag&Al/Simet/Diphen/Lido 237 ML KIT PO SCH ×3 (12:26→21:25)
[2017-10-04] MEDS: Silver Sulfadiazine 1% Cream (20 gm) TOP SCH (12:26)
--- NOTE | 2017-10-04 16:14 | CP.PCM.HP ---
Present on Admission - Present on Admission Any Indicators Present on Admission: No Past Patient History - Past Medical History & Family History Past Medical History?: Yes - Past Social History Smoking Status: Unknown If Ever Smoked - CARDIAC Hx Congestive Heart Failure: Yes Hx Hypercholesterolemia: Yes Hx Hypertension: Yes - PULMONARY Hx Pneumonia: Yes - NEUROLOGICAL HX Cerebrovascular Accident: Yes - HEENT Hx HEENT Problems: No - RENAL Hx Chronic Kidney Disease: Yes Hx Kidney Stones: No - ENDOCRINE/METABOLIC Hx Diabetes Mellitus Type 1: Yes - HEMATOLOGICAL/ONCOLOGICAL Hx Anemia: Yes - INTEGUMENTARY Hx Dermatological Problems: No - MUSCULOSKELETAL/RHEUMATOLOGICAL Hx Musculoskeletal Disorders: No Hx Falls: No Other/Comment: priscila leg amputee - GASTROINTESTINAL Hx Gastrointestinal Disorders: No - GENITOURINARY/GYNECOLOGICAL Hx Genitourinary Disorders: No - PSYCHIATRIC Hx Substance Use: No - SURGICAL HISTORY Hx Surgeries: Yes Other/Comment: Bilateral BKA. 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 - ANESTHESIA Hx Anesthesia: Yes Hx Anesthesia Reactions: No Hx Malignant Hyperthermia: No Meds Allergies/Adverse Reactions: Allergies Allergy/AdvReac Type Severity Reaction Status Date / Time hydromorphone AdvReac Unknown DIAPHORETIC, Verified 09/17/17 09:37 UNCONSCIOUS Physical Exam - Constitutional Appears: No Acute Distress - Head Exam Head Exam: ATRAUMATIC, NORMAL INSPECTION, NORMOCEPHALIC - Eye Exam Eye Exam: EOMI, Normal appearance, PERRL Pupil Exam: NORMAL ACCOMODATION, PERRL - ENT Exam ENT Exam: Mucous Membranes Moist - Neck Exam Neck exam: Positive for: Full Rom - Respiratory Exam Respiratory Exam: Decreased Breath Sounds - Cardiovascular Exam Cardiovascular Exam: REGULAR RHYTHM, +S1, +S2 - GI/Abdominal Exam GI & Abdominal Exam: Diminished Bowel Sounds, Soft - Rectal Exam Rectal Exam: Deferred - Neurological Exam Neurological exam: Alert Results - Vital Signs Recent Vital Signs: Last Vital Signs Temp 98.1 F 10/04/17 07:52 Pulse 112 H 10/04/17 14:53 Resp 16 10/04/17 14:53 BP 97/46 L 10/04/17 14:53 Pulse Ox 100 10/04/17 14:53 - Labs Result Diagrams: 10/03/17 21:55 10/03/17 21:55 Labs: Laboratory Results - last 24 hr 10/03/17 10/03/17 10/03/17 21:55 21:55 21:55 WBC 8.6 RBC 3.20 L Hgb 8.4 L Hct 26.5 L MCV 82.8 D MCH 26.1 L MCHC 31.5 L RDW 22.7 H Plt Count 273 MPV 9.2 Neutrophils % (Manual) 54 Lymphocytes % (Manual) 23 Monocytes % (Manual) 14 H Eosinophils % (Manual) 9 H Platelet Estimate Normal Large Platelets Present Hypochromasia (manual) Slight Microcytosis (manual) Slight PT 15.9 H INR 1.4 APTT 36 H Sodium 134 Potassium 3.7 Chloride 94 L Carbon Dioxide 32 H Anion Gap 11 BUN 10 Creatinine 2.2 H Est GFR ( Amer) 38 Est GFR (Non-Af Amer) 32 POC Glucose (mg/dL) Random Glucose 143 H Calcium 8.6 Total Bilirubin 1.0 AST 64 H D ALT 20 L D Alkaline Phosphatase 336 H Troponin I < 0.0120 NT-Pro-B Natriuret Pep 7320 H Total Protein 7.1 Albumin 2.8 L Globulin 4.3 H Albumin/Globulin Ratio 0.7 L 10/04/17 10/04/17 08:14 12:58 WBC RBC Hgb Hct MCV MCH MCHC RDW Plt Count MPV Neutrophils % (Manual) Lymphocytes % (Manual) Monocytes % (Manual) Eosinophils % (Manual) Platelet Estimate Large Platelets Hypochromasia (manual) Microcytosis (manual) PT INR APTT Sodium Potassium Chloride Carbon Dioxide Anion Gap BUN Creatinine Est GFR ( Amer) Est GFR (Non-Af Amer) POC Glucose (mg/dL) 146 H 137 H Random Glucose Calcium Total Bilirubin AST ALT Alkaline Phosphatase Troponin I NT-Pro-B Natriuret Pep Total Protein Albumin Globulin Albumin/Globulin Ratio Assessment & Plan (1) ESRD on hemodialysis Status: Acute (2) Fever Status: Acute (3) Tachycardia Status: Acute (4) Bacteremia Status: Acute (5) CHF exacerbation Status: Acute (6) Dyspnea Status: Acute (7) ESRD (end stage renal disease) on dialysis Status: Acute (8) High cholesterol Status: Acute (9) Hypotension Status: Acute (10) Pneumonia Status: Acute (11) Prophylactic measure Status: Acute (12) Sepsis Status: Acute (13) Septic shock Status: Acute Priority: High (14) UTI (urinary tract infection), bacterial Status: Acute Priority: High (15) CHF (congestive heart failure) Status: Chronic Priority: Medium (16) Diabetes mellitus Status: Chronic (17) ESRD (end stage renal disease) Status: Chronic Priority: Medium (18) HTN (hypertension) Status: Chronic
[2017-10-05] MEDS: Mag&Al/Simet/Diphen/Lido 237 ML KIT PO SCH ×4 (04:03→21:33)
[2017-10-05] MEDS: (Novolog) Insulin Aspart, Recombinant 100 u/ml 10 ml vial SC SCH ×4 (08:08→21:36)
[2017-10-05] MEDS: Enoxaparin 40 mg Syringe SC SCH (11:42)
[2017-10-05] MEDS: Silver Sulfadiazine 1% Cream (20 gm) TOP SCH (11:42)
[2017-10-05] MEDS: Multivitamin Vitamin B Complex (Nephro-Vite) Tab PO SCH (12:30)
[2017-10-05] MEDS: Azithromycin 500 MG in Sodium Chloride 0.9% 250 ML IVPB SCH (12:30)
--- NOTE | 2017-10-05 13:23 | CARD ---
APPROVED REPORT EKG Measurement Heart [id number] <Conclusion> Sinus tachycardia Septal infarct, age undetermined Inferior infarct, age undetermined Abnormal ECG
[2017-10-05 15:33] LABS: SQUAMOUS EPITHIAL < 1 /hpf (0-5); URINE BACTERIA RARE (<OCC); URINE BILIRUBIN NEGATIVE (NEGATIVE); URINE BLOOD NEGATIVE (NEGATIVE); URINE CLARITY Hazy (Clear); URINE COLOR Amber (YELLOW); URINE GLUCOSE (UA) NORMAL (Normal); URINE LEUKOCYTE ESTERASE NEG Leu/uL (Negative); URINE PROTEIN 2+ mg/dL (NEGATIVE); URINE UROBILINOGEN NORMAL mg/dL (0.2-1.0)
[2017-10-05] MEDS: Albumin Human 25% (12.5 gm/50 ml) IV PRN (17:07)
[2017-10-05] MEDS: Paricalcitol 2 mcg/ml Inj IV SCH (17:08)
[2017-10-05] MEDS: Epoetin Alfa 10,000 unit/ml Dialysis IV SCH (17:08)
--- NOTE | 2017-10-05 18:37 | CP.PCM.PN ---
Subjective - Date & Time of Evaluation Date of Evaluation: 10/05/17 Time of Evaluation: 09:20 - Subjective Subjective: clinically same Objective - Vital Signs/Intake and Output Vital Signs (last 24 hours): Temp Pulse Resp BP Pulse Ox 98.8 F 106 H 18 94/44 L 99 10/05/17 14:55 10/05/17 17:38 10/05/17 17:38 10/05/17 17:38 10/05/17 16:48 Intake and Output: 10/05/17 10/05/17 06:59 18:59 Intake Total 350 Output Total 1 50 Balance 349 -50 - Medications Medications: Current Medications Acetaminophen (Tylenol 325mg Tab) 325 mg PO Q6H PRN PRN Reason: Pain, moderate (4-7) Albumin Human (Albumin Human 25% (12.5 Gm/50 Ml)) 12.5 gm IV MWF PRN PRN Reason: hypotension Stop: 10/11/17 16:48 Last Admin: 10/05/17 17:07 Dose: 12.5 gm Aspirin (Aspirin Chewable) 81 mg PO DAILY [facility] Last Admin: 10/05/17 11:42 Dose: 81 mg Enoxaparin Sodium (Lovenox) 40 mg SC DAILY [facility] Last Admin: 10/05/17 11:42 Dose: 40 mg Epoetin Michel (Procrit) 10,000 unit IV MWF [facility] Stop: 10/17/17 09:01 Last Admin: 10/05/17 17:08 Dose: 10,000 unit Famotidine (Pepcid) 20 mg PO Q12 [facility] Last Admin: 10/05/17 11:41 Dose: 20 mg Azithromycin 500 mg/ Sodium (Chloride) 250 mls @ 250 mls/hr IVPB DAILY [facility] Last Admin: 10/05/17 12:30 Dose: 250 mls/hr Ceftriaxone Sodium 1 gm/ (Sodium Chloride) 100 mls @ 100 mls/hr IVPB DAILY [facility] Last Admin: 10/05/17 11:42 Dose: 100 mls/hr Vancomycin/Sodium Chloride (Vancomycin 1 Gm/Ns 200 Ml) 1 gm in 200 mls @ 133 mls/hr IVPB ONCE ONE Stop: 10/05/17 20:30 Insulin Aspart (Novolog) 0 unit SC ACHS [facility] PRN Reason: Protocol Last Admin: 10/05/17 12:26 Dose: Not Given Paricalcitol (Zemplar) 2 mcg IV MWF [facility] Stop: 10/17/17 09:01 Last Admin: 10/05/17 17:08 Dose: 2 mcg Rosuvastatin Calcium (Crestor) 10 mg PO HS [facility] Saliva Substitute (First Magic Mouthwash) 3 ml PO Q6H [facility] Last Admin: 10/05/17 11:42 Dose: 3 ml Sevelamer Carbonate (Renvela) 1,600 mg PO TTS [facility] Last Admin: 10/04/17 11:05 Dose: 1,600 mg Silver Sulfadiazine (Silvadene 1% 20 Gm) 1 ea TOP DAILY [facility] Last Admin: 10/05/17 11:42 Dose: 1 applic Vitamin B Complex/Vit C/Folic Acid (Nephro-Mark) 1 tab PO DAILY [facility] Last Admin: 10/05/17 12:30 Dose: 1 tab - Labs Labs: 10/03/17 21:55 10/03/17 21:55 PT 15.9 SECONDS (9.7-12.2) H 10/03/17 21:55 INR 1.4 10/03/17 21:55 APTT 36 SECONDS (21-34) H 10/03/17 21:55 - Constitutional Appears: Well - Head Exam Head Exam: ATRAUMATIC, NORMAL INSPECTION, NORMOCEPHALIC - Eye Exam Eye Exam: EOMI, Normal appearance, PERRL Pupil Exam: NORMAL ACCOMODATION, PERRL - ENT Exam ENT Exam: Mucous Membranes Moist, Normal Exam - Neck Exam Neck Exam: Full ROM, Normal Inspection. absent: Lymphadenopathy - Respiratory Exam Respiratory Exam: Decreased Breath Sounds - Cardiovascular Exam Cardiovascular Exam: REGULAR RHYTHM, +S1, +S2 - GI/Abdominal Exam GI & Abdominal Exam: Soft, Diminished Bowel Sounds - Rectal Exam Rectal Exam: Deferred Assessment and Plan (1) ESRD on hemodialysis Status: Acute (2) Fever Status: Acute (3) Tachycardia Status: Acute (4) Bacteremia Status: Acute (5) CHF exacerbation Status: Acute (6) Dyspnea Status: Acute (7) ESRD (end stage renal disease) on dialysis Status: Acute (8) High cholesterol Status: Acute (9) Hypotension Status: Acute (10) Pneumonia Status: Acute (11) Prophylactic measure Status: Acute (12) Sepsis Status: Acute (13) Septic shock Status: Acute (14) UTI (urinary tract infection), bacterial Status: Acute (15) CHF (congestive heart failure) Status: Chronic (16) Diabetes mellitus Status: Chronic (17) ESRD (end stage renal disease) Status: Chronic (18) HTN (hypertension) Status: Chronic
--- NOTE | 2017-10-05 18:46 | CP.PCM.CON ---
History of Present Illness - History of Present Illness History of Present Illness: INFECTIOUS DISEASE CONSULT; HPI; 51 year old male with past medical history of diabetes, HTN, dialysis who presents to the ED for a fever and elevated heart rate. Patient was sent to the ED from the dialysis center today for fever and tachycardia. pATIENT WAS ALSO NOTICED TO HAVE ON THE RIGHT AVF-SITE. Cannot attain ROS as patient does not speak and can only answer yes or no questions. Patient denies pain. PATIENT IS STATUS POST LEFT SINGLE-LUMEN PICC-MIDLINE BY IR ON 10/05/17 PATIENT ALSO WAS FOUND TO HAVE THROMBOSED RIGHT AVG PER IR NOTE. INFECTIOUS DISEASE CONSULTATION REQUESTED BY PMD FOR ELEVATED FEVER AND SEPSIS. [facility] PMD: Dr. Elaina Edwards Medical History: ESRD ON HD MWF, diabetes, HTN Surgical History: B/L BKA. 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 - RENAL Hx Renal Failure: Yes - ENDOCRINE/METABOLIC Hx Diabetes Mellitus Type 1: Yes - HEMATOLOGICAL/ONCOLOGICAL Hx Blood Disorders: Yes Hx Anemia: Yes - INTEGUMENTARY Hx Dermatological Problems: No - MUSCULOSKELETAL/RHEUMATOLOGICAL Hx Musculoskeletal Disorders: No Hx Falls: No Hx Unsteady Gait: Yes Other/Comment: priscila leg amputee - GASTROINTESTINAL Hx Gastrointestinal Disorders: Yes Hx Gastroesophageal Reflux: Yes - GENITOURINARY/GYNECOLOGICAL Hx Genitourinary Disorders: No - PSYCHIATRIC Hx Substance Use: No - SURGICAL HISTORY Hx Surgeries: Yes Hx Amputation: Yes Hx Vascular Access Device: Yes Other/Comment: Bilateral BKA. 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 - ANESTHESIA Hx Anesthesia: Yes Hx Anesthesia Reactions: No Hx Malignant Hyperthermia: No Has any member of the family had a problem w/ anesthesia?: No Meds Allergies/Adverse Reactions: Allergies Allergy/AdvReac Type Severity Reaction Status Date / Time hydromorphone AdvReac Unknown DIAPHORETIC, Verified 09/17/17 09:37 UNCONSCIOUS - Medications Medications: Current Medications Acetaminophen (Tylenol 325mg Tab) 325 mg PO Q6H PRN PRN Reason: Pain, moderate (4-7) Albumin Human (Albumin Human 25% (12.5 Gm/50 Ml)) 12.5 gm IV MWF PRN PRN Reason: hypotension Stop: 10/11/17 16:48 Last Admin: 10/05/17 17:07 Dose: 12.5 gm Aspirin (Aspirin Chewable) 81 mg PO DAILY [facility] Last Admin: 10/05/17 11:42 Dose: 81 mg Enoxaparin Sodium (Lovenox) 40 mg SC DAILY [facility] Last Admin: 10/05/17 11:42 Dose: 40 mg Epoetin Michel (Procrit) 10,000 unit IV MWF [facility] Stop: 10/17/17 09:01 Last Admin: 10/05/17 17:08 Dose: 10,000 unit Famotidine (Pepcid) 20 mg PO Q12 [facility] Last Admin: 10/05/17 11:41 Dose: 20 mg Azithromycin 500 mg/ Sodium (Chloride) 250 mls @ 250 mls/hr IVPB DAILY [facility] Last Admin: 10/05/17 12:30 Dose: 250 mls/hr Ceftriaxone Sodium 1 gm/ (Sodium Chloride) 100 mls @ 100 mls/hr IVPB DAILY [facility] Last Admin: 10/05/17 11:42 Dose: 100 mls/hr Vancomycin/Sodium Chloride (Vancomycin 1 Gm/Ns 200 Ml) 1 gm in 200 mls @ 133 mls/hr IVPB ONCE ONE Stop: 10/05/17 20:30 Insulin Aspart (Novolog) 0 unit SC ACHS [facility] PRN Reason: Protocol Last Admin: 10/05/17 12:26 Dose: Not Given Paricalcitol (Zemplar) 2 mcg IV MWF [facility] Stop: 10/17/17 09:01 Last Admin: 10/05/17 17:08 Dose: 2 mcg Rosuvastatin Calcium (Crestor) 10 mg PO HS [facility] Saliva Substitute (First Magic Mouthwash) 3 ml PO Q6H [facility] Last Admin: 10/05/17 11:42 Dose: 3 ml Sevelamer Carbonate (Renvela) 1,600 mg PO TTS [facility] Last Admin: 10/04/17 11:05 Dose: 1,600 mg Silver Sulfadiazine (Silvadene 1% 20 Gm) 1 ea TOP DAILY [facility] Last Admin: 10/05/17 11:42 Dose: 1 applic Vitamin B Complex/Vit C/Folic Acid (Nephro-Mark) 1 tab PO DAILY [facility] Last Admin: 10/05/17 12:30 Dose: 1 tab Physical Exam - Constitutional Appears: No Acute Distress, Chronically Ill Additional comments: MODERATELY OBESE, BILATERAL AMPUTEE. - Head Exam Head Exam: NORMAL INSPECTION - Eye Exam Eye Exam: PERRL - ENT Exam ENT Exam: Mucous Membranes Dry - Neck Exam Neck exam: Positive for: Normal Inspection. Negative for: Meningismus - Respiratory Exam Respiratory Exam: Decreased Breath Sounds - Cardiovascular Exam Cardiovascular Exam: Tachycardia, REGULAR RHYTHM, +S1, +S2 - GI/Abdominal Exam GI & Abdominal Exam: Normal Bowel Sounds, Soft. absent: Organomegaly - Extremities Exam Additional comments: B/L AKA. - Expanded Upper Extremities Exam Right Upper Arm exam: erythema, swelling, tenderness (AVG SUPERFICIAL ULCERS., bRUIT WEAK.) - Neurological Exam Neurological exam: Alert, Altered, CN II-XII Intact - Psychiatric Exam Psychiatric exam: Flat Affect - Skin Skin Exam: Normal Color, Warm Results - Vital Signs Recent Vital Signs: Last Vital Signs Temp 98.8 F 10/05/17 14:55 Pulse 106 H 10/05/17 17:38 Resp 18 10/05/17 17:38 BP 94/44 L 10/05/17 17:38 Pulse Ox 99 10/05/17 16:48 - Labs Result Diagrams: 10/06/17 06:14 10/06/17 06:14 Labs: Laboratory Results - last 24 hr 10/04/17 10/05/17 10/05/17 21:24 07:40 09:47 POC Glucose (mg/dL) 141 H 146 H Urine Color Urine Clarity Urine pH Ur Specific [place] Urine Protein Urine Glucose (UA) Urine Ketones Urine Blood Urine Nitrate Urine Bilirubin Urine Urobilinogen Ur Leukocyte Esterase Urine WBC (Auto) Urine RBC (Auto) Ur Squamous Epith Cells Urine Bacteria Influenza Typ A,B (EIA) Negative for flu a/b 10/05/17 10/05/17 10/05/17 11:57 15:13 16:10 POC Glucose (mg/dL) 135 H 135 H Urine Color [place] Urine Clarity Hazy Urine pH 7.0 Ur Specific [place] 1.014 Urine Protein 2+ H Urine Glucose (UA) Normal Urine Ketones Negative Urine Blood Negative Urine Nitrate Negative Urine Bilirubin Negative Urine Urobilinogen Normal Ur Leukocyte Esterase Neg Urine WBC (Auto) 2 Urine RBC (Auto) 1 Ur Squamous Epith Cells < 1 Urine Bacteria Rare Influenza Typ A,B (EIA) Assessment & Plan (1) Sepsis Status: Acute (2) Fever Assessment and Plan: PANCULTURE ESR CRP CONTINUE iv ZOSYN 2.25 EVERY 8 HOURLY 2./. CONTINUE VANCOMYCIN 1 G POST-EACH HEMODIALYSIS MWF X 5 DOSES. VASCULAR SURGERY EVALUATION FOR THROMBOSED RIGHT AVG ? INFECTED RT UPPER ARM SWELLING/ULCERS SUPERFICIAL AND CELLULITIS. VANC TROUGH PRIOR TO 4TH DOSE AND KEEP BETWEEN 10-20MG/L. wILL FOLLOW ALONG WITH YOU. Status: Acute (3) Tachycardia Status: Acute (4) AV graft thrombosis Assessment and Plan: VASCULAR - SURGERY EVALUATION IN PROGRESS. Status: Acute (5) ESRD (end stage renal disease) on dialysis Status: Acute (6) Diabetes mellitus Status: Chronic
[2017-10-05] MEDS ORDERED: Vancomycin 1 gm/NS 200 ml 1 GM/200 ML BAG IVPB ONE (19:00)
[2017-10-06] MEDS: Mag&Al/Simet/Diphen/Lido 237 ML KIT PO SCH ×4 (04:00→21:42)
[2017-10-06 06:22] LABS: HEMOGLOBIN 7.1 g/dL (12.0-18.0); MEAN CELL VOLUME 82.6 fL (80.0-94.0); MEAN CORPUSCULAR HEMOGLOBIN 26.4 pg (27.0-31.0); MEAN PLATELET VOLUME 9.1 fL (7.2-11.7); RBC 2.7 Mil/uL (4.40-5.90); WHITE BLOOD COUNT 5.7 K/uL (4.8-10.8)
[2017-10-06 06:47] LABS: CALCIUM 8.2 mg/dl (8.6-10.4)
[2017-10-06] MEDS: (Novolog) Insulin Aspart, Recombinant 100 u/ml 10 ml vial SC SCH ×3 (08:02→17:43)
[2017-10-06] MEDS: Multivitamin Vitamin B Complex (Nephro-Vite) Tab PO SCH (09:16)
[2017-10-06] MEDS: Enoxaparin 40 mg Syringe SC SCH (09:16)
[2017-10-06] MEDS: Silver Sulfadiazine 1% Cream (20 gm) TOP SCH (09:21)
--- NOTE | 2017-10-06 09:37 | CP.PCM.CON ---
History of Present Illness - History of Present Illness History of Present Illness: Vascular Surgery- Dr. Carrasco 51M w/ pmhx significant for diabetes, CVA, HTN, on HD was admitted to the hosptial for fever and tachycardia. Surgery was consulted for wounds on Right AVF. Pt is aphasic and shakes yes or no to questions. unable to get complete ROS and hx from patient Pt is DNR/DNI PMH: as above PSH: AVF formation, bilateral LE amputation ALL: hydromorphone SocialHx: [place] Review of Systems - Review of Systems All systems: reviewed and no additional remarkable complaints except - Constitutional Constitutional: As Per HPI 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 - RENAL Hx Renal Failure: Yes - ENDOCRINE/METABOLIC Hx Diabetes Mellitus Type 1: Yes - HEMATOLOGICAL/ONCOLOGICAL Hx Blood Disorders: Yes Hx Anemia: Yes - INTEGUMENTARY Hx Dermatological Problems: No - MUSCULOSKELETAL/RHEUMATOLOGICAL Hx Musculoskeletal Disorders: No Hx Falls: No Hx Unsteady Gait: Yes Other/Comment: priscila leg amputee - GASTROINTESTINAL Hx Gastrointestinal Disorders: Yes Hx Gastroesophageal Reflux: Yes - GENITOURINARY/GYNECOLOGICAL Hx Genitourinary Disorders: No - PSYCHIATRIC Hx Substance Use: No - SURGICAL HISTORY Hx Surgeries: Yes Hx Amputation: Yes Hx Vascular Access Device: Yes Other/Comment: Bilateral BKA. 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 - ANESTHESIA Hx Anesthesia: Yes Hx Anesthesia Reactions: No Hx Malignant Hyperthermia: No Has any member of the family had a problem w/ anesthesia?: No Meds Allergies/Adverse Reactions: Allergies Allergy/AdvReac Type Severity Reaction Status Date / Time hydromorphone AdvReac Unknown DIAPHORETIC, Verified 09/17/17 09:37 UNCONSCIOUS - Medications Medications: Current Medications Acetaminophen (Tylenol 325mg Tab) 325 mg PO Q6H PRN PRN Reason: Pain, moderate (4-7) Albumin Human (Albumin Human 25% (12.5 Gm/50 Ml)) 12.5 gm IV MWF PRN PRN Reason: hypotension Stop: 10/11/17 16:48 Last Admin: 10/05/17 17:07 Dose: 12.5 gm Aspirin (Aspirin Chewable) 81 mg PO DAILY [facility] Last Admin: 10/06/17 09:16 Dose: 81 mg Enoxaparin Sodium (Lovenox) 40 mg SC DAILY [facility] Last Admin: 10/06/17 09:16 Dose: 40 mg Epoetin Michel (Procrit) 10,000 unit IV MWF [facility] Stop: 10/17/17 09:01 Last Admin: 10/05/17 17:08 Dose: 10,000 unit Famotidine (Pepcid) 20 mg PO Q12 [facility] Last Admin: 10/06/17 09:16 Dose: 20 mg Piperacillin Sod/Tazobactam (Sod 2.25 gm/ Sodium Chloride) 100 mls @ 100 mls/ hr IVPB Q8H [facility] Last Admin: 10/06/17 05:05 Dose: 100 mls/hr Insulin Aspart (Novolog) 0 unit SC ACHS [facility] PRN Reason: Protocol Last Admin: 10/06/17 08:02 Dose: Not Given Paricalcitol (Zemplar) 2 mcg IV MWF [facility] Stop: 10/17/17 09:01 Last Admin: 10/05/17 17:08 Dose: 2 mcg Rosuvastatin Calcium (Crestor) 10 mg PO HS [facility] Saliva Substitute (First Magic Mouthwash) 3 ml PO Q6H [facility] Last Admin: 10/06/17 09:16 Dose: 3 ml Sevelamer Carbonate (Renvela) 1,600 mg PO TTS [facility] Last Admin: 10/06/17 09:16 Dose: 1,600 mg Silver Sulfadiazine (Silvadene 1% 20 Gm) 1 ea TOP DAILY [facility] Last Admin: 10/06/17 09:21 Dose: 1 applic Vitamin B Complex/Vit C/Folic Acid (Nephro-Mark) 1 tab PO DAILY [facility] Last Admin: 10/06/17 09:16 Dose: 1 tab Physical Exam - Constitutional Appears: Non-toxic, No Acute Distress - Eye Exam Eye Exam: EOMI - Respiratory Exam Respiratory Exam: NORMAL BREATHING PATTERN. absent: Accessory Muscle Use, Respiratory Distress - Cardiovascular Exam Cardiovascular Exam: +S1, +S2. absent: Bradycardia, Tachycardia - GI/Abdominal Exam GI & Abdominal Exam: Soft. absent: Guarding, Hernia, Tenderness - Extremities Exam Additional comments: RUE fistula palpable thrill Stage 1 ulcer, no signs of deterioration of fistula Results - Vital Signs Recent Vital Signs: Last Vital Signs Temp 98.6 F 10/06/17 08:09 Pulse 100 H 10/06/17 08:09 Resp 20 10/06/17 08:09 BP 94/61 L 10/06/17 08:09 Pulse Ox 100 10/06/17 08:09 - Labs Result Diagrams: 10/06/17 06:14 10/06/17 06:14 Labs: Laboratory Results - last 24 hr 10/05/17 10/05/17 10/05/17 09:47 11:57 15:13 WBC RBC Hgb Hct MCV MCH MCHC RDW Plt Count MPV Sodium Potassium Chloride Carbon Dioxide Anion Gap BUN Creatinine Est GFR ( Amer) Est GFR (Non-Af Amer) POC Glucose (mg/dL) 135 H Random Glucose Calcium Urine Color Colette Urine Clarity Hazy Urine pH 7.0 Ur Specific [place] 1.014 Urine Protein 2+ H Urine Glucose (UA) Normal Urine Ketones Negative Urine Blood Negative Urine Nitrate Negative Urine Bilirubin Negative Urine Urobilinogen Normal Ur Leukocyte Esterase Neg Urine WBC (Auto) 2 Urine RBC (Auto) 1 Ur Squamous Epith Cells < 1 Urine Bacteria Rare Influenza Typ A,B (EIA) Negative for flu a/b 10/05/17 10/05/17 10/06/17 16:10 21:34 06:14 WBC 5.7 RBC 2.70 L Hgb 7.1 L Hct 22.3 L MCV 82.6 MCH 26.4 L MCHC 32.0 L RDW 22.0 H Plt Count 242 MPV 9.1 Sodium Potassium Chloride Carbon Dioxide Anion Gap BUN Creatinine Est GFR ( Amer) Est GFR (Non-Af Amer) POC Glucose (mg/dL) 135 H 146 H Random Glucose Calcium Urine Color Urine Clarity Urine pH Ur Specific [place] Urine Protein Urine Glucose (UA) Urine Ketones Urine Blood Urine Nitrate Urine Bilirubin Urine Urobilinogen Ur Leukocyte Esterase Urine WBC (Auto) Urine RBC (Auto) Ur Squamous Epith Cells Urine Bacteria Influenza Typ A,B (EIA) 10/06/17 10/06/17 06:14 07:39 WBC RBC Hgb Hct MCV MCH MCHC RDW Plt Count MPV Sodium 135 Potassium 3.6 Chloride 93 L Carbon Dioxide 33 H Anion Gap 12 BUN 15 Creatinine 3.4 H Est GFR ( Amer) 23 Est GFR (Non-Af Amer) 19 POC Glucose (mg/dL) 117 H Random Glucose 123 H Calcium 8.2 L Urine Color Urine Clarity Urine pH Ur Specific [place] Urine Protein Urine Glucose (UA) Urine Ketones Urine Blood Urine Nitrate Urine Bilirubin Urine Urobilinogen Ur Leukocyte Esterase Urine WBC (Auto) Urine RBC (Auto) Ur Squamous Epith Cells Urine Bacteria Influenza Typ A,B (EIA) Assessment & Plan - Assessment and Plan (Free Text) Assessment: 51 M with RUE AVF with overlying ulcer Plan: -Local wound care -AVF with no issues at this point -No surgical intervention needed at this time -recommend no plans for surgical intervention as PT is DNR/DNI -Further recs per Dr. Carrasco surgical attending PGY1
--- NOTE | 2017-10-06 16:39 | CP.PCM.PN ---
Subjective - Date & Time of Evaluation Date of Evaluation: 10/06/17 Time of Evaluation: 09:00 - Subjective Subjective: clinically same Objective - Vital Signs/Intake and Output Vital Signs (last 24 hours): Temp Pulse Resp BP Pulse Ox 98.6 F 100 H 20 94/61 L 100 10/06/17 08:09 10/06/17 08:09 10/06/17 08:09 10/06/17 08:09 10/06/17 08:09 Intake and Output: 10/06/17 10/06/17 06:59 18:59 Intake Total 300 280 Output Total 0 Balance 300 280 - Medications Medications: Current Medications Acetaminophen (Tylenol 325mg Tab) 325 mg PO Q6H PRN PRN Reason: Pain, moderate (4-7) Last Admin: 10/06/17 12:41 Dose: 325 mg Albumin Human (Albumin Human 25% (12.5 Gm/50 Ml)) 12.5 gm IV MWF PRN PRN Reason: hypotension Stop: 10/11/17 16:48 Last Admin: 10/05/17 17:07 Dose: 12.5 gm Aspirin (Aspirin Chewable) 81 mg PO DAILY [facility] Last Admin: 10/06/17 09:16 Dose: 81 mg Enoxaparin Sodium (Lovenox) 40 mg SC DAILY [facility] Last Admin: 10/06/17 09:16 Dose: 40 mg Epoetin Michel (Procrit) 10,000 unit IV MWF [facility] Stop: 10/17/17 09:01 Last Admin: 10/05/17 17:08 Dose: 10,000 unit Famotidine (Pepcid) 20 mg PO Q12 [facility] Last Admin: 10/06/17 09:16 Dose: 20 mg Piperacillin Sod/Tazobactam (Sod 2.25 gm/ Sodium Chloride) 100 mls @ 100 mls/ hr IVPB Q8H [facility] Last Admin: 10/06/17 13:51 Dose: 100 mls/hr Insulin Aspart (Novolog) 0 unit SC ACHS [facility] PRN Reason: Protocol Last Admin: 10/06/17 12:23 Dose: 1 unit Paricalcitol (Zemplar) 2 mcg IV MWF [facility] Stop: 10/17/17 09:01 Last Admin: 10/05/17 17:08 Dose: 2 mcg Rosuvastatin Calcium (Crestor) 10 mg PO HS [facility] Saliva Substitute (First Magic Mouthwash) 3 ml PO Q6H [facility] Last Admin: 10/06/17 09:16 Dose: 3 ml Sevelamer Carbonate (Renvela) 1,600 mg PO TTS [facility] Last Admin: 10/06/17 09:16 Dose: 1,600 mg Silver Sulfadiazine (Silvadene 1% 20 Gm) 1 ea TOP DAILY [facility] Last Admin: 10/06/17 09:21 Dose: 1 applic Vitamin B Complex/Vit C/Folic Acid (Nephro-Mark) 1 tab PO DAILY [facility] Last Admin: 10/06/17 09:16 Dose: 1 tab - Labs Labs: 10/06/17 06:14 10/06/17 06:14 PT 15.9 SECONDS (9.7-12.2) H 10/03/17 21:55 INR 1.4 10/03/17 21:55 APTT 36 SECONDS (21-34) H 10/03/17 21:55 - Constitutional Appears: Well - Head Exam Head Exam: ATRAUMATIC, NORMAL INSPECTION, NORMOCEPHALIC - Eye Exam Eye Exam: EOMI, Normal appearance, PERRL Pupil Exam: NORMAL ACCOMODATION, PERRL - ENT Exam ENT Exam: Mucous Membranes Moist, Normal Exam - Neck Exam Neck Exam: Full ROM, Normal Inspection. absent: Lymphadenopathy - Respiratory Exam Respiratory Exam: Decreased Breath Sounds - Cardiovascular Exam Cardiovascular Exam: REGULAR RHYTHM, +S1, +S2 - GI/Abdominal Exam GI & Abdominal Exam: Soft, Diminished Bowel Sounds - Rectal Exam Rectal Exam: Deferred Assessment and Plan (1) ESRD on hemodialysis Status: Acute (2) Fever Status: Acute (3) Tachycardia Status: Acute (4) Bacteremia Status: Acute (5) CHF exacerbation Status: Acute (6) Dyspnea Status: Acute (7) ESRD (end stage renal disease) on dialysis Status: Acute (8) High cholesterol Status: Acute (9) Hypotension Status: Acute (10) Pneumonia Status: Acute (11) Prophylactic measure Status: Acute (12) Sepsis Status: Acute (13) Septic shock Status: Acute (14) UTI (urinary tract infection), bacterial Status: Acute (15) CHF (congestive heart failure) Status: Chronic (16) Diabetes mellitus Status: Chronic (17) ESRD (end stage renal disease) Status: Chronic (18) HTN (hypertension) Status: Chronic
[2017-10-07] MEDS: Mag&Al/Simet/Diphen/Lido 237 ML KIT PO SCH ×4 (04:02→21:36)
[2017-10-07] MEDS: (Novolog) Insulin Aspart, Recombinant 100 u/ml 10 ml vial SC SCH ×5 (08:22→21:40)
[2017-10-07] MEDS: Enoxaparin 40 mg Syringe SC SCH (09:41)
--- NOTE | 2017-10-07 09:59 | CP.PCM.PN ---
Subjective - Date & Time of Evaluation Date of Evaluation: 10/07/17 Time of Evaluation: 09:30 - Subjective Subjective: Vascular surgery progress note for Dr. Austin Wilson, PGY-1 Pt S & E at bedside. Pt resting comfortably in bed. No complaints at this time, aphasic, nods head to answer questions. Spoke to POA - sister Yenny Gonzalez- regarding family wishes for surgical intervention. Sister indicating that she would be willing to rescind DNR/DNI for any potential surgical intervention that may be required to fix the AVF wound. Objective - Vital Signs/Intake and Output Vital Signs (last 24 hours): Temp Pulse Resp BP Pulse Ox 98.5 F 65 20 123/77 97 10/07/17 08:00 10/07/17 08:00 10/07/17 08:00 10/07/17 08:00 10/07/17 08:00 Intake and Output: 10/07/17 10/07/17 06:59 18:59 Intake Total 320 Balance 320 - Medications Medications: Current Medications Acetaminophen (Tylenol 325mg Tab) 325 mg PO Q6H PRN PRN Reason: Pain, moderate (4-7) Last Admin: 10/06/17 12:41 Dose: 325 mg Albumin Human (Albumin Human 25% (12.5 Gm/50 Ml)) 12.5 gm IV MWF PRN PRN Reason: hypotension Stop: 10/11/17 16:48 Last Admin: 10/05/17 17:07 Dose: 12.5 gm Aspirin (Aspirin Chewable) 81 mg PO DAILY [facility] Last Admin: 10/06/17 09:16 Dose: 81 mg Enoxaparin Sodium (Lovenox) 40 mg SC DAILY [facility] Last Admin: 10/06/17 09:16 Dose: 40 mg Epoetin Michel (Procrit) 10,000 unit IV MWF [facility] Stop: 10/17/17 09:01 Last Admin: 10/05/17 17:08 Dose: 10,000 unit Famotidine (Pepcid) 20 mg PO Q12 [facility] Last Admin: 10/06/17 21:43 Dose: 20 mg Piperacillin Sod/Tazobactam (Sod 2.25 gm/ Sodium Chloride) 100 mls @ 100 mls/ hr IVPB Q8H [facility] Last Admin: 10/07/17 06:04 Dose: 100 mls/hr Vancomycin/Sodium Chloride (Vancomycin 1 Gm/Ns 200 Ml) 1 gm in 200 mls @ 133.333 mls/hr IVPB MWF [facility] Stop: 10/17/17 10:29 Insulin Aspart (Novolog) 0 unit SC ACHS [facility] PRN Reason: Protocol Last Admin: 10/07/17 08:22 Dose: Not Given Paricalcitol (Zemplar) 2 mcg IV MWF [facility] Stop: 10/17/17 09:01 Last Admin: 10/05/17 17:08 Dose: 2 mcg Rosuvastatin Calcium (Crestor) 10 mg PO HS [facility] Last Admin: 10/06/17 21:43 Dose: 10 mg Saliva Substitute (First Magic Mouthwash) 3 ml PO Q6H [facility] Last Admin: 10/07/17 04:02 Dose: 3 ml Sevelamer Carbonate (Renvela) 1,600 mg PO TTS [facility] Last Admin: 10/06/17 09:16 Dose: 1,600 mg Silver Sulfadiazine (Silvadene 1% 20 Gm) 1 ea TOP DAILY [facility] Last Admin: 10/06/17 09:21 Dose: 1 applic Vitamin B Complex/Vit C/Folic Acid (Nephro-Mark) 1 tab PO DAILY [facility] Last Admin: 10/06/17 09:16 Dose: 1 tab - Labs Labs: 10/06/17 06:14 10/06/17 06:14 PT 15.9 SECONDS (9.7-12.2) H 10/03/17 21:55 INR 1.4 10/03/17 21:55 APTT 36 SECONDS (21-34) H 10/03/17 21:55 - Constitutional Appears: Non-toxic, No Acute Distress - Head Exam Head Exam: ATRAUMATIC, NORMAL INSPECTION, NORMOCEPHALIC - Eye Exam Eye Exam: EOMI, Normal appearance - ENT Exam ENT Exam: Mucous Membranes Moist, Normal Exam - Respiratory Exam Respiratory Exam: NORMAL BREATHING PATTERN - Cardiovascular Exam Cardiovascular Exam: REGULAR RHYTHM, +S1, +S2 - GI/Abdominal Exam GI & Abdominal Exam: Soft. absent: Distended (obese), Tenderness - Extremities Exam Extremities Exam: absent: Normal Inspection (RUE edema/swelling) Additional comments: RUE AVF w/palpable thrill Bandaid overlying- scant sanguinous strike through - Neurological Exam Neurological Exam: Awake. absent: Oriented x3 (non verbal) - Psychiatric Exam Additional comments: asphasic - Skin Skin Exam: Dry, Normal Color, Warm. absent: Intact (RUE wound) Assessment and Plan - Assessment and Plan (Free Text) Assessment: 51 M with RUE AVF with overlying ulcer Plan: Local wound care AVF with no issues at this point Monitor If surgery required- family amenable to consent/rescinding DNR/DNI Further recs as per attending evaluation Will DW attending Katie, PGY-1
[2017-10-07] MEDS: Silver Sulfadiazine 1% Cream (20 gm) TOP SCH (10:04)
[2017-10-07] MEDS: Multivitamin Vitamin B Complex (Nephro-Vite) Tab PO SCH (10:10)
--- NOTE | 2017-10-07 16:18 | CP.PCM.PN ---
Subjective - Date & Time of Evaluation Date of Evaluation: 10/07/17 Time of Evaluation: 09:00 - Subjective Subjective: clinically same Objective - Vital Signs/Intake and Output Vital Signs (last 24 hours): Temp Pulse Resp BP Pulse Ox 98.6 F 104 H 20 108/78 100 10/07/17 15:00 10/07/17 15:00 10/07/17 15:00 10/07/17 15:00 10/07/17 15:00 Intake and Output: 10/07/17 10/07/17 06:59 18:59 Intake Total 320 220 Balance 320 220 - Medications Medications: Current Medications Acetaminophen (Tylenol 325mg Tab) 325 mg PO Q6H PRN PRN Reason: Pain, moderate (4-7) Last Admin: 10/06/17 12:41 Dose: 325 mg Albumin Human (Albumin Human 25% (12.5 Gm/50 Ml)) 12.5 gm IV MWF PRN PRN Reason: hypotension Stop: 10/11/17 16:48 Last Admin: 10/05/17 17:07 Dose: 12.5 gm Aspirin (Aspirin Chewable) 81 mg PO DAILY [facility] Last Admin: 10/07/17 09:41 Dose: 81 mg Enoxaparin Sodium (Lovenox) 40 mg SC DAILY [facility] Last Admin: 10/07/17 09:41 Dose: 40 mg Epoetin Michel (Procrit) 10,000 unit IV MWF [facility] Stop: 10/17/17 09:01 Last Admin: 10/05/17 17:08 Dose: 10,000 unit Famotidine (Pepcid) 20 mg PO Q12 [facility] Last Admin: 10/07/17 09:41 Dose: 20 mg Piperacillin Sod/Tazobactam (Sod 2.25 gm/ Sodium Chloride) 100 mls @ 100 mls/ hr IVPB Q8H [facility] Last Admin: 10/07/17 13:57 Dose: 100 mls/hr Vancomycin/Sodium Chloride (Vancomycin 1 Gm/Ns 200 Ml) 1 gm in 200 mls @ 133.333 mls/hr IVPB MWF [facility] Stop: 10/17/17 10:29 Insulin Aspart (Novolog) 0 unit SC ACHS [facility] PRN Reason: Protocol Last Admin: 10/07/17 12:25 Dose: 1 unit Paricalcitol (Zemplar) 2 mcg IV MWF [facility] Stop: 10/17/17 09:01 Last Admin: 10/05/17 17:08 Dose: 2 mcg Rosuvastatin Calcium (Crestor) 10 mg PO HS [facility] Last Admin: 10/06/17 21:43 Dose: 10 mg Saliva Substitute (First Magic Mouthwash) 3 ml PO Q6H [facility] Last Admin: 10/07/17 10:03 Dose: 3 ml Sevelamer Carbonate (Renvela) 1,600 mg PO TTS [facility] Last Admin: 10/06/17 09:16 Dose: 1,600 mg Silver Sulfadiazine (Silvadene 1% 20 Gm) 1 ea TOP DAILY [facility] Last Admin: 10/07/17 10:04 Dose: 1 applic Vitamin B Complex/Vit C/Folic Acid (Nephro-Mark) 1 tab PO DAILY [facility] Last Admin: 10/07/17 10:10 Dose: 1 tab - Labs Labs: 10/06/17 06:14 10/06/17 06:14 PT 15.9 SECONDS (9.7-12.2) H 10/03/17 21:55 INR 1.4 10/03/17 21:55 APTT 36 SECONDS (21-34) H 10/03/17 21:55 Assessment and Plan (1) ESRD on hemodialysis Status: Acute (2) Fever Status: Acute (3) Tachycardia Status: Acute (4) Bacteremia Status: Acute (5) CHF exacerbation Status: Acute (6) Dyspnea Status: Acute (7) ESRD (end stage renal disease) on dialysis Status: Acute (8) High cholesterol Status: Acute (9) Hypotension Status: Acute (10) Pneumonia Status: Acute (11) Prophylactic measure Status: Acute (12) Sepsis Status: Acute (13) Septic shock Status: Acute (14) UTI (urinary tract infection), bacterial Status: Acute (15) CHF (congestive heart failure) Status: Chronic (16) Diabetes mellitus Status: Chronic (17) ESRD (end stage renal disease) Status: Chronic (18) HTN (hypertension) Status: Chronic
[2017-10-08] MEDS: Mag&Al/Simet/Diphen/Lido 237 ML KIT PO SCH ×4 (04:04→21:46)
[2017-10-08] MEDS: (Novolog) Insulin Aspart, Recombinant 100 u/ml 10 ml vial SC SCH ×4 (08:15→21:56)
[2017-10-08] MEDS ORDERED: Vancomycin 1 gm/NS 200 ml 1 GM/200 ML BAG IVPB SCH (09:00)
[2017-10-08] MEDS: Multivitamin Vitamin B Complex (Nephro-Vite) Tab PO SCH (09:28)
[2017-10-08] MEDS: Enoxaparin 40 mg Syringe SC SCH (09:28)
[2017-10-08] MEDS: Silver Sulfadiazine 1% Cream (20 gm) TOP SCH (09:33)
--- NOTE | 2017-10-08 10:48 | CP.PCM.PN ---
Subjective - Date & Time of Evaluation Date of Evaluation: 10/08/17 Time of Evaluation: 07:00 - Subjective Subjective: Vascular Surgery Pt S&E, NAEO. No complaints. Objective - Vital Signs/Intake and Output Vital Signs (last 24 hours): Temp Pulse Resp BP Pulse Ox 97.5 F L 117 H 20 90/50 L 98 10/08/17 09:55 10/08/17 09:55 10/08/17 09:55 10/08/17 09:55 10/08/17 09:55 Intake and Output: 10/08/17 10/08/17 06:59 18:59 Intake Total 300 Balance 300 - Medications Medications: Current Medications Acetaminophen (Tylenol 325mg Tab) 325 mg PO Q6H PRN PRN Reason: Pain, moderate (4-7) Last Admin: 10/06/17 12:41 Dose: 325 mg Albumin Human (Albumin Human 25% (12.5 Gm/50 Ml)) 12.5 gm IV MWF PRN PRN Reason: hypotension Stop: 10/11/17 16:48 Last Admin: 10/05/17 17:07 Dose: 12.5 gm Aspirin (Aspirin Chewable) 81 mg PO DAILY [facility] Last Admin: 10/08/17 09:28 Dose: 81 mg Enoxaparin Sodium (Lovenox) 40 mg SC DAILY [facility] Last Admin: 10/08/17 09:28 Dose: 40 mg Epoetin Michel (Procrit) 10,000 unit IV MWF [facility] Stop: 10/17/17 09:01 Last Admin: 10/05/17 17:08 Dose: 10,000 unit Famotidine (Pepcid) 20 mg PO Q12 [facility] Last Admin: 10/08/17 09:28 Dose: 20 mg Piperacillin Sod/Tazobactam (Sod 2.25 gm/ Sodium Chloride) 100 mls @ 100 mls/ hr IVPB Q8H [facility] Last Admin: 10/08/17 06:01 Dose: 100 mls/hr Vancomycin/Sodium Chloride (Vancomycin 1 Gm/Ns 200 Ml) 1 gm in 200 mls @ 133.333 mls/hr IVPB MWF [facility] Stop: 10/15/17 10:29 Insulin Aspart (Novolog) 0 unit SC ACHS [facility] PRN Reason: Protocol Last Admin: 10/08/17 08:15 Dose: Not Given Paricalcitol (Zemplar) 2 mcg IV MWF [facility] Stop: 10/17/17 09:01 Last Admin: 10/05/17 17:08 Dose: 2 mcg Rosuvastatin Calcium (Crestor) 10 mg PO HS [facility] Last Admin: 10/07/17 21:35 Dose: 10 mg Saliva Substitute (First Magic Mouthwash) 3 ml PO Q6H [facility] Last Admin: 10/08/17 09:35 Dose: 3 ml Sevelamer Carbonate (Renvela) 1,600 mg PO TTS [facility] Last Admin: 10/06/17 09:16 Dose: 1,600 mg Silver Sulfadiazine (Silvadene 1% 20 Gm) 1 ea TOP DAILY [facility] Last Admin: 10/08/17 09:33 Dose: 1 applic Vitamin B Complex/Vit C/Folic Acid (Nephro-Mark) 1 tab PO DAILY [facility] Last Admin: 10/08/17 09:28 Dose: 1 tab - Labs Labs: 10/06/17 06:14 10/06/17 06:14 PT 15.9 SECONDS (9.7-12.2) H 10/03/17 21:55 INR 1.4 10/03/17 21:55 APTT 36 SECONDS (21-34) H 10/03/17 21:55 - Constitutional Appears: Non-toxic, No Acute Distress - Head Exam Head Exam: ATRAUMATIC, NORMOCEPHALIC - Eye Exam Eye Exam: EOMI. absent: Scleral icterus - Respiratory Exam Respiratory Exam: NORMAL BREATHING PATTERN. absent: Respiratory Distress - GI/Abdominal Exam GI & Abdominal Exam: Soft. absent: Distended, Tenderness - Extremities Exam Additional comments: RUE AVF w/palpable thrill Dressing C/D/I, superficial ulceration underneath - Neurological Exam Neurological Exam: Alert, Awake - Skin Skin Exam: Dry, Warm Assessment and Plan - Assessment and Plan (Free Text) Assessment: 51 M with RUE AVF with overlying ulcer Plan: Local wound care Continue AVF use, avoid ulcerated area If surgery required- family amenable to consent/rescinding DNR/DNI Will discuss possible operative plans with attending, Dr. Luna Reyez PGY4
[2017-10-08 11:27] LABS: BASO # 0.1 K/uL (0.0-0.2); BASO % 1.1 % (0.0-2.0); EOS # 0.3 K/uL (0.0-0.7); EOS % 4.9 % (0.0-4.0); HEMOGLOBIN 7.6 g/dL (12.0-18.0); LYMPH # 0.9 K/uL (1.0-4.3); LYMPH % 13.3 % (20.0-40.0); MEAN CELL VOLUME 83.1 fL (80.0-94.0); MEAN CORPUSCULAR HEMOGLOBIN 26.5 pg (27.0-31.0); MEAN CORPUSCULAR HGB CONC 31.9 g/dL (33.0-37.0); MEAN PLATELET VOLUME 9.1 fL (7.2-11.7); MONO # 0.9 K/uL (0.0-0.8); MONO % 12.8 % (0.0-10.0); NEUT # 4.7 K/uL (1.8-7.0); NEUT % 67.9 % (50.0-75.0); NRBC % 0.1 % (0.0-2.0); RBC 2.87 Mil/uL (4.40-5.90); RED CELL DISTRIBUTION WIDTH 22.6 % (11.5-14.5); WHITE BLOOD COUNT 6.9 K/uL (4.8-10.8)
[2017-10-08 11:52] LABS: CALCIUM 8.5 mg/dl (8.6-10.4)
--- NOTE | 2017-10-08 14:27 | PCM.SURG1 ---
Surgeon's Initial Post Op Note - Surgeon's Notes Surgeon: Gee Worthington MD Access Director: NONE Type of Anesthesia: Local Pre-Operative Diagnosis: Foot infection Operative Findings: Patent left basilic vein Post-Operative Diagnosis: Foot infection Operation Performed: Single lumen picc left arm, 48 CM. Tip is in the SVC. Specimen/Specimens Removed: NONE Estimated Blood Loss: EBL {In ML}: 2 Blood Products Given: N/A Drains Used: No Drains Post-Op Condition: Fair Date of Surgery/Procedure: 10/08/17 Time of Surgery/Procedure: 12:35
--- NOTE | 2017-10-08 14:28 | RAD ---
PROCEDURE: Date of procedure: 10/04/2017 Procedure: 1. Placement of a left arm PICC with ultrasound and fluoroscopic guidance, CPT 59884 2. PICC tip confirmation with spot radiograph and is in the superior vena cava Medications: 1 percent lidocaine Total Fluoro time: 8 seconds Radiation: 2.4 MGy EBL: 3 cc HISTORY: Infection requiring long-term IV antibiotics TECHNIQUE: Following informed consent and procedure time-out, the patient placed supine on the interventional table and the left arm prepped and draped in the usual sterile fashion. Ultrasound showed a patent and compressible left basilic vein. After the skin was anesthetized with lidocaine, the basilic vein was accessed with micro micropuncture technique using ultrasound guidance. There was difficulty advancing guidewire centrally. An image documenting ultrasound guidance for vascular access was permanently saved. The length of a single-lumen 4 [place] PICC was trimmed to 33 cm and advanced through a peel-away sheath. The PICC was position with tip of PICC confirm a spot radiograph the subclavian. The PICC was secured to the patient's skin. The PICC was flushed. A biopatch and sterile dressing was applied. IMPRESSION: Placement of a single-lumen midline 4 [place] PICC left basilic vein trimmed to 33 cm. The tip of the PICC is confirmed with spot radiograph and is in the subclavian vein.
[2017-10-08] MEDS: Albumin Human 25% (12.5 gm/50 ml) IV PRN ×2 (17:09→17:38)
[2017-10-08] MEDS: Epoetin Alfa 10,000 unit/ml Dialysis IV SCH (17:10)
--- NOTE | 2017-10-08 19:00 | CP.PCM.PN ---
Subjective - Date & Time of Evaluation Date of Evaluation: 10/08/17 Time of Evaluation: 09:00 - Subjective Subjective: clinically same Objective - Vital Signs/Intake and Output Vital Signs (last 24 hours): Temp Pulse Resp BP Pulse Ox 98.6 F 99 H 18 82/74 L 100 10/08/17 15:10 10/08/17 16:50 10/08/17 15:10 10/08/17 17:35 10/08/17 15:35 Intake and Output: 10/08/17 10/08/17 06:59 18:59 Intake Total 300 Balance 300 - Medications Medications: Current Medications Acetaminophen (Tylenol 325mg Tab) 325 mg PO Q6H PRN PRN Reason: Pain, moderate (4-7) Last Admin: 10/06/17 12:41 Dose: 325 mg Albumin Human (Albumin Human 25% (12.5 Gm/50 Ml)) 12.5 gm IV MWF PRN PRN Reason: hypotension Stop: 10/11/17 16:48 Last Admin: 10/08/17 17:38 Dose: 12.5 gm Aspirin (Aspirin Chewable) 81 mg PO DAILY [facility] Last Admin: 10/08/17 09:28 Dose: 81 mg Enoxaparin Sodium (Lovenox) 40 mg SC DAILY [facility] Last Admin: 10/08/17 09:28 Dose: 40 mg Epoetin Michel (Procrit) 10,000 unit IV MWF [facility] Stop: 10/17/17 09:01 Last Admin: 10/08/17 17:10 Dose: 10,000 unit Famotidine (Pepcid) 20 mg PO Q12 [facility] Last Admin: 10/08/17 09:28 Dose: 20 mg Piperacillin Sod/Tazobactam (Sod 2.25 gm/ Sodium Chloride) 100 mls @ 100 mls/ hr IVPB Q8H [facility] Last Admin: 10/08/17 13:16 Dose: 100 mls/hr Vancomycin/Sodium Chloride (Vancomycin 1 Gm/Ns 200 Ml) 1 gm in 200 mls @ 133.333 mls/hr IVPB MWF [facility] Stop: 10/15/17 10:29 Insulin Aspart (Novolog) 0 unit SC ACHS [facility] PRN Reason: Protocol Last Admin: 10/08/17 12:31 Dose: 2 unit Paricalcitol (Zemplar) 2 mcg IV MWF [facility] Stop: 10/17/17 09:01 Last Admin: 10/05/17 17:08 Dose: 2 mcg Rosuvastatin Calcium (Crestor) 10 mg PO HS [facility] Last Admin: 10/07/17 21:35 Dose: 10 mg Saliva Substitute (First Magic Mouthwash) 3 ml PO Q6H [facility] Last Admin: 10/08/17 09:35 Dose: 3 ml Sevelamer Carbonate (Renvela) 1,600 mg PO TTS [facility] Last Admin: 10/06/17 09:16 Dose: 1,600 mg Silver Sulfadiazine (Silvadene 1% 20 Gm) 1 ea TOP DAILY [facility] Last Admin: 10/08/17 09:33 Dose: 1 applic Vitamin B Complex/Vit C/Folic Acid (Nephro-Mark) 1 tab PO DAILY [facility] Last Admin: 10/08/17 09:28 Dose: 1 tab - Labs Labs: 10/08/17 11:18 10/08/17 11:18 PT 15.9 SECONDS (9.7-12.2) H 10/03/17 21:55 INR 1.4 10/03/17 21:55 APTT 36 SECONDS (21-34) H 10/03/17 21:55 - Constitutional Appears: Well - Head Exam Head Exam: ATRAUMATIC, NORMAL INSPECTION, NORMOCEPHALIC - Eye Exam Eye Exam: EOMI, Normal appearance, PERRL Pupil Exam: NORMAL ACCOMODATION, PERRL - ENT Exam ENT Exam: Mucous Membranes Moist, Normal Exam - Neck Exam Neck Exam: Full ROM, Normal Inspection. absent: Lymphadenopathy - Respiratory Exam Respiratory Exam: Decreased Breath Sounds - Cardiovascular Exam Cardiovascular Exam: REGULAR RHYTHM, +S1, +S2 - GI/Abdominal Exam GI & Abdominal Exam: Diminished Bowel Sounds - Rectal Exam Rectal Exam: Deferred Assessment and Plan (1) ESRD on hemodialysis Status: Acute (2) Fever Status: Acute (3) Tachycardia Status: Acute (4) Bacteremia Status: Acute (5) CHF exacerbation Status: Acute (6) Dyspnea Status: Acute (7) ESRD (end stage renal disease) on dialysis Status: Acute (8) High cholesterol Status: Acute (9) Hypotension Status: Acute (10) Pneumonia Status: Acute (11) Prophylactic measure Status: Acute (12) Sepsis Status: Acute (13) Septic shock Status: Acute (14) UTI (urinary tract infection), bacterial Status: Acute (15) CHF (congestive heart failure) Status: Chronic (16) Diabetes mellitus Status: Chronic (17) ESRD (end stage renal disease) Status: Chronic (18) HTN (hypertension) Status: Chronic
--- NOTE | 2017-10-08 23:14 | CP.PCM.PN ---
Subjective - Date & Time of Evaluation Date of Evaluation: 10/08/17 Time of Evaluation: 23:14 - Subjective Subjective: afebrile,vss Patient more responsive. Seen in hemodialysis unit Getting hemodialysis today. Right AV graft fistula being used for hemodialysis.. .labs reviewed. RT. AVG - ULCER +VE-GNR/GRAM-POSITIVE COCCI. bLOOD CULTURES 10/05/17 -VE GROWTH FOR 3 DAYS Objective - Vital Signs/Intake and Output Vital Signs (last 24 hours): Temp Pulse Resp BP Pulse Ox 98.6 F 99 H 18 107/41 L 100 10/08/17 15:10 10/08/17 16:50 10/08/17 15:10 10/08/17 18:20 10/08/17 15:35 Intake and Output: 10/08/17 10/09/17 18:59 06:59 Intake Total 250 Balance 250 - Medications Medications: Current Medications Acetaminophen (Tylenol 325mg Tab) 325 mg PO Q6H PRN PRN Reason: Pain, moderate (4-7) Last Admin: 10/06/17 12:41 Dose: 325 mg Albumin Human (Albumin Human 25% (12.5 Gm/50 Ml)) 12.5 gm IV MWF PRN PRN Reason: hypotension Stop: 10/11/17 16:48 Last Admin: 10/08/17 17:38 Dose: 12.5 gm Aspirin (Aspirin Chewable) 81 mg PO DAILY [facility] Last Admin: 10/08/17 09:28 Dose: 81 mg Enoxaparin Sodium (Lovenox) 40 mg SC DAILY [facility] Last Admin: 10/08/17 09:28 Dose: 40 mg Epoetin Michel (Procrit) 10,000 unit IV MWF [facility] Stop: 10/17/17 09:01 Last Admin: 10/08/17 17:10 Dose: 10,000 unit Famotidine (Pepcid) 20 mg PO Q12 [facility] Last Admin: 10/08/17 21:45 Dose: 20 mg Piperacillin Sod/Tazobactam (Sod 2.25 gm/ Sodium Chloride) 100 mls @ 100 mls/ hr IVPB Q8H [facility] Last Admin: 10/08/17 21:47 Dose: 100 mls/hr Vancomycin/Sodium Chloride (Vancomycin 1 Gm/Ns 200 Ml) 1 gm in 200 mls @ 133.333 mls/hr IVPB MWF [facility] Stop: 10/15/17 10:29 Insulin Aspart (Novolog) 0 unit SC ACHS [facility] PRN Reason: Protocol Last Admin: 10/08/17 21:56 Dose: Not Given Paricalcitol (Zemplar) 2 mcg IV MWF [facility] Stop: 10/17/17 09:01 Last Admin: 10/05/17 17:08 Dose: 2 mcg Rosuvastatin Calcium (Crestor) 10 mg PO HS [facility] Last Admin: 10/08/17 21:45 Dose: 10 mg Saliva Substitute (First Magic Mouthwash) 3 ml PO Q6H [facility] Last Admin: 10/08/17 21:46 Dose: 3 ml Sevelamer Carbonate (Renvela) 1,600 mg PO TTS [facility] Last Admin: 10/06/17 09:16 Dose: 1,600 mg Silver Sulfadiazine (Silvadene 1% 20 Gm) 1 ea TOP DAILY [facility] Last Admin: 10/08/17 09:33 Dose: 1 applic Vitamin B Complex/Vit C/Folic Acid (Nephro-Mark) 1 tab PO DAILY [facility] Last Admin: 10/08/17 09:28 Dose: 1 tab - Labs Labs: 10/08/17 11:18 10/08/17 11:18 PT 15.9 SECONDS (9.7-12.2) H 10/03/17 21:55 INR 1.4 10/03/17 21:55 APTT 36 SECONDS (21-34) H 10/03/17 21:55 Assessment and Plan (1) Sepsis Assessment & Plan: Source of sepsis and fevers -most probable infected AV graft/thrombosis. CONTINUE iv ZOSYN 2.25 EVERY 8 HOURLY 2.. CONTINUE VANCOMYCIN 1 G POST-EACH HEMODIALYSIS MWF X 5 DOSES. VASCULAR SURGERY EVALUATION FOR THROMBOSED RIGHT AVG ? INFECTED RT UPPER ARM SWELLING/ULCERS SUPERFICIAL AND CELLULITIS NOTED. VANC TROUGH PRIOR TO 4TH DOSE AND KEEP BETWEEN 10-20MG/L Status: Acute (2) Fever Assessment & Plan: FOLLOW FEVER CURVE .fOLLOW-UP CULTURES AND ADJUST ANTIBIOTICS. Status: Acute (3) Tachycardia Status: Acute (4) AV graft thrombosis Status: Acute (5) ESRD (end stage renal disease) on dialysis Assessment & Plan: PATIENT ON HEMODIALYSIS MWF. Status: Acute (6) Diabetes mellitus Status: Chronic
[2017-10-09] MEDS: Mag&Al/Simet/Diphen/Lido 237 ML KIT PO SCH ×4 (04:04→21:04)
[2017-10-09] MEDS: (Novolog) Insulin Aspart, Recombinant 100 u/ml 10 ml vial SC SCH ×4 (08:08→21:43)
--- NOTE | 2017-10-09 09:02 | CP.PCM.PN ---
Subjective - Date & Time of Evaluation Date of Evaluation: 10/09/17 Time of Evaluation: 07:10 - Subjective Subjective: Vascular Surgery- Dr. Carrasco Pt S&E, NAEO. No complaints. Objective - Vital Signs/Intake and Output Vital Signs (last 24 hours): Temp Pulse Resp BP Pulse Ox 98.1 F 107 H 20 91/50 L 100 10/09/17 08:38 10/09/17 08:38 10/09/17 08:38 10/09/17 08:38 10/09/17 08:38 Intake and Output: 10/09/17 10/09/17 06:59 18:59 Intake Total 250 Balance 250 - Medications Medications: Current Medications Acetaminophen (Tylenol 325mg Tab) 325 mg PO Q6H PRN PRN Reason: Pain, moderate (4-7) Last Admin: 10/06/17 12:41 Dose: 325 mg Albumin Human (Albumin Human 25% (12.5 Gm/50 Ml)) 12.5 gm IV MWF PRN PRN Reason: hypotension Stop: 10/11/17 16:48 Last Admin: 10/08/17 17:38 Dose: 12.5 gm Aspirin (Aspirin Chewable) 81 mg PO DAILY [facility] Last Admin: 10/08/17 09:28 Dose: 81 mg Enoxaparin Sodium (Lovenox) 40 mg SC DAILY [facility] Last Admin: 10/08/17 09:28 Dose: 40 mg Epoetin Michel (Procrit) 10,000 unit IV MWF [facility] Stop: 10/17/17 09:01 Last Admin: 10/08/17 17:10 Dose: 10,000 unit Famotidine (Pepcid) 20 mg PO Q12 [facility] Last Admin: 10/08/17 21:45 Dose: 20 mg Piperacillin Sod/Tazobactam (Sod 2.25 gm/ Sodium Chloride) 100 mls @ 100 mls/ hr IVPB Q8H [facility] Last Admin: 10/09/17 05:28 Dose: 100 mls/hr Vancomycin/Sodium Chloride (Vancomycin 1 Gm/Ns 200 Ml) 1 gm in 200 mls @ 133.333 mls/hr IVPB MWF [facility] Stop: 10/15/17 10:29 Insulin Aspart (Novolog) 0 unit SC ACHS [facility] PRN Reason: Protocol Last Admin: 02/27/18 08:08 Dose: Not Given Paricalcitol (Zemplar) 2 mcg IV MWF [facility] Stop: 10/17/17 09:01 Last Admin: 10/05/17 17:08 Dose: 2 mcg Rosuvastatin Calcium (Crestor) 10 mg PO HS [facility] Last Admin: 10/08/17 21:45 Dose: 10 mg Saliva Substitute (First Magic Mouthwash) 3 ml PO Q6H [facility] Last Admin: 10/09/17 04:04 Dose: Not Given Sevelamer Carbonate (Renvela) 1,600 mg PO TTS [facility] Last Admin: 10/06/17 09:16 Dose: 1,600 mg Silver Sulfadiazine (Silvadene 1% 20 Gm) 1 ea TOP DAILY [facility] Last Admin: 10/08/17 09:33 Dose: 1 applic Vitamin B Complex/Vit C/Folic Acid (Nephro-Mark) 1 tab PO DAILY [facility] Last Admin: 10/08/17 09:28 Dose: 1 tab - Labs Labs: 10/08/17 11:18 10/08/17 11:18 PT 15.9 SECONDS (9.7-12.2) H 10/03/17 21:55 INR 1.4 10/03/17 21:55 APTT 36 SECONDS (21-34) H 10/03/17 21:55 - Constitutional Appears: Non-toxic, Older Than Stated Age - Head Exam Head Exam: ATRAUMATIC - Eye Exam Eye Exam: EOMI - ENT Exam ENT Exam: Mucous Membranes Moist - Respiratory Exam Respiratory Exam: NORMAL BREATHING PATTERN. absent: Accessory Muscle Use, Respiratory Distress - Cardiovascular Exam Cardiovascular Exam: +S1, +S2. absent: Bradycardia, Tachycardia - GI/Abdominal Exam GI & Abdominal Exam: Soft. absent: Distended, Firm, Guarding, Rigid, Tenderness - Neurological Exam Neurological Exam: Alert, Awake - Psychiatric Exam Additional comments: responds yes and no to questions - Skin Additional comments: Right superficial ulceration in R AVF Assessment and Plan - Assessment and Plan (Free Text) Assessment: 51 M with RUE AVF with overlying ulcer Plan: f/u US of RUE pending results will consider best method of treatment Local wound care Continue AVF use, avoid ulcerated area If surgery required- family amenable to consent/rescinding DNR/DNI Will discuss possible operative plans with attending, Dr. Luna Duran PGY1
[2017-10-09] MEDS: Multivitamin Vitamin B Complex (Nephro-Vite) Tab PO SCH (12:16)
[2017-10-09] MEDS: Enoxaparin 40 mg Syringe SC SCH (12:17)
[2017-10-09] MEDS: Silver Sulfadiazine 1% Cream (20 gm) TOP SCH (14:19)
[2017-10-09] MEDS: Meropenem 500 MG in Sodium Chloride 0.9% 100 ML IVPB SCH (14:56)
--- NOTE | 2017-10-09 17:15 | CP.PCM.PN ---
Subjective - Date & Time of Evaluation Date of Evaluation: 10/09/17 Time of Evaluation: 08:40 - Subjective Subjective: clinically same Objective - Vital Signs/Intake and Output Vital Signs (last 24 hours): Temp Pulse Resp BP Pulse Ox 97.9 F 96 H 20 98/63 L 100 10/09/17 16:00 10/09/17 16:00 10/09/17 16:00 10/09/17 16:00 10/09/17 16:00 Intake and Output: 10/09/17 10/09/17 06:59 18:59 Intake Total 250 450 Balance 250 450 - Medications Medications: Current Medications Acetaminophen (Tylenol 325mg Tab) 325 mg PO Q6H PRN PRN Reason: Pain, moderate (4-7) Last Admin: 10/06/17 12:41 Dose: 325 mg Albumin Human (Albumin Human 25% (12.5 Gm/50 Ml)) 12.5 gm IV MWF PRN PRN Reason: hypotension Stop: 10/11/17 16:48 Last Admin: 10/08/17 17:38 Dose: 12.5 gm Aspirin (Aspirin Chewable) 81 mg PO DAILY [facility] Last Admin: 10/09/17 12:16 Dose: 81 mg Enoxaparin Sodium (Lovenox) 40 mg SC DAILY [facility] Last Admin: 10/09/17 12:17 Dose: 40 mg Epoetin Michel (Procrit) 10,000 unit IV [facility] Stop: 10/17/17 09:01 Last Admin: 10/08/17 17:10 Dose: 10,000 unit Famotidine (Pepcid) 20 mg PO Q12 [facility] Last Admin: 10/09/17 12:16 Dose: 20 mg Vancomycin/Sodium Chloride (Vancomycin 1 Gm/Ns 200 Ml) 1 gm in 200 mls @ 133.333 mls/hr IVPB MWF [facility] Stop: 10/15/17 10:29 Meropenem 500 mg/ Sodium (Chloride) 100 mls @ 200 mls/hr IVPB Q12H [facility] Last Admin: 10/09/17 14:56 Dose: 200 mls/hr Insulin Aspart (Novolog) 0 unit SC ACHS [facility] PRN Reason: Protocol Last Admin: 10/09/17 13:11 Dose: Not Given Paricalcitol (Zemplar) 2 mcg IV [facility] Stop: 10/17/17 09:01 Last Admin: 10/05/17 17:08 Dose: 2 mcg Rosuvastatin Calcium (Crestor) 10 mg PO HS [facility] Last Admin: 10/08/17 21:45 Dose: 10 mg Saliva Substitute (First Magic Mouthwash) 3 ml PO Q6H [facility] Last Admin: 10/09/17 12:19 Dose: 3 ml Sevelamer Carbonate (Renvela) 1,600 mg PO TTS [facility] Last Admin: 10/09/17 12:19 Dose: 1,600 mg Silver Sulfadiazine (Silvadene 1% 20 Gm) 1 ea TOP DAILY [facility] Last Admin: 10/09/17 14:19 Dose: Not Given Vitamin B Complex/Vit C/Folic Acid (Nephro-Mark) 1 tab PO DAILY [facility] Last Admin: 10/09/17 12:16 Dose: 1 tab - Labs Labs: 10/08/17 11:18 10/08/17 11:18 PT 15.9 SECONDS (9.7-12.2) H 10/03/17 21:55 INR 1.4 10/03/17 21:55 APTT 36 SECONDS (21-34) H 10/03/17 21:55 - Constitutional Appears: Well - Head Exam Head Exam: ATRAUMATIC, NORMAL INSPECTION, NORMOCEPHALIC - Eye Exam Eye Exam: EOMI, Normal appearance, PERRL Pupil Exam: NORMAL ACCOMODATION, PERRL - ENT Exam ENT Exam: Mucous Membranes Moist, Normal Exam - Neck Exam Neck Exam: Full ROM, Normal Inspection. absent: Lymphadenopathy - Respiratory Exam Respiratory Exam: Decreased Breath Sounds - Cardiovascular Exam Cardiovascular Exam: REGULAR RHYTHM, +S1, +S2 - GI/Abdominal Exam GI & Abdominal Exam: Soft, Diminished Bowel Sounds - Rectal Exam Rectal Exam: Deferred Assessment and Plan (1) ESRD on hemodialysis Status: Acute (2) Fever Status: Acute (3) Tachycardia Status: Acute (4) Bacteremia Status: Acute (5) CHF exacerbation Status: Acute (6) Dyspnea Status: Acute (7) ESRD (end stage renal disease) on dialysis Status: Acute (8) High cholesterol Status: Acute (9) Hypotension Status: Acute (10) Pneumonia Status: Acute (11) Prophylactic measure Status: Acute (12) Sepsis Status: Acute (13) Septic shock Status: Acute (14) UTI (urinary tract infection), bacterial Status: Acute (15) CHF (congestive heart failure) Status: Chronic (16) Diabetes mellitus Status: Chronic (17) ESRD (end stage renal disease) Status: Chronic (18) HTN (hypertension) Status: Chronic
--- NOTE | 2017-10-09 23:18 | CP.PCM.PN ---
Subjective - Date & Time of Evaluation Date of Evaluation: 10/09/17 Time of Evaluation: 23:18 - Subjective Subjective: AFEBRILE, nO COMPLAINTS WOUND CULTURES POSITIVE RT AVG -ULCER SITE +VE ACINETOBACTER BAUMANNI -MDR /MRSA. LABS REVIEWED DISCUSSED WITH STAFF-MS GIUSEPPE GREGORY CONTINUE VANCOMYCIN 1 G MWF. DC IV ZOSYN 10/09/17. START mERREM 500 MG EVERY 12 HOURLY. MICRO-TO CHECK FOR SENSITIVITY WITH COLISTIN/ MERREM FOR ACINETOBACTER BAUMANNI STRICT CONTACT PRECAUTIONS. Objective - Vital Signs/Intake and Output Vital Signs (last 24 hours): Temp Pulse Resp BP Pulse Ox 99.4 F 109 H 18 106/66 99 10/09/17 22:38 10/09/17 22:38 10/09/17 22:38 10/09/17 22:38 10/09/17 22:38 Intake and Output: 10/09/17 10/10/17 18:59 06:59 Intake Total 450 300 Balance 450 300 - Medications Medications: Current Medications Acetaminophen (Tylenol 325mg Tab) 325 mg PO Q6H PRN PRN Reason: Pain, moderate (4-7) Last Admin: 10/06/17 12:41 Dose: 325 mg Albumin Human (Albumin Human 25% (12.5 Gm/50 Ml)) 12.5 gm IV MWF PRN PRN Reason: hypotension Stop: 10/11/17 16:48 Last Admin: 10/08/17 17:38 Dose: 12.5 gm Aspirin (Aspirin Chewable) 81 mg PO DAILY [facility] Last Admin: 10/09/17 12:16 Dose: 81 mg Enoxaparin Sodium (Lovenox) 40 mg SC DAILY [facility] Last Admin: 10/09/17 12:17 Dose: 40 mg Epoetin Michel (Procrit) 10,000 unit IV MWF [facility] Stop: 10/17/17 09:01 Last Admin: 10/08/17 17:10 Dose: 10,000 unit Famotidine (Pepcid) 20 mg PO Q12 [facility] Last Admin: 10/09/17 21:04 Dose: 20 mg Vancomycin/Sodium Chloride (Vancomycin 1 Gm/Ns 200 Ml) 1 gm in 200 mls @ 133.333 mls/hr IVPB MWF [facility] Stop: 10/15/17 10:29 Meropenem 500 mg/ Sodium (Chloride) 100 mls @ 200 mls/hr IVPB Q12H [facility] Last Admin: 10/09/17 14:56 Dose: 200 mls/hr Insulin Aspart (Novolog) 0 unit SC ACHS [facility] PRN Reason: Protocol Last Admin: 10/09/17 21:43 Dose: Not Given Paricalcitol (Zemplar) 2 mcg IV MWF [facility] Stop: 10/17/17 09:01 Last Admin: 10/05/17 17:08 Dose: 2 mcg Rosuvastatin Calcium (Crestor) 10 mg PO HS [facility] Last Admin: 10/09/17 21:04 Dose: 10 mg Saliva Substitute (First Magic Mouthwash) 3 ml PO Q6H [facility] Last Admin: 10/09/17 21:04 Dose: 3 ml Sevelamer Carbonate (Renvela) 1,600 mg PO TTS [facility] Last Admin: 10/09/17 12:19 Dose: 1,600 mg Silver Sulfadiazine (Silvadene 1% 20 Gm) 1 ea TOP DAILY [facility] Last Admin: 10/09/17 14:19 Dose: Not Given Vitamin B Complex/Vit C/Folic Acid (Nephro-Mark) 1 tab PO DAILY [facility] Last Admin: 10/09/17 12:16 Dose: 1 tab - Labs Labs: 10/08/17 11:18 10/08/17 11:18 PT 15.9 SECONDS (9.7-12.2) H 10/03/17 21:55 INR 1.4 10/03/17 21:55 APTT 36 SECONDS (21-34) H 10/03/17 21:55 - Constitutional Appears: No Acute Distress - Head Exam Head Exam: NORMAL INSPECTION - Eye Exam Eye Exam: EOMI, PERRL - ENT Exam ENT Exam: Normal Oropharynx - Neck Exam Neck Exam: Normal Inspection - Respiratory Exam Respiratory Exam: Clear to Ausculation Bilateral - Cardiovascular Exam Cardiovascular Exam: REGULAR RHYTHM, +S1, +S2 - GI/Abdominal Exam GI & Abdominal Exam: Soft, Normal Bowel Sounds - Extremities Exam Additional comments: RT UPPER ARM WITH AVG. sUPERFICIAL ULCER AT SITE. WEAK BRUIT PALPABLE. B/L AKA. - Neurological Exam Neurological Exam: Awake - Psychiatric Exam Psychiatric exam: Normal Mood - Skin Skin Exam: Normal Color, Warm Assessment and Plan (1) Sepsis Assessment & Plan: Source of sepsis and fevers -most probable infected AV graft/thrombosis. DC iv ZOSYN 2.25 EVERY 8 HOURLY 2..-2. START mERREM 500 MG EVERY 12 HOURLY FOR MULTIDRUG-RESISTANT aCINETOBACTER BAUMANNI 10/09/17 CONTACT PRECAUTIONS DISCUSSED WITH rn MS CHIN CONTINUE VANCOMYCIN 1 G POST-EACH HEMODIALYSIS MWF X 5 DOSES. VASCULAR SURGERY EVALUATION FOR THROMBOSED RIGHT AVG ? INFECTED RT UPPER ARM SWELLING/ULCERS SUPERFICIAL AND CELLULITIS NOTED. VANC TROUGH PRIOR TO 4TH DOSE AND KEEP BETWEEN 10-20MG/L Status: Acute (2) Fever Assessment & Plan: FOLLOW FEVER CURVE .fOLLOW-UP CULTURES AND ADJUST ANTIBIOTICS. Status: Acute (3) Tachycardia Status: Acute (4) AV graft thrombosis Assessment & Plan: as per vascular surgery. Patient for ultrasound right upper arm. Status: Acute (5) ESRD (end stage renal disease) on dialysis Assessment & Plan: PATIENT ON HEMODIALYSIS MWF. wATCH h&h Status: Acute (6) Diabetes mellitus Status: Chronic
[2017-10-10] MEDS: Meropenem 500 MG in Sodium Chloride 0.9% 100 ML IVPB SCH ×2 (01:16→17:50)
[2017-10-10] MEDS: Mag&Al/Simet/Diphen/Lido 237 ML KIT PO SCH ×4 (08:07→22:38)
[2017-10-10] MEDS: (Novolog) Insulin Aspart, Recombinant 100 u/ml 10 ml vial SC SCH ×4 (08:17→22:40)
[2017-10-10] MEDS: Multivitamin Vitamin B Complex (Nephro-Vite) Tab PO SCH (12:41)
[2017-10-10] MEDS: Paricalcitol 2 mcg/ml Inj IV SCH (15:55)
[2017-10-10] MEDS: Epoetin Alfa 10,000 unit/ml Dialysis IV SCH (15:57)
--- NOTE | 2017-10-10 17:41 | CP.PCM.PN ---
Subjective - Date & Time of Evaluation Date of Evaluation: 10/10/17 Time of Evaluation: 13:40 - Subjective Subjective: clinically same Objective - Vital Signs/Intake and Output Vital Signs (last 24 hours): Temp Pulse Resp BP Pulse Ox 97.5 F L 100 H 16 88/53 L 95 10/10/17 16:15 10/10/17 17:00 10/10/17 17:00 10/10/17 17:00 10/10/17 17:00 Intake and Output: 10/10/17 10/10/17 06:59 18:59 Intake Total 300 375 Balance 300 375 - Medications Medications: Current Medications Acetaminophen (Tylenol 325mg Tab) 325 mg PO Q6H PRN PRN Reason: Pain, moderate (4-7) Last Admin: 10/06/17 12:41 Dose: 325 mg Albumin Human (Albumin Human 25% (12.5 Gm/50 Ml)) 12.5 gm IV MWF PRN PRN Reason: hypotension Stop: 10/11/17 16:48 Last Admin: 10/08/17 17:38 Dose: 12.5 gm Aspirin (Aspirin Chewable) 81 mg PO DAILY [facility] Last Admin: 10/10/17 12:41 Dose: 81 mg Enoxaparin Sodium (Lovenox) 40 mg SC DAILY [facility] Epoetin Michel (Procrit) 10,000 unit IV [facility] Stop: 10/17/17 09:01 Last Admin: 10/10/17 15:57 Dose: 10,000 unit Famotidine (Pepcid) 20 mg PO Q12 [facility] Vancomycin/Sodium Chloride (Vancomycin 1 Gm/Ns 200 Ml) 1 gm in 200 mls @ 133.333 mls/hr IVPB [facility] Stop: 10/15/17 10:29 Meropenem 500 mg/ Sodium (Chloride) 100 mls @ 200 mls/hr IVPB Q12H [facility] Last Admin: 10/09/17 14:56 Dose: 200 mls/hr Insulin Aspart (Novolog) 0 unit SC ACHS [facility] PRN Reason: Protocol Last Admin: 10/10/17 08:17 Dose: Not Given Paricalcitol (Zemplar) 2 mcg IV [facility] Stop: 10/17/17 09:01 Last Admin: 10/10/17 15:55 Dose: 2 mcg Rosuvastatin Calcium (Crestor) [address] [facility] Last Admin: 10/09/17 21:04 Dose: 10 mg Saliva Substitute (First Magic Mouthwash) 3 ml PO Q6H [facility] Last Admin: 10/10/17 16:38 Dose: Not Given Sevelamer Carbonate (Renvela) 1,600 mg PO TTS [facility] Last Admin: 10/09/17 12:19 Dose: 1,600 mg Silver Sulfadiazine (Silvadene 1% 20 Gm) 1 ea TOP DAILY [facility] Last Admin: 10/09/17 14:19 Dose: Not Given Vitamin B Complex/Vit C/Folic Acid (Nephro-Mark) 1 tab PO DAILY [facility] Last Admin: 10/10/17 12:41 Dose: 1 tab - Labs Labs: 10/08/17 11:18 10/08/17 11:18 PT 15.9 SECONDS (9.7-12.2) H 10/03/17 21:55 INR 1.4 10/03/17 21:55 APTT 36 SECONDS (21-34) H 10/03/17 21:55 - Constitutional Appears: Well - Head Exam Head Exam: ATRAUMATIC, NORMAL INSPECTION, NORMOCEPHALIC - Eye Exam Eye Exam: EOMI, Normal appearance, PERRL Pupil Exam: NORMAL ACCOMODATION, PERRL - ENT Exam ENT Exam: Mucous Membranes Moist, Normal Exam - Neck Exam Neck Exam: Full ROM, Normal Inspection. absent: Lymphadenopathy - Respiratory Exam Respiratory Exam: Decreased Breath Sounds - Cardiovascular Exam Cardiovascular Exam: REGULAR RHYTHM, +S1, +S2 - GI/Abdominal Exam GI & Abdominal Exam: Soft, Diminished Bowel Sounds - Rectal Exam Rectal Exam: Deferred Assessment and Plan (1) ESRD on hemodialysis Status: Acute (2) Fever Status: Acute (3) Tachycardia Status: Acute (4) Bacteremia Status: Acute (5) CHF exacerbation Status: Acute (6) Dyspnea Status: Acute (7) ESRD (end stage renal disease) on dialysis Status: Acute (8) High cholesterol Status: Acute (9) Hypotension Status: Acute (10) Pneumonia Status: Acute (11) Prophylactic measure Status: Acute (12) Sepsis Status: Acute (13) Septic shock Status: Acute (14) UTI (urinary tract infection), bacterial Status: Acute (15) CHF (congestive heart failure) Status: Chronic (16) Diabetes mellitus Status: Chronic (17) ESRD (end stage renal disease) Status: Chronic (18) HTN (hypertension) Status: Chronic
[2017-10-10] MEDS: Vancomycin 1 gm/NS 200 ml 1 GM/200 ML BAG IVPB SCH (17:51)
--- NOTE | 2017-10-10 19:15 | CP.PCM.PN ---
Subjective - Date & Time of Evaluation Date of Evaluation: 10/10/17 Time of Evaluation: 16:45 - Subjective Subjective: Vascular surgery progress note for Dr. Austin Wilson, PGY-1 Pt S & E at bedside. Pt reports no pain, no complaints. Resting comfortably in bed, sister at bedside. Objective - Vital Signs/Intake and Output Vital Signs (last 24 hours): Temp Pulse Resp BP Pulse Ox 97.5 F L 100 H 16 88/53 L 95 10/10/17 16:15 10/10/17 17:00 10/10/17 17:00 10/10/17 17:00 10/10/17 17:00 Intake and Output: 10/10/17 10/11/17 18:59 06:59 Intake Total 375 Balance 375 - Medications Medications: Current Medications Acetaminophen (Tylenol 325mg Tab) 325 mg PO Q6H PRN PRN Reason: Pain, moderate (4-7) Last Admin: 10/06/17 12:41 Dose: 325 mg Albumin Human (Albumin Human 25% (12.5 Gm/50 Ml)) 12.5 gm IV MWF PRN PRN Reason: hypotension Stop: 10/11/17 16:48 Last Admin: 10/08/17 17:38 Dose: 12.5 gm Aspirin (Aspirin Chewable) 81 mg PO DAILY [facility] Last Admin: 10/10/17 12:41 Dose: 81 mg Enoxaparin Sodium (Lovenox) 40 mg SC DAILY [facility] Epoetin Michel (Procrit) 10,000 unit IV MWF [facility] Stop: 10/17/17 09:01 Last Admin: 10/10/17 15:57 Dose: 10,000 unit Famotidine (Pepcid) 20 mg PO Q12 [facility] Vancomycin/Sodium Chloride (Vancomycin 1 Gm/Ns 200 Ml) 1 gm in 200 mls @ 133.333 mls/hr IVPB MWF [facility] Stop: 10/15/17 10:29 Last Admin: 10/10/17 17:51 Dose: 133.333 mls/hr Meropenem 500 mg/ Sodium (Chloride) 100 mls @ 200 mls/hr IVPB Q12H [facility] Last Admin: 10/10/17 17:50 Dose: 200 mls/hr Insulin Aspart (Novolog) 0 unit SC ACHS [facility] PRN Reason: Protocol Last Admin: 10/10/17 17:30 Dose: 1 unit Paricalcitol (Zemplar) 2 mcg IV MWF [facility] Stop: 10/17/17 09:01 Last Admin: 10/10/17 15:55 Dose: 2 mcg Rosuvastatin Calcium (Crestor) 10 mg PO HS [facility] Last Admin: 10/09/17 21:04 Dose: 10 mg Saliva Substitute (First Magic Mouthwash) 3 ml PO Q6H [facility] Last Admin: 10/10/17 16:38 Dose: Not Given Sevelamer Carbonate (Renvela) 1,600 mg PO TTS [facility] Last Admin: 10/09/17 12:19 Dose: 1,600 mg Silver Sulfadiazine (Silvadene 1% 20 Gm) 1 ea TOP DAILY [facility] Last Admin: 10/09/17 14:19 Dose: Not Given Vitamin B Complex/Vit C/Folic Acid (Nephro-Mark) 1 tab PO DAILY [facility] Last Admin: 10/10/17 12:41 Dose: 1 tab - Labs Labs: 10/08/17 11:18 10/08/17 11:18 PT 15.9 SECONDS (9.7-12.2) H 10/03/17 21:55 INR 1.4 10/03/17 21:55 APTT 36 SECONDS (21-34) H 10/03/17 21:55 - Constitutional Appears: Non-toxic, No Acute Distress - Head Exam Head Exam: ATRAUMATIC, NORMAL INSPECTION, NORMOCEPHALIC - Eye Exam Eye Exam: EOMI, Normal appearance - ENT Exam ENT Exam: Mucous Membranes Moist, Normal Exam - Neck Exam Neck Exam: Full ROM, Normal Inspection - Respiratory Exam Respiratory Exam: NORMAL BREATHING PATTERN - Cardiovascular Exam Cardiovascular Exam: REGULAR RHYTHM - Extremities Exam Extremities Exam: absent: Normal Inspection (RUE with pitting edema, dressing over antecubital area - clean/dry/intact) - Neurological Exam Neurological Exam: Alert, Awake - Psychiatric Exam Psychiatric exam: Normal Affect, Normal Mood - Skin Skin Exam: Dry, Intact, Normal Color, Warm Assessment and Plan - Assessment and Plan (Free Text) Assessment: 51 M with RUE AVF with overlying ulcer Plan: f/u US of RUE- report pending Local wound care Continue AVF for HD, avoid ulcerated area If surgery required- family amenable to consent/rescinding DNR/DNI Further recs pending imaging results DW attending Katie, PGY-1
--- NOTE | 2017-10-10 20:42 | CP.PCM.PN ---
Subjective - Date & Time of Evaluation Date of Evaluation: 10/10/17 Time of Evaluation: 20:42 - Subjective Subjective: AFEBRILE. OFFERS NO COMPLAINTS. VASCULAR SURGERY NOTED. PT FOR PAYAL US- REPORT PENDING. WOUND CULTURE -NOTED +VE MDR aCINETOBACTER-BAUMANNI S- COLISTIN. PLAN; CONTINUE iv mERREM 500 MG EVERY 12 HOURLY. ADD iv COLISTIN 150 MG EVERY 36 HOURLY-RENAL DOES.10/10/17 CONTINUE iv VANCOMYCIN 1 G POST-EACH HEMODIALYSIS MWF. F/U -US PAYAL. CASE DISCUSSED WITH DR Tiffanie THEODORE. -PMD. Objective - Vital Signs/Intake and Output Vital Signs (last 24 hours): Temp Pulse Resp BP Pulse Ox 97.3 F L 103 H 16 109/42 L 95 10/10/17 16:25 10/10/17 19:15 10/10/17 17:00 10/10/17 19:15 10/10/17 17:00 Intake and Output: 10/10/17 10/11/17 18:59 06:59 Intake Total 375 Balance 375 - Medications Medications: Current Medications Acetaminophen (Tylenol 325mg Tab) 325 mg PO Q6H PRN PRN Reason: Pain, moderate (4-7) Last Admin: 10/06/17 12:41 Dose: 325 mg Albumin Human (Albumin Human 25% (12.5 Gm/50 Ml)) 12.5 gm IV MWF PRN PRN Reason: hypotension Stop: 10/11/17 16:48 Last Admin: 10/08/17 17:38 Dose: 12.5 gm Aspirin (Aspirin Chewable) 81 mg PO DAILY [facility] Last Admin: 10/10/17 12:41 Dose: 81 mg Enoxaparin Sodium (Lovenox) 40 mg SC DAILY [facility] Epoetin Michel (Procrit) 10,000 unit IV MWF [facility] Stop: 10/17/17 09:01 Last Admin: 10/10/17 15:57 Dose: 10,000 unit Famotidine (Pepcid) 20 mg PO Q12 [facility] Vancomycin/Sodium Chloride (Vancomycin 1 Gm/Ns 200 Ml) 1 gm in 200 mls @ 133.333 mls/hr IVPB MWF [facility] Stop: 10/15/17 10:29 Last Admin: 10/10/17 17:51 Dose: 133.333 mls/hr Meropenem 500 mg/ Sodium (Chloride) 100 mls @ 200 mls/hr IVPB Q12H [facility] Last Admin: 10/10/17 17:50 Dose: 200 mls/hr Insulin Aspart (Novolog) 0 unit SC ACHS [facility] PRN Reason: Protocol Last Admin: 10/10/17 17:30 Dose: 1 unit Paricalcitol (Zemplar) 2 mcg IV MWF [facility] Stop: 10/17/17 09:01 Last Admin: 10/10/17 15:55 Dose: 2 mcg Rosuvastatin Calcium (Crestor) 10 mg PO HS [facility] Last Admin: 10/09/17 21:04 Dose: 10 mg Saliva Substitute (First Magic Mouthwash) 3 ml PO Q6H [facility] Last Admin: 10/10/17 16:38 Dose: Not Given Sevelamer Carbonate (Renvela) 1,600 mg PO TTS [facility] Last Admin: 10/09/17 12:19 Dose: 1,600 mg Silver Sulfadiazine (Silvadene 1% 20 Gm) 1 ea TOP DAILY [facility] Last Admin: 10/09/17 14:19 Dose: Not Given Vitamin B Complex/Vit C/Folic Acid (Nephro-Mark) 1 tab PO DAILY [facility] Last Admin: 10/10/17 12:41 Dose: 1 tab - Labs Labs: 10/08/17 11:18 10/08/17 11:18 PT 15.9 SECONDS (9.7-12.2) H 10/03/17 21:55 INR 1.4 10/03/17 21:55 APTT 36 SECONDS (21-34) H 10/03/17 21:55 - Constitutional Appears: No Acute Distress - Head Exam Head Exam: NORMAL INSPECTION - Eye Exam Eye Exam: EOMI, PERRL - ENT Exam ENT Exam: Normal Oropharynx - Neck Exam Neck Exam: Normal Inspection - Respiratory Exam Respiratory Exam: Clear to Ausculation Bilateral - Cardiovascular Exam Cardiovascular Exam: REGULAR RHYTHM, +S1, +S2 - GI/Abdominal Exam GI & Abdominal Exam: Soft, Normal Bowel Sounds - Extremities Exam Additional comments: B/L AKA. - Neurological Exam Neurological Exam: Awake - Additional Findings Additional findings: RUE AVG +VE SWELLING AND SUPERFICIAL ULCERATION . +VE WEAK BRUIT. Assessment and Plan (1) Sepsis Assessment & Plan: CONTINUE iv mERREM 500 MG EVERY 12 HOURLY.10/09/17 ADD iv COLISTIN 150 MG EVERY 36 HOURLY-RENAL DOSE .10/10/17 CONTINUE iv VANCOMYCIN 1 G POST-EACH HEMODIALYSIS MWF X 5 DOSES ORDERED F/U -US PAYAL. CASE DISCUSSED WITH DR Tiffanie THEODORE. -PMD. Status: Acute (2) Fever Status: Acute (3) Tachycardia Status: Acute (4) AV graft thrombosis Status: Acute (5) ESRD (end stage renal disease) on dialysis Assessment & Plan: ON HD MWF. F/U US AVF Status: Acute (6) Diabetes mellitus Status: Chronic
[2017-10-11] MEDS: Meropenem 500 MG in Sodium Chloride 0.9% 100 ML IVPB SCH ×2 (02:11→13:42)
[2017-10-11] MEDS: Mag&Al/Simet/Diphen/Lido 237 ML KIT PO SCH ×4 (03:08→21:49)
[2017-10-11 06:25] LABS: BASO # 0.1 K/uL (0.0-0.2); BASO % 1.1 % (0.0-2.0); EOS # 0.3 K/uL (0.0-0.7); EOS % 3.7 % (0.0-4.0); HEMOGLOBIN 8.5 g/dL (12.0-18.0); LYMPH # 1.4 K/uL (1.0-4.3); MEAN CELL VOLUME 84.2 fL (80.0-94.0); MEAN CORPUSCULAR HEMOGLOBIN 27.2 pg (27.0-31.0); MEAN CORPUSCULAR HGB CONC 32.3 g/dL (33.0-37.0); MEAN PLATELET VOLUME 9.3 fL (7.2-11.7); MONO # 0.9 K/uL (0.0-0.8); MONO % 11.8 % (0.0-10.0); NEUT # 4.7 K/uL (1.8-7.0); NEUT % 64.4 % (50.0-75.0); NRBC % 0.1 % (0.0-2.0); RBC 3.12 Mil/uL (4.40-5.90); RED CELL DISTRIBUTION WIDTH 21.7 % (11.5-14.5); WHITE BLOOD COUNT 7.3 K/uL (4.8-10.8)
[2017-10-11] MEDS: (Novolog) Insulin Aspart, Recombinant 100 u/ml 10 ml vial SC SCH ×5 (08:20→21:28)
[2017-10-11 08:22] LABS: ALB/GLOB RATIO 0.7 (1.0-2.1); ALBUMIN 2.7 g/dL (3.5-5.0); CALCIUM 8.4 mg/dl (8.6-10.4)
[2017-10-11] MEDS: Multivitamin Vitamin B Complex (Nephro-Vite) Tab PO SCH (10:00)
[2017-10-11] MEDS: Silver Sulfadiazine 1% Cream (20 gm) TOP SCH (11:00)
--- NOTE | 2017-10-11 11:20 | CP.PCM.PN ---
Subjective - Date & Time of Evaluation Date of Evaluation: 10/11/17 Time of Evaluation: 07:15 - Subjective Subjective: Surgery progress note. Dr. Carrasco Pt seen and examined at bedside. No acute events overnight. Right upper extremity swelling Objective - Vital Signs/Intake and Output Vital Signs (last 24 hours): Temp Pulse Resp BP Pulse Ox 97.9 F 95 H 20 138/66 100 10/11/17 08:00 10/11/17 08:00 10/11/17 08:00 10/11/17 08:00 10/11/17 08:00 Intake and Output: 10/11/17 10/11/17 06:59 18:59 Intake Total 30 Balance 30 - Medications Medications: Current Medications Acetaminophen (Tylenol 325mg Tab) 325 mg PO Q6H PRN PRN Reason: Pain, moderate (4-7) Last Admin: 10/06/17 12:41 Dose: 325 mg Albumin Human (Albumin Human 25% (12.5 Gm/50 Ml)) 12.5 gm IV MWF PRN PRN Reason: hypotension Stop: 10/11/17 16:48 Last Admin: 10/08/17 17:38 Dose: 12.5 gm Aspirin (Aspirin Chewable) 81 mg PO DAILY [facility] Last Admin: 10/10/17 12:41 Dose: 81 mg Enoxaparin Sodium (Lovenox) 40 mg SC DAILY [facility] Epoetin Michel (Procrit) 10,000 unit IV F [facility] Stop: 10/17/17 09:01 Last Admin: 10/10/17 15:57 Dose: 10,000 unit Famotidine (Pepcid) 20 mg PO Q12 [facility] Vancomycin/Sodium Chloride (Vancomycin 1 Gm/Ns 200 Ml) 1 gm in 200 mls @ 133.333 mls/hr IVPB MWF [facility] Stop: 10/15/17 10:29 Last Admin: 10/10/17 17:51 Dose: 133.333 mls/hr Meropenem 500 mg/ Sodium (Chloride) 100 mls @ 200 mls/hr IVPB Q12H [facility] Last Admin: 10/11/17 02:11 Dose: 200 mls/hr Colistimethate Sodium 150 mg/ (Sodium Chloride) 100 mls @ 200 mls/hr IV Q36H [facility] Last Admin: 10/10/17 23:06 Dose: 200 mls/hr Insulin Aspart (Novolog) 0 unit SC ACHS [facility] PRN Reason: Protocol Last Admin: 10/11/17 08:20 Dose: 1 unit Paricalcitol (Zemplar) 2 mcg IV MWF [facility] Stop: 10/17/17 09:01 Last Admin: 10/10/17 15:55 Dose: 2 mcg Rosuvastatin Calcium (Crestor) 10 mg PO HS [facility] Last Admin: 10/10/17 22:40 Dose: 10 mg Saliva Substitute (First Magic Mouthwash) 3 ml PO Q6H [facility] Last Admin: 10/11/17 03:08 Dose: Not Given Sevelamer Carbonate (Renvela) 1,600 mg PO TTS [facility] Last Admin: 10/09/17 12:19 Dose: 1,600 mg Silver Sulfadiazine (Silvadene 1% 20 Gm) 1 ea TOP DAILY [facility] Last Admin: 10/09/17 14:19 Dose: Not Given Vitamin B Complex/Vit C/Folic Acid (Nephro-Mark) 1 tab PO DAILY [facility] Last Admin: 10/10/17 12:41 Dose: 1 tab - Labs Labs: 10/11/17 06:14 10/11/17 06:14 PT 15.9 SECONDS (9.7-12.2) H 10/03/17 21:55 INR 1.4 10/03/17 21:55 APTT 36 SECONDS (21-34) H 10/03/17 21:55 - Constitutional Appears: Non-toxic, No Acute Distress - Head Exam Head Exam: ATRAUMATIC, NORMAL INSPECTION, NORMOCEPHALIC - Eye Exam Eye Exam: EOMI, Normal appearance - ENT Exam ENT Exam: Mucous Membranes Moist - Respiratory Exam Respiratory Exam: NORMAL BREATHING PATTERN. absent: Accessory Muscle Use, Respiratory Distress - GI/Abdominal Exam GI & Abdominal Exam: Soft. absent: Distended, Firm, Guarding, Rigid, Tenderness - Extremities Exam Additional comments: right upper extremity swelling. Dressing replaced. No active drainage noted. No apparent tenderness to palpation - Neurological Exam Neurological Exam: Alert - Skin Skin Exam: Dry, Intact, Normal Color, Warm Assessment and Plan - Assessment and Plan (Free Text) Assessment: 51yo M with RUE AVF with overlying ulcer Plan: - Pending US of RUE AVF - Local wound care - May continue to use AVF for now, avoid ulcerated area - Further recs pending imaging results Further recs as per Dr. Luna Slade PGY1 surgery pager: [phone]
[2017-10-11] MEDS: Enoxaparin 30 mg Syringe SC SCH (13:09)
--- NOTE | 2017-10-11 13:31 | VASCLAB ---
PROCEDURE: Arterial-Venous shunt Evaluation. HISTORY: please measure size of graft and depth PRIORS: None. TECHNIQUE: Ultrasound evaluation of arterial-venous shunt with color doppler and velocity measurements. Report prepared by MARYCHUY Mayfield, RVT FINDINGS: Type of arterial-venous shunt: Vein Afferent Artery: Brachial Efferent Vein: Basilic 1. Afferent Artery: Velocity 266 cm/s Image Characteristics: 2. Inflow Anastamosis: Velocity 460 cm/s Image Characteristics: 3. Mid shunt flow: Velocity cm/s Image Characteristics: 4. Outflow Anastamosis: Velocity cm/s Image Characteristics: 5. Efferent Vein: Velocity cm/s Image Characteristics: OTHER FINDINGS: The anastamosis velocity is 460 cm/s, distal upper arm basilic vein velocity 288 cm/s, mid 185 cm/s, proximal 90 cm/s, and axillary vein 104 cm/s. IMPRESSION: RIGHT BRACHIAL-BASILIC VEIN FISTULA The vein sizes are: At anastamosis 0.55 cm, Basilic vein upper arm: proximal 0.73 cm, mid 1.06 cm, distal 2.56 Cm. The depth are: At anastamosis 2.10 cm, Basilic vein: proximal 1.09 cm, mid 2.18 cm, distal 0.39 cm. 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
--- NOTE | 2017-10-11 15:43 | CP.PCM.PN ---
Subjective - Date & Time of Evaluation Date of Evaluation: 10/11/17 Time of Evaluation: 10:50 - Subjective Subjective: clinically same Objective - Vital Signs/Intake and Output Vital Signs (last 24 hours): Temp Pulse Resp BP Pulse Ox 97.9 F 95 H 20 138/66 100 10/11/17 08:00 10/11/17 08:00 10/11/17 08:00 10/11/17 08:00 10/11/17 08:00 Intake and Output: 10/11/17 10/11/17 06:59 18:59 Intake Total 30 Balance 30 - Medications Medications: Current Medications Acetaminophen (Tylenol 325mg Tab) 325 mg PO Q6H PRN PRN Reason: Pain, moderate (4-7) Last Admin: 10/06/17 12:41 Dose: 325 mg Albumin Human (Albumin Human 25% (12.5 Gm/50 Ml)) 12.5 gm IV MWF PRN PRN Reason: hypotension Stop: 10/11/17 16:48 Last Admin: 10/08/17 17:38 Dose: 12.5 gm Aspirin (Aspirin Chewable) 81 mg PO DAILY [facility] Last Admin: 10/11/17 09:58 Dose: 81 mg Enoxaparin Sodium (Lovenox) 30 mg SC DAILY [facility] Last Admin: 10/11/17 13:09 Dose: 30 mg Epoetin Michel (Procrit) 10,000 unit IV [facility] Stop: 10/17/17 09:01 Last Admin: 10/10/17 15:57 Dose: 10,000 unit Famotidine (Pepcid) 20 mg PO DAILY [facility] Vancomycin/Sodium Chloride (Vancomycin 1 Gm/Ns 200 Ml) 1 gm in 200 mls @ 133.333 mls/hr IVPB MWF [facility] Stop: 10/15/17 10:29 Last Admin: 10/10/17 17:51 Dose: 133.333 mls/hr Meropenem 500 mg/ Sodium (Chloride) 100 mls @ 200 mls/hr IVPB Q12H [facility] Last Admin: 10/11/17 13:42 Dose: 200 mls/hr Colistimethate Sodium 150 mg/ (Sodium Chloride) 100 mls @ 200 mls/hr IV Q36H [facility] Last Admin: 10/10/17 23:06 Dose: 200 mls/hr Insulin Aspart (Novolog) 0 unit SC ACHS [facility] PRN Reason: Protocol Last Admin: 10/11/17 13:08 Dose: 2 unit Paricalcitol (Zemplar) 2 mcg IV MWF [facility] Stop: 10/17/17 09:01 Last Admin: 10/10/17 15:55 Dose: 2 mcg Rosuvastatin Calcium (Crestor) 10 mg PO HS [facility] Last Admin: 10/10/17 22:40 Dose: 10 mg Saliva Substitute (First Magic Mouthwash) 3 ml PO Q6H [facility] Last Admin: 10/11/17 10:00 Dose: Not Given Sevelamer Carbonate (Renvela) 1,600 mg PO TTS [facility] Last Admin: 10/11/17 09:58 Dose: 1,600 mg Silver Sulfadiazine (Silvadene 1% 20 Gm) 1 ea TOP DAILY [facility] Last Admin: 10/09/17 14:19 Dose: Not Given Vitamin B Complex/Vit C/Folic Acid (Nephro-Mark) 1 tab PO DAILY [facility] Last Admin: 10/11/17 10:00 Dose: 1 tab - Labs Labs: 10/11/17 06:14 10/11/17 06:14 PT 15.9 SECONDS (9.7-12.2) H 10/03/17 21:55 INR 1.4 10/03/17 21:55 APTT 36 SECONDS (21-34) H 10/03/17 21:55 - Constitutional Appears: Well - Head Exam Head Exam: ATRAUMATIC, NORMAL INSPECTION, NORMOCEPHALIC - Eye Exam Eye Exam: EOMI, Normal appearance, PERRL Pupil Exam: NORMAL ACCOMODATION, PERRL - ENT Exam ENT Exam: Mucous Membranes Moist, Normal Exam - Neck Exam Neck Exam: Full ROM, Normal Inspection. absent: Lymphadenopathy - Respiratory Exam Respiratory Exam: Decreased Breath Sounds - Cardiovascular Exam Cardiovascular Exam: REGULAR RHYTHM, +S1, +S2 - GI/Abdominal Exam GI & Abdominal Exam: Soft, Diminished Bowel Sounds - Rectal Exam Rectal Exam: Deferred Assessment and Plan (1) ESRD on hemodialysis Status: Acute (2) Fever Status: Acute (3) Tachycardia Status: Acute (4) Bacteremia Status: Acute (5) CHF exacerbation Status: Acute (6) Dyspnea Status: Acute (7) ESRD (end stage renal disease) on dialysis Status: Acute (8) High cholesterol Status: Acute (9) Hypotension Status: Acute (10) Pneumonia Status: Acute (11) Prophylactic measure Status: Acute (12) Sepsis Status: Acute (13) Septic shock Status: Acute (14) UTI (urinary tract infection), bacterial Status: Acute (15) CHF (congestive heart failure) Status: Chronic (16) Diabetes mellitus Status: Chronic (17) ESRD (end stage renal disease) Status: Chronic (18) HTN (hypertension) Status: Chronic
[2017-10-11] MEDS: Mupirocin 2% Ointment (NASAL) NAS SCH (21:16)
--- NOTE | 2017-10-11 23:22 | CP.PCM.PN ---
Subjective - Date & Time of Evaluation Date of Evaluation: 10/11/17 Time of Evaluation: 23:22 - Subjective Subjective: aFEBRILE RIGHT ARM +VE SWELLING AVG SITE SUPERFICIAL ULCERATIONS AVF BRUIT WEAK DUPLEX SCAN HEMO-ACCESS--PENDING VASCULAR [id number] NOTED . PATIENT ON iv ANTIBIOTICS iv COLISTIN 150MG EVERY 36 HOURS. iv VANCOMYCIN 1 G POST HEMODIALYSIS MWF X 6DOSES. iv mERREM 500 MG EVERY 12 HOURLY. Objective - Vital Signs/Intake and Output Vital Signs (last 24 hours): Temp Pulse Resp BP Pulse Ox 97.6 F 101 H 20 117/72 100 10/11/17 15:00 10/11/17 15:00 10/11/17 15:00 10/11/17 15:00 10/11/17 15:00 Intake and Output: 10/11/17 10/12/17 18:59 06:59 Intake Total 240 Balance 240 - Medications Medications: Current Medications Acetaminophen (Tylenol 325mg Tab) 325 mg PO Q6H PRN PRN Reason: Pain, moderate (4-7) Last Admin: 10/06/17 12:41 Dose: 325 mg Aspirin (Aspirin Chewable) 81 mg PO DAILY [facility] Last Admin: 10/11/17 09:58 Dose: 81 mg Enoxaparin Sodium (Lovenox) 30 mg SC DAILY [facility] Last Admin: 10/11/17 13:09 Dose: 30 mg Epoetin Michel (Procrit) 10,000 unit [place] [facility] Stop: 10/17/17 09:01 Last Admin: 10/10/17 15:57 Dose: 10,000 unit Famotidine (Pepcid) 20 mg PO DAILY [facility] Vancomycin/Sodium Chloride (Vancomycin 1 Gm/Ns 200 Ml) 1 gm in 200 mls @ 133.333 mls/hr IVPB MWF [facility] Stop: 10/15/17 10:29 Last Admin: 10/10/17 17:51 Dose: 133.333 mls/hr Meropenem 500 mg/ Sodium (Chloride) 100 mls @ 200 mls/hr IVPB Q12H [facility] Last Admin: 10/11/17 13:42 Dose: 200 mls/hr Colistimethate Sodium 150 mg/ (Sodium Chloride) 100 mls @ 200 mls/hr IV Q36H [facility] Last Admin: 10/10/17 23:06 Dose: 200 mls/hr Insulin Aspart (Novolog) 0 unit SC ACHS [facility] PRN Reason: Protocol Last Admin: 10/11/17 21:28 Dose: Not Given Mupirocin (Bactroban 2% Nasal) 0.5 gm [place] [facility] Stop: 10/18/17 20:17 Last Admin: 10/11/17 21:16 Dose: 0.5 gm Paricalcitol (Zemplar) 2 mcg IV MWF [facility] Stop: 10/17/17 09:01 Last Admin: 10/10/17 15:55 Dose: 2 mcg Rosuvastatin Calcium (Crestor) 10 mg PO HS [facility] Last Admin: 10/11/17 21:16 Dose: 10 mg Saliva Substitute (First Magic Mouthwash) 3 ml PO Q6H [facility] Last Admin: 10/11/17 21:49 Dose: Not Given Sevelamer Carbonate (Renvela) 1,600 mg PO TTS [facility] Last Admin: 10/11/17 09:58 Dose: 1,600 mg Silver Sulfadiazine (Silvadene 1% 20 Gm) 1 ea TOP DAILY [facility] Last Admin: 10/09/17 14:19 Dose: Not Given Vitamin B Complex/Vit C/Folic Acid (Nephro-Mark) 1 tab PO DAILY [facility] Last Admin: 10/11/17 10:00 Dose: 1 tab - Labs Labs: 10/11/17 06:14 10/11/17 06:14 PT 15.9 SECONDS (9.7-12.2) H 10/03/17 21:55 INR 1.4 10/03/17 21:55 APTT 36 SECONDS (21-34) H 10/03/17 21:55 - Constitutional Appears: No Acute Distress, Chronically Ill - Head Exam Head Exam: NORMAL INSPECTION - Eye Exam Eye Exam: EOMI, PERRL - ENT Exam ENT Exam: Normal Exam, Normal Oropharynx - Neck Exam Neck Exam: Normal Inspection - Respiratory Exam Respiratory Exam: Clear to Ausculation Bilateral - Cardiovascular Exam Cardiovascular Exam: REGULAR RHYTHM, +S1, +S2 - GI/Abdominal Exam GI & Abdominal Exam: Soft, Normal Bowel Sounds - Extremities Exam Additional comments: B/L AKA. RT ARM SWELLING WITH AVG /SUPERFICIAL ULCERATIONS .NO DRAINAGE AT PRESENT NOTED - Neurological Exam Neurological Exam: Awake - Psychiatric Exam Psychiatric exam: Normal Affect - Skin Skin Exam: Normal Color, Warm Assessment and Plan (1) Sepsis Assessment & Plan: Source of sepsis and fevers -most probable infected AV graft/thrombosis. DC iv ZOSYN 2.25 EVERY 8 HOURLY 2..-10/09/17. CONTINUE IV mERREM 500 MG EVERY 12 HOURLY FOR MULTIDRUG-RESISTANT ACINETOBACTER BAUMANNI 10/09/17 CONTINUE iv COLISTIN 150 MG EVERY 36 HOURS TO PREVENT RESISTANCE acinetobacter BAUMANNI. CONTINUE VANCOMYCIN 1 G POST-EACH HEMODIALYSIS MWF X 5 DOSES. VASCULAR SURGERY EVALUATION FOR THROMBOSED RIGHT AVG ? INFECTED RT UPPER ARM SWELLING/ULCERS SUPERFICIAL AND CELLULITIS NOTED. AWAITING THE DUPLEX SCAN HEMO-ACCESS RIGHT UPPER ARM. CONTACT PRECAUTIONS DISCUSSED WITH rn [facility] GIUSEPPE Status: Acute (2) Fever Assessment & Plan: FEVERS HAVE RESOLVED .bLOOD CULTURES 10/05/17 -VE GROWTH TO DATE. mrsa SCREEN POSITIVE NARIS. BACTROBAN OINTMENT LOCALLY TWICE A DAY FOR 7 DAYS BOTH NARES. Status: Acute (3) Tachycardia Status: Acute (4) AV graft thrombosis Assessment & Plan: AWAIT ULTRASOUND av GRAFT SITE. pAST THE SURGERY ON BOARD FOR FURTHER RECOMMENDATIONS. Status: Acute (5) ESRD (end stage renal disease) on dialysis Assessment & Plan: PATIENT ON HEMODIALYSIS MWF. Status: Acute (6) Diabetes mellitus Status: Chronic
[2017-10-12] MEDS ORDERED: Potassium Chloride 20 mEq ER Tab PO ONE (00:45)
[2017-10-12] MEDS: Meropenem 500 MG in Sodium Chloride 0.9% 100 ML IVPB SCH ×3 (02:10→14:56)
[2017-10-12] MEDS: Mag&Al/Simet/Diphen/Lido 237 ML KIT PO SCH ×4 (03:21→22:53)
[2017-10-12] MEDS: (Novolog) Insulin Aspart, Recombinant 100 u/ml 10 ml vial SC SCH ×4 (07:58→22:53)
[2017-10-12] MEDS ORDERED: Albumin Human 25% (12.5 gm/50 ml) IV ONE ×2 (12:15→12:16)
[2017-10-12] MEDS: Paricalcitol 2 mcg/ml Inj IV SCH (12:34)
[2017-10-12] MEDS: Epoetin Alfa 10,000 unit/ml Dialysis IV SCH (12:36)
[2017-10-12] MEDS: Mupirocin 2% Ointment (NASAL) NAS SCH ×2 (14:28→18:08)
[2017-10-12] MEDS: Enoxaparin 30 mg Syringe SC SCH (14:51)
[2017-10-12] MEDS: Multivitamin Vitamin B Complex (Nephro-Vite) Tab PO SCH (14:53)
[2017-10-12] MEDS: Silver Sulfadiazine 1% Cream (20 gm) TOP SCH (14:56)
[2017-10-12] MEDS: SODIUM CHLORIDE 0.9% IV SCH (17:08)
[2017-10-12] MEDS: COLISTIMETHATE IV SCH (17:08)
--- NOTE | 2017-10-12 17:34 | CP.PCM.PN ---
Subjective - Date & Time of Evaluation Date of Evaluation: 10/12/17 Time of Evaluation: 10:00 - Subjective Subjective: clinically same Objective - Vital Signs/Intake and Output Vital Signs (last 24 hours): Temp Pulse Resp BP Pulse Ox 97.8 F 100 H 20 113/63 98 10/12/17 15:40 10/12/17 15:40 10/12/17 15:40 10/12/17 14:15 10/12/17 15:40 Intake and Output: 10/12/17 10/12/17 06:59 18:59 Intake Total 390 Balance 390 - Medications Medications: Current Medications Acetaminophen (Tylenol 325mg Tab) 325 mg PO Q6H PRN PRN Reason: Pain, moderate (4-7) Last Admin: 10/06/17 12:41 Dose: 325 mg Aspirin (Aspirin Chewable) 81 mg PO DAILY [facility] Last Admin: 10/12/17 14:53 Dose: 81 mg Enoxaparin Sodium (Lovenox) 30 mg SC DAILY [facility] Last Admin: 10/12/17 14:51 Dose: 30 mg Epoetin Michel (Procrit) 10,000 unit IV [facility] Stop: 10/17/17 09:01 Last Admin: 10/12/17 12:36 Dose: 10,000 unit Famotidine (Pepcid) 20 mg PO DAILY [facility] Last Admin: 10/12/17 14:53 Dose: 20 mg Vancomycin/Sodium Chloride (Vancomycin 1 Gm/Ns 200 Ml) 1 gm in 200 mls @ 133.333 mls/hr [facility] Stop: 10/15/17 10:29 Last Admin: 10/10/17 17:51 Dose: 133.333 mls/hr Meropenem 500 mg/ Sodium (Chloride) 100 mls @ 200 mls/hr IVPB Q12H [facility] Last Admin: 10/12/17 14:56 Dose: 200 mls/hr Colistimethate Sodium 140 mg/ (Sodium Chloride) 100 mls @ 200 mls/hr IV Q36H [facility] Last Admin: 10/12/17 17:08 Dose: 200 mls/hr Insulin Aspart (Novolog) 0 unit SC ACHS [facility] PRN Reason: Protocol Last Admin: 10/12/17 14:27 Dose: Not Given Mupirocin (Bactroban 2% Nasal) 0.5 gm PALOMO BID [facility] Stop: 10/18/17 20:17 Last Admin: 10/12/17 14:28 Dose: Not Given Paricalcitol (Zemplar) 2 mcg IV MWF [facility] Stop: 10/17/17 09:01 Last Admin: 10/12/17 12:34 Dose: 2 mcg Rosuvastatin Calcium (Crestor) 10 mg PO HS [facility] Last Admin: 10/11/17 21:16 Dose: 10 mg Saliva Substitute (First Magic Mouthwash) 3 ml PO Q6H [facility] Last Admin: 10/12/17 14:27 Dose: Not Given Sevelamer Carbonate (Renvela) 1,600 mg PO TTS [facility] Last Admin: 10/11/17 09:58 Dose: 1,600 mg Silver Sulfadiazine (Silvadene 1% 20 Gm) 1 ea TOP DAILY [facility] Last Admin: 10/12/17 14:56 Dose: Not Given Vitamin B Complex/Vit C/Folic Acid (Nephro-Mark) 1 tab PO DAILY [facility] Last Admin: 10/12/17 14:53 Dose: 1 tab - Labs Labs: 10/11/17 06:14 10/11/17 06:14 PT 15.9 SECONDS (9.7-12.2) H 10/03/17 21:55 INR 1.4 10/03/17 21:55 APTT 36 SECONDS (21-34) H 10/03/17 21:55 - Constitutional Appears: Well - Head Exam Head Exam: ATRAUMATIC, NORMAL INSPECTION, NORMOCEPHALIC - Eye Exam Eye Exam: EOMI, Normal appearance, PERRL Pupil Exam: NORMAL ACCOMODATION, PERRL - ENT Exam ENT Exam: Mucous Membranes Moist, Normal Exam - Neck Exam Neck Exam: Full ROM, Normal Inspection. absent: Lymphadenopathy - Respiratory Exam Respiratory Exam: Decreased Breath Sounds - Cardiovascular Exam Cardiovascular Exam: REGULAR RHYTHM, +S1, +S2 - GI/Abdominal Exam GI & Abdominal Exam: Soft, Diminished Bowel Sounds - Rectal Exam Rectal Exam: Deferred Assessment and Plan (1) ESRD on hemodialysis Status: Acute (2) Fever Status: Acute (3) Tachycardia Status: Acute (4) Bacteremia Status: Acute (5) CHF exacerbation Status: Acute (6) Dyspnea Status: Acute (7) ESRD (end stage renal disease) on dialysis Status: Acute (8) High cholesterol Status: Acute (9) Hypotension Status: Acute (10) Pneumonia Status: Acute (11) Prophylactic measure Status: Acute (12) Sepsis Status: Acute (13) Septic shock Status: Acute (14) UTI (urinary tract infection), bacterial Status: Acute (15) CHF (congestive heart failure) Status: Chronic (16) Diabetes mellitus Status: Chronic (17) ESRD (end stage renal disease) Status: Chronic (18) HTN (hypertension) Status: Chronic
[2017-10-12] MEDS: Vancomycin 1 gm/NS 200 ml 1 GM/200 ML BAG IVPB SCH ×2 (17:50→17:52)
[2017-10-12] MEDS ORDERED: Potassium Chloride 20 mEq ER Tab PO STA (19:46)
--- NOTE | 2017-10-12 22:48 | CP.PCM.PN ---
Subjective - Date & Time of Evaluation Date of Evaluation: 10/12/17 Time of Evaluation: 22:48 - Subjective Subjective: AFEBRILE RIGHT ARM +VE SWELLING AVG SITE SUPERFICIAL ULCERATIONS. ULCERATIONS DRYING UP hEMODIALYSIS THROUGH AV-GRAFT RIGHT UPPER ARM AVF BRUIT WEAK DUPLEX SCAN HEMO-ACCESS-- NOTED -RIGHT DISTAL BASILIC VEIN ANEURYSM VASCULAR [id number] NOTED LABS REVIEWED Objective - Vital Signs/Intake and Output Vital Signs (last 24 hours): Temp Pulse Resp BP Pulse Ox 97.8 F 103 H 20 134/72 98 10/12/17 15:40 10/12/17 21:00 10/12/17 21:00 10/12/17 21:00 10/12/17 15:40 - Medications Medications: Current Medications Acetaminophen (Tylenol 325mg Tab) 325 mg PO Q6H PRN PRN Reason: Pain, moderate (4-7) Last Admin: 10/06/17 12:41 Dose: 325 mg Aspirin (Aspirin Chewable) 81 mg PO DAILY [facility] Last Admin: 10/12/17 14:53 Dose: 81 mg Enoxaparin Sodium (Lovenox) 30 mg SC DAILY [facility] Last Admin: 10/12/17 14:51 Dose: 30 mg Epoetin Michel (Procrit) 10,000 unit IV [facility] [place] Stop: 10/17/17 09:01 Last Admin: 10/12/17 12:36 Dose: 10,000 unit Famotidine (Pepcid) 20 mg PO DAILY [facility] Last Admin: 10/12/17 14:53 Dose: 20 mg Vancomycin/Sodium Chloride (Vancomycin 1 Gm/Ns 200 Ml) 1 gm in 200 mls @ 133.333 mls/hr IVPB [facility] [place] Stop: 10/15/17 10:29 Last Admin: 10/12/17 17:52 Dose: 133.333 mls/hr Meropenem 500 mg/ Sodium (Chloride) 100 mls @ 200 mls/hr IVPB Q12H [facility] Last Admin: 10/12/17 14:56 Dose: 200 mls/hr Colistimethate Sodium 140 mg/ (Sodium Chloride) 100 mls @ 200 mls/hr IV Q36H [facility] Last Admin: 10/12/17 17:08 Dose: 200 mls/hr Insulin Aspart (Novolog) 0 unit SC ACHS [facility] PRN Reason: Protocol Last Admin: 10/12/17 18:11 Dose: 1 unit Mupirocin (Bactroban 2% Nasal) 0.5 gm PALOMO BID [facility] Stop: 10/18/17 20:17 Last Admin: 10/12/17 18:08 Dose: 0.5 gm Paricalcitol (Zemplar) 2 mcg IV MWF [facility] Stop: 10/17/17 09:01 Last Admin: 10/12/17 12:34 Dose: 2 mcg Rosuvastatin Calcium (Crestor) 10 mg PO HS [facility] Last Admin: 10/11/17 21:16 Dose: 10 mg Saliva Substitute (First Magic Mouthwash) 3 ml PO Q6H [facility] Last Admin: 10/12/17 16:00 Dose: Not Given Sevelamer Carbonate (Renvela) 1,600 mg PO TTS [facility] Last Admin: 10/11/17 09:58 Dose: 1,600 mg Silver Sulfadiazine (Silvadene 1% 20 Gm) 1 ea TOP DAILY [facility] Last Admin: 10/12/17 14:56 Dose: Not Given Vitamin B Complex/Vit C/Folic Acid (Nephro-Mark) 1 tab PO DAILY [facility] Last Admin: 10/12/17 14:53 Dose: 1 tab - Labs Labs: 10/11/17 06:14 10/11/17 06:14 PT 15.9 SECONDS (9.7-12.2) H 10/03/17 21:55 INR 1.4 10/03/17 21:55 APTT 36 SECONDS (21-34) H 10/03/17 21:55 - Constitutional Appears: No Acute Distress - Head Exam Head Exam: NORMAL INSPECTION - Eye Exam Eye Exam: EOMI, PERRL - ENT Exam ENT Exam: Normal Oropharynx - Neck Exam Neck Exam: Normal Inspection - Respiratory Exam Respiratory Exam: Clear to Ausculation Bilateral - Cardiovascular Exam Cardiovascular Exam: Tachycardia, REGULAR RHYTHM, +S1, +S2 - GI/Abdominal Exam GI & Abdominal Exam: Soft, Normal Bowel Sounds - Extremities Exam Additional comments: B/L AKA. - Neurological Exam Neurological Exam: Awake - Psychiatric Exam Psychiatric exam: Flat Affect - Skin Skin Exam: Normal Color, Warm Assessment and Plan (1) Sepsis Assessment & Plan: Source of sepsis and fevers -most probable infected AV graft/thrombosis. DC iv ZOSYN 2.25 EVERY 8 HOURLY 2..-10/09/17. CONTINUE IV mERREM 500 MG EVERY 12 HOURLY FOR MULTIDRUG-RESISTANT ACINETOBACTER BAUMANNI 10/09/17 CONTINUE iv COLISTIN 150 MG EVERY 36 HOURS TO PREVENT RESISTANCE acinetobacter BAUMANNI. CONTINUE VANCOMYCIN 1 G POST-EACH HEMODIALYSIS MWF X 5 DOSES. CASE DISCUSSED AT ADJUSTED DOSES WITH PHARMACY. AWAIT SURGICAL RECOMMENDATIONS . Status: Acute (2) Fever Assessment & Plan: BLOOD CULTURES NEGATIVE TO DATE. Status: Acute (3) Tachycardia Status: Acute (4) AV graft thrombosis Status: Acute (5) ESRD (end stage renal disease) on dialysis Assessment & Plan: patient on dialysis MWF. Status: Acute (6) Diabetes mellitus Status: Chronic
--- NOTE | 2017-10-12 23:57 | CP.PCM.PN ---
Subjective - Date & Time of Evaluation Date of Evaluation: 10/12/17 Time of Evaluation: 07:30 - Subjective Subjective: Vascular Surgery progress note. Dr. Carrasco. Pt seen and examined at bedside. No acute events reported overnight. No acute distress. Resting comfortably. Objective - Vital Signs/Intake and Output Vital Signs (last 24 hours): Temp Pulse Resp BP Pulse Ox 97.8 F 103 H 20 134/72 98 10/12/17 15:40 10/12/17 21:00 10/12/17 21:00 10/12/17 21:00 10/12/17 15:40 - Medications Medications: Current Medications Acetaminophen (Tylenol 325mg Tab) 325 mg PO Q6H PRN PRN Reason: Pain, moderate (4-7) Last Admin: 10/06/17 12:41 Dose: 325 mg Aspirin (Aspirin Chewable) 81 mg PO DAILY [facility] Last Admin: 10/12/17 14:53 Dose: 81 mg Enoxaparin Sodium (Lovenox) 30 mg SC DAILY [facility] Last Admin: 10/12/17 14:51 Dose: 30 mg Epoetin Michel (Procrit) 10,000 unit IV [facility] [place] Stop: 10/17/17 09:01 Last Admin: 10/12/17 12:36 Dose: 10,000 unit Famotidine (Pepcid) 20 mg PO DAILY [facility] Last Admin: 10/12/17 14:53 Dose: 20 mg Vancomycin/Sodium Chloride (Vancomycin 1 Gm/Ns 200 Ml) 1 gm in 200 mls @ 133.333 mls/hr IVPB [facility] Stop: 10/15/17 10:29 Last Admin: 10/12/17 17:52 Dose: 133.333 mls/hr Meropenem 500 mg/ Sodium (Chloride) 100 mls @ 200 mls/hr IVPB Q12H [facility] Last Admin: 10/12/17 14:56 Dose: 200 mls/hr Colistimethate Sodium 140 mg/ (Sodium Chloride) 100 mls @ 200 mls/hr IV Q36H [facility] Last Admin: 10/12/17 17:08 Dose: 200 mls/hr Insulin Aspart (Novolog) 0 unit SC ACHS [facility] PRN Reason: Protocol Last Admin: 10/12/17 22:53 Dose: Not Given Mupirocin (Bactroban 2% Nasal) 0.5 gm PALOMO BID [facility] Stop: 10/18/17 20:17 Last Admin: 10/12/17 18:08 Dose: 0.5 gm Paricalcitol (Zemplar) 2 mcg IV MWF [facility] Stop: 10/17/17 09:01 Last Admin: 10/12/17 12:34 Dose: 2 mcg Rosuvastatin Calcium (Crestor) 10 mg PO HS [facility] Last Admin: 10/12/17 22:52 Dose: 10 mg Saliva Substitute (First Magic Mouthwash) 3 ml PO Q6H [facility] Last Admin: 10/12/17 22:53 Dose: Not Given Sevelamer Carbonate (Renvela) 1,600 mg PO TTS [facility] Last Admin: 10/11/17 09:58 Dose: 1,600 mg Silver Sulfadiazine (Silvadene 1% 20 Gm) 1 ea TOP DAILY [facility] Last Admin: 10/12/17 14:56 Dose: Not Given Vitamin B Complex/Vit C/Folic Acid (Nephro-Mark) 1 tab PO DAILY [facility] Last Admin: 10/12/17 14:53 Dose: 1 tab - Labs Labs: 10/11/17 06:14 10/11/17 06:14 PT 15.9 SECONDS (9.7-12.2) H 10/03/17 21:55 INR 1.4 10/03/17 21:55 APTT 36 SECONDS (21-34) H 10/03/17 21:55 - Constitutional Appears: Non-toxic, No Acute Distress - Head Exam Head Exam: ATRAUMATIC, NORMAL INSPECTION, NORMOCEPHALIC - Eye Exam Eye Exam: EOMI, Normal appearance - ENT Exam ENT Exam: Mucous Membranes Moist - Respiratory Exam Respiratory Exam: NORMAL BREATHING PATTERN. absent: Accessory Muscle Use, Respiratory Distress - GI/Abdominal Exam GI & Abdominal Exam: Soft. absent: Firm, Rigid, Tenderness - Extremities Exam Additional comments: Right upper extremity swelling noted. AV Fistula at antecubital fossa noted with some ulceration over the inferior portion. 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 Luna Slade PGY1 surgery pager: [phone]
[2017-10-13] MEDS: Meropenem 500 MG in Sodium Chloride 0.9% 100 ML IVPB SCH ×2 (02:24→13:51)
[2017-10-13] MEDS: Mag&Al/Simet/Diphen/Lido 237 ML KIT PO SCH ×4 (04:41→22:43)
[2017-10-13 08:10] LABS: BASO # 0.1 K/uL (0.0-0.2); BASO % 1.3 % (0.0-2.0); EOS # 0.3 K/uL (0.0-0.7); EOS % 3.6 % (0.0-4.0); HEMOGLOBIN 8.5 g/dL (12.0-18.0); LYMPH # 1.3 K/uL (1.0-4.3); MEAN CELL VOLUME 84.2 fL (80.0-94.0); MEAN CORPUSCULAR HEMOGLOBIN 27.5 pg (27.0-31.0); MEAN CORPUSCULAR HGB CONC 32.6 g/dL (33.0-37.0); MEAN PLATELET VOLUME 9.5 fL (7.2-11.7); MONO % 12.8 % (0.0-10.0); NEUT # 5.1 K/uL (1.8-7.0); NEUT % 65.3 % (50.0-75.0); RBC 3.09 Mil/uL (4.40-5.90); RED CELL DISTRIBUTION WIDTH 22.1 % (11.5-14.5); WHITE BLOOD COUNT 7.9 K/uL (4.8-10.8)
[2017-10-13 08:28] LABS: ALB/GLOB RATIO 0.7 (1.0-2.1); ALBUMIN 2.7 g/dL (3.5-5.0); CALCIUM 8.8 mg/dl (8.6-10.4)
[2017-10-13] MEDS: (Novolog) Insulin Aspart, Recombinant 100 u/ml 10 ml vial SC SCH ×4 (09:34→22:44)
[2017-10-13] MEDS: Mupirocin 2% Ointment (NASAL) NAS SCH ×2 (09:37→22:39)
[2017-10-13] MEDS: Multivitamin Vitamin B Complex (Nephro-Vite) Tab PO SCH (09:37)
[2017-10-13] MEDS: Enoxaparin 30 mg Syringe SC SCH (09:42)
[2017-10-13] MEDS: Silver Sulfadiazine 1% Cream (20 gm) TOP SCH (11:35)
--- NOTE | 2017-10-13 18:56 | CP.PCM.PN ---
Subjective - Date & Time of Evaluation Date of Evaluation: 10/13/17 Time of Evaluation: 18:56 - Subjective Subjective: AFEBRILE RESTING COMFORTABLY RIGHT ARM +VE SWELLING AVG SITE SUPERFICIAL ULCERATIONS. ULCERATIONS DRYING UP hEMODIALYSIS THROUGH AV-GRAFT RIGHT UPPER ARM AVF BRUIT WEAK DUPLEX SCAN HEMO-ACCESS-- NOTED -RIGHT DISTAL BASILIC VEIN ANEURYSM VASCULAR [id number] NOTED Objective - Vital Signs/Intake and Output Vital Signs (last 24 hours): Temp Pulse Resp BP Pulse Ox 98 F 101 H 20 142/71 96 10/13/17 15:47 10/13/17 15:47 10/13/17 15:47 10/13/17 15:47 10/13/17 15:47 Intake and Output: 10/13/17 10/13/17 06:59 18:59 Intake Total 350 480 Balance 350 480 - Medications Medications: Current Medications Acetaminophen (Tylenol 325mg Tab) 325 mg PO Q6H PRN PRN Reason: Pain, moderate (4-7) Last Admin: 10/06/17 12:41 Dose: 325 mg Aspirin (Aspirin Chewable) 81 mg PO DAILY [facility] Last Admin: 10/13/17 09:37 Dose: 81 mg Enoxaparin Sodium (Lovenox) 30 mg SC DAILY [facility] Last Admin: 10/13/17 09:42 Dose: 30 mg Epoetin Michel (Procrit) 10,[address] [facility] [place] Stop: 10/17/17 09:01 Last Admin: 10/12/17 12:36 Dose: 10,000 unit Famotidine (Pepcid) 20 mg PO DAILY [facility] Last Admin: 10/13/17 09:37 Dose: 20 mg Vancomycin/Sodium Chloride (Vancomycin 1 Gm/Ns 200 Ml) 1 gm in 200 mls @ 133.333 mls/hr IVPB MWF [facility] Stop: 10/15/17 10:29 Last Admin: 10/12/17 17:52 Dose: 133.333 mls/hr Meropenem 500 mg/ Sodium (Chloride) 100 mls @ 200 mls/hr IVPB Q12H [facility] Last Admin: 10/13/17 13:51 Dose: 200 mls/hr Colistimethate Sodium 140 mg/ (Sodium Chloride) 100 mls @ 200 mls/hr IV Q36H [facility] Last Admin: 10/12/17 17:08 Dose: 200 mls/hr Insulin Aspart (Novolog) 0 unit SC ACHS [facility] PRN Reason: Protocol Last Admin: 10/13/17 12:08 Dose: Not Given Mupirocin (Bactroban 2% Nasal) 0.5 gm PALOMO BID [facility] Stop: 10/18/17 20:17 Last Admin: 10/13/17 09:37 Dose: 0.5 gm Paricalcitol (Zemplar) 2 mcg IV MWF [facility] Stop: 10/17/17 09:01 Last Admin: 10/12/17 12:34 Dose: 2 mcg Rosuvastatin Calcium (Crestor) 10 mg PO HS [facility] Last Admin: 10/12/17 22:52 Dose: 10 mg Saliva Substitute (First Magic Mouthwash) 3 ml PO Q6H [facility] Last Admin: 10/13/17 09:44 Dose: Not Given Sevelamer Carbonate (Renvela) 1,600 mg PO TTS [facility] Last Admin: 10/13/17 09:37 Dose: 1,600 mg Silver Sulfadiazine (Silvadene 1% 20 Gm) 1 ea TOP DAILY [facility] Last Admin: 10/13/17 11:35 Dose: Not Given Vitamin B Complex/Vit C/Folic Acid (Nephro-Mark) 1 tab PO DAILY [facility] Last Admin: 10/13/17 09:37 Dose: 1 tab - Labs Labs: 10/13/17 07:58 10/13/17 07:58 PT 15.9 SECONDS (9.7-12.2) H 10/03/17 21:55 INR 1.4 10/03/17 21:55 APTT 36 SECONDS (21-34) H 10/03/17 21:55 - Constitutional Appears: No Acute Distress - Head Exam Head Exam: NORMAL INSPECTION - Eye Exam Eye Exam: EOMI, PERRL - ENT Exam ENT Exam: Normal Oropharynx - Neck Exam Neck Exam: Normal Inspection - Respiratory Exam Respiratory Exam: Clear to Ausculation Bilateral - GI/Abdominal Exam GI & Abdominal Exam: Soft, Normal Bowel Sounds - Extremities Exam Additional comments: B/L AKA. RT ARM +VE SWELLING AVG +VE SUPERFICIAL ULCERATIONS. DRYING UP. - Neurological Exam Neurological Exam: Awake - Psychiatric Exam Psychiatric exam: Flat Affect - Skin Skin Exam: Normal Color, Warm Assessment and Plan (1) Sepsis Assessment & Plan: Source of sepsis and fevers -most probable infected AV graft/thrombosis. BLOOD CULTURES -VE TO DATE. OFF iv ZOSYN 2.25 EVERY 8 HOURLY 10/05/17.-10/09/17. CONTINUE IV mERREM 500 MG EVERY 12 HOURLY FOR MULTIDRUG-RESISTANT ACINETOBACTER BAUMANNI 10/09/17 CONTINUE iv COLISTIN 150 MG EVERY 36 HOURS TO PREVENT RESISTANCE acinetobacter BAUMANNI. CONTINUE VANCOMYCIN 1 G POST-EACH HEMODIALYSIS MWF X 5 DOSES. CASE DISCUSSED WITH [employer] MR JEFFREY BHATIA. IF NO SURGICAL INTER VENTION TO CONTINUE ALL 3 DRUGS X 2 WEEKS MORE. Status: Acute (2) Fever Status: Acute (3) Tachycardia Status: Acute (4) AV graft thrombosis Status: Acute (5) ESRD (end stage renal disease) on dialysis Status: Acute (6) Diabetes mellitus Status: Chronic
--- NOTE | 2017-10-13 19:32 | CP.PCM.PN ---
Subjective - Date & Time of Evaluation Date of Evaluation: 10/13/17 Time of Evaluation: 09:50 - Subjective Subjective: clinically same Objective - Vital Signs/Intake and Output Vital Signs (last 24 hours): Temp Pulse Resp BP Pulse Ox 98 F 101 H 20 142/71 96 10/13/17 15:47 10/13/17 15:47 10/13/17 15:47 10/13/17 15:47 10/13/17 15:47 Intake and Output: 10/13/17 10/14/17 18:59 06:59 Intake Total 480 Balance 480 - Medications Medications: Current Medications Acetaminophen (Tylenol 325mg Tab) 325 mg PO Q6H PRN PRN Reason: Pain, moderate (4-7) Last Admin: 10/06/17 12:41 Dose: 325 mg Aspirin (Aspirin Chewable) 81 mg PO DAILY [facility] Last Admin: 10/13/17 09:37 Dose: 81 mg Enoxaparin Sodium (Lovenox) 30 mg SC DAILY [facility] Last Admin: 10/13/17 09:42 Dose: 30 mg Epoetin Michel (Procrit) 10,000 unit IV [facility] [place] Stop: 10/17/17 09:01 Last Admin: 10/12/17 12:36 Dose: 10,000 unit Famotidine (Pepcid) 20 mg PO DAILY [facility] Last Admin: 10/13/17 09:37 Dose: 20 mg Vancomycin/Sodium Chloride (Vancomycin 1 Gm/Ns 200 Ml) 1 gm in 200 mls @ 133.333 mls/hr IVPB MWF [facility] Stop: 10/15/17 10:29 Last Admin: 10/12/17 17:52 Dose: 133.333 mls/hr Meropenem 500 mg/ Sodium (Chloride) 100 mls @ 200 mls/hr IVPB Q12H [facility] Last Admin: 10/13/17 13:51 Dose: 200 mls/hr Colistimethate Sodium 140 mg/ (Sodium Chloride) 100 mls @ 200 mls/hr IV Q36H [facility] Last Admin: 10/12/17 17:08 Dose: 200 mls/hr Insulin Aspart (Novolog) 0 unit SC ACHS [facility] PRN Reason: Protocol Last Admin: 10/13/17 12:08 Dose: Not Given Mupirocin (Bactroban 2% Nasal) 0.5 gm PALOMO BID [facility] Stop: 10/18/17 20:17 Last Admin: 10/13/17 09:37 Dose: 0.5 gm Paricalcitol (Zemplar) 2 mcg IV MWF [facility] Stop: 10/17/17 09:01 Last Admin: 10/12/17 12:34 Dose: 2 mcg Rosuvastatin Calcium (Crestor) 10 mg PO HS [facility] Last Admin: 10/12/17 22:52 Dose: 10 mg Saliva Substitute (First Magic Mouthwash) 3 ml PO Q6H [facility] Last Admin: 10/13/17 09:44 Dose: Not Given Sevelamer Carbonate (Renvela) 1,600 mg PO TTS [facility] Last Admin: 10/13/17 09:37 Dose: 1,600 mg Silver Sulfadiazine (Silvadene 1% 20 Gm) 1 ea TOP DAILY [facility] Last Admin: 10/13/17 11:35 Dose: Not Given Vitamin B Complex/Vit C/Folic Acid (Nephro-Mark) 1 tab PO DAILY [facility] Last Admin: 10/13/17 09:37 Dose: 1 tab - Labs Labs: 10/13/17 07:58 10/13/17 07:58 PT 15.9 SECONDS (9.7-12.2) H 10/03/17 21:55 INR 1.4 10/03/17 21:55 APTT 36 SECONDS (21-34) H 10/03/17 21:55 Assessment and Plan (1) ESRD on hemodialysis Status: Acute (2) Fever Status: Acute (3) Tachycardia Status: Acute (4) Bacteremia Status: Acute (5) CHF exacerbation Status: Acute (6) Dyspnea Status: Acute (7) ESRD (end stage renal disease) on dialysis Status: Acute (8) High cholesterol Status: Acute (9) Hypotension Status: Acute (10) Pneumonia Status: Acute (11) Prophylactic measure Status: Acute (12) Sepsis Status: Acute (13) Septic shock Status: Acute (14) UTI (urinary tract infection), bacterial Status: Acute (15) CHF (congestive heart failure) Status: Chronic (16) Diabetes mellitus Status: Chronic (17) ESRD (end stage renal disease) Status: Chronic (18) HTN (hypertension) Status: Chronic - Assessment and Plan (Free Text) Plan: Continue cholestyramine Continue meropenem Continue medication as ordered Continue vancomycin Septic workup Encourage p.o. diet Hemodialysis as ordered Follow-up with ID consultations Follow-up with the renal Follow-up with of vascular surgeon
[2017-10-14] MEDS: Meropenem 500 MG in Sodium Chloride 0.9% 100 ML IVPB SCH ×2 (02:14→14:21)
[2017-10-14] MEDS: COLISTIMETHATE IV SCH (03:30)
[2017-10-14] MEDS: SODIUM CHLORIDE 0.9% IV SCH (03:30)
[2017-10-14] MEDS: Mag&Al/Simet/Diphen/Lido 237 ML KIT PO SCH ×4 (04:38→21:32)
[2017-10-14] MEDS: (Novolog) Insulin Aspart, Recombinant 100 u/ml 10 ml vial SC SCH ×4 (08:28→21:33)
[2017-10-14] MEDS: Multivitamin Vitamin B Complex (Nephro-Vite) Tab PO SCH (09:22)
[2017-10-14] MEDS: Silver Sulfadiazine 1% Cream (20 gm) TOP SCH (09:23)
[2017-10-14] MEDS: Enoxaparin 30 mg Syringe SC SCH (09:25)
[2017-10-14] MEDS: Mupirocin 2% Ointment (NASAL) NAS SCH ×2 (09:25→18:01)
--- NOTE | 2017-10-14 16:02 | CP.PCM.PN ---
Subjective - Date & Time of Evaluation Date of Evaluation: 10/14/17 Time of Evaluation: 10:20 - Subjective Subjective: clinically same Objective - Vital Signs/Intake and Output Vital Signs (last 24 hours): Temp Pulse Resp BP Pulse Ox 98 F 100 H 20 90/51 L 97 10/14/17 07:45 10/14/17 07:45 10/14/17 07:45 10/14/17 07:45 10/14/17 07:45 Intake and Output: 10/14/17 10/14/17 06:59 18:59 Intake Total 450 Balance 450 - Medications Medications: Current Medications Acetaminophen (Tylenol 325mg Tab) 325 mg PO Q6H PRN PRN Reason: Pain, moderate (4-7) Last Admin: 10/06/17 12:41 Dose: 325 mg Aspirin (Aspirin Chewable) 81 mg PO DAILY [facility] Last Admin: 10/14/17 09:22 Dose: 81 mg Enoxaparin Sodium (Lovenox) 30 mg SC DAILY [facility] Last Admin: 10/14/17 09:25 Dose: 30 mg Epoetin Michel (Procrit) 10,000 unit IV [facility] [place] Stop: 10/17/17 09:01 Last Admin: 10/12/17 12:36 Dose: 10,000 unit Famotidine (Pepcid) 20 mg PO DAILY [facility] Last Admin: 10/14/17 09:22 Dose: 20 mg Vancomycin/Sodium Chloride (Vancomycin 1 Gm/Ns 200 Ml) 1 gm in 200 mls @ 133.333 mls/hr IVPB MWF [facility] Stop: 10/15/17 10:29 Last Admin: 10/12/17 17:52 Dose: 133.333 mls/hr Meropenem 500 mg/ Sodium (Chloride) 100 mls @ 200 mls/hr IVPB Q12H [facility] Last Admin: 10/14/17 14:21 Dose: 200 mls/hr Colistimethate Sodium 140 mg/ (Sodium Chloride) 100 mls @ 200 mls/hr IV Q36H [facility] Last Admin: 10/14/17 03:30 Dose: 200 mls/hr Insulin Aspart (Novolog) 0 unit SC ACHS [facility] PRN Reason: Protocol Last Admin: 10/14/17 12:00 Dose: Not Given Mupirocin (Bactroban 2% Nasal) 0.5 gm PALOMO BID [facility] Stop: 10/18/17 20:17 Last Admin: 10/14/17 09:25 Dose: 0.5 gm Paricalcitol (Zemplar) 2 mcg IV MWF [facility] Stop: 10/17/17 09:01 Last Admin: 10/12/17 12:34 Dose: 2 mcg Rosuvastatin Calcium (Crestor) 10 mg PO HS [facility] Last Admin: 10/13/17 22:31 Dose: 10 mg Saliva Substitute (First Magic Mouthwash) 3 ml PO Q6H [facility] Last Admin: 10/14/17 09:31 Dose: Not Given Sevelamer Carbonate (Renvela) 1,600 mg PO TTS [facility] Last Admin: 10/13/17 09:37 Dose: 1,600 mg Silver Sulfadiazine (Silvadene 1% 20 Gm) 1 ea TOP DAILY [facility] Last Admin: 10/14/17 09:23 Dose: Not Given Vitamin B Complex/Vit C/Folic Acid (Nephro-Mark) 1 tab PO DAILY [facility] Last Admin: 10/14/17 09:22 Dose: 1 tab - Labs Labs: 10/13/17 07:58 10/13/17 07:58 PT 15.9 SECONDS (9.7-12.2) H 10/03/17 21:55 INR 1.4 10/03/17 21:55 APTT 36 SECONDS (21-34) H 10/03/17 21:55 - Constitutional Appears: Well - Head Exam Head Exam: ATRAUMATIC, NORMAL INSPECTION, NORMOCEPHALIC - Eye Exam Eye Exam: EOMI, Normal appearance, PERRL Pupil Exam: NORMAL ACCOMODATION, PERRL - ENT Exam ENT Exam: Mucous Membranes Moist, Normal Exam - Neck Exam Neck Exam: Full ROM, Normal Inspection. absent: Lymphadenopathy - Respiratory Exam Respiratory Exam: Decreased Breath Sounds - Cardiovascular Exam Cardiovascular Exam: REGULAR RHYTHM, +S1, +S2 - GI/Abdominal Exam GI & Abdominal Exam: Soft, Diminished Bowel Sounds - Rectal Exam Rectal Exam: Deferred Assessment and Plan (1) ESRD on hemodialysis Status: Acute (2) Fever Status: Acute (3) Tachycardia Status: Acute (4) Bacteremia Status: Acute (5) CHF exacerbation Status: Acute (6) Dyspnea Status: Acute (7) ESRD (end stage renal disease) on dialysis Status: Acute (8) High cholesterol Status: Acute (9) Hypotension Status: Acute (10) Pneumonia Status: Acute (11) Prophylactic measure Status: Acute (12) Sepsis Status: Acute (13) Septic shock Status: Acute (14) UTI (urinary tract infection), bacterial Status: Acute (15) CHF (congestive heart failure) Status: Chronic (16) Diabetes mellitus Status: Chronic (17) ESRD (end stage renal disease) Status: Chronic (18) HTN (hypertension) Status: Chronic - Assessment and Plan (Free Text) Plan: Continue mupirocin to to nasal as area Continue cholestyramine Continue meropenem IV antibiotic Renal dialysis Vancomycin We will speak to the family If possible will transfer the patient's to LTAC if it is okay with the prior authorization As of the medications ordered
[2017-10-15] MEDS: Meropenem 500 MG in Sodium Chloride 0.9% 100 ML IVPB SCH ×2 (01:55→16:26)
[2017-10-15] MEDS: Mag&Al/Simet/Diphen/Lido 237 ML KIT PO SCH ×4 (03:40→21:37)
[2017-10-15] MEDS: (Novolog) Insulin Aspart, Recombinant 100 u/ml 10 ml vial SC SCH ×4 (07:35→21:37)
[2017-10-15] MEDS ORDERED: Sodium Chloride 0.9% 500 ML IV ONE (09:00)
--- NOTE | 2017-10-15 09:21 | PCM.RRT ---
<Tay Santacruz - Last Filed: 10/15/17 10:36> DIRECTOR OF RESOURCE DEVELOPMENT Nurses Assessment - Situation Date: 10/15/17 Time DIRECTOR OF RESOURCE DEVELOPMENT was called: 08:40 DIRECTOR OF RESOURCE DEVELOPMENT Location:: T Med/Surg Room Number: 654 DIRECTOR OF RESOURCE DEVELOPMENT Reason for Call: Hypotension DIRECTOR OF RESOURCE DEVELOPMENT Called By: RN - IV IV Inserted during DIRECTOR OF RESOURCE DEVELOPMENT?: No IV Fluids Initiated During DIRECTOR OF RESOURCE DEVELOPMENT?: 500cc NS bolus - Respiratory Oxygen Flow Rate: 3 I.Reason for DIRECTOR OF RESOURCE DEVELOPMENT - A) Acute Change in Patient: (Select all that apply): Acute change in SBP below Subjective: DIRECTOR OF RESOURCE DEVELOPMENT Medicine note for Dr. Spaulding DIRECTOR OF RESOURCE DEVELOPMENT called due to hypotension at 81/50 and HR of 119. Patient was lethargic yet mildly responsive to verbal commands. At baseline, he is non-verbal however is able to answer yes / no questioning. During hospitalization, patients BP would fluctuate between 140's/70's and 80's/40's. During code, Patient was placed in trendelenburg position, given a bolus of NS 500cc, and stat orders were placed for CBC, CMP, Mag, Phos, procalcitonin, CXR, EKG. Patient was able to follow simple verbal commands to keep his arm elevated. Denied pain or SOB. Full 12- point ROS could not be obtained due to medical condition. - Neurological Status (Select all that apply): Responsive, Follows Commands, Lethargic. absent: Alert , Verbal - Respiratory Oxygen Delivery Method: Nasal Cannula @L/min (3) - Constitutional Additional Comments: Appears: No Acute Distress, Chronically Ill - Note: at base line patient is non-verbal. Responds to yes / no questioning - Head Exam Head Exam: NORMAL INSPECTION - Eye Exam Eye Exam: PERRL - ENT Exam ENT Exam: Mucous Membranes Dry - Neck Exam Neck exam: Positive for: Normal Inspection. Negative for: Meningismus - Respiratory Exam Respiratory Exam: Decreased Breath Sounds - Cardiovascular Exam Cardiovascular Exam: Tachycardia, REGULAR RHYTHM, +S1, +S2 - GI/Abdominal Exam GI & Abdominal Exam: Normal Bowel Sounds, Soft. absent: Organomegaly - Extremities Exam Additional comments: -B/L AKA. -R AVG wound - Neurological Exam Neurological exam: Alert, Altered, CN II-XII Intact - Psychiatric Exam Psychiatric exam: Flat Affect - Skin Skin Exam: Normal Color, Warm Plan - Assessment of Findings&Treatment Plan Follow up BP f/u CBC, CMP f/u procalcitonin f/u CXR f/u EKG <Tay Spaulding H - Last Filed: 10/15/17 16:45> DIRECTOR OF RESOURCE DEVELOPMENT Nurses Assessment - Vital Signs Vital Signs: Rapid Response Vital Sign Blood Pressure 81/50 Pulse Rate 119 Respiratory Rate 24 Oxygen Saturation 97 - Vital Signs at end of DIRECTOR OF RESOURCE DEVELOPMENT Vital Signs at end of DIRECTOR OF RESOURCE DEVELOPMENT: Rapid Response End Vital Sign Blood Pressure 114/70 Pulse Rate 114 Respiratory Rate 20 O2 Sat by Pulse Oximetry 97 Attending/Attestation - Attestation I have personally seen and examined this patient.: Yes I have fully participated in the care of the patient.: Yes I have reviewed all pertinent clinical information, including history, physical exam and plan: Yes Notes (Text): 10/15/17 16:44 Medical hospitalist. An DIRECTOR OF RESOURCE DEVELOPMENT was called after the patient staff noted that the patient's blood pressure was low. His blood pressure was as low as 81/50. We came immediately to see the patient. From my understanding via discussion with the staff the patient is completely nonverbal, has demented, and is actually coming from a senior care. There is a history of end-stage renal disease and the patient being on hemodialysis. He had a chest x-ray from several days previous and we got a new one on the spot during the DIRECTOR OF RESOURCE DEVELOPMENT. The new chest x-rays don't show significant worsening. The patient was given a 500 mL bolus of fluids, and also I asked the residence to notify the patient's primary care physician as well as the family members With the IVF he had recheck BP and it was improved. Thank you very much, Tay Spaulding
[2017-10-15 09:49] LABS: BASO # 0.1 K/uL (0.0-0.2); BASO % 1.3 % (0.0-2.0); EOS # 0.3 K/uL (0.0-0.7); EOS % 3.1 % (0.0-4.0); HEMOGLOBIN 8.1 g/dL (12.0-18.0); LYMPH # 1.3 K/uL (1.0-4.3); LYMPH % 15.6 % (20.0-40.0); MEAN CELL VOLUME 83.6 fL (80.0-94.0); MEAN CORPUSCULAR HEMOGLOBIN 27.2 pg (27.0-31.0); MEAN CORPUSCULAR HGB CONC 32.6 g/dL (33.0-37.0); MEAN PLATELET VOLUME 9.6 fL (7.2-11.7); MONO # 1.2 K/uL (0.0-0.8); MONO % 14.5 % (0.0-10.0); NEUT # 5.4 K/uL (1.8-7.0); NEUT % 65.5 % (50.0-75.0); RBC 2.96 Mil/uL (4.40-5.90); RED CELL DISTRIBUTION WIDTH 22.2 % (11.5-14.5); WHITE BLOOD COUNT 8.3 K/uL (4.8-10.8)
[2017-10-15] MEDS: Mupirocin 2% Ointment (NASAL) NAS SCH ×3 (10:01→18:50)
[2017-10-15] MEDS: Multivitamin Vitamin B Complex (Nephro-Vite) Tab PO SCH (10:01)
[2017-10-15] MEDS: Enoxaparin 30 mg Syringe SC SCH (10:01)
--- NOTE | 2017-10-15 10:52 | RAD ---
HISTORY: Hypertensive. Portable study 08:50 COMPARISON: 10/03/2016 FINDINGS: LUNGS: No active pulmonary disease. PLEURA: No significant pleural effusion identified, no pneumothorax apparent. CARDIOVASCULAR: No radiographic findings to suggest acute or significant cardiovascular disease. OSSEOUS STRUCTURES: No significant abnormalities. VISUALIZED UPPER ABDOMEN: Normal. OTHER FINDINGS: None. IMPRESSION: No active disease. No significant interval change compared to the prior examination(s).
[2017-10-15] MEDS: Silver Sulfadiazine 1% Cream (20 gm) TOP SCH (11:27)
[2017-10-15 11:57] LABS: ALB/GLOB RATIO 0.6 (1.0-2.1); ALBUMIN 2.3 g/dL (3.5-5.0); CALCIUM 8.9 mg/dl (8.6-10.4)
[2017-10-15] MEDS: Epoetin Alfa 10,000 unit/ml Dialysis IV SCH (12:49)
[2017-10-15] MEDS ORDERED: Albumin Human 25% (12.5 gm/50 ml) IV ONE (13:00)
[2017-10-15] MEDS: Vancomycin 1 gm/NS 200 ml 1 GM/200 ML BAG IVPB SCH (16:25)
[2017-10-15] MEDS: COLISTIMETHATE IV SCH (16:26)
[2017-10-15] MEDS: SODIUM CHLORIDE 0.9% IV SCH (16:26)
--- NOTE | 2017-10-15 19:38 | CP.PCM.PN ---
Subjective - Date & Time of Evaluation Date of Evaluation: 10/15/17 Time of Evaluation: 13:10 - Subjective Subjective: clinically same Objective - Vital Signs/Intake and Output Vital Signs (last 24 hours): Temp Pulse Resp BP Pulse Ox 98.3 F 65 16 91/60 L 98 10/15/17 12:13 10/15/17 15:25 10/15/17 15:25 10/15/17 15:25 10/15/17 15:25 - Medications Medications: Current Medications Acetaminophen (Tylenol 325mg Tab) 325 mg PO Q6H PRN PRN Reason: Pain, moderate (4-7) Last Admin: 10/06/17 12:41 Dose: 325 mg Aspirin (Aspirin Chewable) 81 mg PO DAILY [facility] Last Admin: 10/15/17 10:01 Dose: 81 mg Enoxaparin Sodium (Lovenox) 30 mg SC DAILY [facility] Last Admin: 10/15/17 10:01 Dose: 30 mg Epoetin Michel (Procrit) 10,000 unit IV [facility] [place] Stop: 10/17/17 09:01 Last Admin: 10/15/17 12:49 Dose: 10,000 unit Famotidine (Pepcid) 20 mg PO DAILY [facility] Last Admin: 10/15/17 10:01 Dose: 20 mg Meropenem 500 mg/ Sodium (Chloride) 100 mls @ 200 mls/hr IVPB Q12H [facility] Last Admin: 10/15/17 16:26 Dose: 200 mls/hr Colistimethate Sodium 140 mg/ (Sodium Chloride) 100 mls @ 200 mls/hr IV Q36H [facility] Last Admin: 10/15/17 16:26 Dose: 200 mls/hr Insulin Aspart (Novolog) 0 unit SC ACHS [facility] PRN Reason: Protocol Last Admin: 10/15/17 17:23 Dose: 1 unit Mupirocin (Bactroban 2% Nasal) 0.5 gm [place]OM[place] BID [facility] Stop: 10/18/17 20:17 Last Admin: 10/15/17 18:50 Dose: 0.5 gm Paricalcitol (Zemplar) 2 mcg IV [facility] [place] Stop: 10/17/17 09:01 Last Admin: 10/12/17 12:34 Dose: 2 mcg Rosuvastatin Calcium (Crestor) 10 mg PO [facility] Last Admin: 10/14/17 21:34 Dose: 10 mg Saliva Substitute (First Magic Mouthwash) 3 ml PO Q6H [facility] Last Admin: 10/15/17 16:27 Dose: Not Given Sevelamer Carbonate (Renvela) 1,600 mg PO TTS [facility] Last Admin: 10/13/17 09:37 Dose: 1,600 mg Silver Sulfadiazine (Silvadene 1% 20 Gm) 1 ea TOP DAILY [facility] Last Admin: 10/15/17 11:27 Dose: Not Given Vitamin B Complex/Vit C/Folic Acid (Nephro-Mark) 1 tab PO DAILY [facility] Last Admin: 10/15/17 10:01 Dose: 1 tab - Labs Labs: 10/15/17 09:43 10/15/17 09:41 PT 15.9 SECONDS (9.7-12.2) H 10/03/17 21:55 INR 1.4 10/03/17 21:55 APTT 36 SECONDS (21-34) H 10/03/17 21:55 - Constitutional Appears: Well - Head Exam Head Exam: ATRAUMATIC, NORMAL INSPECTION, NORMOCEPHALIC - Eye Exam Eye Exam: EOMI, Normal appearance, PERRL Pupil Exam: NORMAL ACCOMODATION, PERRL - ENT Exam ENT Exam: Mucous Membranes Moist, Normal Exam - Neck Exam Neck Exam: Full ROM, Normal Inspection. absent: Lymphadenopathy - Respiratory Exam Respiratory Exam: Decreased Breath Sounds - Cardiovascular Exam Cardiovascular Exam: REGULAR RHYTHM, +S1, +S2 - GI/Abdominal Exam GI & Abdominal Exam: Soft, Diminished Bowel Sounds - Rectal Exam Rectal Exam: Deferred Assessment and Plan (1) ESRD on hemodialysis Status: Acute (2) Fever Status: Acute (3) Tachycardia Status: Acute (4) Bacteremia Status: Acute (5) CHF exacerbation Status: Acute (6) Dyspnea Status: Acute (7) ESRD (end stage renal disease) on dialysis Status: Acute (8) High cholesterol Status: Acute (9) Hypotension Status: Acute (10) Pneumonia Status: Acute (11) Prophylactic measure Status: Acute (12) Sepsis Status: Acute (13) Septic shock Status: Acute (14) UTI (urinary tract infection), bacterial Status: Acute (15) CHF (congestive heart failure) Status: Chronic (16) Diabetes mellitus Status: Chronic (17) ESRD (end stage renal disease) Status: Chronic (18) HTN (hypertension) Status: Chronic
--- NOTE | 2017-10-15 23:20 | CP.PCM.PN ---
Subjective - Date & Time of Evaluation Date of Evaluation: 10/15/17 Time of Evaluation: 23:17 - Subjective Subjective: EVENTS NOTED. 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 NON VERBAL Objective - Vital Signs/Intake and Output Vital Signs (last 24 hours): Temp Pulse Resp BP Pulse Ox 98.3 F 65 16 107/68 98 10/15/17 12:13 10/15/17 15:25 10/15/17 15:25 10/15/17 21:46 10/15/17 15:25 - Medications Medications: Current Medications Acetaminophen (Tylenol 325mg Tab) 325 mg PO Q6H PRN PRN Reason: Pain, moderate (4-7) Last Admin: 10/06/17 12:41 Dose: 325 mg Aspirin (Aspirin Chewable) 81 mg PO DAILY [facility] Last Admin: 10/15/17 10:01 Dose: 81 mg Enoxaparin Sodium (Lovenox) 30 mg SC DAILY [facility] Last Admin: 10/15/17 10:01 Dose: 30 mg Epoetin Michel (Procrit) 10,000 unit IV [facility] Stop: 10/17/17 09:01 Last Admin: 10/15/17 12:49 Dose: 10,000 unit Famotidine (Pepcid) 20 mg PO DAILY [facility] Last Admin: 10/15/17 10:01 Dose: 20 mg Meropenem 500 mg/ Sodium (Chloride) 100 mls @ 200 mls/hr IVPB Q12H [facility] Last Admin: 10/15/17 16:26 Dose: 200 mls/hr Colistimethate Sodium 140 mg/ (Sodium Chloride) 100 mls @ 200 mls/hr IV Q36H [facility] Last Admin: 10/15/17 16:26 Dose: 200 mls/hr Vancomycin HCl 1 gm/ Sodium (Chloride) 250 mls @ 166.7 mls/hr IVPB [facility] PRN Reason: Protocol Stop: 10/29/17 10:30 Insulin Aspart (Novolog) 0 unit SC ACHS [facility] PRN Reason: Protocol Last Admin: 10/15/17 21:37 Dose: Not Given Mupirocin (Bactroban 2% Nasal) 0.5 gm [place]OMO BID [facility] Stop: 10/18/17 20:17 Last Admin: 10/15/17 18:50 Dose: 0.5 gm Paricalcitol (Zemplar) 2 mcg IV [facility] Stop: 10/17/17 09:01 Last Admin: 10/12/17 12:34 Dose: 2 mcg Rosuvastatin Calcium (Crestor) 10 mg PO HS [facility] Last Admin: 10/15/17 21:40 Dose: 10 mg Saliva Substitute (First Magic Mouthwash) 3 ml PO Q6H [facility] Last Admin: 10/15/17 21:37 Dose: Not Given Sevelamer Carbonate (Renvela) 1,600 mg PO TTS [facility] Last Admin: 10/13/17 09:37 Dose: 1,600 mg Silver Sulfadiazine (Silvadene 1% 20 Gm) 1 ea TOP DAILY [facility] Last Admin: 10/15/17 11:27 Dose: Not Given Vitamin B Complex/Vit C/Folic Acid (Nephro-Mark) 1 tab PO DAILY [facility] Last Admin: 10/15/17 10:01 Dose: 1 tab - Labs Labs: 10/15/17 09:43 10/15/17 09:41 PT 15.9 SECONDS (9.7-12.2) H 10/03/17 21:55 INR 1.4 10/03/17 21:55 APTT 36 SECONDS (21-34) H 10/03/17 21:55 - Constitutional Appears: No Acute Distress - Head Exam Head Exam: NORMAL INSPECTION - Eye Exam Eye Exam: EOMI, PERRL - ENT Exam ENT Exam: Normal Oropharynx - Neck Exam Neck Exam: Normal Inspection - Respiratory Exam Respiratory Exam: Decreased Breath Sounds - Cardiovascular Exam Cardiovascular Exam: Tachycardia, +S1, +S2 - GI/Abdominal Exam GI & Abdominal Exam: Soft, Normal Bowel Sounds - Extremities Exam Additional comments: B/L AKA. RT UPPER ARM AVG WITH SUPERFICIAL ULCERATION. RT ARM SIZE BIGGER THAN KVNG - Neurological Exam Neurological Exam: Altered - Psychiatric Exam Psychiatric exam: Flat Affect - Skin Skin Exam: Normal Color, Warm Assessment and Plan (1) Sepsis Assessment & Plan: Source of sepsis and fevers -most probable infected AV graft/thrombosis. BLOOD CULTURES -VE TO DATE. REPEAT BLOOD CULTURES X 2SETS IN AM OFF iv ZOSYN 2.25 EVERY 8 HOURLY 10/05/17.-10/09/17. CONTINUE IV mERREM 500 MG EVERY 12 HOURLY FOR MULTIDRUG-RESISTANT ACINETOBACTER BAUMANNI 10/09/17 CONTINUE iv COLISTIN 150 MG EVERY 36 HOURS TO PREVENT RESISTANCE acinetobacter BAUMANNI. CASE DISCUSSED WITH [employer] CONSULTANT MR JEFFREY BHATIA. IF NO SURGICAL INTER VENTION TO CONTINUE ALL 3 DRUGS IV MERREM,IV COLISTIN, IV VANCOMYCIN POST HD MWF X 2 WEEKS MORE.10/14/17 --10/29/17. F/U FEVER CURVE Status: Acute (2) Fever Status: Acute (3) Tachycardia Status: Acute (4) AV graft thrombosis Status: Acute (5) ESRD (end stage renal disease) on dialysis Status: Acute (6) Diabetes mellitus Status: Chronic
[2017-10-16] MEDS: Meropenem 500 MG in Sodium Chloride 0.9% 100 ML IVPB SCH ×2 (02:48→13:32)
[2017-10-16] MEDS: Mag&Al/Simet/Diphen/Lido 237 ML KIT PO SCH ×4 (04:56→21:47)
[2017-10-16 07:11] LABS: BASO # 0.2 K/uL (0.0-0.2); BASO % 2.7 % (0.0-2.0); EOS # 0.3 K/uL (0.0-0.7); EOS % 3.1 % (0.0-4.0); HEMOGLOBIN 8.3 g/dL (12.0-18.0); LYMPH # 1.3 K/uL (1.0-4.3); LYMPH % 15.3 % (20.0-40.0); MEAN CORPUSCULAR HEMOGLOBIN 27.6 pg (27.0-31.0); MEAN CORPUSCULAR HGB CONC 32.8 g/dL (33.0-37.0); MEAN PLATELET VOLUME 9.3 fL (7.2-11.7); MONO # 1.1 K/uL (0.0-0.8); MONO % 12.7 % (0.0-10.0); NEUT # 5.9 K/uL (1.8-7.0); NEUT % 66.2 % (50.0-75.0); RBC 3.01 Mil/uL (4.40-5.90); RED CELL DISTRIBUTION WIDTH 22.3 % (11.5-14.5); WHITE BLOOD COUNT 8.8 K/uL (4.8-10.8)
[2017-10-16 07:56] LABS: ALB/GLOB RATIO 0.6 (1.0-2.1); ALBUMIN 2.4 g/dL (3.5-5.0); CALCIUM 8.6 mg/dl (8.6-10.4)
[2017-10-16] MEDS: (Novolog) Insulin Aspart, Recombinant 100 u/ml 10 ml vial SC SCH ×3 (08:07→21:47)
[2017-10-16] MEDS: Enoxaparin 30 mg Syringe SC SCH (10:51)
[2017-10-16] MEDS: Multivitamin Vitamin B Complex (Nephro-Vite) Tab PO SCH (10:51)
[2017-10-16] MEDS: Mupirocin 2% Ointment (NASAL) NAS SCH ×2 (13:18→17:32)
--- NOTE | 2017-10-16 20:22 | CP.PCM.PN ---
Subjective - Date & Time of Evaluation Date of Evaluation: 10/16/17 Time of Evaluation: 09:45 - Subjective Subjective: clinically same Objective - Vital Signs/Intake and Output Vital Signs (last 24 hours): Temp Pulse Resp BP Pulse Ox 98.1 F 106 H 18 116/66 100 10/16/17 07:40 10/16/17 07:40 10/16/17 07:40 10/16/17 08:24 10/16/17 07:40 - Medications Medications: Current Medications Acetaminophen (Tylenol 325mg Tab) 325 mg PO Q6H PRN PRN Reason: Pain, moderate (4-7) Last Admin: 10/06/17 12:41 Dose: 325 mg Aspirin (Aspirin Chewable) 81 mg PO DAILY [facility] Last Admin: 10/16/17 10:51 Dose: Not Given Enoxaparin Sodium (Lovenox) 30 mg SC DAILY [facility] Last Admin: 10/16/17 10:51 Dose: Not Given Epoetin Michel (Procrit) 10,000 [place] [facility] [place]: 10/17/17 09:01 Last Admin: 10/15/17 12:49 Dose: 10,000 unit Famotidine (Pepcid) 20 mg PO DAILY [facility] Last Admin: 10/16/17 10:51 Dose: Not Given Meropenem 500 mg/ Sodium (Chloride) 100 mls @ 200 mls/hr IVPB Q12H [facility] Last Admin: 10/16/17 13:32 Dose: 200 mls/hr Colistimethate Sodium 140 mg/ (Sodium Chloride) 100 mls @ 200 mls/hr IV Q36H [facility] Last Admin: 10/15/17 16:26 Dose: 200 mls/hr Vancomycin/Sodium Chloride (Vancomycin 1 Gm/Ns 200 Ml) 1 gm in 200 mls @ 133 mls/hr IVPB [facility]N Reason: Protocol Stop: 10/22/17 09:01 Insulin Aspart (Novolog) 0 unit SC ACHS [facility] PRN Reason: Protocol Last Admin: 10/16/17 17:33 Dose: 1 unit Mupirocin (Bactroban 2% Nasal) 0.5 gm [place] BID [facility] Stop: 10/18/17 20:17 Last Admin: 10/16/17 17:32 Dose: 0.5 gm Paricalcitol (Zemplar) 2 mcg [place] [facility] Stop: 10/17/17 09:01 Last Admin: 10/12/17 12:34 Dose: 2 mcg Rosuvastatin Calcium (Crestor) 10 mg PO HS [facility] Last Admin: 10/15/17 21:40 Dose: 10 mg Saliva Substitute (First Magic Mouthwash) 3 ml PO Q6H [facility] Last Admin: 10/16/17 16:57 Dose: Not Given Sevelamer Carbonate (Renvela) 1,600 mg PO TTS [facility] Last Admin: 10/16/17 10:51 Dose: Not Given Silver Sulfadiazine (Silvadene 1% 20 Gm) 1 ea TOP DAILY [facility] Last Admin: 10/15/17 11:27 Dose: Not Given Vitamin B Complex/Vit C/Folic Acid (Nephro-Mark) 1 tab PO DAILY [facility] Last Admin: 10/16/17 10:51 Dose: Not Given - Labs Labs: 10/16/17 06:53 10/16/17 06:53 PT 15.9 SECONDS (9.7-12.2) H 10/03/17 21:55 INR 1.4 10/03/17 21:55 APTT 36 SECONDS (21-34) H 10/03/17 21:55 - Constitutional Appears: Well - Head Exam Head Exam: ATRAUMATIC, NORMAL INSPECTION, NORMOCEPHALIC - Eye Exam Eye Exam: EOMI, Normal appearance, PERRL Pupil Exam: NORMAL ACCOMODATION, PERRL - ENT Exam ENT Exam: Mucous Membranes Moist, Normal Exam - Neck Exam Neck Exam: Full ROM, Normal Inspection. absent: Lymphadenopathy - Respiratory Exam Respiratory Exam: Decreased Breath Sounds - Cardiovascular Exam Cardiovascular Exam: REGULAR RHYTHM, +S1, +S2 - GI/Abdominal Exam GI & Abdominal Exam: Soft, Diminished Bowel Sounds - Rectal Exam Rectal Exam: Deferred Assessment and Plan (1) ESRD on hemodialysis Status: Acute (2) Fever Status: Acute (3) Tachycardia Status: Acute (4) Bacteremia Status: Acute (5) CHF exacerbation Status: Acute (6) Dyspnea Status: Acute (7) ESRD (end stage renal disease) on dialysis Status: Acute (8) High cholesterol Status: Acute (9) Hypotension Status: Acute (10) Pneumonia Status: Acute (11) Prophylactic measure Status: Acute (12) Sepsis Status: Acute (13) Septic shock Status: Acute (14) UTI (urinary tract infection), bacterial Status: Acute (15) CHF (congestive heart failure) Status: Chronic (16) Diabetes mellitus Status: Chronic (17) ESRD (end stage renal disease) Status: Chronic (18) HTN (hypertension) Status: Chronic - Assessment and Plan (Free Text) Plan: Discussed with Dr. Ferrell Discussed with Dr. Chin S patient is on multiple medications like cholestyramine and all other medication patient is on meropenem patient is on Vanco Continue hemodialysis Ultrasound of the hemodialysis report also discussed with Dr. Ferrell further workup like removal of shunt
--- NOTE | 2017-10-16 22:18 | CP.PCM.PN ---
Subjective - Date & Time of Evaluation Date of Evaluation: 10/16/17 Time of Evaluation: 22:17 - Subjective Subjective: PT HYPOTENSIVE THIS AM WAS GIVEN A BOLUS OF NS 500CC BP PRESENTLY SYST 116/ OPENS EYES AND NODS. NO SOB . Objective - Vital Signs/Intake and Output Vital Signs (last 24 hours): Temp Pulse Resp BP Pulse Ox 98.1 F 106 H 18 116/66 100 10/16/17 07:40 10/16/17 07:40 10/16/17 07:40 10/16/17 08:24 10/16/17 07:40 - Medications Medications: Current Medications Acetaminophen (Tylenol 325mg Tab) 325 mg PO Q6H PRN PRN Reason: Pain, moderate (4-7) Last Admin: 10/06/17 12:41 Dose: 325 mg Aspirin (Aspirin Chewable) 81 mg PO DAILY [facility] Last Admin: 10/16/17 10:51 Dose: Not Given Enoxaparin Sodium (Lovenox) 30 mg SC DAILY [facility] Last Admin: 10/16/17 10:51 Dose: Not Given Epoetin Michel (Procrit) 10,[address] [facility] [place] Stop: 10/17/17 09:01 Last Admin: 10/15/17 12:49 Dose: 10,000 unit Famotidine (Pepcid) 20 mg PO DAILY [facility] Last Admin: 10/16/17 10:51 Dose: Not Given Meropenem 500 mg/ Sodium (Chloride) 100 mls @ 200 mls/hr IVPB Q12H [facility] Last Admin: 10/16/17 13:32 Dose: 200 mls/hr Colistimethate Sodium 140 mg/ (Sodium Chloride) 100 mls @ 200 mls/hr IV Q36H [facility] Last Admin: 10/15/17 16:26 Dose: 200 mls/hr Vancomycin/Sodium Chloride (Vancomycin 1 Gm/Ns 200 Ml) 1 gm in 200 mls @ 133 mls/hr IVPB MWF [facility] PRN Reason: Protocol Stop: 10/22/17 09:01 Insulin Aspart (Novolog) 0 unit SC ACHS [facility] PRN Reason: Protocol Last Admin: 10/16/17 21:47 Dose: Not Given Mupirocin (Bactroban 2% Nasal) 0.5 gm [place] BID [facility] Stop: 10/18/17 20:17 Last Admin: 10/16/17 17:32 Dose: 0.5 gm Paricalcitol (Zemplar) 2 mcg IV MWF [facility] Stop: 10/17/17 09:01 Last Admin: 10/12/17 12:34 Dose: 2 mcg Rosuvastatin Calcium (Crestor) 10 mg PO HS [facility] Last Admin: 10/16/17 21:41 Dose: 10 mg Saliva Substitute (First Magic Mouthwash) 3 ml PO Q6H [facility] Last Admin: 10/16/17 21:47 Dose: Not Given Sevelamer Carbonate (Renvela) 1,600 mg PO TTS [facility] Last Admin: 10/16/17 10:51 Dose: Not Given Silver Sulfadiazine (Silvadene 1% 20 Gm) 1 ea TOP DAILY [facility] Last Admin: 10/15/17 11:27 Dose: Not Given Vitamin B Complex/Vit C/Folic Acid (Nephro-Mark) 1 tab PO DAILY [facility] Last Admin: 10/16/17 10:51 Dose: Not Given - Labs Labs: 10/16/17 06:53 10/16/17 06:53 PT 15.9 SECONDS (9.7-12.2) H 10/03/17 21:55 INR 1.4 10/03/17 21:55 APTT 36 SECONDS (21-34) H 10/03/17 21:55 - Constitutional Appears: No Acute Distress - Head Exam Head Exam: NORMAL INSPECTION - Eye Exam Eye Exam: EOMI, PERRL - ENT Exam ENT Exam: Normal Oropharynx - Neck Exam Neck Exam: Normal Inspection - Respiratory Exam Respiratory Exam: Decreased Breath Sounds - Cardiovascular Exam Cardiovascular Exam: REGULAR RHYTHM, +S1, +S2 - GI/Abdominal Exam GI & Abdominal Exam: Soft, Normal Bowel Sounds - Extremities Exam Additional comments: B/L AKA - Neurological Exam Neurological Exam: Awake - Psychiatric Exam Psychiatric exam: Normal Affect - Skin Skin Exam: Normal Color Assessment and Plan (1) Sepsis Assessment & Plan: REPEAT CULTURES 10/15/17 -VE X24HRS. CASE DISCUSSED WITH PMD DR. Elaina THEODORE/ ON MULTIPLE ABX FOR MDR ACINITIBACTOR BAUMANI/MRSA PAYAL GRAFT WOUND. PATIENT PROBABLY GETTING TRANSIENT BACTEREMIA DURING HEMODIALYSIS FROM av GRAFT SITE. MAY NEED TEMPORARILY NEW PERMACATHETER FOR HEMODIALYSIS IF FEASIBLE WILL DISCUSS WITH RENAL/ VASCULAR SURGERY.- Status: Acute (2) Fever Status: Acute (3) Tachycardia Status: Acute (4) AV graft thrombosis Status: Acute (5) ESRD (end stage renal disease) on dialysis Status: Acute (6) Diabetes mellitus Status: Chronic
[2017-10-17] MEDS: Meropenem 500 MG in Sodium Chloride 0.9% 100 ML IVPB SCH ×2 (01:42→18:05)
[2017-10-17] MEDS: SODIUM CHLORIDE 0.9% IV SCH (03:30)
[2017-10-17] MEDS: COLISTIMETHATE IV SCH (03:30)
[2017-10-17] MEDS: Mag&Al/Simet/Diphen/Lido 237 ML KIT PO SCH ×4 (04:00→21:31)
[2017-10-17 07:09] LABS: BASO # 0.1 K/uL (0.0-0.2); BASO % 1.4 % (0.0-2.0); EOS # 0.3 K/uL (0.0-0.7); EOS % 3.5 % (0.0-4.0); HEMOGLOBIN 8.6 g/dL (12.0-18.0); LYMPH # 1.4 K/uL (1.0-4.3); LYMPH % 15.9 % (20.0-40.0); MEAN CELL VOLUME 84.5 fL (80.0-94.0); MEAN CORPUSCULAR HEMOGLOBIN 27.1 pg (27.0-31.0); MEAN CORPUSCULAR HGB CONC 32.1 g/dL (33.0-37.0); MEAN PLATELET VOLUME 9.1 fL (7.2-11.7); MONO # 1.1 K/uL (0.0-0.8); MONO % 11.8 % (0.0-10.0); NEUT % 67.4 % (50.0-75.0); RBC 3.17 Mil/uL (4.40-5.90); RED CELL DISTRIBUTION WIDTH 22.4 % (11.5-14.5); WHITE BLOOD COUNT 8.9 K/uL (4.8-10.8)
[2017-10-17 07:11] LABS: INR 1.4; PROTHROMBIN TIME 15.6 SECONDS (9.7-12.2)
[2017-10-17 07:37] LABS: ALB/GLOB RATIO 0.6 (1.0-2.1); ALBUMIN 2.5 g/dL (3.5-5.0)
[2017-10-17] MEDS: (Novolog) Insulin Aspart, Recombinant 100 u/ml 10 ml vial SC SCH ×5 (08:10→21:32)
[2017-10-17] MEDS ORDERED: Sodium Chloride 0.9% 500 ML IV ONE (13:00)
[2017-10-17] MEDS: Enoxaparin 30 mg Syringe SC SCH (13:04)
[2017-10-17] MEDS: Mupirocin 2% Ointment (NASAL) NAS SCH ×2 (13:04→20:20)
[2017-10-17] MEDS: Vancomycin 1 gm/NS 200 ml 1 GM/200 ML BAG IVPB SCH ×3 (13:05→13:10)
[2017-10-17] MEDS: Epoetin Alfa 10,000 unit/ml Dialysis IV SCH (13:05)
[2017-10-17] MEDS: Multivitamin Vitamin B Complex (Nephro-Vite) Tab PO SCH (13:05)
[2017-10-17] MEDS: Silver Sulfadiazine 1% Cream (20 gm) TOP SCH (13:05)
[2017-10-17] MEDS: Paricalcitol 2 mcg/ml Inj IV SCH (13:06)
[2017-10-17] MEDS ORDERED: HEPARIN-NS 5,000 UNITS/500 ML 10,000 UNIT/1,000 ML BAG IV ONE (13:11)
[2017-10-17] MEDS ORDERED: Iohexol 240 200 ML ONE (13:20)
[2017-10-17] MEDS ORDERED: Lidocaine 2% Inj (20ml) ONE (13:44)
[2017-10-17] MEDS ORDERED: Bacitracin Ointment 30 GM TUBE ONE (14:42)
--- NOTE | 2017-10-17 14:59 | PCM.SURG1 ---
Surgeon's Initial Post Op Note - Surgeon's Notes Surgeon: Dr. Carrasco Clinical Documentation Specialist: Yany PGY1 Type of Anesthesia: Local Pre-Operative Diagnosis: End Stage Renal Disease Operative Findings: see operative report Post-Operative Diagnosis: same Operation Performed: Left IJ Permacath placement; Right AV Fistulogram Specimen/Specimens Removed: none Estimated Blood Loss: EBL {In ML}: 10 Blood Products Given: N/A Drains Used: No Drains Post-Op Condition: Fair Date of Surgery/Procedure: 10/17/17 Time of Surgery/Procedure: 14:59
--- NOTE | 2017-10-17 15:43 | RAD ---
HISTORY: S/p Permacath placement COMPARISON: 10/15/2017 FINDINGS: LUNGS: No active pulmonary disease. PLEURA: No significant pleural effusion identified, no pneumothorax apparent. CARDIOVASCULAR: New left tunneled central venous dialysis catheter. OSSEOUS STRUCTURES: No significant abnormalities. VISUALIZED UPPER ABDOMEN: Normal. OTHER FINDINGS: None. IMPRESSION: Left tunneled central venous dialysis catheter. Otherwise unremarkable.
[2017-10-17] MEDS ORDERED: DOPamine 400mg/250ml D5W 400 MG/250 ML BAG IV PRN (17:08)
--- NOTE | 2017-10-17 17:13 | PCM.RRT ---
<LowLindsay - Last Filed: 10/17/17 17:28> SUPERVISING LAW ENFORCEMENT ANALYST Nurses Assessment - Situation Date: 10/17/17 Time SUPERVISING LAW ENFORCEMENT ANALYST was called: 16:54 SUPERVISING LAW ENFORCEMENT ANALYST Responder Arrival Time:: 16:54 SUPERVISING LAW ENFORCEMENT ANALYST Location:: T Med/Surg SUPERVISING LAW ENFORCEMENT ANALYST Reason for Call: Hypotension, O2 Saturation below 90%, Looks Sicker SUPERVISING LAW ENFORCEMENT ANALYST Called By: RN - IV IV Inserted during SUPERVISING LAW ENFORCEMENT ANALYST?: No - Respiratory SUPERVISING LAW ENFORCEMENT ANALYST Delivery Method: Non Rebreather @% Was the Patient Intubated?: No Was the Patient Placed on a Ventilator?: No - Medication Medications Administered During SUPERVISING LAW ENFORCEMENT ANALYST: dopamine iv. BIPAP 07/18 - Diagnostic Test Ordered EKG: No Chest X-Ray: No CT Scan: No - Stat Labs Ordered SUPERVISING LAW ENFORCEMENT ANALYST Stat Labs Ordered: CBC, BMP, BLOOD C&S X2 SUPERVISING LAW ENFORCEMENT ANALYST Other Labs Ordered: wound culture for LUE CPR started during SUPERVISING LAW ENFORCEMENT ANALYST?: No - Vital Signs Vital Signs: Rapid Response Vital Sign Blood Pressure 82/58 Pulse Rate 109 Respiratory Rate 24 Temperature 97.1 F Oxygen Saturation 97 - Sepsis Screen Part 1 Sepsis Screen Part 1: Hypotensive - Time SUPERVISING LAW ENFORCEMENT ANALYST Ended Time SUPERVISING LAW ENFORCEMENT ANALYST Ended: 09:00 - Vital Signs at end of SUPERVISING LAW ENFORCEMENT ANALYST Vital Signs at end of SUPERVISING LAW ENFORCEMENT ANALYST: Rapid Response End Vital Sign Blood Pressure 114/70 Pulse Rate 114 Respiratory Rate 20 O2 Sat by Pulse Oximetry 97 - Recommendations Notifications: Attending Physician I.Reason for SUPERVISING LAW ENFORCEMENT ANALYST - A) Acute Change in Patient: Subjective: Rapid response was called at ____ by nurses because they were unable to get a blood pressure reading. Per nursing, he usually runs in 80s-90s SBP. Patient is s/p AV fistula ligation with permacath placement (conscious sedation with fentanyl) who just returned to his room from the PACU where he was alert. Patient usually opens eye spontaneously at baseline but does not respond much to sternal rub. Upon arrival, the patient had decrease alertness and BP was unattainable. Patient was put into trendelenburg and then started on Dopamine per Dr. Long's recommendations. Patient was also placed on BiPAP. BP readings were as follows: 71/46 82/58 100/67 108/71 - Respiratory Oxygen Delivery Method: BiPAP @% (07/18), Non Rebreather @% - Constitutional Appears: Chronically Ill - Head Head Exam: ATRAUMATIC, NORMAL INSPECTION, NORMOCEPHALIC - Respiratory Exam Respiratory Exam: Accessory Muscle Use, Rales - Cardiovascular Exam Cardiovascular Exam: REGULAR RHYTHM, +S1, +S2 - Neurological Exam Neurological Exam: Altered - Extremities Exam Additional comments: history of bilateral BKA Plan - Assessment of Findings&Treatment Plan As per summary above: ICU consulted Dopamine drip BiPAP 07/18 Palliative care consulted <oYrdy Edwards S - Last Filed: 10/17/17 18:39> SUPERVISING LAW ENFORCEMENT ANALYST Nurses Assessment - Vital Signs Vital Signs: Rapid Response Vital Sign Blood Pressure 82/58 Pulse Rate 109 Respiratory Rate 24 Temperature 97.1 F Oxygen Saturation 97 - Vital Signs at end of SUPERVISING LAW ENFORCEMENT ANALYST Vital Signs at end of SUPERVISING LAW ENFORCEMENT ANALYST: Rapid Response End Vital Sign Blood Pressure 114/70 Pulse Rate 114 Respiratory Rate 20 O2 Sat by Pulse Oximetry 97
[2017-10-17] MEDS ORDERED: DOPamine 400mg/250ml D5W IV ONE (17:35)
--- NOTE | 2017-10-17 18:23 | CP.PCM.PN ---
Subjective - Date & Time of Evaluation Date of Evaluation: 10/17/17 Time of Evaluation: 10:15 - Subjective Subjective: clinically same Objective - Vital Signs/Intake and Output Vital Signs (last 24 hours): Temp Pulse Resp BP Pulse Ox 97.8 F 103 H 24 68/40 L 100 10/17/17 16:00 10/17/17 17:33 10/17/17 17:33 10/17/17 17:33 10/17/17 16:00 Intake and Output: 10/17/17 10/17/17 06:59 18:59 Intake Total 200 Balance 200 - Medications Medications: Current Medications Acetaminophen (Tylenol 325mg Tab) 325 mg PO Q6H PRN PRN Reason: Pain, moderate (4-7) Last Admin: 10/06/17 12:41 Dose: 325 mg Aspirin (Aspirin Chewable) 81 mg PO DAILY [facility] Last Admin: 10/17/17 13:04 Dose: Not Given Enoxaparin Sodium (Lovenox) 30 mg SC DAILY [facility] Last Admin: 10/17/17 13:04 Dose: Not Given Famotidine (Pepcid) 20 mg PO DAILY [facility] Last Admin: 10/17/17 13:05 Dose: Not Given Meropenem 500 mg/ Sodium (Chloride) 100 mls @ 200 mls/hr IVPB Q12H [facility] Last Admin: 10/17/17 18:05 Dose: Not Given Colistimethate Sodium 140 mg/ (Sodium Chloride) 100 mls @ 200 mls/hr IV Q36H [facility] Last Admin: 10/17/17 03:30 Dose: 200 mls/hr Vancomycin/Sodium Chloride (Vancomycin 1 Gm/Ns 200 Ml) 1 gm in 200 mls @ 133 mls/hr IVPB MWF [facility] PRN Reason: Protocol Stop: 10/22/17 09:01 Last Admin: 10/17/17 13:10 Dose: Not Given Dopamine HCl/Dextrose (Dopamine 400mg/250ml D5w) 400 mg in 250 mls @ 35.72 mls/ hr IV .Q7H PRN; Protocol; 10 MCG/KG/MIN PRN Reason: TITRATE PER MD ORDER Last Admin: 10/17/17 17:33 Dose: 10 mcg/kg/min, 35.72 mls/hr Insulin Aspart (Novolog) 0 unit SC ACHS [facility] PRN Reason: Protocol Last Admin: 10/17/17 18:04 Dose: Not Given Mupirocin (Bactroban 2% Nasal) 0.5 gm PALOMO BID [facility] Stop: 10/18/17 20:17 Last Admin: 10/17/17 13:04 Dose: Not Given Rosuvastatin Calcium (Crestor) 10 mg PO HS [facility] Last Admin: 10/16/17 21:41 Dose: 10 mg Saliva Substitute (First Magic Mouthwash) 3 ml PO Q6H [facility] Last Admin: 10/17/17 18:23 Dose: Not Given Sevelamer Carbonate (Renvela) 1,600 mg PO TTS [facility] Last Admin: 10/16/17 10:51 Dose: Not Given Silver Sulfadiazine (Silvadene 1% 20 Gm) 1 ea TOP DAILY [facility] Last Admin: 10/17/17 13:05 Dose: Not Given Vitamin B Complex/Vit C/Folic Acid (Nephro-Mark) 1 tab PO DAILY [facility] Last Admin: 10/17/17 13:05 Dose: Not Given - Labs Labs: 10/17/17 06:53 10/17/17 06:53 PT 15.6 SECONDS (9.7-12.2) H 10/17/17 06:53 INR 1.4 10/17/17 06:53 APTT 42 SECONDS (21-34) H 10/17/17 06:53 - Constitutional Appears: Well - Head Exam Head Exam: ATRAUMATIC, NORMAL INSPECTION, NORMOCEPHALIC - Eye Exam Eye Exam: EOMI, Normal appearance, PERRL Pupil Exam: NORMAL ACCOMODATION, PERRL - ENT Exam ENT Exam: Mucous Membranes Moist, Normal Exam - Neck Exam Neck Exam: Full ROM, Normal Inspection. absent: Lymphadenopathy - Respiratory Exam Respiratory Exam: Decreased Breath Sounds - Cardiovascular Exam Cardiovascular Exam: REGULAR RHYTHM, +S1, +S2 - GI/Abdominal Exam GI & Abdominal Exam: Soft, Diminished Bowel Sounds - Rectal Exam Rectal Exam: Deferred Assessment and Plan (1) ESRD on hemodialysis Status: Acute (2) Fever Status: Acute (3) Tachycardia Status: Acute (4) Bacteremia Status: Acute (5) CHF exacerbation Status: Acute (6) Dyspnea Status: Acute (7) ESRD (end stage renal disease) on dialysis Status: Acute (8) High cholesterol Status: Acute (9) Hypotension Status: Acute (10) Pneumonia Status: Acute (11) Prophylactic measure Status: Acute (12) Sepsis Status: Acute (13) Septic shock Status: Acute (14) UTI (urinary tract infection), bacterial Status: Acute (15) CHF (congestive heart failure) Status: Chronic (16) Diabetes mellitus Status: Chronic (17) ESRD (end stage renal disease) Status: Chronic (18) HTN (hypertension) Status: Chronic - Assessment and Plan (Free Text) Plan: Discussed with the patient and the family Fluid challenge Discussed with the dialysis unit Try to reach the director of physiotherapy services Pulmonary consult stat with , Icu evaluations Discussed with the staff on the floor Discussed with the family in the morning at length as patient may need to remove shunt versus needs to for infection Discussed with Dr. EDWARDS who claims that patient has a subclavian stenosis which caused the swelling of the right also patient has a fistula so IV antibiotic needs to be given We will try to dialyze as early as possible IC evaluations Family is aware
[2017-10-17] MEDS: DOPamine 400mg/250ml D5W 400 MG/250 ML BAG IV PRN ×2 (18:26→23:36)
[2017-10-17 19:53] LABS: ABG ALLEN TEST UNABLE; ARTERIAL BLOOD GAS HCO3 22.5 mmol/L (21-28); ARTERIAL BLOOD GAS HEMOGLOBIN 10.5 g/dL (11.7-17.4); ARTERIAL BLOOD GAS PCO2 33 mm/Hg (35-45); ARTERIAL BLOOD GAS PH 7.41 (7.35-7.45); ARTERIAL BLOOD GAS PO2 506 mm/Hg (80-100); ARTERIAL BLOOD GAS TCO2 21.9 mmol/L (22-28)
[2017-10-18] MEDS: Meropenem 500 MG in Sodium Chloride 0.9% 100 ML IVPB SCH ×2 (02:09→13:33)
[2017-10-18] MEDS: Mag&Al/Simet/Diphen/Lido 237 ML KIT PO SCH (04:10)
[2017-10-18 06:38] LABS: BASO # 0.1 K/uL (0.0-0.2); BASO % 1.5 % (0.0-2.0); EOS # 0.2 K/uL (0.0-0.7); HEMOGLOBIN 8.2 g/dL (12.0-18.0); LYMPH # 1.4 K/uL (1.0-4.3); LYMPH % 15.1 % (20.0-40.0); MEAN CELL VOLUME 84.1 fL (80.0-94.0); MEAN CORPUSCULAR HEMOGLOBIN 27.4 pg (27.0-31.0); MEAN CORPUSCULAR HGB CONC 32.5 g/dL (33.0-37.0); MEAN PLATELET VOLUME 9.5 fL (7.2-11.7); MONO # 1.3 K/uL (0.0-0.8); MONO % 13.4 % (0.0-10.0); NEUT # 6.5 K/uL (1.8-7.0); RBC 3.01 Mil/uL (4.40-5.90); RED CELL DISTRIBUTION WIDTH 22.2 % (11.5-14.5); WHITE BLOOD COUNT 9.5 K/uL (4.8-10.8)
[2017-10-18 06:47] LABS: ALB/GLOB RATIO 0.6 (1.0-2.1); ALBUMIN 2.5 g/dL (3.5-5.0)
[2017-10-18] MEDS: (Novolog) Insulin Aspart, Recombinant 100 u/ml 10 ml vial SC SCH ×3 (07:53→16:39)
[2017-10-18] MEDS ORDERED: DOPamine 400mg/250ml D5W 400 MG/250 ML BAG IV PRN (07:56)
--- NOTE | 2017-10-18 08:10 | RAD ---
PROCEDURE: Intraoperative Fluoroscopy. HISTORY: RENAL FAILURE FINDINGS: Fluoroscopic assistance was provided for left central venous catheter placement. Please refer to the operative report from ANABELA Baca.
--- NOTE | 2017-10-18 08:39 | CP.PCM.PCO ---
Physician Communication Note - Physician Communication Note Physician Communication Note: ok to dialyze via new permacath
--- NOTE | 2017-10-18 09:09 | RAD ---
HISTORY: NG TUBE COMPARISON: Portable chest 10/17/2017. FINDINGS: LUNGS: Limited inspiratory volume is again appreciated. He infiltrate bilaterally. Left central venous dialysis catheter unchanged in position with nasogastric now placed terminating in the gastric viscus. PLEURA: No significant pleural effusion identified, no pneumothorax apparent. CARDIOVASCULAR: Cardiac silhouette appears stable. OSSEOUS STRUCTURES: No significant abnormalities. VISUALIZED UPPER ABDOMEN: Normal. OTHER FINDINGS: None. IMPRESSION: No interval acute cardiopulmonary is appreciable.
--- NOTE | 2017-10-18 09:14 | CP.PCM.PN ---
Subjective - Date & Time of Evaluation Date of Evaluation: 10/18/17 Time of Evaluation: 07:00 - Subjective Subjective: Surgery Progress note. Dr. Carrasco Pt seen and examined at bedside. Patient does not respond to questions appropriately. Rapid response called yesterday for hypotension and SOB, patient transferred to ICU for dopamine drip and close monitoring. Objective - Vital Signs/Intake and Output Vital Signs (last 24 hours): Temp Pulse Resp BP Pulse Ox 99.2 F 111 H 23 105/27 L 100 10/18/17 04:00 10/18/17 08:33 10/18/17 08:33 10/18/17 08:33 10/18/17 08:33 Intake and Output: 10/18/17 10/18/17 06:59 18:59 Intake Total 243.2 35.6 Output Total 0 Balance 243.2 35.6 - Medications Medications: Current Medications Acetaminophen (Tylenol 325mg Tab) 325 mg PO Q6H PRN PRN Reason: Pain, moderate (4-7) Last Admin: 10/06/17 12:41 Dose: 325 mg Aspirin (Aspirin Chewable) 81 mg PO DAILY [facility] Last Admin: 10/17/17 13:04 Dose: Not Given Heparin Sodium (Porcine) (Heparin) 5,000 units SC Q8 [facility] Meropenem 500 mg/ Sodium (Chloride) 100 mls @ 200 mls/hr IVPB Q12H [facility] Last Admin: 10/18/17 02:09 Dose: 200 mls/hr Colistimethate Sodium 140 mg/ (Sodium Chloride) 100 mls @ 200 mls/hr IV Q36H [facility] Last Admin: 10/17/17 03:30 Dose: 200 mls/hr Vancomycin/Sodium Chloride (Vancomycin 1 Gm/Ns 200 Ml) 1 gm in 200 mls @ 133 mls/hr IVPB MWF [facility] PRN Reason: Protocol Stop: 10/22/17 09:01 Last Admin: 10/17/17 13:10 Dose: Not Given Dopamine HCl/Dextrose (Dopamine 400mg/250ml D5w) 400 mg in 250 mls @ 7.144 mls/ hr IV .Q24H PRN; Protocol; 2 MCG/KG/MIN PRN Reason: TITRATE PER MD ORDER Last Admin: 10/18/17 08:07 Dose: 5 mcg/kg/min, 17.86 mls/hr Insulin Aspart (Novolog) 0 unit SC ACHS [facility] PRN Reason: Protocol Last Admin: 10/18/17 07:53 Dose: Not Given Mupirocin (Bactroban 2% Nasal) 0.5 gm PALOMO BID [facility] Stop: 10/18/17 20:17 Last Admin: 10/17/17 20:20 Dose: Not Given Pantoprazole Sodium (Protonix Inj) 40 mg IVP DAILY [facility] Rosuvastatin Calcium (Crestor) 10 mg PO HS [facility] Last Admin: 10/17/17 22:14 Dose: Not Given Sevelamer Carbonate (Renvela) 1,600 mg PO TTS [facility] Last Admin: 10/16/17 10:51 Dose: Not Given Vitamin B Complex/Vit C/Folic Acid (Nephro-Mark) 1 tab PO DAILY [facility] Last Admin: 10/17/17 13:05 Dose: Not Given - Labs Labs: 10/18/17 06:28 10/18/17 06:26 PT 15.6 SECONDS (9.7-12.2) H 10/17/17 06:53 INR 1.4 10/17/17 06:53 APTT 42 SECONDS (21-34) H 10/17/17 06:53 - Constitutional Appears: Non-toxic, Older Than Stated Age, Chronically Ill - Head Exam Head Exam: ATRAUMATIC, NORMAL INSPECTION, NORMOCEPHALIC - Eye Exam Eye Exam: EOMI - ENT Exam ENT Exam: Mucous Membranes Moist - Extremities Exam Additional comments: bilateral lower extremity amputation. right upper extremity swelling. Right AVF dressing intact. - Neurological Exam Neurological Exam: Awake - Skin Skin Exam: Dry, Intact, Normal Color, Warm Assessment and Plan - Assessment and Plan (Free Text) Assessment: 51yo M w ESRD s/p Left IJ Permacath placement and R AVF fistulogram on 10/17. 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 Luna Slade PGY1 surgery pager: [phone]
[2017-10-18] MEDS: Mupirocin 2% Ointment (NASAL) NAS SCH ×2 (09:50→19:16)
[2017-10-18] MEDS: Multivitamin Vitamin B Complex (Nephro-Vite) Tab PO SCH (09:50)
--- NOTE | 2017-10-18 10:45 | CP.CCUPN ---
CCU Objective - Vital Signs / Intake & Output Vital Signs (Last 4 hours): Vital Signs Temp Pulse Pulse Resp BP BP Pulse Ox 10/18/17 10:31 114 H 14 107/45 L 99 10/18/17 10:25 113 H 18 137/95 H 100 10/18/17 10:22 112 H 17 100 10/18/17 10:20 18 107/45 L 99 10/18/17 10:19 112 H 17 164/78 H 91 L 10/18/17 10:16 112 H 17 96 10/18/17 10:05 111/49 L 10/18/17 10:00 109 H 17 111/49 L 99 10/18/17 09:50 113/14 L 10/18/17 09:45 109 H 17 100 10/18/17 09:35 103/19 L 10/18/17 09:31 105 H 21 100 10/18/17 09:24 104 H 18 100/35 L 100 10/18/17 09:20 98.3 F 105 H 20 100/35 L 100 10/18/17 09:16 105 H 20 101/23 L 100 10/18/17 09:15 98.3 F 105 H 20 101/23 L 10/18/17 09:00 105 H 20 100 10/18/17 08:33 111 H 23 105/27 L 100 10/18/17 08:23 109 H 10/18/17 08:07 93/24 L 10/18/17 08:00 106 H 24 100 10/18/17 07:33 109 H 19 93/24 L 100 10/18/17 07:32 108 H 21 103/19 L 100 10/18/17 07:31 109 H 24 83/20 L 100 10/18/17 07:30 109 H 23 95/26 L 100 10/18/17 07:29 108 H 22 89/28 L 100 10/18/17 07:28 108 H 21 91/22 L 100 10/18/17 07:27 109 H 14 71/22 L 100 10/18/17 07:25 110 H 25 H 87/30 L 100 10/18/17 07:24 110 H 21 81/20 L 100 10/18/17 07:19 111 H 24 64/40 L 100 10/18/17 07:17 110 H 18 94/23 L 100 10/18/17 07:03 110 H 23 94/16 L 100 10/18/17 07:00 108 H 24 100 Intake and Output (Last 8hrs): Intake & Output 10/17/17 10/18/17 10/18/17 22:59 06:59 14:59 Intake Total 243.2 35.6 Output Total 0 Balance 243.2 35.6 Intake: Intake, IV Amount 243.2 35.6 Left PICC 114.7 35.6 Left Upper arm 28.5 PICC 100 Output: Urine 0 Urine, Voided 0 Other: # Bowel Movements 1 - Medications Active Medications: Active Medications Generic Name Dose Route Start Last Admin Trade Name Freq PRN Reason Stop Dose Admin Acetaminophen 325 mg 10/04/17 15:21 10/06/17 12:41 Tylenol 325mg Tab PO 325 mg Q6H PRN Administration Pain, moderate (4-7) Aspirin 81 mg 10/04/17 10:00 10/18/17 09:50 Aspirin Chewable PO 81 mg DAILY [facility] Administration Heparin Sodium (Porcine) 5,000 units 10/18/17 14:00 Heparin SC Q8 [facility] Hydrocortisone Sodium Succinate 100 mg 10/18/17 09:15 10/18/17 09:49 Solu-Cortef IV 100 mg Q8H [facility] Administration Meropenem 500 mg/ Sodium 100 mls @ 200 mls/hr 10/09/17 14:00 10/18/17 02:09 Chloride IVPB 200 mls/hr Q12H [facility] Administration Colistimethate Sodium 140 mg/ 100 mls @ 200 mls/hr 10/12/17 14:30 10/17/17 03 :30 Sodium Chloride IV 200 mls/hr Q36H [facility] Administration Vancomycin/Sodium Chloride 1 gm in 200 mls @ 133 mls/hr 10/17/17 09:00 13:10 Vancomycin 1 Gm/Ns 200 Ml IVPB 10/22/17 09:01 Not Given [facility] Protocol Dopamine HCl/Dextrose 400 mg in 250 mls @ 7.144 mls/hr 10/18/17 07:56 08:07 Dopamine 400mg/250ml D5w IV 5 mcg/kg/min .Q24H PRN 17.86 mls/hr TITRATE PER MD ORDER Administration Protocol 2 MCG/KG/MIN Insulin Aspart 0 unit 10/04/17 07:30 10/18/17 07:53 Novolog SC Not Given ACHS [facility] Protocol Mupirocin 0.5 gm 10/11/17 20:16 10/18/17 09:50 Bactroban 2% Nasal [facility] 10/18/17 20:17 0.5 gm BID [facility] Administration Pantoprazole Sodium 40 mg 10/18/17 10:00 Protonix Inj IVP DAILY [facility] Rosuvastatin Calcium 10 mg 10/06/17 22:00 10/17/17 22:14 Crestor PO Not Given HS [facility] Sevelamer Carbonate 1,600 mg 10/04/17 10:00 10/18/17 09:50 Renvela PO 1,600 mg TTS [facility] Administration Vitamin B Complex/Vit C/Folic Acid 1 tab 10/04/17 10:00 10/18/17 09:50 Nephro-Mark PO 1 tab DAILY [facility] Administration - Patient Studies Lab Studies: Microbiology Studies 10/15/17 09:05 Blood Culture - Preliminary Blood NO GROWTH AFTER 3 DAYS 10/15/17 09:35 Blood Culture - Preliminary Blood NO GROWTH AFTER 3 DAYS 10/15/17 10:40 Gram Stain - Final Other: Please Indicate Wound Culture - Final Coagulase Neg Staphylococcus Lab Studies 10/18/17 10/18/17 10/18/17 Range/Units 07:45 06:28 06:26 WBC 9.5 (4.8-10.8) K/uL RBC 3.01 L (4.40-5.90) Mil/uL Hgb 8.2 L (12.0-18.0) g/dL Hct 25.3 L (35.0-51.0) % MCV 84.1 (80.0-94.0) fL MCH 27.4 (27.0-31.0) pg MCHC 32.5 L (33.0-37.0) g/dL RDW 22.2 H (11.5-14.5) % Plt Count 287 (130-400) K/uL MPV 9.5 (7.2-11.7) fL Neut % (Auto) 68.0 (50.0-75.0) % Lymph % (Auto) 15.1 L (20.0-40.0) % Caswell % (Auto) 13.4 H (0.0-10.0) % Eos % (Auto) 2.0 (0.0-4.0) % Baso % (Auto) 1.5 (0.0-2.0) % Neut # (Auto) 6.5 (1.8-7.0) K/uL Lymph # (Auto) 1.4 (1.0-4.3) K/uL Caswell # (Auto) 1.3 H (0.0-0.8) K/uL Eos # (Auto) 0.2 (0.0-0.7) K/uL Baso # (Auto) 0.1 (0.0-0.2) K/uL Puncture Site pCO2 (35-45) mm/Hg pO2 (80-100) mm/Hg HCO3 (21-28) mmol/L ABG pH (7.35-7.45) ABG Total CO2 (22-28) mmol/L ABG O2 Saturation (95-98) % ABG Base Excess (-2.0-3.0) mmol/L ABG Hemoglobin (11.7-17.4) g/dL ABG Carboxyhemoglobin (0.5-1.5) % POC ABG HHb (Measured) (0.0-5.0) % ABG Methemoglobin (0.0-3.0) % Lukasz Test A-a O2 Difference mm/Hg Respiratory Index Hgb O2 Saturation (95.0-98.0) % Vent Mode FiO2 % Inspiratory BiPAP Expiratory BiPAP Sodium 140 (132-148) mmol/L Potassium 4.1 (3.6-5.2) mmol/L Chloride 100 (98-107) mmol/L Carbon Dioxide 22 (22-30) mmol/L Anion Gap 21 H (10-20) BUN 29 H (9-20) mg/dL Creatinine 7.3 H (0.8-1.5) mg/dL Est GFR ( Amer) 10 Est GFR (Non-Af Amer) 8 POC Glucose (mg/dL) 113 H (65-110) mg/dL Random Glucose 81 (75-110) mg/dL Calcium 9.0 (8.6-10.4) mg/dl Phosphorus 6.8 H (2.5-4.5) mg/dL Magnesium 2.3 (1.6-2.3) mg/dL Total Bilirubin 1.2 (0.2-1.3) mg/dL AST 70 H (17-59) U/L ALT 23 (21-72) U/L Alkaline Phosphatase 220 H (38-126) U/L Total Protein 6.7 (6.3-8.3) g/dL Albumin 2.5 L (3.5-5.0) g/dL Globulin 4.2 H (2.2-3.9) gm/dL Albumin/Globulin Ratio 0.6 L (1.0-2.1) 10/17/17 10/17/17 10/17/17 Range/Units 21:04 19:49 15:56 WBC (4.8-10.8) K/uL RBC (4.40-5.90) Mil/uL Hgb (12.0-18.0) g/dL Hct (35.0-51.0) % MCV (80.0-94.0) fL MCH (27.0-31.0) pg MCHC (33.0-37.0) g/dL RDW (11.5-14.5) % Plt Count (130-400) K/uL MPV (7.2-11.7) fL Neut % (Auto) (50.0-75.0) % Lymph % (Auto) (20.0-40.0) % Caswell % (Auto) (0.0-10.0) % Eos % (Auto) (0.0-4.0) % Baso % (Auto) (0.0-2.0) % Neut # (Auto) (1.8-7.0) K/uL Lymph # (Auto) (1.0-4.3) K/uL Caswell # (Auto) (0.0-0.8) K/uL Eos # (Auto) (0.0-0.7) K/uL Baso # (Auto) (0.0-0.2) K/uL Puncture Site Lr pCO2 33 L (35-45) mm/Hg pO2 506 H (80-100) mm/Hg HCO3 22.5 (21-28) mmol/L ABG pH 7.41 (7.35-7.45) ABG Total CO2 21.9 L (22-28) mmol/L ABG O2 Saturation 100.0 H (95-98) % ABG Base Excess -3.1 L (-2.0-3.0) mmol/L ABG Hemoglobin 10.5 L (11.7-17.4) g/dL ABG Carboxyhemoglobin 1.7 H (0.5-1.5) % POC ABG HHb (Measured) 0.0 (0.0-5.0) % ABG Methemoglobin 1.3 (0.0-3.0) % Lukasz Test Unable A-a O2 Difference 166.0 mm/Hg Respiratory Index 0.3 Hgb O2 Saturation 97.0 (95.0-98.0) % Vent Mode Bipap FiO2 100.0 % Inspiratory BiPAP 12 Expiratory BiPAP 6 Sodium (132-148) mmol/L Potassium (3.6-5.2) mmol/L Chloride (98-107) mmol/L Carbon Dioxide (22-30) mmol/L Anion Gap (10-20) BUN (9-20) mg/dL Creatinine (0.8-1.5) mg/dL Est GFR ( Amer) Est GFR (Non-Af Amer) POC Glucose (mg/dL) 155 H 106 (65-110) mg/dL Random Glucose (75-110) mg/dL Calcium (8.6-10.4) mg/dl Phosphorus (2.5-4.5) mg/dL Magnesium (1.6-2.3) mg/dL Total Bilirubin (0.2-1.3) mg/dL AST (17-59) U/L ALT (21-72) U/L Alkaline Phosphatase (38-126) U/L Total Protein (6.3-8.3) g/dL Albumin (3.5-5.0) g/dL Globulin (2.2-3.9) gm/dL Albumin/Globulin Ratio (1.0-2.1) 10/17/17 Range/Units 11:28 WBC (4.8-10.8) K/uL RBC (4.40-5.90) Mil/uL Hgb (12.0-18.0) g/dL Hct (35.0-51.0) % MCV (80.0-94.0) fL MCH (27.0-31.0) pg MCHC (33.0-37.0) g/dL RDW (11.5-14.5) % Plt Count (130-400) K/uL MPV (7.2-11.7) fL Neut % (Auto) (50.0-75.0) % Lymph % (Auto) (20.0-40.0) % Caswell % (Auto) (0.0-10.0) % Eos % (Auto) (0.0-4.0) % Baso % (Auto) (0.0-2.0) % Neut # (Auto) (1.8-7.0) K/uL Lymph # (Auto) (1.0-4.3) K/uL Caswell # (Auto) (0.0-0.8) K/uL Eos # (Auto) (0.0-0.7) K/uL Baso # (Auto) (0.0-0.2) K/uL Puncture Site pCO2 (35-45) mm/Hg pO2 (80-100) mm/Hg HCO3 (21-28) mmol/L ABG pH (7.35-7.45) ABG Total CO2 (22-28) mmol/L ABG O2 Saturation (95-98) % ABG Base Excess (-2.0-3.0) mmol/L ABG Hemoglobin (11.7-17.4) g/dL ABG Carboxyhemoglobin (0.5-1.5) % POC ABG HHb (Measured) (0.0-5.0) % ABG Methemoglobin (0.0-3.0) % Lukasz Test A-a O2 Difference mm/Hg Respiratory Index Hgb O2 Saturation (95.0-98.0) % Vent Mode FiO2 % Inspiratory BiPAP Expiratory BiPAP Sodium (132-148) mmol/L Potassium (3.6-5.2) mmol/L Chloride (98-107) mmol/L Carbon Dioxide (22-30) mmol/L Anion Gap (10-20) BUN (9-20) mg/dL Creatinine (0.8-1.5) mg/dL Est GFR ( Amer) Est GFR (Non-Af Amer) POC Glucose (mg/dL) 91 (65-110) mg/dL Random Glucose (75-110) mg/dL Calcium (8.6-10.4) mg/dl Phosphorus (2.5-4.5) mg/dL Magnesium (1.6-2.3) mg/dL Total Bilirubin (0.2-1.3) mg/dL AST (17-59) U/L ALT (21-72) U/L Alkaline Phosphatase (38-126) U/L Total Protein (6.3-8.3) g/dL Albumin (3.5-5.0) g/dL Globulin (2.2-3.9) gm/dL Albumin/Globulin Ratio (1.0-2.1) Laboratory Results - last 24 hr 10/17/17 10/17/17 10/17/17 11:28 15:56 19:49 WBC RBC Hgb Hct MCV MCH MCHC RDW Plt Count MPV Neut % (Auto) Lymph % (Auto) Caswell % (Auto) Eos % (Auto) Baso % (Auto) Neut # (Auto) Lymph # (Auto) Caswell # (Auto) Eos # (Auto) Baso # (Auto) Puncture Site Lr pCO2 33 L pO2 506 H HCO3 22.5 ABG pH 7.41 ABG Total CO2 21.9 L ABG O2 Saturation 100.0 H ABG Base Excess -3.1 L ABG Hemoglobin 10.5 L ABG Carboxyhemoglobin 1.7 H POC ABG HHb (Measured) 0.0 ABG Methemoglobin 1.3 Lukasz Test Unable A-a O2 Difference 166.0 Respiratory Index 0.3 Hgb O2 Saturation 97.0 Vent Mode Bipap FiO2 100.0 Inspiratory BiPAP 12 Expiratory BiPAP 6 Sodium Potassium Chloride Carbon Dioxide Anion Gap BUN Creatinine Est GFR ( Amer) Est GFR (Non-Af Amer) POC Glucose (mg/dL) 91 106 Random Glucose Calcium Phosphorus Magnesium Total Bilirubin AST ALT Alkaline Phosphatase Total Protein Albumin Globulin Albumin/Globulin Ratio 10/17/17 10/18/17 10/18/17 21:04 06:26 06:28 WBC 9.5 RBC 3.01 L Hgb 8.2 L Hct 25.3 L MCV 84.1 MCH 27.4 MCHC 32.5 L RDW 22.2 H Plt Count 287 MPV 9.5 Neut % (Auto) 68.0 Lymph % (Auto) 15.1 L [place] % (Auto) 13.4 H Eos % (Auto) 2.0 Baso % (Auto) 1.5 Neut # (Auto) 6.5 Lymph # (Auto) 1.4 [place] # (Auto) 1.3 H Eos # (Auto) 0.2 Baso # (Auto) 0.1 Puncture Site pCO2 pO2 HCO3 ABG pH ABG Total CO2 ABG O2 Saturation ABG Base Excess ABG Hemoglobin ABG Carboxyhemoglobin POC ABG HHb (Measured) ABG Methemoglobin Lukasz Test A-a O2 Difference Respiratory Index Hgb O2 Saturation Vent Mode FiO2 Inspiratory BiPAP Expiratory BiPAP Sodium 140 Potassium 4.1 Chloride 100 Carbon Dioxide 22 Anion Gap 21 H BUN 29 H Creatinine 7.3 H Est GFR ( Amer) 10 Est GFR (Non-Af Amer) 8 POC Glucose (mg/dL) 155 H Random Glucose 81 Calcium 9.0 Phosphorus 6.8 H Magnesium 2.3 Total Bilirubin 1.2 AST 70 H ALT 23 Alkaline Phosphatase 220 H Total Protein 6.7 Albumin 2.5 L Globulin 4.2 H Albumin/Globulin Ratio 0.6 L 10/18/17 07:45 WBC RBC Hgb Hct MCV MCH MCHC RDW Plt Count MPV Neut % (Auto) Lymph % (Auto) [place] % (Auto) Eos % (Auto) Baso % (Auto) Neut # (Auto) Lymph # (Auto) [place] # (Auto) Eos # (Auto) Baso # (Auto) Puncture Site pCO2 pO2 HCO3 ABG pH ABG Total CO2 ABG O2 Saturation ABG Base Excess ABG Hemoglobin ABG Carboxyhemoglobin POC ABG HHb (Measured) ABG Methemoglobin Lukasz Test A-a O2 Difference Respiratory Index Hgb O2 Saturation Vent Mode FiO2 Inspiratory BiPAP Expiratory BiPAP Sodium Potassium Chloride Carbon Dioxide Anion Gap BUN Creatinine Est GFR ( Amer) Est GFR (Non-Af Amer) POC Glucose (mg/dL) 113 H Random Glucose Calcium Phosphorus Magnesium Total Bilirubin AST ALT Alkaline Phosphatase Total Protein Albumin Globulin Albumin/Globulin Ratio Fingerstick Blood Sugar Results: 155
--- NOTE | 2017-10-18 10:51 | CP.PCM.CON ---
History of Present Illness - History of Present Illness History of Present Illness: 51M w/ pmhx significant for diabetes, CVA, HTN, on HD was admitted to the hospital for fever and tachycardia. Pt is aphasic and shakes yes or no to questions. As a result of his mental baseline i was unable to obtain a medical history or ros on this patient today. ICU was consulted after becoming acutely hypotensive and bradycardic. Past medical history: cva, diabetes, hypertension Past surgical history: bka Allergies: Hydromorphone Social history: unable to obtain PMD:Unknown Review of Systems - Review of Systems Systems not reviewed;Unavailable: Acuity of Condition 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 - RENAL Hx Renal Failure: Yes - ENDOCRINE/METABOLIC Hx Diabetes Mellitus Type 1: Yes - HEMATOLOGICAL/ONCOLOGICAL Hx Blood Disorders: Yes Hx Anemia: Yes - INTEGUMENTARY Hx Dermatological Problems: No - MUSCULOSKELETAL/RHEUMATOLOGICAL Hx Musculoskeletal Disorders: No Hx Falls: No Hx Unsteady Gait: Yes Other/Comment: priscila leg amputee - GASTROINTESTINAL Hx Gastrointestinal Disorders: Yes Hx Gastroesophageal Reflux: Yes - GENITOURINARY/GYNECOLOGICAL Hx Genitourinary Disorders: No - PSYCHIATRIC Hx Substance Use: No - SURGICAL HISTORY Hx Surgeries: Yes Hx Amputation: Yes Hx Vascular Access Device: Yes Other/Comment: Bilateral BKA. 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 - ANESTHESIA Hx Anesthesia: Yes Hx Anesthesia Reactions: No Hx Malignant Hyperthermia: No Has any member of the family had a problem w/ anesthesia?: No Meds Allergies/Adverse Reactions: Allergies Allergy/AdvReac Type Severity Reaction Status Date / Time hydromorphone AdvReac Unknown DIAPHORETIC, Verified 09/17/17 09:37 UNCONSCIOUS - Medications Medications: Current Medications Acetaminophen (Tylenol 325mg Tab) 325 mg PO Q6H PRN PRN Reason: Pain, moderate (4-7) Last Admin: 10/06/17 12:41 Dose: 325 mg Aspirin (Aspirin Chewable) 81 mg PO DAILY [facility] Last Admin: 10/18/17 09:50 Dose: 81 mg Heparin Sodium (Porcine) (Heparin) 5,000 units SC Q8 [facility] Hydrocortisone Sodium Succinate (Solu-Cortef) 100 mg IV Q8H [facility] Last Admin: 10/18/17 09:49 Dose: 100 mg Meropenem 500 mg/ Sodium (Chloride) 100 mls @ 200 mls/hr IVPB Q12H [facility] Last Admin: 10/18/17 02:09 Dose: 200 mls/hr Colistimethate Sodium 140 mg/ (Sodium Chloride) 100 mls @ 200 mls/hr IV Q36H [facility] Last Admin: 10/17/17 03:30 Dose: 200 mls/hr Vancomycin/Sodium Chloride (Vancomycin 1 Gm/Ns 200 Ml) 1 gm in 200 mls @ 133 mls/hr IVPB MWF [facility] PRN Reason: Protocol Stop: 10/22/17 09:01 Last Admin: 10/17/17 13:10 Dose: Not Given Dopamine HCl/Dextrose (Dopamine 400mg/250ml D5w) 400 mg in 250 mls @ 7.144 mls/ hr IV .Q24H PRN; Protocol; 2 MCG/KG/MIN PRN Reason: TITRATE PER MD ORDER Last Admin: 10/18/17 08:07 Dose: 5 mcg/kg/min, 17.86 mls/hr Insulin Aspart (Novolog) 0 unit SC ACHS [facility] PRN Reason: Protocol Last Admin: 10/18/17 07:53 Dose: Not Given Mupirocin (Bactroban 2% Nasal) 0.5 gm [place] BID [facility] Stop: 10/18/17 20:17 Last Admin: 10/18/17 09:50 Dose: 0.5 gm Pantoprazole Sodium (Protonix Inj) 40 mg IVP DAILY [facility] Rosuvastatin Calcium (Crestor) 10 mg PO HS [facility] Last Admin: 10/17/17 22:14 Dose: Not Given Sevelamer Carbonate (Renvela) 1,600 mg PO TTS [facility] Last Admin: 10/18/17 09:50 Dose: 1,600 mg Vitamin B Complex/Vit C/Folic Acid (Nephro-Mark) 1 tab PO DAILY [facility] Last Admin: 10/18/17 09:50 Dose: 1 tab Physical Exam - Head Exam Head Exam: ATRAUMATIC, NORMAL INSPECTION, NORMOCEPHALIC - Eye Exam Eye Exam: EOMI, Normal appearance, PERRL Pupil Exam: NORMAL ACCOMODATION, PERRL. absent: Irregular, Unequal - ENT Exam ENT Exam: Mucous Membranes Moist, Normal Oropharynx - Neck Exam Neck exam: Positive for: Normal Inspection. Negative for: Lymphadenopathy, Thyromegaly - Respiratory Exam Respiratory Exam: Clear to Auscultation Bilateral, NORMAL BREATHING PATTERN. absent: Chest Wall Tenderness, Prolonged Expiratory Phase, Respiratory Distress - Cardiovascular Exam Cardiovascular Exam: REGULAR RHYTHM, +S1, +S2 - GI/Abdominal Exam GI & Abdominal Exam: Normal Bowel Sounds, Soft. absent: Organomegaly, Tenderness - Neurological Exam Neurological exam: Altered - Psychiatric Exam Psychiatric exam: Normal Affect, Normal Mood - Skin Skin Exam: Dry, Normal Color Results - Vital Signs Recent Vital Signs: Last Vital Signs Temp 98.3 F 10/18/17 09:20 Pulse 114 H 10/18/17 10:31 Resp 14 10/18/17 10:31 BP 107/45 L 10/18/17 10:31 Pulse Ox 99 10/18/17 10:31 - Labs Result Diagrams: 10/19/17 06:25 10/19/17 06:26 Labs: Laboratory Results - last 24 hr 10/17/17 10/17/17 10/17/17 11:28 15:56 19:49 WBC RBC Hgb Hct MCV MCH MCHC RDW Plt Count MPV Neut % (Auto) Lymph % (Auto) [place] % (Auto) Eos % (Auto) Baso % (Auto) Neut # (Auto) Lymph # (Auto) [place] # (Auto) Eos # (Auto) Baso # (Auto) Puncture Site Lr pCO2 33 L pO2 506 H HCO3 22.5 ABG pH 7.41 ABG Total CO2 21.9 L ABG O2 Saturation 100.0 H ABG Base Excess -3.1 L ABG Hemoglobin 10.5 L ABG Carboxyhemoglobin 1.7 H POC ABG HHb (Measured) 0.0 ABG Methemoglobin 1.3 Lukasz Test Unable A-a O2 Difference 166.0 Respiratory Index 0.3 Hgb O2 Saturation 97.0 Vent Mode Bipap FiO2 100.0 Inspiratory BiPAP 12 Expiratory BiPAP 6 Sodium Potassium Chloride Carbon Dioxide Anion Gap BUN Creatinine Est GFR ( Amer) Est GFR (Non-Af Amer) POC Glucose (mg/dL) 91 106 Random Glucose Calcium Phosphorus Magnesium Total Bilirubin AST ALT Alkaline Phosphatase Total Protein Albumin Globulin Albumin/Globulin Ratio 10/17/17 10/18/17 10/18/17 21:04 06:26 06:28 WBC 9.5 RBC 3.01 L Hgb 8.2 L Hct 25.3 L MCV 84.1 MCH 27.4 MCHC 32.5 L RDW 22.2 H Plt Count 287 MPV 9.5 Neut % (Auto) 68.0 Lymph % (Auto) 15.1 L [place] % (Auto) 13.4 H Eos % (Auto) 2.0 Baso % (Auto) 1.5 Neut # (Auto) 6.5 Lymph # (Auto) 1.4 [place] # (Auto) 1.3 H Eos # (Auto) 0.2 Baso # (Auto) 0.1 Puncture Site pCO2 pO2 HCO3 ABG pH ABG Total CO2 ABG O2 Saturation ABG Base Excess ABG Hemoglobin ABG Carboxyhemoglobin POC ABG HHb (Measured) ABG Methemoglobin Lukasz Test A-a O2 Difference Respiratory Index Hgb O2 Saturation Vent Mode FiO2 Inspiratory BiPAP Expiratory BiPAP Sodium 140 Potassium 4.1 Chloride 100 Carbon Dioxide 22 Anion Gap 21 H BUN 29 H Creatinine 7.3 H Est GFR ( Amer) 10 Est GFR (Non-Af Amer) 8 POC Glucose (mg/dL) 155 H Random Glucose 81 Calcium 9.0 Phosphorus 6.8 H Magnesium 2.3 Total Bilirubin 1.2 AST 70 H ALT 23 Alkaline Phosphatase 220 H Total Protein 6.7 Albumin 2.5 L Globulin 4.2 H Albumin/Globulin Ratio 0.6 L 10/18/17 07:45 WBC RBC Hgb Hct MCV MCH MCHC RDW Plt Count MPV Neut % (Auto) Lymph % (Auto) [place] % (Auto) Eos % (Auto) Baso % (Auto) Neut # (Auto) Lymph # (Auto) [place] # (Auto) Eos # (Auto) Baso # (Auto) Puncture Site pCO2 pO2 HCO3 ABG pH ABG Total CO2 ABG O2 Saturation ABG Base Excess ABG Hemoglobin ABG Carboxyhemoglobin POC ABG HHb (Measured) ABG Methemoglobin Lukasz Test A-a O2 Difference Respiratory Index Hgb O2 Saturation Vent Mode FiO2 Inspiratory BiPAP Expiratory BiPAP Sodium Potassium Chloride Carbon Dioxide Anion Gap BUN Creatinine Est GFR ( Amer) Est GFR (Non-Af Amer) POC Glucose (mg/dL) 113 H Random Glucose Calcium Phosphorus Magnesium Total Bilirubin AST ALT Alkaline Phosphatase Total Protein Albumin Globulin Albumin/Globulin Ratio Assessment & Plan - Assessment and Plan (Free Text) Assessment: 51M w/ pmhx significant for diabetes, CVA, HTN, on HD was admitted to the hospital for fever and tachycardia. Patient was admitted to the ICU after becoming acutely hypotensive and bradycardic. Plan: Infectious Disease: Sepsis Repeat cultures 10/15/17: VEX24 hours Wound cultures: positive for acinitibacter baumani/ mrsa Cardiovascular: Hypotension and Bradyacardia Currently on Dopamine drip. Will titrate down today. Start Midodrine 10mg PO TID @2:00 P.M. Nephrology: ESRD On HD schedule (MW) Missed yesterdays session due to unstable vital signs. Will have makeup today. Endocrinology: Type 2 Diabtes mellitus PPX -Heparin 5000nits Q8
[2017-10-18] MEDS ORDERED: Vancomycin 1 GM in Sodium Chloride 0.9% 200 ML IVPB ONE (12:08)
[2017-10-18] MEDS ORDERED: Paricalcitol 2 mcg/ml Inj IV ONE (12:15)
[2017-10-18] MEDS: SODIUM CHLORIDE 0.9% IV SCH (13:32)
[2017-10-18] MEDS: COLISTIMETHATE IV SCH (13:32)
--- NOTE | 2017-10-18 15:49 | CP.PCM.CON ---
History of Present Illness - History of Present Illness History of Present Illness: Palliative consult requested by Prema Kelsey DO for goals of care discussin Patient is a 51 yo AA male admitted from [facility] with fever and elevated Hr. The CXR upon admission was significant for venous congestion. The right AV shunt was found to be infected with MRSA and removed. IV antibiotics started. patient was given new Portocath for HD. On 11/01/17 [employer] was called for HR 119 and lethargy. After IV bolus, condition improved. Patient admitted ICU for further care. NGT in for feedings and PO meds due to lethargy. PMH: DM, HTN, ESRD with HD, BL BKA Soc. Hx: [place] resident X 4 years, single, no children, sister Carmina closed family member Fam. Hx: DM runs in family, both parents Review of Systems - Review of Systems All systems: reviewed and no additional remarkable complaints except Review of Systems: ROS obtained from sister. Patient remains stable, afebrile. 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 - RENAL Hx Renal Failure: Yes - ENDOCRINE/METABOLIC Hx Diabetes Mellitus Type 1: Yes - HEMATOLOGICAL/ONCOLOGICAL Hx Blood Disorders: Yes Hx Anemia: Yes - INTEGUMENTARY Hx Dermatological Problems: No - MUSCULOSKELETAL/RHEUMATOLOGICAL Hx Musculoskeletal Disorders: No Hx Falls: No Hx Unsteady Gait: Yes Other/Comment: priscila leg amputee - GASTROINTESTINAL Hx Gastrointestinal Disorders: Yes Hx Gastroesophageal Reflux: Yes - GENITOURINARY/GYNECOLOGICAL Hx Genitourinary Disorders: No - PSYCHIATRIC Hx Substance Use: No - SURGICAL HISTORY Hx Surgeries: Yes Hx Amputation: Yes Hx Vascular Access Device: Yes Other/Comment: Bilateral BKA. 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 - ANESTHESIA Hx Anesthesia: Yes Hx Anesthesia Reactions: No Hx Malignant Hyperthermia: No Has any member of the family had a problem w/ anesthesia?: No Meds Allergies/Adverse Reactions: Allergies Allergy/AdvReac Type Severity Reaction Status Date / Time hydromorphone AdvReac Unknown DIAPHORETIC, Verified 09/17/17 09:37 UNCONSCIOUS - Medications Medications: Current Medications Acetaminophen (Tylenol 325mg Tab) 325 mg PO Q6H PRN PRN Reason: Pain, moderate (4-7) Last Admin: 10/06/17 12:41 Dose: 325 mg Aspirin (Aspirin Chewable) 81 mg PO DAILY [facility] Last Admin: 10/18/17 09:50 Dose: 81 mg Heparin Sodium (Porcine) (Heparin) 5,000 units SC Q8 [facility] Last Admin: 10/18/17 14:20 Dose: 5,000 units Hydrocortisone Sodium Succinate (Solu-Cortef) 100 mg IV Q8H [facility] Last Admin: 10/18/17 09:49 Dose: 100 mg Meropenem 500 mg/ Sodium (Chloride) 100 mls @ 200 mls/hr IVPB Q12H [facility] Last Admin: 10/18/17 13:33 Dose: 200 mls/hr Colistimethate Sodium 140 mg/ (Sodium Chloride) 100 mls @ 200 mls/hr IV Q36H [facility] Last Admin: 10/18/17 13:32 Dose: 200 mls/hr Vancomycin/Sodium Chloride (Vancomycin 1 Gm/Ns 200 Ml) 1 gm in 200 mls @ 133 mls/hr IVPB MWF [facility] PRN Reason: Protocol Stop: 10/22/17 09:01 Last Admin: 10/17/17 13:10 Dose: Not Given Dopamine HCl/Dextrose (Dopamine 400mg/250ml D5w) 400 mg in 250 mls @ 7.144 mls/ hr IV .Q24H PRN; Protocol; 2 MCG/KG/MIN PRN Reason: TITRATE PER MD ORDER Last Titration: 10/18/17 13:50 Dose: 2 mcg/kg/min, 7.144 mls/hr Insulin Aspart (Novolog) 0 unit SC ACHS [facility] PRN Reason: Protocol Last Admin: 10/18/17 11:41 Dose: Not Given Midodrine (Proamatine) 10 mg PO TID [facility] Last Admin: 10/18/17 13:33 Dose: 10 mg Mupirocin (Bactroban 2% Nasal) 0.5 gm [place]OM[place] BID [facility] Stop: 10/18/17 20:17 Last Admin: 10/18/17 09:50 Dose: 0.5 gm Pantoprazole Sodium (Protonix Inj) 40 mg IVP DAILY [facility] Last Admin: 10/18/17 09:50 Dose: 40 mg Rosuvastatin Calcium (Crestor) 10 mg PO HS [facility] Last Admin: 10/17/17 22:14 Dose: Not Given Sevelamer Carbonate (Renvela) 1,600 mg PO TTS [facility] Last Admin: 10/18/17 09:50 Dose: 1,600 mg Vitamin B Complex/Vit C/Folic Acid (Nephro-Mark) 1 tab PO DAILY [facility] Last Admin: 10/18/17 09:50 Dose: 1 tab Physical Exam - Constitutional Appears: Older Than Stated Age, Chronically Ill - Head Exam Head Exam: ATRAUMATIC, NORMAL INSPECTION, NORMOCEPHALIC - Eye Exam Eye Exam: EOMI, Normal appearance, PERRL Pupil Exam: NORMAL ACCOMODATION - ENT Exam ENT Exam: Mucous Membranes Dry Additional comments: NGT - Neck Exam Neck exam: Positive for: Normal Inspection - Respiratory Exam Respiratory Exam: Decreased Breath Sounds, NORMAL BREATHING PATTERN - Cardiovascular Exam Cardiovascular Exam: Tachycardia, Irregular Rhythm - GI/Abdominal Exam GI & Abdominal Exam: Normal Bowel Sounds, Soft - Rectal Exam Rectal Exam: Deferred - Exam Exam: NORMAL INSPECTION - Extremities Exam Additional comments: B/L BKA - Back Exam Back exam: NORMAL INSPECTION - Neurological Exam Neurological exam: Alert, Altered - Psychiatric Exam Psychiatric exam: Flat Affect - Skin Skin Exam: Normal Color, Warm Results - Vital Signs Recent Vital Signs: Last Vital Signs Temp 98.1 F 10/18/17 12:20 Pulse 101 H 10/18/17 15:14 Resp 18 10/18/17 15:14 BP 89/48 L 10/18/17 15:14 Pulse Ox 100 10/18/17 15:14 - Labs Result Diagrams: 10/18/17 06:28 10/18/17 06:26 Labs: Laboratory Results - last 24 hr 10/17/17 10/17/17 10/17/17 15:56 19:49 21:04 WBC RBC Hgb Hct MCV MCH MCHC RDW Plt Count MPV Neut % (Auto) Lymph % (Auto) [place] % (Auto) Eos % (Auto) Baso % (Auto) Neut # (Auto) Lymph # (Auto) [place] # (Auto) Eos # (Auto) Baso # (Auto) Puncture Site Lr pCO2 33 L pO2 506 H HCO3 22.5 ABG pH 7.41 ABG Total CO2 21.9 L ABG O2 Saturation 100.0 H ABG Base Excess -3.1 L ABG Hemoglobin 10.5 L ABG Carboxyhemoglobin 1.7 H POC ABG HHb (Measured) 0.0 ABG Methemoglobin 1.3 Lukasz Test Unable A-a O2 Difference 166.0 Respiratory Index 0.3 Hgb O2 Saturation 97.0 Vent Mode Bipap FiO2 100.0 Inspiratory BiPAP 12 Expiratory BiPAP 6 Sodium Potassium Chloride Carbon Dioxide Anion Gap BUN Creatinine Est GFR ( Amer) Est GFR (Non-Af Amer) POC Glucose (mg/dL) 106 155 H Random Glucose Calcium Phosphorus Magnesium Total Bilirubin AST ALT Alkaline Phosphatase Total Protein Albumin Globulin Albumin/Globulin Ratio 10/18/17 10/18/17 10/18/17 06:26 06:28 07:45 WBC 9.5 RBC 3.01 L Hgb 8.2 L Hct 25.3 L MCV 84.1 MCH 27.4 MCHC 32.5 L RDW 22.2 H Plt Count 287 MPV 9.5 Neut % (Auto) 68.0 Lymph % (Auto) 15.1 L [place] % (Auto) 13.4 H Eos % (Auto) 2.0 Baso % (Auto) 1.5 Neut # (Auto) 6.5 Lymph # (Auto) 1.4 [place] # (Auto) 1.3 H Eos # (Auto) 0.2 Baso # (Auto) 0.1 Puncture Site pCO2 pO2 HCO3 ABG pH ABG Total CO2 ABG O2 Saturation ABG Base Excess ABG Hemoglobin ABG Carboxyhemoglobin POC ABG HHb (Measured) ABG Methemoglobin Lukasz Test A-a O2 Difference Respiratory Index Hgb O2 Saturation Vent Mode FiO2 Inspiratory BiPAP Expiratory BiPAP Sodium 140 Potassium 4.1 Chloride 100 Carbon Dioxide 22 Anion Gap 21 H BUN 29 H Creatinine 7.3 H Est GFR ( Amer) 10 Est GFR (Non-Af Amer) 8 POC Glucose (mg/dL) 113 H Random Glucose 81 Calcium 9.0 Phosphorus 6.8 H Magnesium 2.3 Total Bilirubin 1.2 AST 70 H ALT 23 Alkaline Phosphatase 220 H Total Protein 6.7 Albumin 2.5 L Globulin 4.2 H Albumin/Globulin Ratio 0.6 L 10/18/17 11:05 WBC RBC Hgb Hct MCV MCH MCHC RDW Plt Count MPV Neut % (Auto) Lymph % (Auto) [place] % (Auto) Eos % (Auto) Baso % (Auto) Neut # (Auto) Lymph # (Auto) [place] # (Auto) Eos # (Auto) Baso # (Auto) Puncture Site pCO2 pO2 HCO3 ABG pH ABG Total CO2 ABG O2 Saturation ABG Base Excess ABG Hemoglobin ABG Carboxyhemoglobin POC ABG HHb (Measured) ABG Methemoglobin Lukasz Test A-a O2 Difference Respiratory Index Hgb O2 Saturation Vent Mode FiO2 Inspiratory BiPAP Expiratory BiPAP Sodium Potassium Chloride Carbon Dioxide Anion Gap BUN Creatinine Est GFR ( Amer) Est GFR (Non-Af Amer) POC Glucose (mg/dL) 96 Random Glucose Calcium Phosphorus Magnesium Total Bilirubin AST ALT Alkaline Phosphatase Total Protein Albumin Globulin Albumin/Globulin Ratio Assessment & Plan - Assessment and Plan (Free Text) Assessment: Palliative care DNR/DNI, no advance directive on chart, PPS 10% I reviewed medical records, all diagnostic studies, examined patient in bed and discussed goals of care with patient's sister at bedside. Patient examined in bed looking chronically ill in no acute distress. patient is alert, nonverbal, makes eye contacts, does not fallow commends. per sister patient become nonverbal about a year ago. Breath sounds diminished, no cough noted. NGT in place NPO. Abdomen large, soft, active bowel sounds. B/l BKA due to severe PVD and DM. Right arm wound, post AV shunt removal. Area swollen and tender to touch, covered with dressing. BP 137/95, H 105 irregular, afebrile. WBC 9.5, Hb 8.2, [employer] 7.3, Alb 2.5. Right arm wound + MRSA. IV antibiotics on board, contact isolation. Goals of care discussed with patient's sister Shreya at bed side. She admitted being very worried about her brother's condition and cried. She is aware of complex medical condition of patient and wishes he gets better and return to NH. I offered more information about MRSA infection and the IV Tx. Code status discussed. patient already DNR/DNI on [employer]. I made sure sister understood the DNR/DNI status. POL introduced. Mrs. Gonzalez was very clear she would want all medical and surgical interventions to be applied to support her brother's life. if his condition becomes terminal she would want him to be allowed natural . She signed POLST asking for DNR/DNI. This was discussed with nursing. Assessment * Chronically ill male with severely worsened quality of life due to medical diagnosis * Physical debility * Expressive aphasia, unable to advocate for himself * Inadequate nutrition * At risk for pressure sore * At risk for malnutrition Plan * Assist with repositioning, * Promote skin integrity * Advocate for patient * Would consider swallow evaluation and introduce PO intake as tolerated * Aspiration precautions Advance care planing 30 min
--- NOTE | 2017-10-18 20:44 | CP.PCM.PN ---
Subjective - Date & Time of Evaluation Date of Evaluation: 10/18/17 Time of Evaluation: 20:44 - Subjective Subjective: PATIENT SEEN IN ICU AFEBRILE. VS NOTED Patient does not respond to questions appropriately. Rapid response called yesterday for hypotension and SOB, patient transferred to ICU for dopamine drip and close monitoring. S/P OR 10/17/17 NEW RT .CHEST PERMACATHETER/AND LIGATION OF AV FISTULA PAYAL. S/P HD TODAY.10/18/17 pATIENT GIVEN vANCO 1 G DAILY POST HEMODIALYSIS 10/18/17 MISSED HIS DOSE YESTERDA LABS REVIEWED. CASE DISCUSSED WITHDR Tiffanie THEODORE . pATIENT SEEN BY PALLIATIVE CARE . Objective - Vital Signs/Intake and Output Vital Signs (last 24 hours): Temp Pulse Resp BP Pulse Ox 97.6 F 90 15 92/14 L 100 10/18/17 16:00 10/18/17 19:14 10/18/17 19:14 10/18/17 19:14 10/18/17 19:14 Intake and Output: 10/18/17 10/19/17 18:59 06:59 Intake Total 1242.4 25 Output Total 2300 Balance -1057.6 25 - Medications Medications: Current Medications Acetaminophen (Tylenol 325mg Tab) 325 mg PO Q6H PRN PRN Reason: Pain, moderate (4-7) Last Admin: 10/06/17 12:41 Dose: 325 mg Aspirin (Aspirin Chewable) 81 mg PO DAILY [facility] Last Admin: 10/18/17 09:50 Dose: 81 mg Heparin Sodium (Porcine) (Heparin) 5,000 units SC Q8 [facility] Last Admin: 10/18/17 14:20 Dose: 5,000 units Hydrocortisone Sodium Succinate (Solu-Cortef) 100 mg IV Q8H [facility] Last Admin: 10/18/17 17:15 Dose: 100 mg Meropenem 500 mg/ Sodium (Chloride) 100 mls @ 200 mls/hr IVPB Q12H [facility] Last Admin: 10/18/17 13:33 Dose: 200 mls/hr Colistimethate Sodium 140 mg/ (Sodium Chloride) 100 mls @ 200 mls/hr IV Q36H [facility] Last Admin: 10/18/17 13:32 Dose: 200 mls/hr Vancomycin/Sodium Chloride (Vancomycin 1 Gm/Ns 200 Ml) 1 gm in 200 mls @ 133 mls/hr IVPB MWF [facility] PRN Reason: Protocol Stop: 10/22/17 09:01 Last Admin: 10/17/17 13:10 Dose: Not Given Dopamine HCl/Dextrose (Dopamine 400mg/250ml D5w) 400 mg in 250 mls @ 7.144 mls/ hr IV .Q24H PRN; Protocol; 2 MCG/KG/MIN PRN Reason: TITRATE PER MD ORDER Last Titration: 10/18/17 17:32 Dose: 0 mcg/kg/min, 0 mls/hr Insulin Aspart (Novolog) 0 unit SC ACHS [facility] PRN Reason: Protocol Last Admin: 10/18/17 16:39 Dose: Not Given Midodrine (Proamatine) 10 mg PO TID [facility] Last Admin: 10/18/17 18:23 Dose: 10 mg Pantoprazole Sodium (Protonix Inj) 40 mg IVP DAILY [facility] Last Admin: 10/18/17 09:50 Dose: 40 mg Rosuvastatin Calcium (Crestor) 10 mg PO HS [facility] Last Admin: 10/17/17 22:14 Dose: Not Given Sevelamer Carbonate (Renvela) 1,600 mg PO TTS [facility] Last Admin: 10/18/17 09:50 Dose: 1,600 mg Vitamin B Complex/Vit C/Folic Acid (Nephro-Mark) 1 tab PO DAILY [facility] Last Admin: 10/18/17 09:50 Dose: 1 tab - Labs Labs: 10/18/17 06:28 10/18/17 06:26 PT 15.6 SECONDS (9.7-12.2) H 10/17/17 06:53 INR 1.4 10/17/17 06:53 APTT 42 SECONDS (21-34) H 10/17/17 06:53 - Constitutional Appears: No Acute Distress - Head Exam Head Exam: NORMAL INSPECTION - Eye Exam Eye Exam: PERRL - ENT Exam ENT Exam: Normal Oropharynx - Neck Exam Neck Exam: Normal Inspection - Respiratory Exam Respiratory Exam: Decreased Breath Sounds - Cardiovascular Exam Cardiovascular Exam: Tachycardia, REGULAR RHYTHM, +S1, +S2 - GI/Abdominal Exam GI & Abdominal Exam: Soft, Normal Bowel Sounds - Back Exam Additional comments: B/L AKA - Neurological Exam Neurological Exam: Awake - Psychiatric Exam Psychiatric exam: Flat Affect - Skin Skin Exam: Warm Assessment and Plan (1) Sepsis Assessment & Plan: ON IV MEROPENEM. IV COLISTIN. IVVANCO MWF POST HD FOR MDR ACINITIBACTOR BAUMANI/MRSA/ PAYAL GRAFT WOUND. F/U VANCO RANDOM LEVEL IN A.M. DISCUSSED WITH RN. Status: Acute (2) Fever Status: Acute (3) Tachycardia Status: Acute (4) AV graft thrombosis Status: Acute (5) ESRD (end stage renal disease) on dialysis Assessment & Plan: ON HD MWF. S/P HD TODAY 10/18/17 PT MISSED HIS DIALYSIS BECAUSE OF OR/ HYPOTENSION. Status: Acute (6) Diabetes mellitus Status: Chronic
--- NOTE | 2017-10-18 23:23 | CP.PCM.PN ---
Subjective - Date & Time of Evaluation Date of Evaluation: 10/18/17 Time of Evaluation: 15:15 - Subjective Subjective: clinically same Objective - Vital Signs/Intake and Output Vital Signs (last 24 hours): Temp Pulse Resp BP Pulse Ox 97.6 F 90 15 92/14 L 100 10/18/17 16:00 10/18/17 19:14 10/18/17 19:14 10/18/17 19:14 10/18/17 19:14 Intake and Output: 10/18/17 10/19/17 18:59 06:59 Intake Total 1242.4 25 Output Total 2300 Balance -1057.6 25 - Medications Medications: Current Medications Acetaminophen (Tylenol 325mg Tab) 325 mg PO Q6H PRN PRN Reason: Pain, moderate (4-7) Last Admin: 10/06/17 12:41 Dose: 325 mg Aspirin (Aspirin Chewable) 81 mg PO DAILY [facility] Last Admin: 10/18/17 09:50 Dose: 81 mg Heparin Sodium (Porcine) (Heparin) 5,000 units SC Q8 [facility] Last Admin: 10/18/17 21:20 Dose: 5,000 units Hydrocortisone Sodium Succinate (Solu-Cortef) 100 mg IV Q8H [facility] Last Admin: 10/18/17 17:15 Dose: 100 mg Meropenem 500 mg/ Sodium (Chloride) 100 mls @ 200 mls/hr IVPB Q12H [facility] Last Admin: 10/18/17 13:33 Dose: 200 mls/hr Colistimethate Sodium 140 mg/ (Sodium Chloride) 100 mls @ 200 mls/hr IV Q36H [facility] Last Admin: 10/18/17 13:32 Dose: 200 mls/hr Vancomycin/Sodium Chloride (Vancomycin 1 Gm/Ns 200 Ml) 1 gm in 200 mls @ 133 mls/hr IVPB MWF [facility] PRN Reason: Protocol Stop: 10/22/17 09:01 Last Admin: 10/17/17 13:10 Dose: Not Given Dopamine HCl/Dextrose (Dopamine 400mg/250ml D5w) 400 mg in 250 mls @ 7.144 mls/ hr IV .Q24H PRN; Protocol; 2 MCG/KG/MIN PRN Reason: TITRATE PER MD ORDER Last Titration: 10/18/17 17:32 Dose: 0 mcg/kg/min, 0 mls/hr Insulin Aspart (Novolog) 0 unit SC Q6H [facility] PRN Reason: Protocol Midodrine (Proamatine) 10 mg PO TID [facility] Last Admin: 10/18/17 18:23 Dose: 10 mg Pantoprazole Sodium (Protonix Inj) 40 mg IVP DAILY [facility] Last Admin: 10/18/17 09:50 Dose: 40 mg Rosuvastatin Calcium (Crestor) 10 mg PO HS [facility] Last Admin: 10/18/17 23:01 Dose: 10 mg Sevelamer Carbonate (Renvela) 1,600 mg PO TTS [facility] Last Admin: 10/18/17 09:50 Dose: 1,600 mg Vitamin B Complex/Vit C/Folic Acid (Nephro-Mark) 1 tab PO DAILY [facility] Last Admin: 10/18/17 09:50 Dose: 1 tab - Labs Labs: 10/18/17 06:28 10/18/17 06:26 PT 15.6 SECONDS (9.7-12.2) H 10/17/17 06:53 INR 1.4 10/17/17 06:53 APTT 42 SECONDS (21-34) H 10/17/17 06:53 - Constitutional Appears: Well - Head Exam Head Exam: ATRAUMATIC, NORMAL INSPECTION, NORMOCEPHALIC - Eye Exam Eye Exam: EOMI, Normal appearance, PERRL Pupil Exam: NORMAL ACCOMODATION, PERRL - ENT Exam ENT Exam: Mucous Membranes Moist, Normal Exam - Neck Exam Neck Exam: Full ROM, Normal Inspection. absent: Lymphadenopathy - Respiratory Exam Respiratory Exam: Decreased Breath Sounds - Cardiovascular Exam Cardiovascular Exam: REGULAR RHYTHM, +S1, +S2 - GI/Abdominal Exam GI & Abdominal Exam: Soft, Diminished Bowel Sounds - Rectal Exam Rectal Exam: Deferred Assessment and Plan (1) ESRD on hemodialysis Status: Acute (2) Fever Status: Acute (3) Tachycardia Status: Acute (4) Bacteremia Status: Acute (5) CHF exacerbation Status: Acute (6) Dyspnea Status: Acute (7) ESRD (end stage renal disease) on dialysis Status: Acute (8) High cholesterol Status: Acute (9) Hypotension Status: Acute (10) Pneumonia Status: Acute (11) Prophylactic measure Status: Acute (12) Sepsis Status: Acute (13) Septic shock Status: Acute (14) UTI (urinary tract infection), bacterial Status: Acute (15) CHF (congestive heart failure) Status: Chronic (16) Diabetes mellitus Status: Chronic (17) ESRD (end stage renal disease) Status: Chronic (18) HTN (hypertension) Status: Chronic - Assessment and Plan (Free Text) Plan: Patient appears sick ID consult patient is on cholestyramine Multiple medications Patient was seen by Dr. William Dominguez Continue hemodialysis Encourage feeding Continue meropenem and cholestyramine Follow-up with multiple consultants Follow-up with the welding teacher
[2017-10-19] MEDS: (Novolog) Insulin Aspart, Recombinant 100 u/ml 10 ml vial SC SCH ×5 (01:29→22:39)
[2017-10-19] MEDS: Meropenem 500 MG in Sodium Chloride 0.9% 100 ML IVPB SCH ×2 (01:31→14:12)
[2017-10-19 06:29] LABS: BASO % 0.4 % (0.0-2.0); HEMOGLOBIN 8.4 g/dL (12.0-18.0); LYMPH % 11.4 % (20.0-40.0); MEAN CELL VOLUME 84.7 fL (80.0-94.0); MEAN CORPUSCULAR HEMOGLOBIN 27.1 pg (27.0-31.0); MEAN PLATELET VOLUME 9.5 fL (7.2-11.7); MONO # 0.7 K/uL (0.0-0.8); MONO % 7.4 % (0.0-10.0); NEUT # 7.3 K/uL (1.8-7.0); NEUT % 80.8 % (50.0-75.0); NRBC % 0.1 % (0.0-2.0); RBC 3.09 Mil/uL (4.40-5.90); RED CELL DISTRIBUTION WIDTH 21.9 % (11.5-14.5)
[2017-10-19 06:53] LABS: ALB/GLOB RATIO 0.6 (1.0-2.1); ALBUMIN 2.4 g/dL (3.5-5.0); CALCIUM 8.5 mg/dl (8.6-10.4)
--- NOTE | 2017-10-19 08:50 | RAD ---
HISTORY: low o2 sat. COMPARISON: 10/18/2017 FINDINGS: LUNGS: No active pulmonary disease. PLEURA: Elevated right hemidiaphragm. No pleural effusion or pneumothorax. CARDIOVASCULAR: Twelve left central venous dialysis catheter. Nasogastric tube unchanged extending to upper abdomen. OSSEOUS STRUCTURES: No significant abnormalities. VISUALIZED UPPER ABDOMEN: Normal. OTHER FINDINGS: None. IMPRESSION: No active disease.
[2017-10-19] MEDS: Multivitamin Vitamin B Complex (Nephro-Vite) Tab PO SCH (09:51)
--- NOTE | 2017-10-19 11:39 | CP.CCUPN ---
<Luis Ortiz - Last Filed: 10/19/17 13:54> CCU Subjective - Physician Review Subjective (Free Text): 10/19/17 11:37 Patient seen and examined at bedside. Per nursing no acute events occurred overnight. Critical Care Time Spent (in minutes): 40 CCU Objective - Vital Signs / Intake & Output Vital Signs (Last 4 hours): Vital Signs Temp Pulse Resp BP Pulse Ox 10/19/17 11:05 89 17 80/24 L 100 10/19/17 11:00 90 15 100 10/19/17 10:00 93 H 17 100 10/19/17 09:58 93 H 17 72/38 L 100 10/19/17 09:00 96 H 16 100 10/19/17 08:00 97.9 F 94 H 17 100 10/19/17 07:57 97 H 18 83/30 L 100 Intake and Output (Last 8hrs): Intake & Output 10/18/17 10/19/17 10/19/17 22:59 06:59 14:59 Intake Total 667.8 125 0 Output Total 2300 0 0 Balance -1632.2 125 0 Intake: IV 50 Intake, IV Amount 117.8 100 0 Left PICC 17.8 100 0 PICC 100 Oral 200 Tube Feeding 225 25 0 Other 75 Output: Urine 0 0 0 Straight 0 0 0 Other 2300 Other: # Bowel Movements 1 1 - Physical Exam Head: Positive for: Atraumatic, Normocephalic Pupils: Positive for: PERRL Extroacular Muscles: Positive for: EOMI Conjunctiva: Positive for: Normal Mouth: Positive for: Moist Mucous Membranes Respiratory/Chest: Positive for: Good Air Exchange. Negative for: Respiratory Distress Cardiovascular: Positive for: Regular Rate and Rhythm, Normal S1, S2 Abdomen: Positive for: Normal Bowel Sounds Upper Extremity: Positive for: Edema, Swelling Skin: Positive for: Dry, Normal Color - Medications Active Medications: Active Medications Generic Name Dose Route Start Last Admin Trade Name Freq PRN Reason Stop Dose Admin Acetaminophen 325 mg 10/04/17 15:21 10/06/17 12:41 Tylenol 325mg Tab PO 325 mg Q6H PRN Administration Pain, moderate (4-7) Aspirin 81 mg 10/04/17 10:00 10/19/17 09:51 Aspirin Chewable PO 81 mg DAILY [facility] Administration Heparin Sodium (Porcine) 5,000 units 10/18/17 14:00 10/19/17 05:34 Heparin SC 5,000 units Q8 [facility] Administration Hydrocortisone Sodium Succinate 100 mg 10/18/17 09:15 10/19/17 09:51 Solu-Cortef IV 100 mg Q8H [facility] Administration Meropenem 500 mg/ Sodium 100 mls @ 200 mls/hr 10/09/17 14:00 10/19/17 01:31 Chloride IVPB 200 mls/hr Q12H [facility] Administration Colistimethate Sodium 140 mg/ 100 mls @ 200 mls/hr 10/12/17 14:30 10/18/17 13 :32 Sodium Chloride IV 200 mls/hr Q36H [facility] Administration Vancomycin/Sodium Chloride 1 gm in 200 mls @ 133 mls/hr 10/17/17 09:00 13:10 Vancomycin 1 Gm/Ns 200 Ml IVPB 10/22/17 09:01 Not Given MWF [facility] Protocol Insulin Aspart 0 unit 10/19/17 00:00 10/19/17 05:34 Novolog SC Not Given Q6H [facility] Protocol Midodrine 10 mg 10/18/17 14:00 10/19/17 09:51 Proamatine PO 10 mg TID [facility] Administration Pantoprazole Sodium 40 mg 10/18/17 10:00 10/19/17 09:51 Protonix Inj IVP 40 mg DAILY [facility] Administration Rosuvastatin Calcium 10 mg 10/06/17 22:00 10/18/17 23:01 Crestor PO 10 mg HS [facility] Administration Sevelamer Carbonate 1,600 mg 10/04/17 10:00 10/18/17 09:50 Renvela PO 1,600 mg TTS [facility] Administration Vitamin B Complex/Vit C/Folic Acid 1 tab 10/04/17 10:00 10/19/17 09:51 Nephro-Mark PO 1 tab DAILY [facility] Administration - Patient Studies Lab Studies: Microbiology Studies 10/15/17 09:05 Blood Culture - Preliminary Blood NO GROWTH AFTER 4 DAYS 10/15/17 09:35 Blood Culture - Preliminary Blood NO GROWTH AFTER 4 DAYS Lab Studies 10/19/17 10/19/17 10/19/17 Range/Units 06:26 06:26 06:25 WBC 9.0 (4.8-10.8) K/uL RBC 3.09 L (4.40-5.90) Mil/uL Hgb 8.4 L (12.0-18.0) g/dL Hct 26.2 L (35.0-51.0) % MCV 84.7 (80.0-94.0) fL MCH 27.1 (27.0-31.0) pg MCHC 32.0 L (33.0-37.0) g/dL RDW 21.9 H (11.5-14.5) % Plt Count 251 (130-400) K/uL MPV 9.5 (7.2-11.7) fL Neut % (Auto) 80.8 H (50.0-75.0) % Lymph % (Auto) 11.4 L (20.0-40.0) % [place] % (Auto) 7.4 (0.0-10.0) % Eos % (Auto) 0.0 (0.0-4.0) % Baso % (Auto) 0.4 (0.0-2.0) % Neut # (Auto) 7.3 H (1.8-7.0) K/uL Lymph # (Auto) 1.0 (1.0-4.3) K/uL [place] # (Auto) 0.7 (0.0-0.8) K/uL Eos # (Auto) 0.0 (0.0-0.7) K/uL Baso # (Auto) 0.0 (0.0-0.2) K/uL Sodium 141 (132-148) mmol/L Potassium 3.5 L (3.6-5.2) mmol/L Chloride 101 (98-107) mmol/L Carbon Dioxide 24 (22-30) mmol/L Anion Gap 19 (10-20) BUN 27 H (9-20) mg/dL Creatinine 5.6 H (0.8-1.5) mg/dL Est GFR ( Amer) 13 Est GFR (Non-Af Amer) 11 POC Glucose (mg/dL) (65-110) mg/dL Random Glucose 179 H (75-110) mg/dL Calcium 8.5 L (8.6-10.4) mg/dl Phosphorus 6.3 H (2.5-4.5) mg/dL Magnesium 2.2 (1.6-2.3) mg/dL Total Bilirubin 1.3 (0.2-1.3) mg/dL AST 67 H (17-59) U/L ALT 30 (21-72) U/L Alkaline Phosphatase 195 H (38-126) U/L Total Protein 6.5 (6.3-8.3) g/dL Albumin 2.4 L (3.5-5.0) g/dL Globulin 4.0 H (2.2-3.9) gm/dL Albumin/Globulin Ratio 0.6 L (1.0-2.1) Random Vancomycin 32.48 ug/mL 10/19/17 10/19/17 10/18/17 Range/Units 05:21 00:18 21:10 WBC (4.8-10.8) K/uL RBC (4.40-5.90) Mil/uL Hgb (12.0-18.0) g/dL Hct (35.0-51.0) % MCV (80.0-94.0) fL MCH (27.0-31.0) pg MCHC (33.0-37.0) g/dL RDW (11.5-14.5) % Plt Count (130-400) K/uL MPV (7.2-11.7) fL Neut % (Auto) (50.0-75.0) % Lymph % (Auto) (20.0-40.0) % [place] % (Auto) (0.0-10.0) % Eos % (Auto) (0.0-4.0) % Baso % (Auto) (0.0-2.0) % Neut # (Auto) (1.8-7.0) K/uL Lymph # (Auto) (1.0-4.3) K/uL [place] # (Auto) (0.0-0.8) K/uL Eos # (Auto) (0.0-0.7) K/uL Baso # (Auto) (0.0-0.2) K/uL Sodium (132-148) mmol/L Potassium (3.6-5.2) mmol/L Chloride (98-107) mmol/L Carbon Dioxide (22-30) mmol/L Anion Gap (10-20) BUN (9-20) mg/dL Creatinine (0.8-1.5) mg/dL Est GFR ( Amer) Est GFR (Non-Af Amer) POC Glucose (mg/dL) 168 H 178 H 172 H (65-110) mg/dL Random Glucose (75-110) mg/dL Calcium (8.6-10.4) mg/dl Phosphorus (2.5-4.5) mg/dL Magnesium (1.6-2.3) mg/dL Total Bilirubin (0.2-1.3) mg/dL AST (17-59) U/L ALT (21-72) U/L Alkaline Phosphatase (38-126) U/L Total Protein (6.3-8.3) g/dL Albumin (3.5-5.0) g/dL Globulin (2.2-3.9) gm/dL Albumin/Globulin Ratio (1.0-2.1) Random Vancomycin ug/mL 10/18/17 Range/Units 16:06 WBC (4.8-10.8) K/uL RBC (4.40-5.90) Mil/uL Hgb (12.0-18.0) g/dL Hct (35.0-51.0) % MCV (80.0-94.0) fL MCH (27.0-31.0) pg MCHC (33.0-37.0) g/dL RDW (11.5-14.5) % Plt Count (130-400) K/uL MPV (7.2-11.7) fL Neut % (Auto) (50.0-75.0) % Lymph % (Auto) (20.0-40.0) % [place] % (Auto) (0.0-10.0) % Eos % (Auto) (0.0-4.0) % Baso % (Auto) (0.0-2.0) % Neut # (Auto) (1.8-7.0) K/uL Lymph # (Auto) (1.0-4.3) K/uL [place] # (Auto) (0.0-0.8) K/uL Eos # (Auto) (0.0-0.7) K/uL Baso # (Auto) (0.0-0.2) K/uL Sodium (132-148) mmol/L Potassium (3.6-5.2) mmol/L Chloride (98-107) mmol/L Carbon Dioxide (22-30) mmol/L Anion Gap (10-20) BUN (9-20) mg/dL Creatinine (0.8-1.5) mg/dL Est GFR ( Amer) Est GFR (Non-Af Amer) POC Glucose (mg/dL) 143 H (65-110) mg/dL Random Glucose (75-110) mg/dL Calcium (8.6-10.4) mg/dl Phosphorus (2.5-4.5) mg/dL Magnesium (1.6-2.3) mg/dL Total Bilirubin (0.2-1.3) mg/dL AST (17-59) U/L ALT (21-72) U/L Alkaline Phosphatase (38-126) U/L Total Protein (6.3-8.3) g/dL Albumin (3.5-5.0) g/dL Globulin (2.2-3.9) gm/dL Albumin/Globulin Ratio (1.0-2.1) Random Vancomycin ug/mL Laboratory Results - last 24 hr 10/18/17 10/18/17 10/19/17 16:06 21:10 00:18 WBC RBC Hgb Hct MCV MCH MCHC RDW Plt Count MPV Neut % (Auto) Lymph % (Auto) [place] % (Auto) Eos % (Auto) Baso % (Auto) Neut # (Auto) Lymph # (Auto) [place] # (Auto) Eos # (Auto) Baso # (Auto) Sodium Potassium Chloride Carbon Dioxide Anion Gap BUN Creatinine Est GFR ( Amer) Est GFR (Non-Af Amer) POC Glucose (mg/dL) 143 H 172 H 178 H Random Glucose Calcium Phosphorus Magnesium Total Bilirubin AST ALT Alkaline Phosphatase Total Protein Albumin Globulin Albumin/Globulin Ratio Random Vancomycin 10/19/17 10/19/17 10/19/17 05:21 06:25 06:26 WBC 9.0 RBC 3.09 L Hgb 8.4 L Hct 26.2 L MCV 84.7 MCH 27.1 MCHC 32.0 L RDW 21.9 H Plt Count 251 MPV 9.5 Neut % (Auto) 80.8 H Lymph % (Auto) 11.4 L [place] % (Auto) 7.4 Eos % (Auto) 0.0 Baso % (Auto) 0.4 Neut # (Auto) 7.3 H Lymph # (Auto) 1.0 [place] # (Auto) 0.7 Eos # (Auto) 0.0 Baso # (Auto) 0.0 Sodium Potassium Chloride Carbon Dioxide Anion Gap BUN Creatinine Est GFR ( Amer) Est GFR (Non-Af Amer) POC Glucose (mg/dL) 168 H Random Glucose Calcium Phosphorus Magnesium Total Bilirubin AST ALT Alkaline Phosphatase Total Protein Albumin Globulin Albumin/Globulin Ratio Random Vancomycin 32.48 10/19/17 06:26 WBC RBC Hgb Hct MCV MCH MCHC RDW Plt Count MPV Neut % (Auto) Lymph % (Auto) [place] % (Auto) Eos % (Auto) Baso % (Auto) Neut # (Auto) Lymph # (Auto) [place] # (Auto) Eos # (Auto) Baso # (Auto) Sodium 141 Potassium 3.5 L Chloride 101 Carbon Dioxide 24 Anion Gap 19 BUN 27 H Creatinine 5.6 H Est GFR ( Amer) 13 Est GFR (Non-Af Amer) 11 POC Glucose (mg/dL) Random Glucose 179 H Calcium 8.5 L Phosphorus 6.3 H Magnesium 2.2 Total Bilirubin 1.3 AST 67 H ALT 30 Alkaline Phosphatase 195 H Total Protein 6.5 Albumin 2.4 L Globulin 4.0 H Albumin/Globulin Ratio 0.6 L Random Vancomycin Fingerstick Blood Sugar Results: 168 Review of Systems - Review of Systems Systems not reviewed;Unavailable: Acuity of Condition Critical Care Progress Note - Nutrition Nutrition: Nutrition Category Date Time Status NPO Diet [DIET] Diets 10/18/17 Dinner Active Assessment/Plan - Assessment and Plan (Free Text) Assessment: 51M w/ pmhx significant for diabetes, CVA, HTN, on HD was admitted to the hospital for fever and tachycardia. Patient was admitted to the ICU after becoming acutely hypotensive and bradycardic. Plan: Infectious Disease: Sepsis Repeat cultures 10/15/17: VEX24 hours Wound cultures: positive for acinitibacter baumani/ mrsa MRSA nose: positive Merrem 500mg IV q12 Vancomycin 1gm IV MWF Cardiovascular: Hypotension and Bradyacardia Dopamine drip discontinued. Continue Midodrine 10mg PO TID. Continue Hydrocortisone 100mg IV Q8 Patient scheduled to have central venous stenosis selective angiogram @1p.m. Nephrology: ESRD On HD schedule (MWF) Sevelamer 1600 Units TTS Endocrinology: Type 2 Diabtes mellitus ISS Accuchecks q6. PPX -Protonix 40mg IVP Daily -Heparin 5000 units SC q8 <MackfRegino M - Last Filed: 10/19/17 14:36> CCU Objective - Vital Signs / Intake & Output Vital Signs (Last 4 hours): Vital Signs Temp Pulse Resp BP Pulse Ox 10/19/17 14:00 88 13 100 10/19/17 13:57 91 H 12 104/25 L 100 10/19/17 13:00 89 18 100 10/19/17 12:00 97.4 F L 85 17 100 10/19/17 11:57 85 16 95/20 L 100 10/19/17 11:05 89 17 80/24 L 100 10/19/17 11:00 90 15 100 Intake and Output (Last 8hrs): Intake & Output 10/18/17 10/19/17 10/19/17 22:59 06:59 14:59 Intake Total 667.8 125 0 Output Total 2300 0 0 Balance -1632.2 125 0 Intake: IV 50 Intake, IV Amount 117.8 100 0 Left PICC 17.8 100 0 PICC 100 Oral 200 Tube Feeding 225 25 0 Other 75 Output: Urine 0 0 0 Straight 0 0 0 Other 2300 Other: # Bowel Movements 1 1 - Medications Active Medications: Active Medications Generic Name Dose Route Start Last Admin Trade Name Kunalq PRN Reason Stop Dose Admin Acetaminophen 325 mg 10/04/17 15:21 10/06/17 12:41 Tylenol 325mg Tab PO 325 mg Q6H PRN Administration Pain, moderate (4-7) Aspirin 81 mg 10/04/17 10:00 10/19/17 09:51 Aspirin Chewable PO 81 mg DAILY [facility] Administration Heparin Sodium (Porcine) 5,000 units 10/18/17 14:00 10/19/17 13:55 Heparin SC 5,000 units Q8 [facility] Administration Hydrocortisone Sodium Succinate 100 mg 10/18/17 09:15 10/19/17 09:51 Solu-Cortef IV 100 mg Q8H [facility] Administration Meropenem 500 mg/ Sodium 100 mls @ 200 mls/hr 10/09/17 14:00 10/19/17 14:12 Chloride IVPB 200 mls/hr Q12H [facility] Administration Colistimethate Sodium 140 mg/ 100 mls @ 200 mls/hr 10/12/17 14:30 10/18/17 13 :32 Sodium Chloride IV 200 mls/hr Q36H [facility] Administration Vancomycin/Sodium Chloride 1 gm in 200 mls @ 133 mls/hr 10/17/17 09:00 13:10 Vancomycin 1 Gm/Ns 200 Ml IVPB 10/22/17 09:01 Not Given MWF [facility] Protocol Insulin Aspart 0 unit 10/19/17 00:00 10/19/17 12:24 Novolog SC Not Given Q6H [facility] Protocol Midodrine 10 mg 10/18/17 14:00 10/19/17 13:45 Proamatine PO Not Given TID [facility] Pantoprazole Sodium 40 mg 10/18/17 10:00 10/19/17 09:51 Protonix Inj IVP 40 mg DAILY [facility] Administration Rosuvastatin Calcium 10 mg 10/06/17 22:00 10/18/17 23:01 Crestor PO 10 mg HS [facility] Administration Sevelamer Carbonate 1,600 mg 10/04/17 10:00 10/18/17 09:50 Renvela PO 1,600 mg TTS [facility] Administration Vitamin B Complex/Vit C/Folic Acid 1 tab 10/04/17 10:00 10/19/17 09:51 Nephro-Mark PO 1 tab DAILY [facility] Administration - Patient Studies Lab Studies: Microbiology Studies 10/15/17 09:05 Blood Culture - Preliminary Blood NO GROWTH AFTER 4 DAYS 10/15/17 09:35 Blood Culture - Preliminary Blood NO GROWTH AFTER 4 DAYS Lab Studies 10/19/17 10/19/17 10/19/17 Range/Units 12:07 06:26 06:26 WBC (4.8-10.8) K/uL RBC (4.40-5.90) Mil/uL Hgb (12.0-18.0) g/dL Hct (35.0-51.0) % MCV (80.0-94.0) fL MCH (27.0-31.0) pg MCHC (33.0-37.0) g/dL RDW (11.5-14.5) % Plt Count (130-400) K/uL MPV (7.2-11.7) fL Neut % (Auto) (50.0-75.0) % Lymph % (Auto) (20.0-40.0) % [place] % (Auto) (0.0-10.0) % Eos % (Auto) (0.0-4.0) % Baso % (Auto) (0.0-2.0) % Neut # (Auto) (1.8-7.0) K/uL Lymph # (Auto) (1.0-4.3) K/uL [place] # (Auto) (0.0-0.8) K/uL Eos # (Auto) (0.0-0.7) K/uL Baso # (Auto) (0.0-0.2) K/uL Sodium 141 (132-148) mmol/L Potassium 3.5 L (3.6-5.2) mmol/L Chloride 101 (98-107) mmol/L Carbon Dioxide 24 (22-30) mmol/L Anion Gap 19 (10-20) BUN 27 H (9-20) mg/dL Creatinine 5.6 H (0.8-1.5) mg/dL Est GFR ( Amer) 13 Est GFR (Non-Af Amer) 11 POC Glucose (mg/dL) 187 H (65-110) mg/dL Random Glucose 179 H (75-110) mg/dL Calcium 8.5 L (8.6-10.4) mg/dl Phosphorus 6.3 H (2.5-4.5) mg/dL Magnesium 2.2 (1.6-2.3) mg/dL Total Bilirubin 1.3 (0.2-1.3) mg/dL AST 67 H (17-59) U/L ALT 30 (21-72) U/L Alkaline Phosphatase 195 H (38-126) U/L Total Protein 6.5 (6.3-8.3) g/dL Albumin 2.4 L (3.5-5.0) g/dL Globulin 4.0 H (2.2-3.9) gm/dL Albumin/Globulin Ratio 0.6 L (1.0-2.1) Random Vancomycin 32.48 ug/mL 10/19/17 10/19/17 10/19/17 Range/Units 06:25 05:21 00:18 WBC 9.0 (4.8-10.8) K/uL RBC 3.09 L (4.40-5.90) Mil/uL Hgb 8.4 L (12.0-18.0) g/dL Hct 26.2 L (35.0-51.0) % MCV 84.7 (80.0-94.0) fL MCH 27.1 (27.0-31.0) pg MCHC 32.0 L (33.0-37.0) g/dL RDW 21.9 H (11.5-14.5) % Plt Count 251 (130-400) K/uL MPV 9.5 (7.2-11.7) fL Neut % (Auto) 80.8 H (50.0-75.0) % Lymph % (Auto) 11.4 L (20.0-40.0) % [place] % (Auto) 7.4 (0.0-10.0) % Eos % (Auto) 0.0 (0.0-4.0) % Baso % (Auto) 0.4 (0.0-2.0) % Neut # (Auto) 7.3 H (1.8-7.0) K/uL Lymph # (Auto) 1.0 (1.0-4.3) K/uL [place] # (Auto) 0.7 (0.0-0.8) K/uL Eos # (Auto) 0.0 (0.0-0.7) K/uL Baso # (Auto) 0.0 (0.0-0.2) K/uL Sodium (132-148) mmol/L Potassium (3.6-5.2) mmol/L Chloride (98-107) mmol/L Carbon Dioxide (22-30) mmol/L Anion Gap (10-20) BUN (9-20) mg/dL Creatinine (0.8-1.5) mg/dL Est GFR ( Amer) Est GFR (Non-Af Amer) POC Glucose (mg/dL) 168 H 178 H (65-110) mg/dL Random Glucose (75-110) mg/dL Calcium (8.6-10.4) mg/dl Phosphorus (2.5-4.5) mg/dL Magnesium (1.6-2.3) mg/dL Total Bilirubin (0.2-1.3) mg/dL AST (17-59) U/L ALT (21-72) U/L Alkaline Phosphatase (38-126) U/L Total Protein (6.3-8.3) g/dL Albumin (3.5-5.0) g/dL Globulin (2.2-3.9) gm/dL Albumin/Globulin Ratio (1.0-2.1) Random Vancomycin ug/mL 10/18/17 10/18/17 Range/Units 21:10 16:06 WBC (4.8-10.8) K/uL RBC (4.40-5.90) Mil/uL Hgb (12.0-18.0) g/dL Hct (35.0-51.0) % MCV (80.0-94.0) fL MCH (27.0-31.0) pg MCHC (33.0-37.0) g/dL RDW (11.5-14.5) % Plt Count (130-400) K/uL MPV (7.2-11.7) fL Neut % (Auto) (50.0-75.0) % Lymph % (Auto) (20.0-40.0) % [place] % (Auto) (0.0-10.0) % Eos % (Auto) (0.0-4.0) % Baso % (Auto) (0.0-2.0) % Neut # (Auto) (1.8-7.0) K/uL Lymph # (Auto) (1.0-4.3) K/uL [place] # (Auto) (0.0-0.8) K/uL Eos # (Auto) (0.0-0.7) K/uL Baso # (Auto) (0.0-0.2) K/uL Sodium (132-148) mmol/L Potassium (3.6-5.2) mmol/L Chloride (98-107) mmol/L Carbon Dioxide (22-30) mmol/L Anion Gap (10-20) BUN (9-20) mg/dL Creatinine (0.8-1.5) mg/dL Est GFR ( Amer) Est GFR (Non-Af Amer) POC Glucose (mg/dL) 172 H 143 H (65-110) mg/dL Random Glucose (75-110) mg/dL Calcium (8.6-10.4) mg/dl Phosphorus (2.5-4.5) mg/dL Magnesium (1.6-2.3) mg/dL Total Bilirubin (0.2-1.3) mg/dL AST (17-59) U/L ALT (21-72) U/L Alkaline Phosphatase (38-126) U/L Total Protein (6.3-8.3) g/dL Albumin (3.5-5.0) g/dL Globulin (2.2-3.9) gm/dL Albumin/Globulin Ratio (1.0-2.1) Random Vancomycin ug/mL Laboratory Results - last 24 hr 10/18/17 10/18/17 10/19/17 16:06 21:10 00:18 WBC RBC Hgb Hct MCV MCH MCHC RDW Plt Count MPV Neut % (Auto) Lymph % (Auto) [place] % (Auto) Eos % (Auto) Baso % (Auto) Neut # (Auto) Lymph # (Auto) [place] # (Auto) Eos # (Auto) Baso # (Auto) Sodium Potassium Chloride Carbon Dioxide Anion Gap BUN Creatinine Est GFR ( Amer) Est GFR (Non-Af Amer) POC Glucose (mg/dL) 143 H 172 H 178 H Random Glucose Calcium Phosphorus Magnesium Total Bilirubin AST ALT Alkaline Phosphatase Total Protein Albumin Globulin Albumin/Globulin Ratio Random Vancomycin 10/19/17 10/19/17 10/19/17 05:21 06:25 06:26 WBC 9.0 RBC 3.09 L Hgb 8.4 L Hct 26.2 L MCV 84.7 MCH 27.1 MCHC 32.0 L RDW 21.9 H Plt Count 251 MPV 9.5 Neut % (Auto) 80.8 H Lymph % (Auto) 11.4 L [place] % (Auto) 7.4 Eos % (Auto) 0.0 Baso % (Auto) 0.4 Neut # (Auto) 7.3 H Lymph # (Auto) 1.0 [place] # (Auto) 0.7 Eos # (Auto) 0.0 Baso # (Auto) 0.0 Sodium Potassium Chloride Carbon Dioxide Anion Gap BUN Creatinine Est GFR ( Amer) Est GFR (Non-Af Amer) POC Glucose (mg/dL) 168 H Random Glucose Calcium Phosphorus Magnesium Total Bilirubin AST ALT Alkaline Phosphatase Total Protein Albumin Globulin Albumin/Globulin Ratio Random Vancomycin 32.48 10/19/17 10/19/17 06:26 12:07 WBC RBC Hgb Hct MCV MCH MCHC RDW Plt Count MPV Neut % (Auto) Lymph % (Auto) [place] % (Auto) Eos % (Auto) Baso % (Auto) Neut # (Auto) Lymph # (Auto) [place] # (Auto) Eos # (Auto) Baso # (Auto) Sodium 141 Potassium 3.5 L Chloride 101 Carbon Dioxide 24 Anion Gap 19 BUN 27 H Creatinine 5.6 H Est GFR ( Amer) 13 Est GFR (Non-Af Amer) 11 POC Glucose (mg/dL) 187 H Random Glucose 179 H Calcium 8.5 L Phosphorus 6.3 H Magnesium 2.2 Total Bilirubin 1.3 AST 67 H ALT 30 Alkaline Phosphatase 195 H Total Protein 6.5 Albumin 2.4 L Globulin 4.0 H Albumin/Globulin Ratio 0.6 L Random Vancomycin Critical Care Progress Note - Nutrition Nutrition: Nutrition Category Date Time Status NPO Diet [DIET] Diets 10/18/17 Dinner Active Attending/Attestation - Attestation I have personally seen and examined this patient.: Yes I have fully participated in the care of the patient.: Yes I have reviewed all pertinent clinical information: Yes Notes (Text): 10/19/17 14:35 Today: Thursday, October 19, 2017 The Patient was seen and examined at the bedside, Medical records reviewed, and management issues were discussed and formulated with the house staff. I have reviewed all the relevant clinical, laboratory, hemodynamic, radiographic data and medications Events reviewed Pain issues, skin care, head of the bed elevation, glycemic control were addressed. Agree with above resident's assessment and treatment plans of care as transcribed in Resident note.
[2017-10-19] MEDS ORDERED: Lidocaine 2% Inj (20ml) ONE (14:47)
[2017-10-19] MEDS ORDERED: Iodixanol 320 MG/ML 200 ML BOTTLE IV ONE (14:50)
[2017-10-19] MEDS ORDERED: Iodixanol 320 MG/ML 100 ML BOTTLE IV ONE (15:30)
--- NOTE | 2017-10-19 15:55 | PCM.SURG1 ---
Surgeon's Initial Post Op Note - Surgeon's Notes Surgeon: Dr. Carrasco Journeyman Glazier: Yany PGY1 Type of Anesthesia: Local Pre-Operative Diagnosis: Right Subclavian Vein Occlusion Operative Findings: Occluded Right Subclavian Vein. Angioplasty with 4mm balloon ; Deployed 8mm x 80mm self expanding stent Post-Operative Diagnosis: Same Operation Performed: Right Arm Fistulogram. Right Subclavian Vein Angioplasty, 8mm x 80mm self expanding stent deployed. Specimen/Specimens Removed: none Estimated Blood Loss: EBL {In ML}: 10 Blood Products Given: N/A Drains Used: No Drains Post-Op Condition: Good Date of Surgery/Procedure: 10/19/17 Time of Surgery/Procedure: 15:56
--- NOTE | 2017-10-19 19:24 | CP.PCM.PN ---
Subjective - Date & Time of Evaluation Date of Evaluation: 10/19/17 Time of Evaluation: 09:40 - Subjective Subjective: clinically same Objective - Vital Signs/Intake and Output Vital Signs (last 24 hours): Temp Pulse Resp BP Pulse Ox 96.5 F L 92 H 15 88/22 L 100 10/19/17 17:00 10/19/17 19:00 10/19/17 19:00 10/19/17 18:52 10/19/17 19:00 Intake and Output: 10/19/17 10/20/17 18:59 06:59 Intake Total 200 0 Output Total 0 100 Balance 200 -100 - Medications Medications: Current Medications Acetaminophen (Tylenol 325mg Tab) 325 mg PO Q6H PRN PRN Reason: Pain, moderate (4-7) Last Admin: 10/06/17 12:41 Dose: 325 mg Aspirin (Aspirin Chewable) 81 mg PO DAILY [facility] Last Admin: 10/19/17 09:51 Dose: 81 mg Heparin Sodium (Porcine) (Heparin) 5,000 units SC Q8 [facility] Last Admin: 10/19/17 13:55 Dose: 5,000 units Hydrocortisone Sodium Succinate (Solu-Cortef) 100 mg IV Q8H [facility] Last Admin: 10/19/17 18:20 Dose: Not Given Meropenem 500 mg/ Sodium (Chloride) 100 mls @ 200 mls/hr IVPB Q12H [facility] Last Admin: 10/19/17 14:12 Dose: 200 mls/hr Colistimethate Sodium 140 mg/ (Sodium Chloride) 100 mls @ 200 mls/hr IV Q36H [facility] Last Admin: 10/18/17 13:32 Dose: 200 mls/hr Vancomycin/Sodium Chloride (Vancomycin 1 Gm/Ns 200 Ml) 1 gm in 200 mls @ 133 mls/hr IVPB MWF [facility] PRN Reason: Protocol Stop: 10/22/17 09:01 Last Admin: 10/17/17 13:10 Dose: Not Given Insulin Aspart (Novolog) 0 unit SC ACHS [facility] PRN Reason: Protocol Midodrine (Proamatine) 10 mg PO TID [facility] Last Admin: 10/19/17 18:20 Dose: 10 mg Pantoprazole Sodium (Protonix Inj) 40 mg IVP DAILY [facility] Last Admin: 10/19/17 09:51 Dose: 40 mg Rosuvastatin Calcium (Crestor) 10 mg PO HS [facility] Last Admin: 10/18/17 23:01 Dose: 10 mg Sevelamer Carbonate (Renvela) 1,600 mg PO TTS [facility] Last Admin: 10/18/17 09:50 Dose: 1,600 mg Vitamin B Complex/Vit C/Folic Acid (Nephro-Mark) 1 tab PO DAILY [facility] Last Admin: 10/19/17 09:51 Dose: 1 tab - Labs Labs: 10/19/17 06:25 10/19/17 06:26 PT 15.6 SECONDS (9.7-12.2) H 10/17/17 06:53 INR 1.4 10/17/17 06:53 APTT 42 SECONDS (21-34) H 10/17/17 06:53 - Constitutional Appears: Well - Head Exam Head Exam: ATRAUMATIC, NORMAL INSPECTION, NORMOCEPHALIC - Eye Exam Eye Exam: EOMI, Normal appearance, PERRL Pupil Exam: NORMAL ACCOMODATION, PERRL - ENT Exam ENT Exam: Mucous Membranes Moist, Normal Exam - Neck Exam Neck Exam: Full ROM, Normal Inspection. absent: Lymphadenopathy - Respiratory Exam Respiratory Exam: Decreased Breath Sounds - Cardiovascular Exam Cardiovascular Exam: REGULAR RHYTHM, +S1, +S2 - GI/Abdominal Exam GI & Abdominal Exam: Soft, Diminished Bowel Sounds - Rectal Exam Rectal Exam: Deferred Assessment and Plan (1) ESRD on hemodialysis Status: Acute (2) Fever Status: Acute (3) Tachycardia Status: Acute (4) Bacteremia Status: Acute (5) CHF exacerbation Status: Acute (6) Dyspnea Status: Acute (7) ESRD (end stage renal disease) on dialysis Status: Acute (8) High cholesterol Status: Acute (9) Hypotension Status: Acute (10) Pneumonia Status: Acute (11) Prophylactic measure Status: Acute (12) Sepsis Status: Acute (13) Septic shock Status: Acute (14) UTI (urinary tract infection), bacterial Status: Acute (15) CHF (congestive heart failure) Status: Chronic (16) Diabetes mellitus Status: Chronic (17) ESRD (end stage renal disease) Status: Chronic (18) HTN (hypertension) Status: Chronic
[2017-10-19] MEDS ORDERED: (Novolog) Insulin Aspart, Recombinant 100 u/ml 10 ml vial SC SCH (22:00)
--- NOTE | 2017-10-19 22:49 | CP.PCM.PN ---
Subjective - Date & Time of Evaluation Date of Evaluation: 10/19/17 Time of Evaluation: 22:49 - Subjective Subjective: afebrile, No acute events overnight. s/p angioplasty right subclavian vein occlusion with 8 mm self-expanding stent deployed as noted. Right arm fistulogram. patient resting comfortably.. Labs noted. Random Vanco level 32.84 high. 10/19/17. Vanco held . Wound culture 10/15/17; staph coagulase-negative .Patient on IV meropenem 500 mg every 12 hourly .IVs colistin 140 mg every 36 hourly. . Vancomycin 1 g MWF ( vanco held today as level >20. ) Objective - Vital Signs/Intake and Output Vital Signs (last 24 hours): Temp Pulse Resp BP Pulse Ox 97.5 F L 86 12 98/52 L 100 10/19/17 20:00 10/19/17 21:36 10/19/17 21:36 10/19/17 21:36 10/19/17 20:03 Intake and Output: 10/19/17 10/20/17 18:59 06:59 Intake Total 200 300 Output Total 0 100 Balance 200 200 - Medications Medications: Current Medications Acetaminophen (Tylenol 325mg Tab) 325 mg PO Q6H PRN PRN Reason: Pain, moderate (4-7) Last Admin: 10/06/17 12:41 Dose: 325 mg Aspirin (Aspirin Chewable) 81 mg PO DAILY [facility] Last Admin: 10/19/17 09:51 Dose: 81 mg Heparin Sodium (Porcine) (Heparin) 5,000 units SC Q8 [facility] Last Admin: 10/19/17 21:45 Dose: 5,000 units Hydrocortisone Sodium Succinate (Solu-Cortef) 100 mg IV Q8H [facility] Last Admin: 10/19/17 18:20 Dose: Not Given Meropenem 500 mg/ Sodium (Chloride) 100 mls @ 200 mls/hr IVPB Q12H [facility] Last Admin: 10/19/17 14:12 Dose: 200 mls/hr Colistimethate Sodium 140 mg/ (Sodium Chloride) 100 mls @ 200 mls/hr IV Q36H [facility] Last Admin: 10/18/17 13:32 Dose: 200 mls/hr Vancomycin/Sodium Chloride (Vancomycin 1 Gm/Ns 200 Ml) 1 gm in 200 mls @ 133 mls/hr IVPB MWF [facility] PRN Reason: Protocol Stop: 10/22/17 09:01 Last Admin: 10/17/17 13:10 Dose: Not Given Insulin Aspart (Novolog) 0 unit SC ACHS [facility] PRN Reason: Protocol Last Admin: 10/19/17 22:39 Dose: Not Given Midodrine (Proamatine) 10 mg PO TID [facility] Last Admin: 10/19/17 18:20 Dose: 10 mg Pantoprazole Sodium (Protonix Inj) 40 mg IVP DAILY [facility] Last Admin: 10/19/17 09:51 Dose: 40 mg Rosuvastatin Calcium (Crestor) 10 mg PO HS [facility] Last Admin: 10/19/17 21:45 Dose: 10 mg Sevelamer Carbonate (Renvela) 1,600 mg PO TTS [facility] Last Admin: 10/18/17 09:50 Dose: 1,600 mg Vitamin B Complex/Vit C/Folic Acid (Nephro-Mark) 1 tab PO DAILY [facility] Last Admin: 10/19/17 09:51 Dose: 1 tab - Labs Labs: 10/19/17 06:25 10/19/17 06:26 PT 15.6 SECONDS (9.7-12.2) H 10/17/17 06:53 INR 1.4 10/17/17 06:53 APTT 42 SECONDS (21-34) H 10/17/17 06:53 - Constitutional Appears: No Acute Distress, Chronically Ill - Head Exam Head Exam: NORMAL INSPECTION - Eye Exam Eye Exam: EOMI, PERRL - ENT Exam ENT Exam: Normal Oropharynx - Neck Exam Neck Exam: Normal Inspection - Respiratory Exam Respiratory Exam: Decreased Breath Sounds - Cardiovascular Exam Cardiovascular Exam: REGULAR RHYTHM, +S1, +S2 - GI/Abdominal Exam GI & Abdominal Exam: Soft, Normal Bowel Sounds - Extremities Exam Additional comments: b/l AKA. Assessment and Plan (1) Sepsis Assessment & Plan: REPEAT BLOOD CULTURES 10/15/17 -VE GROWTH FOR 4 DAYS. 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 oN iv VANCO 1 G POST HEMODIALYSIS MWF X 6 DOSES. FOLLOW-UP vANCO RANDOM LEVEL ON sunday AND IF LESS THAN 20 rESUME VANCOMYCIN 1 G POST HEMODIALYSIS MWF.. rIGHT UPPER ARM WOUND CARE AND GRAFT CARE PER VASCULAR SURGERY. Status: Acute (2) Fever Status: Acute (3) Tachycardia Status: Acute (4) AV graft thrombosis Status: Acute (5) ESRD (end stage renal disease) on dialysis Status: Acute (6) Diabetes mellitus Status: Chronic
[2017-10-20] MEDS: Meropenem 500 MG in Sodium Chloride 0.9% 100 ML IVPB SCH ×2 (01:26→14:29)
[2017-10-20] MEDS: COLISTIMETHATE IV SCH (01:33)
[2017-10-20] MEDS: SODIUM CHLORIDE 0.9% IV SCH (01:33)
[2017-10-20 06:16] LABS: BASO % 0.4 % (0.0-2.0); EOS % 0.1 % (0.0-4.0); HEMOGLOBIN 8.4 g/dL (12.0-18.0); LYMPH % 11.4 % (20.0-40.0); MEAN CELL VOLUME 83.2 fL (80.0-94.0); MEAN CORPUSCULAR HEMOGLOBIN 27.5 pg (27.0-31.0); MEAN PLATELET VOLUME 8.8 fL (7.2-11.7); MONO # 0.6 K/uL (0.0-0.8); MONO % 6.8 % (0.0-10.0); NEUT # 7.1 K/uL (1.8-7.0); NEUT % 81.3 % (50.0-75.0); RBC 3.06 Mil/uL (4.40-5.90); RED CELL DISTRIBUTION WIDTH 21.9 % (11.5-14.5); WHITE BLOOD COUNT 8.8 K/uL (4.8-10.8)
[2017-10-20 06:40] LABS: ALB/GLOB RATIO 0.6 (1.0-2.1); ALBUMIN 2.6 g/dL (3.5-5.0); CALCIUM 8.5 mg/dl (8.6-10.4)
[2017-10-20] MEDS ORDERED: (Novolog) Insulin Aspart, Recombinant 100 u/ml 10 ml vial SC SCH (07:30)
[2017-10-20] MEDS: Multivitamin Vitamin B Complex (Nephro-Vite) Tab PO SCH (10:13)
[2017-10-20] MEDS: (Novolog) Insulin Aspart, Recombinant 100 u/ml 10 ml vial SC SCH ×4 (10:14→22:56)
--- NOTE | 2017-10-20 12:03 | VAS ---
DATE: 10/19/2017 PREOPERATIVE DIAGNOSIS: Swollen right arm, right subclavian occlusion. PROCEDURE CARRIED OUT: Fistulogram, right arm, and balloon angioplasty using a port and then an 8 mm balloon and then subsequently deployment of an 8 mm self-expanding stent in the right subclavian vein. SURGEON: Can Carrasco Jr., MD HEALTH OUTREACH WORKER: Yany. ANESTHESIOLOGIST: Dr. Givens. INDICATIONS: The patient is a 51-year-old man with renal insufficiency, on dialysis, ____ swollen right arm. Preoperative imaging revealed that he had a right subclavian vein occlusion with reconstitution more centrally. OPERATIVE FINDINGS: With the use of a guidewire and roadmapping techniques, we were able to cross the occlusion. We initially dilated this with the 4 mm balloon, then subsequently 8 mm balloon was deployed in 8 x 80 stent. This was based on the availability and options and materials available today. The subsequent completion films showed excellent dilatation. An excellent flow to the fistula with removal or nonvisualization of all previously noted collaterals. FINDINGS: The right subclavian vein was occluded. There was extensive collateral formation. The subclavian vein reconstituted as the innominate vein just proximal to the innominate vein in the chest. Films were taken before and after the introduction of dye and balloon catheters. They subsequently showed excellent flow across the area of stenosis and placement of the intraluminal stent. The visualized vessels were otherwise unremarkable except for previously placed stent inside of the arm fistula. Can Carrasco Jr., MD
--- NOTE | 2017-10-20 17:52 | CP.CCUPN ---
CCU Subjective - Physician Review Events Since Last Encounter (Free Text): 10/20/17 17:51 51M w/ pmhx significant for diabetes, CVA, HTN, on HD was admitted to the hospital for fever and tachycardia. Pt is aphasic and shakes yes or no to questions. As a result of his mental baseline i was unable to obtain a medical history or ros on this patient today. ICU was consulted after becoming acutely hypotensive and bradycardic. Past medical history: cva, diabetes, hypertension Past surgical history: bka Allergies: Hydromorphone Social history: unable to obtain PMD:Unknown Clinical changes. Continue to monitor. CCU Objective - Vital Signs / Intake & Output Vital Signs (Last 4 hours): Vital Signs Temp Pulse Resp BP Pulse Ox 10/20/17 17:00 77 9 L 100 10/20/17 16:11 90 17 127/34 L 100 10/20/17 16:00 97.4 F L 81 16 100 10/20/17 15:00 84 13 100 10/20/17 14:11 92 H 18 118/27 L 100 10/20/17 14:00 94 H 16 100 Intake and Output (Last 8hrs): Intake & Output 10/20/17 10/20/17 10/20/17 06:59 14:59 22:59 Intake Total 320 794 112 Output Total 0 0 0 Balance 320 794 112 Weight 205 lb 0.478 oz Intake: Intake, IV Amount 200 100 0 Left PICC 200 100 0 Left Upper arm 0 0 Oral 120 694 112 Output: Urine 0 0 0 Urine, Voided 0 0 0 - Physical Exam Head: Positive for: Atraumatic, Normocephalic Pupils: Positive for: PERRL Extroacular Muscles: Positive for: EOMI Conjunctiva: Positive for: Normal Mouth: Positive for: Moist Mucous Membranes Respiratory/Chest: Positive for: Good Air Exchange. Negative for: Respiratory Distress Cardiovascular: Positive for: Regular Rate and Rhythm, Normal S1, S2 Abdomen: Positive for: Normal Bowel Sounds Upper Extremity: Positive for: Edema, Swelling Skin: Positive for: Dry, Normal Color - Medications Active Medications: Active Medications Generic Name Dose Route Start Last Admin Trade Name Freq PRN Reason Stop Dose Admin Acetaminophen 325 mg 10/04/17 15:21 10/06/17 12:41 Tylenol 325mg Tab PO 325 mg Q6H PRN Administration Pain, moderate (4-7) Aspirin 81 mg 10/04/17 10:00 10/20/17 10:13 Aspirin Chewable PO 81 mg DAILY [facility] Administration Heparin Sodium (Porcine) 5,000 units 10/18/17 14:00 10/20/17 14:29 Heparin SC 5,000 units Q8 [facility] Administration Hydrocortisone Sodium Succinate 100 mg 10/18/17 09:15 10/20/17 17:40 Solu-Cortef IV 100 mg Q8H [facility] Administration Meropenem 500 mg/ Sodium 100 mls @ 200 mls/hr 10/09/17 14:00 10/20/17 14:29 Chloride IVPB 200 mls/hr Q12H [facility] Administration Colistimethate Sodium 140 mg/ 100 mls @ 200 mls/hr 10/12/17 14:30 10/20/17 01 :33 Sodium Chloride IV 200 mls/hr Q36H [facility] Administration Vancomycin/Sodium Chloride 1 gm in 200 mls @ 133 mls/hr 10/17/17 09:00 13:10 Vancomycin 1 Gm/Ns 200 Ml IVPB 10/22/17 09:01 [facility] Protocol Insulin Aspart 0 unit 10/19/17 22:00 10/20/17 17:41 Novolog SC 2 unit ACHS [facility] Administration Protocol Midodrine 10 mg 10/18/17 14:00 10/20/17 17:41 Proamatine PO 10 mg TID [facility] Administration Pantoprazole Sodium 40 mg 10/18/17 10:00 10/20/17 10:13 Protonix Inj IVP 40 mg DAILY [facility] Administration Rosuvastatin Calcium 10 mg 10/06/17 22:00 10/19/17 21:45 Crestor PO 10 mg HS [facility] Administration Sevelamer Carbonate 1,600 mg 10/04/17 10:00 10/20/17 10:13 Renvela PO 1,600 mg TTS [facility] Administration Vitamin B Complex/Vit C/Folic Acid 1 tab 10/04/17 10:00 10/20/17 10:13 Nephro-Mark PO 1 tab DAILY [facility] Administration - Patient Studies Lab Studies: Microbiology Studies 10/15/17 09:05 Blood Culture - Final Blood NO GROWTH AFTER 5 DAYS Gram Stain - Final TEST NOT PERFORMED 10/15/17 09:35 Blood Culture - Final Blood NO GROWTH AFTER 5 DAYS Gram Stain - Final TEST NOT PERFORMED 10/17/17 08:30 MRSA Culture (Admit) - Final Naris MRSA NOT DETECTED Lab Studies 10/20/17 10/20/17 10/20/17 Range/Units 16:11 11:28 07:26 WBC (4.8-10.8) K/uL RBC (4.40-5.90) Mil/uL Hgb (12.0-18.0) g/dL Hct (35.0-51.0) % MCV (80.0-94.0) fL MCH (27.0-31.0) pg MCHC (33.0-37.0) g/dL RDW (11.5-14.5) % Plt Count (130-400) K/uL MPV (7.2-11.7) fL Neut % (Auto) (50.0-75.0) % Lymph % (Auto) (20.0-40.0) % [place] % (Auto) (0.0-10.0) % Eos % (Auto) (0.0-4.0) % Baso % (Auto) (0.0-2.0) % Neut # (Auto) (1.8-7.0) K/uL Lymph # (Auto) (1.0-4.3) K/uL [place] # (Auto) (0.0-0.8) K/uL Eos # (Auto) (0.0-0.7) K/uL Baso # (Auto) (0.0-0.2) K/uL Sodium (132-148) mmol/L Potassium (3.6-5.2) mmol/L Chloride (98-107) mmol/L Carbon Dioxide (22-30) mmol/L Anion Gap (10-20) BUN (9-20) mg/dL Creatinine (0.8-1.5) mg/dL Est GFR ( Amer) Est GFR (Non-Af Amer) POC Glucose (mg/dL) 236 H 207 H 189 H (65-110) mg/dL Random Glucose (75-110) mg/dL Calcium (8.6-10.4) mg/dl Phosphorus (2.5-4.5) mg/dL Magnesium (1.6-2.3) mg/dL Total Bilirubin (0.2-1.3) mg/dL AST (17-59) U/L ALT (21-72) U/L Alkaline Phosphatase (38-126) U/L Total Protein (6.3-8.3) g/dL Albumin (3.5-5.0) g/dL Globulin (2.2-3.9) gm/dL Albumin/Globulin Ratio (1.0-2.1) 10/20/17 10/20/17 10/19/17 Range/Units 06:11 06:11 21:46 WBC 8.8 (4.8-10.8) K/uL RBC 3.06 L (4.40-5.90) Mil/uL Hgb 8.4 L (12.0-18.0) g/dL Hct 25.5 L (35.0-51.0) % MCV 83.2 (80.0-94.0) fL MCH 27.5 (27.0-31.0) pg MCHC 33.0 (33.0-37.0) g/dL RDW 21.9 H (11.5-14.5) % Plt Count 222 (130-400) K/uL MPV 8.8 (7.2-11.7) fL Neut % (Auto) 81.3 H (50.0-75.0) % Lymph % (Auto) 11.4 L (20.0-40.0) % [place] % (Auto) 6.8 (0.0-10.0) % Eos % (Auto) 0.1 (0.0-4.0) % Baso % (Auto) 0.4 (0.0-2.0) % Neut # (Auto) 7.1 H (1.8-7.0) K/uL Lymph # (Auto) 1.0 (1.0-4.3) K/uL [place] # (Auto) 0.6 (0.0-0.8) K/uL Eos # (Auto) 0.0 (0.0-0.7) K/uL Baso # (Auto) 0.0 (0.0-0.2) K/uL Sodium 138 (132-148) mmol/L Potassium 3.6 (3.6-5.2) mmol/L Chloride 98 (98-107) mmol/L Carbon Dioxide 27 (22-30) mmol/L Anion Gap 17 (10-20) BUN 21 H (9-20) mg/dL Creatinine 4.3 H (0.8-1.5) mg/dL Est GFR ( Amer) 18 Est GFR (Non-Af Amer) 15 POC Glucose (mg/dL) 130 H (65-110) mg/dL Random Glucose 197 H (75-110) mg/dL Calcium 8.5 L (8.6-10.4) mg/dl Phosphorus 4.9 H (2.5-4.5) mg/dL Magnesium 2.1 (1.6-2.3) mg/dL Total Bilirubin 1.2 (0.2-1.3) mg/dL AST 70 H (17-59) U/L ALT 32 (21-72) U/L Alkaline Phosphatase 196 H (38-126) U/L Total Protein 6.7 (6.3-8.3) g/dL Albumin 2.6 L (3.5-5.0) g/dL Globulin 4.1 H (2.2-3.9) gm/dL Albumin/Globulin Ratio 0.6 L (1.0-2.1) 10/19/17 Range/Units 17:44 WBC (4.8-10.8) K/uL RBC (4.40-5.90) Mil/uL Hgb (12.0-18.0) g/dL Hct (35.0-51.0) % MCV (80.0-94.0) fL MCH (27.0-31.0) pg MCHC (33.0-37.0) g/dL RDW (11.5-14.5) % Plt Count (130-400) K/uL MPV (7.2-11.7) fL Neut % (Auto) (50.0-75.0) % Lymph % (Auto) (20.0-40.0) % [place] % (Auto) (0.0-10.0) % Eos % (Auto) (0.0-4.0) % Baso % (Auto) (0.0-2.0) % Neut # (Auto) (1.8-7.0) K/uL Lymph # (Auto) (1.0-4.3) K/uL [place] # (Auto) (0.0-0.8) K/uL Eos # (Auto) (0.0-0.7) K/uL Baso # (Auto) (0.0-0.2) K/uL Sodium (132-148) mmol/L Potassium (3.6-5.2) mmol/L Chloride (98-107) mmol/L Carbon Dioxide (22-30) mmol/L Anion Gap (10-20) BUN (9-20) mg/dL Creatinine (0.8-1.5) mg/dL Est GFR ( Amer) Est GFR (Non-Af Amer) POC Glucose (mg/dL) 150 H (65-110) mg/dL Random Glucose (75-110) mg/dL Calcium (8.6-10.4) mg/dl Phosphorus (2.5-4.5) mg/dL Magnesium (1.6-2.3) mg/dL Total Bilirubin (0.2-1.3) mg/dL AST (17-59) U/L ALT (21-72) U/L Alkaline Phosphatase (38-126) U/L Total Protein (6.3-8.3) g/dL Albumin (3.5-5.0) g/dL Globulin (2.2-3.9) gm/dL Albumin/Globulin Ratio (1.0-2.1) Laboratory Results - last 24 hr 10/19/17 10/19/17 10/20/17 17:44 21:46 06:11 WBC 8.8 RBC 3.06 L Hgb 8.4 L Hct 25.5 L MCV 83.2 MCH 27.5 MCHC 33.0 RDW 21.9 H Plt Count 222 MPV 8.8 Neut % (Auto) 81.3 H Lymph % (Auto) 11.4 L [place] % (Auto) 6.8 Eos % (Auto) 0.1 Baso % (Auto) 0.4 Neut # (Auto) 7.1 H Lymph # (Auto) 1.0 [place] # (Auto) 0.6 Eos # (Auto) 0.0 Baso # (Auto) 0.0 Sodium Potassium Chloride Carbon Dioxide Anion Gap BUN Creatinine Est GFR ( Amer) Est GFR (Non-Af Amer) POC Glucose (mg/dL) 150 H 130 H Random Glucose Calcium Phosphorus Magnesium Total Bilirubin AST ALT Alkaline Phosphatase Total Protein Albumin Globulin Albumin/Globulin Ratio 10/20/17 10/20/17 10/20/17 06:11 07:26 11:28 WBC RBC Hgb Hct MCV MCH MCHC RDW Plt Count MPV Neut % (Auto) Lymph % (Auto) [place] % (Auto) Eos % (Auto) Baso % (Auto) Neut # (Auto) Lymph # (Auto) [place] # (Auto) Eos # (Auto) Baso # (Auto) Sodium 138 Potassium 3.6 Chloride 98 Carbon Dioxide 27 Anion Gap 17 BUN 21 H Creatinine 4.3 H Est GFR ( Amer) 18 Est GFR (Non-Af Amer) 15 POC Glucose (mg/dL) 189 H 207 H Random Glucose 197 H Calcium 8.5 L Phosphorus 4.9 H Magnesium 2.1 Total Bilirubin 1.2 AST 70 H ALT 32 Alkaline Phosphatase 196 H Total Protein 6.7 Albumin 2.6 L Globulin 4.1 H Albumin/Globulin Ratio 0.6 L 10/20/17 16:11 WBC RBC Hgb Hct MCV MCH MCHC RDW Plt Count MPV Neut % (Auto) Lymph % (Auto) [place] % (Auto) Eos % (Auto) Baso % (Auto) Neut # (Auto) Lymph # (Auto) [place] # (Auto) Eos # (Auto) Baso # (Auto) Sodium Potassium Chloride Carbon Dioxide Anion Gap BUN Creatinine Est GFR ( Amer) Est GFR (Non-Af Amer) POC Glucose (mg/dL) 236 H Random Glucose Calcium Phosphorus Magnesium Total Bilirubin AST ALT Alkaline Phosphatase Total Protein Albumin Globulin Albumin/Globulin Ratio Fingerstick Blood Sugar Results: 236 Critical Care Progress Note - Nutrition Nutrition: Nutrition Category Date Time Status Liquid Diet [DIET] Diets 10/19/17 Dinner Active
--- NOTE | 2017-10-20 18:02 | CP.PCM.PN ---
Subjective - Date & Time of Evaluation Date of Evaluation: 10/20/17 Time of Evaluation: 11:10 - Subjective Subjective: clinically same Objective - Vital Signs/Intake and Output Vital Signs (last 24 hours): Temp Pulse Resp BP Pulse Ox 97.4 F L 77 9 L 127/34 L 100 10/20/17 16:00 10/20/17 17:00 10/20/17 17:00 10/20/17 16:11 10/20/17 17:00 Intake and Output: 10/20/17 10/20/17 06:59 18:59 Intake Total 620 906 Output Total 100 0 Balance 520 906 - Medications Medications: Current Medications Acetaminophen (Tylenol 325mg Tab) 325 mg PO Q6H PRN PRN Reason: Pain, moderate (4-7) Last Admin: 10/06/17 12:41 Dose: 325 mg Aspirin (Aspirin Chewable) 81 mg PO DAILY [facility] Last Admin: 10/20/17 10:13 Dose: 81 mg Heparin Sodium (Porcine) (Heparin) 5,000 units SC Q8 [facility] Last Admin: 10/20/17 14:29 Dose: 5,000 units Hydrocortisone Sodium Succinate (Solu-Cortef) 100 mg IV Q8H [facility] Last Admin: 10/20/17 17:40 Dose: 100 mg Meropenem 500 mg/ Sodium (Chloride) 100 mls @ 200 mls/hr IVPB Q12H [facility] Last Admin: 10/20/17 14:29 Dose: 200 mls/hr Colistimethate Sodium 140 mg/ (Sodium Chloride) 100 mls @ 200 mls/hr IV Q36H [facility] Last Admin: 10/20/17 01:33 Dose: 200 mls/hr Vancomycin/Sodium Chloride (Vancomycin 1 Gm/Ns 200 Ml) 1 gm in 200 mls @ 133 mls/hr IVPB MWF [facility] PRN Reason: Protocol Stop: 10/22/17 09:01 Last Admin: 10/17/17 13:10 Dose: Not Given Insulin Aspart (Novolog) 0 unit SC ACHS [facility] PRN Reason: Protocol Last Admin: 10/20/17 17:41 Dose: 2 unit Midodrine (Proamatine) 10 mg PO TID [facility] Last Admin: 10/20/17 17:41 Dose: 10 mg Pantoprazole Sodium (Protonix Inj) 40 mg IVP DAILY [facility] Last Admin: 10/20/17 10:13 Dose: 40 mg Rosuvastatin Calcium (Crestor) 10 mg PO HS [facility] Last Admin: 10/19/17 21:45 Dose: 10 mg Sevelamer Carbonate (Renvela) 1,600 mg PO TTS [facility] Last Admin: 10/20/17 10:13 Dose: 1,600 mg Vitamin B Complex/Vit C/Folic Acid (Nephro-Mark) 1 tab PO DAILY [facility] Last Admin: 10/20/17 10:13 Dose: 1 tab - Labs Labs: 10/20/17 06:11 10/20/17 06:11 PT 15.6 SECONDS (9.7-12.2) H 10/17/17 06:53 INR 1.4 10/17/17 06:53 APTT 42 SECONDS (21-34) H 10/17/17 06:53 - Constitutional Appears: Well - Head Exam Head Exam: ATRAUMATIC, NORMAL INSPECTION, NORMOCEPHALIC - Eye Exam Eye Exam: EOMI, Normal appearance, PERRL Pupil Exam: NORMAL ACCOMODATION, PERRL - ENT Exam ENT Exam: Mucous Membranes Moist, Normal Exam - Neck Exam Neck Exam: Full ROM, Normal Inspection. absent: Lymphadenopathy - Respiratory Exam Respiratory Exam: Decreased Breath Sounds - Cardiovascular Exam Cardiovascular Exam: REGULAR RHYTHM, +S1, +S2 - GI/Abdominal Exam GI & Abdominal Exam: Soft, Diminished Bowel Sounds - Rectal Exam Rectal Exam: Deferred Assessment and Plan (1) ESRD on hemodialysis Status: Acute (2) Fever Status: Acute (3) Tachycardia Status: Acute (4) Bacteremia Status: Acute (5) CHF exacerbation Status: Acute (6) Dyspnea Status: Acute (7) ESRD (end stage renal disease) on dialysis Status: Acute (8) High cholesterol Status: Acute (9) Hypotension Status: Acute (10) Pneumonia Status: Acute (11) Prophylactic measure Status: Acute (12) Sepsis Status: Acute (13) Septic shock Status: Acute (14) UTI (urinary tract infection), bacterial Status: Acute (15) CHF (congestive heart failure) Status: Chronic (16) Diabetes mellitus Status: Chronic (17) ESRD (end stage renal disease) Status: Chronic (18) HTN (hypertension) Status: Chronic - Assessment and Plan (Free Text) Plan: ID consult Hemodialysis Surgical consult Vascular consult Status post stent and angioplasty for the right subclavian for the right arm swelling IV antibiotic Discussed with the mom and discussed with the As ordered
--- NOTE | 2017-10-20 18:31 | CP.PCM.PN ---
Subjective - Date & Time of Evaluation Date of Evaluation: 10/20/17 Time of Evaluation: 07:10 - Subjective Subjective: Vascular Surgery Progress note. Dr. Carrasco Pt seen and examined at bedside. Patient is more alert and awake this morning. Responds with few words and nodding appropriately. Denies any pain. No new complaints. Objective - Vital Signs/Intake and Output Vital Signs (last 24 hours): Temp Pulse Resp BP Pulse Ox 97.4 F L 77 9 L 127/34 L 100 10/20/17 16:00 10/20/17 17:00 10/20/17 17:00 10/20/17 16:11 10/20/17 17:00 Intake and Output: 10/20/17 10/20/17 06:59 18:59 Intake Total 620 906 Output Total 100 0 Balance 520 906 - Medications Medications: Current Medications Acetaminophen (Tylenol 325mg Tab) 325 mg PO Q6H PRN PRN Reason: Pain, moderate (4-7) Last Admin: 10/06/17 12:41 Dose: 325 mg Aspirin (Aspirin Chewable) 81 mg PO DAILY [facility]S [facility]CLUDE 234 BEDS AT [facility] Last Admin: 10/20/17 10:13 Dose: 81 mg Heparin Sodium (Porcine) (Heparin) 5,000 units SC Q8 COUNTS INCLUDE 234 BEDS AT THE [facility] Last Admin: 10/20/17 14:29 Dose: 5,000 units Hydrocortisone Sodium Succinate (Solu-Cortef) 100 mg IV Q8H COUNTS INCLUDE 234 BEDS AT THE [facility] Last Admin: 10/20/17 17:40 Dose: 100 mg Meropenem 500 mg/ Sodium (Chloride) 100 mls @ 200 mls/hr IVPB Q12H COUNTS INCLUDE 234 BEDS AT THE [facility] Last Admin: 10/20/17 14:29 Dose: 200 mls/hr Colistimethate Sodium 140 mg/ (Sodium Chloride) 100 mls @ 200 mls/hr IV Q36H COUNTS INCLUDE 234 BEDS AT THE [facility] Last Admin: 10/20/17 01:33 Dose: 200 mls/hr Vancomycin/Sodium Chloride (Vancomycin 1 Gm/Ns 200 Ml) 1 gm in 200 mls @ 133 mls/hr IVPB MWF COUNTS [facility]CLUDE 234 BEDS AT THE [facility] PRN Reason: Protocol Stop: 10/22/17 09:01 Last Admin: 10/17/17 13:10 Dose: Not Given Insulin Aspart (Novolog) 0 unit SC ACHS COUNTS INCLUDE 234 BEDS AT THE [facility] PRN Reason: Protocol Last Admin: 10/20/17 17:41 Dose: 2 unit Midodrine (Proamatine) 10 mg PO TID COUNTS INCLUDE 234 BEDS AT THE [facility] Last Admin: 10/20/17 17:41 Dose: 10 mg Pantoprazole Sodium (Protonix Inj) 40 mg IVP DAILY [facility]S INCLUDE 234 BEDS AT THE [facility] Last Admin: 10/20/17 10:13 Dose: 40 mg Rosuvastatin Calcium (Crestor) 10 mg PO HS COUNTS INCLUDE 234 BEDS AT THE [facility] Last Admin: 10/19/17 21:45 Dose: 10 mg Sevelamer Carbonate (Renvela) 1,600 mg PO TTS COUNTS INCLUDE 234 BEDS AT THE [facility] Last Admin: 10/20/17 10:13 Dose: 1,600 mg Vitamin B Complex/Vit C/Folic Acid (Nephro-Mark) 1 tab PO DAILY [facility]S INCLUDE 234 BEDS AT THE [facility] Last Admin: 10/20/17 10:13 Dose: 1 tab - Labs Labs: 10/20/17 06:11 10/20/17 06:11 PT 15.6 SECONDS (9.7-12.2) H 10/17/17 06:53 INR 1.4 10/17/17 06:53 APTT 42 SECONDS (21-34) H 10/17/17 06:53 - Constitutional Appears: Non-toxic, No Acute Distress - Head Exam Head Exam: ATRAUMATIC, NORMAL INSPECTION, NORMOCEPHALIC - Eye Exam Eye Exam: EOMI, Normal appearance. absent: Scleral icterus - ENT Exam ENT Exam: Mucous Membranes Moist - Respiratory Exam Respiratory Exam: NORMAL BREATHING PATTERN. absent: Accessory Muscle Use, Respiratory Distress - Cardiovascular Exam Cardiovascular Exam: RRR. absent: JVD - GI/Abdominal Exam GI & Abdominal Exam: Soft. absent: Distended, Firm, Guarding, Rigid, Tenderness - Extremities Exam Additional comments: Right upper extremity swelling with mild improvement. Right upper arm dressing clean, dry and intact. Bilateral lower extremity amputations - Neurological Exam Neurological Exam: Alert, Awake - Skin Skin Exam: Dry, Intact, Normal Color, Warm Assessment and Plan - Assessment and Plan (Free Text) Assessment: 51yo M with Right AVF ulcer likely secondary to R subclavian vein occlusion. S/ P R Subclavian Vein balloon angioplasty and stent placement. POD1 Plan: - Continue HD via Left IJ Permacath - Right arm precautions. No blood draws. Allow Right AVF to heal. Dressing changes as needed. - Right arm elevation to level of heart - Continue medical maximization - We will follow peripherally Further recs as per Dr. Luna Slade PGY1 surgery pager: [phone]
--- NOTE | 2017-10-20 19:46 | CP.PCM.PN ---
Subjective - Date & Time of Evaluation Date of Evaluation: 10/20/17 Time of Evaluation: 19:46 - Subjective Subjective: afebrile, No acute events overnight. ROS - NA PT UNABLE TO ANSWER QUESTIONS. LABS REVIEWED. WOUND CULTURE 10/15/17 STAPH-COAG NEGATIVE. BLOOD CULTURE 10/15/17 -VE GROWTH TO DATE. ON IV ABX Objective - Vital Signs/Intake and Output Vital Signs (last 24 hours): Temp Pulse Resp BP Pulse Ox 97.4 F L 79 17 104/22 L 100 10/20/17 16:00 10/20/17 19:00 10/20/17 19:00 10/20/17 18:11 10/20/17 19:00 Intake and Output: 10/20/17 10/21/17 18:59 07:59 Intake Total 1106 0 Output Total 0 0 Balance 1106 0 - Medications Medications: Current Medications Acetaminophen (Tylenol 325mg Tab) 325 mg PO Q6H PRN PRN Reason: Pain, moderate (4-7) Last Admin: 10/06/17 12:41 Dose: 325 mg Aspirin (Aspirin Chewable) 81 mg PO DAILY [facility] Last Admin: 10/20/17 10:13 Dose: 81 mg Heparin Sodium (Porcine) (Heparin) 5,000 units SC Q8 [facility] Last Admin: 10/20/17 14:29 Dose: 5,000 units Hydrocortisone Sodium Succinate (Solu-Cortef) 100 mg IV Q8H [facility] Last Admin: 10/20/17 17:40 Dose: 100 mg Meropenem 500 mg/ Sodium (Chloride) 100 mls @ 200 mls/hr IVPB Q12H [facility] Last Admin: 10/20/17 14:29 Dose: 200 mls/hr Colistimethate Sodium 140 mg/ (Sodium Chloride) 100 mls @ 200 mls/hr IV Q36H [facility] Last Admin: 10/20/17 01:33 Dose: 200 mls/hr Vancomycin/Sodium Chloride (Vancomycin 1 Gm/Ns 200 Ml) 1 gm in 200 mls @ 133 mls/hr IVPB MWF [facility] PRN Reason: Protocol Stop: 10/22/17 09:01 Last Admin: 10/17/17 13:10 Dose: Not Given Insulin Aspart (Novolog) 0 unit SC ACHS [facility] PRN Reason: Protocol Last Admin: 10/20/17 17:41 Dose: 2 unit Midodrine (Proamatine) 10 mg PO TID [facility] Last Admin: 10/20/17 17:41 Dose: 10 mg Pantoprazole Sodium (Protonix Inj) 40 mg IVP DAILY [facility] Last Admin: 10/20/17 10:13 Dose: 40 mg Rosuvastatin Calcium (Crestor) 10 mg PO HS [facility] Last Admin: 10/19/17 21:45 Dose: 10 mg Sevelamer Carbonate (Renvela) 1,600 mg PO TTS [facility] Last Admin: 10/20/17 10:13 Dose: 1,600 mg Vitamin B Complex/Vit C/Folic Acid (Nephro-Mark) 1 tab PO DAILY [facility] Last Admin: 10/20/17 10:13 Dose: 1 tab - Labs Labs: 10/20/17 06:11 10/20/17 06:11 PT 15.6 SECONDS (9.7-12.2) H 10/17/17 06:53 INR 1.4 10/17/17 06:53 APTT 42 SECONDS (21-34) H 10/17/17 06:53 - Constitutional Appears: No Acute Distress, Chronically Ill - Head Exam Head Exam: NORMAL INSPECTION - Eye Exam Eye Exam: EOMI, PERRL - ENT Exam ENT Exam: Normal Oropharynx - Neck Exam Neck Exam: Normal Inspection - Respiratory Exam Respiratory Exam: Decreased Breath Sounds - Cardiovascular Exam Cardiovascular Exam: REGULAR RHYTHM, +S1, +S2 - GI/Abdominal Exam GI & Abdominal Exam: Soft, Normal Bowel Sounds - Extremities Exam Additional comments: B/L AKA - Neurological Exam Neurological Exam: Awake - Psychiatric Exam Psychiatric exam: Flat Affect Assessment and Plan (1) Sepsis Assessment & Plan: Random Vanco level 32.84 high. 10/19/17. Vanco held . Wound culture 10/15/17; staph coagulase-negative .Patient on IV meropenem 500 mg every 12 hourly .IVs colistin 140 mg every 36 hourly. . Vancomycin 1 g MWF ( vanco held today 10/19/17 as level >20. ) F/U VANCO RANDOM ON SUNDAY AND TO RESTART IV VANCO 1GM POS HD MWF IF VANCO RANDOM < 20MG/ML Status: Acute (2) Fever Status: Acute (3) Tachycardia Status: Acute (4) AV graft thrombosis Assessment & Plan: rIGHT UPPER ARM WOUND CARE AND GRAFT CARE PER VASCULAR SURGERY. Status: Acute (5) ESRD (end stage renal disease) on dialysis Status: Acute (6) Diabetes mellitus Status: Chronic
[2017-10-21] MEDS: Meropenem 500 MG in Sodium Chloride 0.9% 100 ML IVPB SCH ×2 (03:18→14:14)
[2017-10-21 06:26] LABS: BASO % 0.2 % (0.0-2.0); HEMOGLOBIN 8.3 g/dL (12.0-18.0); LYMPH # 0.8 K/uL (1.0-4.3); LYMPH % 10.4 % (20.0-40.0); MEAN CELL VOLUME 83.3 fL (80.0-94.0); MEAN CORPUSCULAR HEMOGLOBIN 27.2 pg (27.0-31.0); MEAN CORPUSCULAR HGB CONC 32.6 g/dL (33.0-37.0); MONO # 0.6 K/uL (0.0-0.8); MONO % 6.9 % (0.0-10.0); NEUT # 6.8 K/uL (1.8-7.0); NEUT % 82.5 % (50.0-75.0); RBC 3.06 Mil/uL (4.40-5.90); RED CELL DISTRIBUTION WIDTH 21.9 % (11.5-14.5); WHITE BLOOD COUNT 8.2 K/uL (4.8-10.8)
[2017-10-21 06:39] LABS: CALCIUM 8.5 mg/dl (8.6-10.4)
[2017-10-21] MEDS: (Novolog) Insulin Aspart, Recombinant 100 u/ml 10 ml vial SC SCH ×4 (08:58→21:26)
[2017-10-21] MEDS: Multivitamin Vitamin B Complex (Nephro-Vite) Tab PO SCH (09:04)
--- NOTE | 2017-10-21 10:21 | CP.CCUPN ---
CCU Subjective - Physician Review Events Since Last Encounter (Free Text): 10/21/17 10:21 51M w/ pmhx significant for diabetes, CVA, HTN, on HD was admitted to the hospital for fever and tachycardia. Pt is aphasic and shakes yes or no to questions. As a result of his mental baseline i was unable to obtain a medical history or ros on this patient today. ICU was consulted after becoming acutely hypotensive and bradycardic. Past medical history: cva, diabetes, hypertension Past surgical history: bka Allergies: Hydromorphone Social history: unable to obtain PMD:Unknown Clinical changes. Continue to monitor. parents of the patient to floor CCU Objective - Vital Signs / Intake & Output Vital Signs (Last 4 hours): Vital Signs Temp Pulse Resp BP Pulse Ox 10/21/17 10:00 77 16 100 10/21/17 09:09 81 17 100/38 L 100 10/21/17 09:00 84 8 L 100 10/21/17 08:00 96.8 F L 100 10/21/17 07:09 76 14 90/34 L 100 10/21/17 07:00 76 13 100 Intake and Output (Last 8hrs): Intake & Output 10/20/17 10/21/17 10/21/17 21:59 06:59 14:59 Intake Total 332 Output Total 0 Balance 332 Weight Intake: Intake, IV Amount 0 Left PICC 0 Left Upper arm 0 Oral 332 Output: Urine 0 Urine, Voided 0 Stool - Physical Exam Head: Positive for: Atraumatic, Normocephalic Pupils: Positive for: PERRL Extroacular Muscles: Positive for: EOMI Conjunctiva: Positive for: Normal Mouth: Positive for: Moist Mucous Membranes Respiratory/Chest: Positive for: Good Air Exchange. Negative for: Respiratory Distress Cardiovascular: Positive for: Regular Rate and Rhythm, Normal S1, S2 Abdomen: Positive for: Normal Bowel Sounds Upper Extremity: Positive for: Edema, Swelling Skin: Positive for: Dry, Normal Color - Medications Active Medications: Active Medications Generic Name Dose Route Start Last Admin Trade Name Freq PRN Reason Stop Dose Admin Acetaminophen 325 mg 10/04/17 15:21 10/06/17 12:41 Tylenol 325mg Tab PO 325 mg Q6H PRN Administration Pain, moderate (4-7) Aspirin 81 mg 10/04/17 10:00 10/21/17 09:04 Aspirin Chewable PO 81 mg DAILY [facility] Administration Heparin Sodium (Porcine) 5,000 units 10/18/17 14:00 10/21/17 05:41 Heparin SC 5,000 units Q8 [facility] Administration Hydrocortisone Sodium Succinate 100 mg 10/18/17 09:15 10/21/17 09:04 Solu-Cortef IV 100 mg Q8H [facility] Administration Meropenem 500 mg/ Sodium 100 mls @ 200 mls/hr 10/09/17 14:00 10/21/17 03:18 Chloride IVPB 200 mls/hr Q12H [facility] Administration Colistimethate Sodium 140 mg/ 100 mls @ 200 mls/hr 10/12/17 14:30 10/20/17 01 :33 Sodium Chloride IV 200 mls/hr Q36H [facility] Administration Vancomycin/Sodium Chloride 1 gm in 200 mls @ 133 mls/hr 10/17/17 09:00 13:10 Vancomycin 1 Gm/Ns 200 Ml IVPB 10/22/17 09:01 Not Given [facility] Protocol Insulin Aspart 0 unit 10/19/17 22:00 10/21/17 08:58 Novolog SC 1 unit ACHS [facility] Administration Protocol Midodrine 10 mg 10/18/17 14:00 10/21/17 09:04 Proamatine PO 10 mg TID [facility] Administration Pantoprazole Sodium 40 mg 10/18/17 10:00 10/21/17 09:04 Protonix Inj IVP 40 mg DAILY [facility] Administration Rosuvastatin Calcium 10 mg 10/06/17 22:00 10/20/17 21:39 Crestor PO 10 mg HS [facility] Administration Sevelamer Carbonate 1,600 mg 10/04/17 10:00 10/20/17 10:13 Renvela PO 1,600 mg TTS [facility] Administration Vitamin B Complex/Vit C/Folic Acid 1 tab 10/04/17 10:00 10/21/17 09:04 Nephro-Mark PO 1 tab DAILY [facility] Administration - Patient Studies Lab Studies: Microbiology Studies 10/15/17 09:05 Blood Culture - Final Blood NO GROWTH AFTER 5 DAYS Gram Stain - Final TEST NOT PERFORMED 10/15/17 09:35 Blood Culture - Final Blood NO GROWTH AFTER 5 DAYS Gram Stain - Final TEST NOT PERFORMED Lab Studies 10/21/17 10/21/17 10/21/17 Range/Units 07:26 06:23 06:21 WBC 8.2 (4.8-10.8) K/uL RBC 3.06 L (4.40-5.90) Mil/uL Hgb 8.3 L (12.0-18.0) g/dL Hct 25.5 L (35.0-51.0) % MCV 83.3 (80.0-94.0) fL MCH 27.2 (27.0-31.0) pg MCHC 32.6 L (33.0-37.0) g/dL RDW 21.9 H (11.5-14.5) % Plt Count 196 (130-400) K/uL MPV 9.0 (7.2-11.7) fL Neut % (Auto) 82.5 H (50.0-75.0) % Lymph % (Auto) 10.4 L (20.0-40.0) % Emmons % (Auto) 6.9 (0.0-10.0) % Eos % (Auto) 0.0 (0.0-4.0) % Baso % (Auto) 0.2 (0.0-2.0) % Neut # (Auto) 6.8 (1.8-7.0) K/uL Lymph # (Auto) 0.8 L (1.0-4.3) K/uL Emmons # (Auto) 0.6 (0.0-0.8) K/uL Eos # (Auto) 0.0 (0.0-0.7) K/uL Baso # (Auto) 0.0 (0.0-0.2) K/uL Sodium 141 (132-148) mmol/L Potassium 3.4 L (3.6-5.2) mmol/L Chloride 99 (98-107) mmol/L Carbon Dioxide 27 (22-30) mmol/L Anion Gap 18 (10-20) BUN 25 H (9-20) mg/dL Creatinine 4.9 H (0.8-1.5) mg/dL Est GFR ( Amer) 15 Est GFR (Non-Af Amer) 13 POC Glucose (mg/dL) 173 H (65-110) mg/dL Random Glucose 165 H (75-110) mg/dL Calcium 8.5 L (8.6-10.4) mg/dl 10/20/17 10/20/17 10/20/17 Range/Units 21:08 16:11 11:28 WBC (4.8-10.8) K/uL RBC (4.40-5.90) Mil/uL Hgb (12.0-18.0) g/dL Hct (35.0-51.0) % MCV (80.0-94.0) fL MCH (27.0-31.0) pg MCHC (33.0-37.0) g/dL RDW (11.5-14.5) % Plt Count (130-400) K/uL MPV (7.2-11.7) fL Neut % (Auto) (50.0-75.0) % Lymph % (Auto) (20.0-40.0) % Emmons % (Auto) (0.0-10.0) % Eos % (Auto) (0.0-4.0) % Baso % (Auto) (0.0-2.0) % Neut # (Auto) (1.8-7.0) K/uL Lymph # (Auto) (1.0-4.3) K/uL Emmons # (Auto) (0.0-0.8) K/uL Eos # (Auto) (0.0-0.7) K/uL Baso # (Auto) (0.0-0.2) K/uL Sodium (132-148) mmol/L Potassium (3.6-5.2) mmol/L Chloride (98-107) mmol/L Carbon Dioxide (22-30) mmol/L Anion Gap (10-20) BUN (9-20) mg/dL Creatinine (0.8-1.5) mg/dL Est GFR ( Amer) Est GFR (Non-Af Amer) POC Glucose (mg/dL) 189 H 236 H 207 H (65-110) mg/dL Random Glucose (75-110) mg/dL Calcium (8.6-10.4) mg/dl Laboratory Results - last 24 hr 10/20/17 10/20/17 10/20/17 11:28 16:11 21:08 WBC RBC Hgb Hct MCV MCH MCHC RDW Plt Count MPV Neut % (Auto) Lymph % (Auto) Emmons % (Auto) Eos % (Auto) Baso % (Auto) Neut # (Auto) Lymph # (Auto) Emmons # (Auto) Eos # (Auto) Baso # (Auto) Sodium Potassium Chloride Carbon Dioxide Anion Gap BUN Creatinine Est GFR ( Amer) Est GFR (Non-Af Amer) POC Glucose (mg/dL) 207 H 236 H 189 H Random Glucose Calcium 10/21/17 10/21/17 10/21/17 06:21 06:23 07:26 WBC 8.2 RBC 3.06 L Hgb 8.3 L Hct 25.5 L MCV 83.3 MCH 27.2 MCHC 32.6 L RDW 21.9 H Plt Count 196 MPV 9.0 Neut % (Auto) 82.5 H Lymph % (Auto) 10.4 L Emmons % (Auto) 6.9 Eos % (Auto) 0.0 Baso % (Auto) 0.2 Neut # (Auto) 6.8 Lymph # (Auto) 0.8 L Emmons # (Auto) 0.6 Eos # (Auto) 0.0 Baso # (Auto) 0.0 Sodium 141 Potassium 3.4 L Chloride 99 Carbon Dioxide 27 Anion Gap 18 BUN 25 H Creatinine 4.9 H Est GFR ( Amer) 15 Est GFR (Non-Af Amer) 13 POC Glucose (mg/dL) 173 H Random Glucose 165 H Calcium 8.5 L Fingerstick Blood Sugar Results: 173 Critical Care Progress Note - Nutrition Nutrition: Nutrition Category Date Time Status Liquid Diet [DIET] Diets 10/19/17 Dinner Active
[2017-10-21] MEDS: COLISTIMETHATE IV SCH (14:14)
[2017-10-21] MEDS: SODIUM CHLORIDE 0.9% IV SCH (14:14)
--- NOTE | 2017-10-21 16:21 | CP.PCM.PN ---
Subjective - Date & Time of Evaluation Date of Evaluation: 10/21/17 Time of Evaluation: 12:30 - Subjective Subjective: clinically same Objective - Vital Signs/Intake and Output Vital Signs (last 24 hours): Temp Pulse Resp BP Pulse Ox 97.7 F 122 H 18 109/52 L 100 10/21/17 12:08 10/21/17 16:00 10/21/17 16:00 10/21/17 15:10 10/21/17 16:00 Intake and Output: 10/21/17 10/21/17 06:59 18:59 Intake Total 844 Output Total 0 Balance 844 - Medications Medications: Current Medications Acetaminophen (Tylenol 325mg Tab) 325 mg PO Q6H PRN PRN Reason: Pain, moderate (4-7) Last Admin: 10/06/17 12:41 Dose: 325 mg Aspirin (Aspirin Chewable) 81 mg PO DAILY [facility] Last Admin: 10/21/17 09:04 Dose: 81 mg Heparin Sodium (Porcine) (Heparin) 5,000 units SC Q8 [facility] Hydrocortisone Sodium Succinate (Solu-Cortef) 100 mg IV Q8H [facility] Last Admin: 10/21/17 09:04 Dose: 100 mg Meropenem 500 mg/ Sodium (Chloride) 100 mls @ 200 mls/hr IVPB Q12H [facility] Last Admin: 10/21/17 14:14 Dose: 200 mls/hr Colistimethate Sodium 140 mg/ (Sodium Chloride) 100 mls @ 200 mls/hr IV Q36H [facility] Last Admin: 10/21/17 14:14 Dose: 200 mls/hr Vancomycin/Sodium Chloride (Vancomycin 1 Gm/Ns 200 Ml) 1 gm in 200 mls @ 133 mls/hr IVPB MWF [facility] PRN Reason: Protocol Stop: 10/22/17 09:01 Last Admin: 10/17/17 13:10 Dose: Not Given Insulin Aspart (Novolog) 0 unit SC ACHS [facility] PRN Reason: Protocol Last Admin: 10/21/17 12:22 Dose: 2 unit Midodrine (Proamatine) 10 mg PO TID [facility] Last Admin: 10/21/17 14:14 Dose: 10 mg Pantoprazole Sodium (Protonix Inj) 40 mg IVP DAILY [facility] Last Admin: 10/21/17 09:04 Dose: 40 mg Rosuvastatin Calcium (Crestor) 10 mg PO HS [facility] Last Admin: 10/20/17 21:39 Dose: 10 mg Sevelamer Carbonate (Renvela) 1,600 mg PO TTS [facility] Last Admin: 10/20/17 10:13 Dose: 1,600 mg Vitamin B Complex/Vit C/Folic Acid (Nephro-Mark) 1 tab PO DAILY [facility] Last Admin: 10/21/17 09:04 Dose: 1 tab - Labs Labs: 10/21/17 06:23 10/21/17 06:21 PT 15.6 SECONDS (9.7-12.2) H 10/17/17 06:53 INR 1.4 10/17/17 06:53 APTT 42 SECONDS (21-34) H 10/17/17 06:53 - Constitutional Appears: Well - Head Exam Head Exam: ATRAUMATIC, NORMAL INSPECTION, NORMOCEPHALIC - Eye Exam Eye Exam: EOMI, Normal appearance, PERRL Pupil Exam: NORMAL ACCOMODATION, PERRL - ENT Exam ENT Exam: Mucous Membranes Moist, Normal Exam - Neck Exam Neck Exam: Full ROM, Normal Inspection. absent: Lymphadenopathy - Respiratory Exam Respiratory Exam: Decreased Breath Sounds - Cardiovascular Exam Cardiovascular Exam: REGULAR RHYTHM, +S1, +S2 - GI/Abdominal Exam GI & Abdominal Exam: Soft, Diminished Bowel Sounds - Rectal Exam Rectal Exam: Deferred Assessment and Plan (1) ESRD on hemodialysis Status: Acute (2) Fever Status: Acute (3) Tachycardia Status: Acute (4) Bacteremia Status: Acute (5) CHF exacerbation Status: Acute (6) Dyspnea Status: Acute (7) ESRD (end stage renal disease) on dialysis Status: Acute (8) High cholesterol Status: Acute (9) Hypotension Status: Acute (10) Pneumonia Status: Acute (11) Prophylactic measure Status: Acute (12) Sepsis Status: Acute (13) Septic shock Status: Acute (14) UTI (urinary tract infection), bacterial Status: Acute (15) CHF (congestive heart failure) Status: Chronic (16) Diabetes mellitus Status: Chronic (17) ESRD (end stage renal disease) Status: Chronic (18) HTN (hypertension) Status: Chronic
[2017-10-22] MEDS: Meropenem 500 MG in Sodium Chloride 0.9% 100 ML IVPB SCH ×2 (01:03→16:29)
[2017-10-22 06:32] LABS: BASO % 0.3 % (0.0-2.0); HEMOGLOBIN 8.5 g/dL (12.0-18.0); LYMPH # 0.7 K/uL (1.0-4.3); LYMPH % 7.7 % (20.0-40.0); MEAN CELL VOLUME 84.6 fL (80.0-94.0); MEAN CORPUSCULAR HEMOGLOBIN 26.9 pg (27.0-31.0); MEAN CORPUSCULAR HGB CONC 31.8 g/dL (33.0-37.0); MEAN PLATELET VOLUME 8.9 fL (7.2-11.7); MONO # 0.6 K/uL (0.0-0.8); MONO % 6.5 % (0.0-10.0); NEUT # 8.2 K/uL (1.8-7.0); NEUT % 85.5 % (50.0-75.0); PLATELET COUNT 190 K/uL (130-400); RBC 3.17 Mil/uL (4.40-5.90); RED CELL DISTRIBUTION WIDTH 21.8 % (11.5-14.5); WHITE BLOOD COUNT 9.6 K/uL (4.8-10.8)
[2017-10-22] MEDS: (Novolog) Insulin Aspart, Recombinant 100 u/ml 10 ml vial SC SCH ×4 (08:24→21:15)
[2017-10-22] MEDS: Vancomycin 1 gm/NS 200 ml 1 GM/200 ML BAG IVPB SCH (08:26)
[2017-10-22 08:48] LABS: ANISOCYTOSIS SLIGHT; HYPOCHROMIC SLIGHT; LYMPHOCYTE 8 % (20-40); MONOCYTE 1 % (0-10); NEUTROPHIL 91 % (50-75); PLATELET ESTIMATE NORMAL (NORMAL); TOTAL CELLS COUNTED 100
[2017-10-22 08:49] LABS: OVALOCYTES SLIGHT; POLYCHROMIC SLIGHT; TARGET CELLS SLIGHT
[2017-10-22] MEDS: Multivitamin Vitamin B Complex (Nephro-Vite) Tab PO SCH (10:02)
[2017-10-22] MEDS ORDERED: Albumin Human 25% (12.5 gm/50 ml) IV ONE (14:14)
--- NOTE | 2017-10-22 16:43 | CARD ---
APPROVED REPORT EKG Measurement Heart [id number] <Conclusion> Accelerated Junctional rhythm Rightward axis Anterior infarct, age undetermined Abnormal ECG
--- NOTE | 2017-10-22 18:06 | CP.PCM.PN ---
Subjective - Date & Time of Evaluation Date of Evaluation: 10/22/17 Time of Evaluation: 13:10 - Subjective Subjective: clinically same Objective - Vital Signs/Intake and Output Vital Signs (last 24 hours): Temp Pulse Resp BP Pulse Ox 97.3 F L 84 12 126/18 L 98 10/22/17 16:00 10/22/17 16:00 10/22/17 16:00 10/22/17 16:00 10/22/17 16:00 Intake and Output: 10/22/17 10/22/17 06:59 18:59 Intake Total 220 Output Total 200 Balance 20 - Medications Medications: Current Medications Acetaminophen (Tylenol 325mg Tab) 325 mg PO Q6H PRN PRN Reason: Pain, moderate (4-7) Last Admin: 10/06/17 12:41 Dose: 325 mg Aspirin (Aspirin Chewable) 81 mg PO DAILY [facility] Last Admin: 10/22/17 09:49 Dose: 81 mg Heparin Sodium (Porcine) (Heparin) 5,000 units SC Q8 [facility] Last Admin: 10/22/17 16:29 Dose: 5,000 units Hydrocortisone Sodium Succinate (Solu-Cortef) 100 mg IV Q8H [facility] Last Admin: 10/22/17 16:29 Dose: 100 mg Meropenem 500 mg/ Sodium (Chloride) 100 mls @ 200 mls/hr IVPB Q12H [facility] Last Admin: 10/22/17 16:29 Dose: 200 mls/hr Colistimethate Sodium 140 mg/ (Sodium Chloride) 100 mls @ 200 mls/hr IV Q36H [facility] Last Admin: 10/21/17 14:14 Dose: 200 mls/hr Insulin Aspart (Novolog) 0 unit SC ACHS [facility] PRN Reason: Protocol Last Admin: 10/22/17 16:24 Dose: Not Given Midodrine (Proamatine) 10 mg PO TID [facility] Last Admin: 10/22/17 16:30 Dose: 10 mg Pantoprazole Sodium (Protonix Ec Tab) 40 mg PO DAILY [facility] Sevelamer Carbonate (Renvela) 1,600 mg PO TTS [facility] Last Admin: 10/20/17 10:13 Dose: 1,600 mg Vitamin B Complex/Vit C/Folic Acid (Nephro-Mark) 1 tab PO DAILY [facility] Last Admin: 10/22/17 10:02 Dose: 1 tab - Labs Labs: 03/12/18 06:27 10/21/17 06:21 PT 15.6 SECONDS (9.7-12.2) H 10/17/17 06:53 INR 1.4 10/17/17 06:53 APTT 42 SECONDS (21-34) H 10/17/17 06:53 - Constitutional Appears: Well - Head Exam Head Exam: ATRAUMATIC, NORMAL INSPECTION, NORMOCEPHALIC - Eye Exam Eye Exam: EOMI, Normal appearance, PERRL Pupil Exam: NORMAL ACCOMODATION, PERRL - ENT Exam ENT Exam: Mucous Membranes Moist, Normal Exam - Neck Exam Neck Exam: Full ROM, Normal Inspection. absent: Lymphadenopathy - Respiratory Exam Respiratory Exam: Decreased Breath Sounds - Cardiovascular Exam Cardiovascular Exam: REGULAR RHYTHM, +S1, +S2 - GI/Abdominal Exam GI & Abdominal Exam: Soft, Diminished Bowel Sounds - Rectal Exam Rectal Exam: Deferred Assessment and Plan (1) ESRD on hemodialysis Status: Acute (2) Fever Status: Acute (3) Tachycardia Status: Acute (4) Bacteremia Status: Acute (5) CHF exacerbation Status: Acute (6) Dyspnea Status: Acute (7) ESRD (end stage renal disease) on dialysis Status: Acute (8) High cholesterol Status: Acute (9) Hypotension Status: Acute (10) Pneumonia Status: Acute (11) Prophylactic measure Status: Acute (12) Sepsis Status: Acute (13) Septic shock Status: Acute (14) UTI (urinary tract infection), bacterial Status: Acute (15) CHF (congestive heart failure) Status: Chronic (16) Diabetes mellitus Status: Chronic (17) ESRD (end stage renal disease) Status: Chronic (18) HTN (hypertension) Status: Chronic
[2017-10-22 19:53] VITALS: O2SAT 100
--- NOTE | 2017-10-22 22:06 | CP.PCM.PN ---
Subjective - Date & Time of Evaluation Date of Evaluation: 10/22/17 Time of Evaluation: 22:06 - Subjective Subjective: afebrile, No acute events overnight. ROS - NA PT UNABLE TO ANSWER QUESTIONS. LABS REVIEWED. WOUND CULTURE 10/15/17 STAPH-COAG NEGATIVE. BLOOD CULTURE 10/15/17 -VE GROWTH TO DATE. ON IV ABX VANCO RANDOM HIGH 27.5 ( VANCO DOSE GIVEN INADVERTENTLY )10/22 SPOKE TO RN. TO REPEAT VANCO RANDOM ON Sun10/24/17 AND TO HOLD DOSE OF IV VANCOMYCIN IF VANC RANDOM > 20 Objective - Vital Signs/Intake and Output Vital Signs (last 24 hours): Temp Pulse Resp BP Pulse Ox 98.1 F 72 18 103/38 L 100 10/22/17 19:52 10/22/17 19:52 10/22/17 19:52 10/22/17 19:52 10/22/17 19:52 - Medications Medications: Current Medications Acetaminophen (Tylenol 325mg Tab) 325 mg PO Q6H PRN PRN Reason: Pain, moderate (4-7) Last Admin: 10/06/17 12:41 Dose: 325 mg Aspirin (Aspirin Chewable) 81 mg PO DAILY [facility] Last Admin: 10/22/17 09:49 Dose: 81 mg Heparin Sodium (Porcine) (Heparin) 5,000 units SC Q8 [facility] Last Admin: 10/22/17 21:13 Dose: 5,000 units Hydrocortisone Sodium Succinate (Solu-Cortef) 100 mg IV Q8H [facility] Last Admin: 10/22/17 16:29 Dose: 100 mg Meropenem 500 mg/ Sodium (Chloride) 100 mls @ 200 mls/hr IVPB Q12H [facility] Last Admin: 10/22/17 16:29 Dose: 200 mls/hr Colistimethate Sodium 140 mg/ (Sodium Chloride) 100 mls @ 200 mls/hr IV Q36H [facility] Last Admin: 10/21/17 14:14 Dose: 200 mls/hr Insulin Aspart (Novolog) 0 unit SC ACHS [facility] PRN Reason: Protocol Last Admin: 10/22/17 21:15 Dose: Not Given Midodrine (Proamatine) 10 mg PO TID [facility] Last Admin: 10/22/17 18:44 Dose: 10 mg Pantoprazole Sodium (Protonix Ec Tab) 40 mg PO DAILY [facility] Sevelamer Carbonate (Renvela) 1,600 mg PO TTS [facility] Last Admin: 10/20/17 10:13 Dose: 1,600 mg Vitamin B Complex/Vit C/Folic Acid (Nephro-Mark) 1 tab PO DAILY [facility] Last Admin: 10/22/17 10:02 Dose: 1 tab - Labs Labs: 10/22/17 06:27 10/21/17 06:21 PT 15.6 SECONDS (9.7-12.2) H 10/17/17 06:53 INR 1.4 10/17/17 06:53 APTT 42 SECONDS (21-34) H 10/17/17 06:53 - Constitutional Appears: No Acute Distress - Head Exam Head Exam: NORMAL INSPECTION - Eye Exam Eye Exam: EOMI, PERRL - ENT Exam ENT Exam: Normal Oropharynx - Neck Exam Neck Exam: Normal Inspection - Respiratory Exam Respiratory Exam: Decreased Breath Sounds - Cardiovascular Exam Cardiovascular Exam: REGULAR RHYTHM, +S1 - GI/Abdominal Exam GI & Abdominal Exam: Soft (B/L AKA. ), Normal Bowel Sounds - Neurological Exam Neurological Exam: Awake, CN II-XII Intact - Psychiatric Exam Psychiatric exam: Flat Affect - Skin Skin Exam: Normal Color, Warm Assessment and Plan (1) Sepsis Assessment & Plan: Wound culture 10/15/17; staph coagulase-negative .Patient on IV meropenem 500 mg every 12 hourly .IVs colistin 140 mg every 36 hourly. . Vancomycin 1 g MWF ( vanco held today 10/19/17 as level >20. ) F/U VANCO RANDOM ON Sunday10/24/17 AND TO HOLD IV VANCO 1GM POS HD MWF IF VANCO RANDOM > 20MG/ML Status: Acute (2) Fever Status: Acute (3) Tachycardia Status: Acute (4) AV graft thrombosis Status: Acute (5) ESRD (end stage renal disease) on dialysis Assessment & Plan: ON HD MWF PT HAS A NEW RT CHEST WALL PERMACATHETHER FOR HD. PT HAS A PICC LINE KVNG. Status: Acute (6) Diabetes mellitus Status: Chronic
[2017-10-23] MEDS: Meropenem 500 MG in Sodium Chloride 0.9% 100 ML IVPB SCH ×2 (01:10→13:33)
[2017-10-23] MEDS: COLISTIMETHATE IV SCH (02:06)
[2017-10-23] MEDS: SODIUM CHLORIDE 0.9% IV SCH (02:06)
[2017-10-23] MEDS: (Novolog) Insulin Aspart, Recombinant 100 u/ml 10 ml vial SC SCH ×2 (07:44→11:58)
[2017-10-23] MEDS ORDERED: Pantoprazole 40 mg EC Tab PO SCH (10:00)
[2017-10-23] MEDS: Multivitamin Vitamin B Complex (Nephro-Vite) Tab PO SCH (10:54)
--- NOTE | 2017-10-23 11:25 | CP.PCM.PN ---
Subjective - Date & Time of Evaluation Date of Evaluation: 10/23/17 Time of Evaluation: 11:22 - Subjective Subjective: PT TO BE D/C TODAY TO [facility] PER DR. Elaina THEODORE. PT SEEN BY DR. THEODORE DURING ROUNDS. DISCUSSED D/C PLAN WITH DR. EDWARDS; PT TO F/U WITH HIM IN HIS OFFICE IN 2 WEEKS. [facility] TO ARRANGE F/U APPT AND TRANSPORTATION TO AND FROM OFFICE. -DISCUSSED IV ABX PLAN WITH DR. Vladimir XAVIER. PER DR. XAVIER PT TO CONTINUE:COLY- MYCIN 140 MG IV Q36 HOURS X14 MORE DAYS (ALTERNATE BETWEEN 1430 AND 0230; LAST DOSE GIVEN AT [facility] AT 0206 ON 10/23/17; NEXT DOSE DUE AT 1430 ON ; LAST DOSE TO BE GIVEN ON 11/07/17), MEROPENEM 500 MG IV Q12 HOURS X14 MORE DAYS (START ON 10/24/17 AND LAST DOSE TO BE GIVEN ON 11/07/17). -PLEASE HAVE VANCO TROUGH LEVEL DONE ON 10/24/17. [address] XAVIER: IF TROUGH IS LESS THAN 20, GIVE VANCOMYCIN 500 MG IV POST-EACH DIALYSIS (M-W-) X3 DOSES; IF TROUGH IS MORE THAN 20, DO NOT GIVE ANY VANCOMYCIN. -PT SEEN BY BIOCHEMISTRY SPECIALIST KHUSHBU THIS MORNING; WOUND CARE ORDERS TO BE CONTINUED AT [facility] AT PER KHUSHBU'S RECOMMENDATIONS: "Recommending for sacral unstagable pressure ulcer,right hip stage 2 pressure ulcer, and perineal MASD (with fibrous tissue), applying medihoney, then covering with a dry dressing to be done daily. Patient MUST be repositioned frequently using wedge to optimize offloading of all pressure points." PT TO BE D/C WITH PICC LINE IN PLACE. TO BE PLACED UNDER THE SERVICE OF DR. Elaina THEODORE WHILE AT [facility]. SW AWARE OF THE D/C AND WILL ARRANGE TRANSPORTATION TO THE FACILITY. SW ALSO AWARE THAT PT HAD MRSA ON THE RIGHT ARM TO THE AVF SITE AND MAY NEED TO CONTINUE CONTACT ISOLATION AT [facility]. DR. Elaina THEODORE ALSO AWARE OF THIS WELL WITH DR XAVIER'S RECOMMENDATIONS. D/C INFORMATION SENT WITH THE PT: -PLACE UNDER THE SERVICE OF DR. Elaina THEODORE WHILE AT [facility]---PLEASE CALL DR. THEODORE UPON ARRIVAL FOR ADMITTING ORDERS. -PLEASE ARRANGE FOR MR. DUTTA TO FOLLOW UP WITH DR. EDWARDS (VASCULAR SURGEON) IN THE OFFICE IN 2 WEEKS (BY 11/06/17); PLEASE ARRANGE TRANSPORTATION TO THE OFFICE AND BACK TO [facility]. -IV ANTIBIOTIC RECOMMENDATIONS PER DR. Vladimir XAVIER: COLY-MYCIN 140 MG IV Q36 HOURS X14 MORE DAYS (ALTERNATE BETWEEN 1430 AND 0230; LAST DOSE GIVEN AT [facility] AT 0206 ON 10/23/17; NEXT DOSE DUE AT 1430 ON 10/24/17; LAST DOSE TO BE GIVEN ON 11/07/17), MEROPENEM 500 MG IV Q12 HOURS X14 MORE DAYS (START ON AND LAST DOSE TO BE GIVEN ON 11/07/17). -PLEASE HAVE VANCO TROUGH LEVEL DONE ON 10/24/17. [address] XAVIER: IF TROUGH IS LESS THAN 20, GIVE VANCOMYCIN 500 MG IV POST-EACH DIALYSIS (M-W-) X3 DOSES; IF TROUGH IS MORE THAN 20, DO NOT GIVE ANY VANCOMYCIN. -WOUND CARE ORDERS TO BE CONTINUED AT [facility] AT PER WOUND CARE NURSE KHUSHBU'S RECOMMENDATIONS: "Recommending for sacral unstagable pressure ulcer,right hip stage 2 pressure ulcer, and perineal MASD (with fibrous tissue), applying medihoney, then covering with a dry dressing to be done daily. Patient MUST be repositioned frequently using wedge to optimize offloading of all pressure points." -PICC LINE CARE PER FACILITY PROTOCOL. -HAVE WOUND CARE EVALUATE THE PATIENT. -CONTACT ISOLATION FOR MRSA TO RIGHT AV FISTULA SITE PER FACILITY PROTOCOL. -FOR FURTHER ORDERS, CONTACT DR. THEODORE'S OFFICE. Objective - Vital Signs/Intake and Output Vital Signs (last 24 hours): Temp Pulse Resp BP Pulse Ox 98.1 F 48 L 13 100/29 L 100 10/23/17 08:00 10/23/17 10:00 10/23/17 08:00 10/23/17 08:00 10/22/17 19:52 Intake and Output: 10/23/17 10/23/17 06:59 18:59 Intake Total 250 Output Total 0 Balance 250 - Medications Medications: Current Medications Acetaminophen (Tylenol 325mg Tab) 325 mg PO Q6H PRN PRN Reason: Pain, moderate (4-7) Last Admin: 10/06/17 12:41 Dose: 325 mg Aspirin (Aspirin Chewable) 81 mg PO DAILY [facility] Last Admin: 10/23/17 09:29 Dose: 81 mg Heparin Sodium (Porcine) (Heparin) 5,000 units SC Q8 [facility] Last Admin: 10/23/17 05:34 Dose: 5,000 units Hydrocortisone Sodium Succinate (Solu-Cortef) 100 mg IV Q8H [facility] Last Admin: 10/23/17 09:28 Dose: 100 mg Meropenem 500 mg/ Sodium (Chloride) 100 mls @ 200 mls/hr IVPB Q12H [facility] Last Admin: 10/23/17 01:10 Dose: 200 mls/hr Colistimethate Sodium 140 mg/ (Sodium Chloride) 100 mls @ 200 mls/hr IV Q36H [facility] Last Admin: 10/23/17 02:06 Dose: 200 mls/hr Insulin Aspart (Novolog) 0 unit SC ACHS [facility] PRN Reason: Protocol Last Admin: 10/23/17 07:44 Dose: 1 unit Midodrine (Proamatine) 10 mg PO TID [facility] Last Admin: 10/23/17 09:30 Dose: 10 mg Pantoprazole Sodium (Protonix Ec Tab) 40 mg PO DAILY [facility] Last Admin: 10/23/17 09:30 Dose: 40 mg Sevelamer Carbonate (Renvela) 1,600 mg PO TTS [facility] Last Admin: 10/23/17 09:29 Dose: 1,600 mg Vitamin B Complex/Vit C/Folic Acid (Nephro-Mark) 1 tab PO DAILY [facility] Last Admin: 10/23/17 10:54 Dose: 1 tab - Labs Labs: 10/22/17 06:27 10/21/17 06:21 PT 15.6 SECONDS (9.7-12.2) H 10/17/17 06:53 INR 1.4 10/17/17 06:53 APTT 42 SECONDS (21-34) H 10/17/17 06:53
[2017-10-23 12:05] VITALS: BP 153/37; PULSE 55; RESP 10; TEMP 97.9
--- NOTE | 2017-10-23 13:46 | PCM.HF ---
Heart Failure Core Measure - Heart Failure Ejection Fraction: 40 % or Greater (echo done in August 2017) RUBENS Inhibitor Prescribed: No Contraindication/Reason for not providing: esrd Beta-Adarsh Prescribed: None Contraindication/Reason for not providing: episodes of bradycardia and hypotension Angiotensin II Receptor Adarsh Prescribed: No Contraindication/Reason for not providing: esrd AnticoagulationTherapy for Atrial Fibrillation/Atrialflutter: No Contraindication/Reason for not providing: no afib Aldosterone Antagonist Prescribed: No Contraindication/Reason for not providing: esrd; hypotension; ef "normal" on last echo Hydralazine Nitrate Prescribed: No Contraindication/Reason for not providing: esrd; hypotension; ef "normal" on last echo Implantable Cardioverter Defibrillator Therapy: No Contraindication/Reason for not providing: no h/o; ef "normal" on last echo Cardiac Resynchronization Therapy Prescribed: No Contraindication/Reason for not providing: no h/o; ef "normal" on last echo - Follow up Will be discharged to: Long-Term Facility ([facility] under dr. shaina hernandez's service) Follow Up Date (must be within 7 days from discharge): 10/24/17 Follow Up Time: 09:00
--- NOTE | 2017-10-23 16:32 | CP.PCM.PN ---
Subjective - Date & Time of Evaluation Date of Evaluation: 10/23/17 Objective - Vital Signs/Intake and Output Vital Signs (last 24 hours): Temp Pulse Resp BP Pulse Ox 97.9 F 55 L 10 L 153/37 H 100 10/23/17 12:00 10/23/17 12:00 10/23/17 12:00 10/23/17 12:00 10/22/17 19:52 Intake and Output: 10/23/17 10/23/17 06:59 18:59 Intake Total 250 Output Total 0 Balance 250 - Labs Labs: 10/22/17 06:27 10/21/17 06:21 PT 15.6 SECONDS (9.7-12.2) H 10/17/17 06:53 INR 1.4 10/17/17 06:53 APTT 42 SECONDS (21-34) H 10/17/17 06:53 Assessment and Plan (1) ESRD on hemodialysis Status: Acute (2) Fever Status: Acute (3) Tachycardia Status: Acute (4) Bacteremia Status: Acute (5) CHF exacerbation Status: Acute (6) Dyspnea Status: Acute (7) ESRD (end stage renal disease) on dialysis Status: Acute (8) High cholesterol Status: Acute (9) Hypotension Status: Acute (10) Pneumonia Status: Acute (11) Prophylactic measure Status: Acute (12) Sepsis Status: Acute (13) Septic shock Status: Acute (14) UTI (urinary tract infection), bacterial Status: Acute (15) CHF (congestive heart failure) Status: Chronic (16) Diabetes mellitus Status: Chronic (17) ESRD (end stage renal disease) Status: Chronic (18) HTN (hypertension) Status: Chronic - Assessment and Plan (Free Text) Plan: 4 discharged to LTAC Continue same Hemodialysis As ordered Discussed with the family Discussed with the staff Continue IV antibiotic As ordered
== END 2017-10-23 15:27 | DRG 252 ==
LOC: C.ER 20:07 → C.9E 22:56 → C.3T 10-04 14:47 → C.6T 10-09 22:30 → C.9I 10-17 23:11
PROVIDERS: ADMIT Internal Medicine Nephrology; ATTEND Internal Medicine Nephrology
PROC: 05HB33Z Insertion of Infusion Device into Right Basilic Vein, Percutaneous Approach (ICD-10-PCS; 2017-10-04)
PROC: B54MZZA Ultrasonography of Right Upper Extremity Veins, Guidance (ICD-10-PCS; 2017-10-04)
PROC: 5A1D70Z Performance of Urinary Filtration, Intermittent, Less than 6 Hours Per Day (ICD-10-PCS; 2017-10-05)
PROC: 02HV33Z Insertion of Infusion Device into Superior Vena Cava, Percutaneous Approach (ICD-10-PCS; 2017-10-05)
PROC: B518ZZA Fluoroscopy of Superior Vena Cava, Guidance (ICD-10-PCS; 2017-10-05)
PROC: 05753DZ Dilation of Right Subclavian Vein with Intraluminal Device, Percutaneous Approach (ICD-10-PCS; principal; 2017-10-19)
PROC: B50WYZZ Plain Radiography of Dialysis Shunt/Fistula using Other Contrast (ICD-10-PCS; 2017-10-19)
PROC: 5A1D70Z Performance of Urinary Filtration, Intermittent, Less than 6 Hours Per Day (ICD-10-PCS; 2017-10-23)
DX: T82.7XXA Infection and inflammatory reaction due to other cardiac and vascular devices, implants and grafts, initial encounter (principal); A41.9 Sepsis, unspecified organism; R65.21 Severe sepsis with septic shock; I13.2 Hypertensive heart and chronic kidney disease with heart failure and with stage 5 chronic kidney disease, or end stage renal disease; N18.6 End stage renal disease; J18.9 Pneumonia, unspecified organism; I82.B11 Acute embolism and thrombosis of right subclavian vein; J44.0 Chronic obstructive pulmonary disease with (acute) lower respiratory infection; N39.0 Urinary tract infection, site not specified; R47.01 Aphasia; T82.868A Thrombosis due to vascular prosthetic devices, implants and grafts, initial encounter; E11.22 Type 2 diabetes mellitus with diabetic chronic kidney disease; E11.51 Type 2 diabetes mellitus with diabetic peripheral angiopathy without gangrene; I50.9 Heart failure, unspecified; E78.00 Pure hypercholesterolemia, unspecified; H54.62 Unqualified visual loss, left eye, normal vision right eye; K21.9 Gastro-esophageal reflux disease without esophagitis; Y83.2 Surgical operation with anastomosis, bypass or graft as the cause of abnormal reaction of the patient, or of later complication, without mention of misadventure at the time of the procedure; Z66 Do not resuscitate; Z51.5 Encounter for palliative care; Z99.2 Dependence on renal dialysis; Z79.4 Long term (current) use of insulin; Z86.14 Personal history of Methicillin resistant Staphylococcus aureus infection; Z86.73 Personal history of transient ischemic attack (TIA), and cerebral infarction without residual deficits; Z89.511 Acquired absence of right leg below knee; Z89.512 Acquired absence of left leg below knee; Z87.01 Personal history of pneumonia (recurrent); Z86.718 Personal history of other venous thrombosis and embolism